=== PATIENT | female | born 1960 | race Caucasian/White ===

== ENCOUNTER 2017-12-03 08:36 | Inpatient (IN) ==
[2017-12-03] MEDS ORDERED: Folic Acid Inj 1 MG/0.2 ML VIAL IV.SIG ONE (08:58)
--- NOTE | 2017-12-03 09:22 | ED ---
HPI General Chief complaint: Nausea/Vomiting/Diarrhea Stated complaint: Vomitting Time Seen by Provider: 12/03/17 08:51 Source: patient, RN notes reviewed and old records reviewed Mode of arrival: ambulatory History of Present Illness HPI narrative: The patient is a 57-year-old heavy daily drinker with COPD and liver cirrhosis came in with complaint of vomiting and diarrhea for the past 2 days. Patient reports blood on both the emesis and diarrhea. She had 7 beers prior to arrival this morning. She lives with her boyfriend. Patient appears disheveled unkempt and chronically ill. Onset (ago): day(s) (2) Pain Consistency: intermittent Associated symptoms: malaise, nausea/vomiting, shortness of breath and weakness Related Data Home Medications Medication Instructions Recorded Confirmed No Known Home Medications 12/03/17 12/03/17 Allergies Allergy/AdvReac Type Severity Reaction Status Date / Time No Known Allergies Allergy Unverified 12/03/17 09:48 Review of Systems ROS Unobtainable All other systems reviewed negative except as stated in HPI Constitutional Reports fatigue, Reports malaise, Reports poor appetite and Reports weakness ENT Reports dry mouth and Reports disequilibrium Cardiovascular Denies chest pain, Reports rapid heart rate, Denies irregular heart rhythm, Reports leg ulcers (And contusions) and Reports leg edema Respiratory Denies chest congestion, Denies pain on inspiration, Denies dyspnea and Reports wheezing Gastrointestinal Reports hematochezia, Reports coffee ground emesis, Reports diarrhea, Reports nausea and Reports hematemesis Integumentary/Breasts Reports rash Comments: BRUISES Neurologic Denies dizziness, Denies tingling and Denies tremor(s) Psychiatric Reports system reviewed and no additional complaints, except as docu ON LICENSE OF [facility] Medical History Medical History Asthma (Acute) Cirrhosis (Acute) Hypertension (Acute) Surgical History Surgical History History of appendectomy (Acute) Social History Social History Substance History: Active Abuse Second Hand Smoke Exposure: Yes Smoking Status: Current every day smoker Tobacco Type: Cigarettes How Often Do You Have a Drink Containing Alcohol: 4 or more times a week Recent Out of Country Travel within the Last 8 Weeks: No Substance Abuse Detail Marijuana: Substance Use Status: Active Route Used Substance Abuse: Inhalation Immunization History Tetanus Immunization: <5 Years Exam Const General: No well groomed, disheveled, ill appearing and intoxicated appearing Nutritional Appearance: cachectic and edematous Orientation: alert, awake and oriented x3 HENMT Other: Jaundiced dry mucous membranes no dry blood in the posterior oropharynx Eyes Pupils: PERRL and accommodation normal EOM: EOM intact bilaterally Other: Scleral icterus Resp Effort & Inspection: normal respiratory effort, able to speak in complete sentences and audible wheezes Cardio Palpation: normal PMI Rate: tachycardic Rhythm: regular rhythm GI Inspection: normal to inspection, no abdominal wall ecchymosis, incision (Right lower quadrant) and striae Palpation: soft, hepatomegaly and nontender Percussion: normal to percussion Other: External hemorrhoid nonthrombosed nonbleeding visible blood expressed from rectum External Female Exam: external appearance normal Skin Other: Patient with multiple areas of ecchymosis bruises severe onychomycosis. Feces dried up on her lower legs. Neuro General: alert, awake and oriented x3 Cranial Nerves: CN's II-XI intact bilaterally Speech: speech normal Sensory Exam: no sensory deficits noted DTR's: Rt Patellar: 0 and Lt Patellar: 0 Course Hospital Course: Elderly hemorrhagic shock with a hemoglobin of 7.6. She was given octreotide 50 mg micrograms IV push Protonix bolus. She she has chronic liver cirrhosis and drinks an excessive amount of beer daily. Patient complaint of pain however because of her blood pressure being low we did not give her any narcotics. Initial Documented Vital Signs Temperature 98.5 F 12/03/17 08:44 Pulse Rate 115 H 12/03/17 08:44 Respiratory Rate 20 12/03/17 08:44 Blood Pressure 111/68 12/03/17 08:44 Last Documented Vital Signs Temperature 98.6 F 12/03/17 13:53 Pulse Rate 92 H 12/03/17 17:04 Respiratory Rate 18 12/03/17 17:04 Blood Pressure 121/70 12/03/17 17:04 Pulse Oximetry 100 12/03/17 17:04 Critical Care Time Critical Care Time: Yes Total Critical Care Time: 30 Attestation: Aggregate critical care time was 30 minutes. Time to perform other separately billable procedures was not included in the critical care time. My time did not include minutes spent treating any other patients simultaneously or on activities that did not directly contribute to the patient's treatment. The services I provided to this patient were to treat and/or prevent clinically significant deterioration that could result in: hemorrhagic shock I provided critical care services requiring my management, as noted below: Chart data review, documentation time, medication orders and management, vital sign assessments/reviewing monitor data, ordering and reviewing lab tests, ordering and interpreting/reviewing x-rays and diagnostic studies, care of the patient and discussion of the patient with the admitting physicians. Medical Decision Making MDM Narrative Medical decision making narrative: Patient with hemorrhagic shock secondary to GI bleed from likely internal hemorrhoids as well as the fact that she is a chronic alcoholic. She did report hematemesis she did not have any in the emergency department. Lab Data Result diagrams: 12/03/17 18:30 12/03/17 09:15 Lab Results 12/03/17 12/03/17 12/03/17 Range/Units 09:15 09:15 09:15 WBC 6.5 (4.0-11.0) th/mm3 RBC 2.05 L (4.00-5.30) mil/mm3 Hgb 7.6 L (11.6-15.3) gm/dL Hct 22.7 L (35.0-46.0) % MCV 110.8 H (80.0-100.0) fL MCH 36.9 H (27.0-34.0) pg MCHC 33.3 (32.0-36.0) % RDW 16.4 (11.6-17.2) % Plt Count 288 (150-450) th/mm3 MPV 7.7 (7.0-11.0) fL Neut % (Auto) 67.6 (16.0-70.0) % Lymph % (Auto) 24.8 (9.0-44.0) % Houghton % (Auto) 5.3 (0.0-8.0) % Eos % (Auto) 0.8 (0.0-4.0) % Baso % (Auto) 1.5 (0.0-2.0) % Neut # (Auto) 4.4 (1.8-7.7) th/mm3 Lymph # (Auto) 1.6 (1.0-4.8) th/mm3 [place]oughton # (Auto) 0.3 (0.0-0.9) th/mm3 Eos # (Auto) 0.1 (0.0-0.4) th/mm3 Baso # (Auto) 0.1 (0.0-0.2) th/mm3 WBC Differential . Differential Comment Auto diff final PT 11.5 (9.8-11.6) sec INR 1.1 Ratio APTT 22.5 L (24.3-30.1) sec Sodium 132 L (136-145) meq/L Potassium 3.2 L (3.5-5.1) meq/L Chloride 102 (98-107) meq/L Carbon Dioxide 17.1 L (21.0-32.0) meq/L Anion Gap 13 (5-15) meq/L BUN 4 L (7-18) mg/dL Creatinine 0.80 (0.50-1.00) mg/dL Estimated GFR 74 L (>89) mL/min Random Glucose 169 H (74-106) mg/dL Calcium 8.1 L (8.5-10.1) mg/dL Magnesium 1.9 (1.5-2.5) mg/dL Total Bilirubin 0.3 (0.2-1.0) mg/dL AST 25 (15-37) U/L ALT 15 (10-53) U/L Alkaline Phosphatase 78 (45-117) U/L Ammonia (11-32) mcmol/L Total Protein 5.3 L (6.4-8.2) g/dL Albumin 2.2 L (3.4-5.0) g/dL Serum Alcohol Less than 3 (0-5) mg/dL Blood Type Blood Type Recheck Antibody Screen MTS Gel Crossmatch 12/03/17 12/03/17 12/03/17 Range/Units 09:15 09:15 12:02 WBC (4.0-11.0) th/mm3 RBC (4.00-5.30) mil/mm3 Hgb (11.6-15.3) gm/dL Hct (35.0-46.0) % MCV (80.0-100.0) fL MCH (27.0-34.0) pg MCHC (32.0-36.0) % RDW (11.6-17.2) % Plt Count (150-450) th/mm3 MPV (7.0-11.0) fL Neut % (Auto) (16.0-70.0) % Lymph % (Auto) (9.0-44.0) % Houghton % (Auto) (0.0-8.0) % Eos % (Auto) (0.0-4.0) % Baso % (Auto) (0.0-2.0) % Neut # (Auto) (1.8-7.7) th/mm3 Lymph # (Auto) (1.0-4.8) th/mm3 Houghton # (Auto) (0.0-0.9) th/mm3 Eos # (Auto) (0.0-0.4) th/mm3 Baso # (Auto) (0.0-0.2) th/mm3 WBC Differential Differential Comment PT (9.8-11.6) sec INR Ratio APTT (24.3-30.1) sec Sodium (136-145) meq/L Potassium (3.5-5.1) meq/L Chloride (98-107) meq/L Carbon Dioxide (21.0-32.0) meq/L Anion Gap (5-15) meq/L BUN (7-18) mg/dL Creatinine (0.50-1.00) mg/dL Estimated GFR (>89) mL/min Random Glucose (74-106) mg/dL Calcium (8.5-10.1) mg/dL Magnesium (1.5-2.5) mg/dL Total Bilirubin (0.2-1.0) mg/dL AST (15-37) U/L ALT (10-53) U/L Alkaline Phosphatase (45-117) U/L Ammonia 22 (11-32) mcmol/L Total Protein (6.4-8.2) g/dL Albumin (3.4-5.0) g/dL Serum Alcohol (0-5) mg/dL Blood Type A Positive Blood Type Recheck Required Antibody Screen Negative MTS Gel Crossmatch See Detail 12/03/17 12/03/17 Range/Units 15:58 18:30 WBC (4.0-11.0) th/mm3 RBC (4.00-5.30) mil/mm3 Hgb 8.3 L (11.6-15.3) gm/dL Hct (35.0-46.0) % MCV (80.0-100.0) fL MCH (27.0-34.0) pg MCHC (32.0-36.0) % RDW (11.6-17.2) % Plt Count (150-450) th/mm3 MPV (7.0-11.0) fL Neut % (Auto) (16.0-70.0) % Lymph % (Auto) (9.0-44.0) % Houghton % (Auto) (0.0-8.0) % Eos % (Auto) (0.0-4.0) % Baso % (Auto) (0.0-2.0) % Neut # (Auto) (1.8-7.7) th/mm3 Lymph # (Auto) (1.0-4.8) th/mm3 [place]oughton # (Auto) (0.0-0.9) th/mm3 Eos # (Auto) (0.0-0.4) th/mm3 Baso # (Auto) (0.0-0.2) th/mm3 WBC Differential Differential Comment PT (9.8-11.6) sec INR Ratio APTT (24.3-30.1) sec Sodium (136-145) meq/L Potassium (3.5-5.1) meq/L Chloride (98-107) meq/L Carbon Dioxide (21.0-32.0) meq/L Anion Gap (5-15) meq/L BUN (7-18) mg/dL Creatinine (0.50-1.00) mg/dL Estimated GFR (>89) mL/min Random Glucose (74-106) mg/dL Calcium (8.5-10.1) mg/dL Magnesium (1.5-2.5) mg/dL Total Bilirubin (0.2-1.0) mg/dL AST (15-37) U/L ALT (10-53) U/L Alkaline Phosphatase (45-117) U/L Ammonia (11-32) mcmol/L Total Protein (6.4-8.2) g/dL Albumin (3.4-5.0) g/dL Serum Alcohol (0-5) mg/dL Blood Type Blood Type Recheck Antibody Screen MTS Gel Crossmatch See Detail Imaging Data Radiologist's impression: Abdomen X-Ray 12/03/17 08:58 CONCLUSION: Nonspecific bowel gas . Chest X-Ray 12/03/17 08:58 CONCLUSION: No acute cardiopulmonary disease. Discharge Plan Discharge Disposition Patient Disposition: 30 Still Patient Discharge Condition Condition: Critical Discharge Details Diagnosis: Hemorrhagic shock Physicians Team ED Provider: Jas Souza Primary Care Provider: Primary Care Connie Billy Attending Provider: Favian Wylie Other Providers: Anthony Damian Discharge Interventions Interventions: ED Discharge Assessment Last Done: 12/03/17 18:00 Status ED Status: Left Department Discharge Information Discharge Date/Time: 12/03/17 18:01
[2017-12-03] MEDS ORDERED: Octreotide Inj 50 MCG/ML Vial IV.PUSH ONE (09:27)
--- NOTE | 2017-12-03 09:39 | XR ---
EXAM DATE: 12/03/2017 9:35 AM EDT AGE/SEX: 57 years / Female INDICATIONS: Vomiting blood and blood in stool. Possible GI bleed. CLINICAL DATA: This is the patient's initial encounter. Patient reports that signs and symptoms have been present for 3 days and indicates a pain score of 8/10. MEDICAL/SURGICAL HISTORY: None. None. [place] [facility] [place]. . FINDINGS: The lungs are clear without infiltrate, nodule, or mass. There is no appreciable pleural effusion for technique. Heart and mediastinum are unremarkable. CONCLUSION: No acute cardiopulmonary disease. Electronically signed by: Shi Sotelo MD 12/03/2017 9:37 AM EDT
[2017-12-03 09:42] LABS: Baso # (Auto) 0.1 th/mm3 (0.0-0.2); Baso % (Auto) 1.5 % (0.0-2.0); Eos # (Auto) 0.1 th/mm3 (0.0-0.4); Eos % (Auto) 0.8 % (0.0-4.0); Hematocrit 22.7 % (35.0-46.0); Hemoglobin 7.6 gm/dL (11.6-15.3); Lymph # (Auto) 1.6 th/mm3 (1.0-4.8); Lymph % (Auto) 24.8 % (9.0-44.0); Mean Corpuscular HGB Conc 33.3 % (32.0-36.0); Mean Corpuscular Hemoglobin 36.9 pg (27.0-34.0); Mean Corpuscular Volume 110.8 fL (80.0-100.0); Mean Platelet Volume 7.7 fL (7.0-11.0); Mono # (Auto) 0.3 th/mm3 (0.0-0.9); Mono % (Auto) 5.3 % (0.0-8.0); Neut # (Auto) 4.4 th/mm3 (1.8-7.7); Neut % (Auto) 67.6 % (16.0-70.0); Platelet Count 288 th/mm3 (150-450); Red Blood Count 2.05 mil/mm3 (4.00-5.30); Red Cell Distribution Width 16.4 % (11.6-17.2); White Blood Count 6.5 th/mm3 (4.0-11.0)
[2017-12-03 09:46] LABS: Activated Partial Thrombo Time 22.5 sec (24.3-30.1); INR 1.1 Ratio; Prothrombin Time 11.5 sec (9.8-11.6)
--- NOTE | 2017-12-03 09:48 | XR ---
EXAM DATE: 12/03/2017 9:37 AM EDT AGE/SEX: 57 years / Female INDICATIONS: Vomiting blood and blood in stool. Possible GI bleed. CLINICAL DATA: This is the patient's initial encounter. Patient reports that signs and symptoms have been present for 3 days and indicates a pain score of 8/10. MEDICAL/SURGICAL HISTORY: None. None. COMPARISON: No prior exams available for comparison. FINDINGS: The bowel gas is nonspecific. There are no signs of obstruction or free air for technique. No definite calcified stones are identified for technique. Degenerative arthritis is seen in the le ft hip joint to a moderate degree. There is osteopenia. CONCLUSION: Nonspecific bowel gas . Electronically signed by: Shi Sotelo MD 12/03/2017 9:47 AM EDT
[2017-12-03 09:52] LABS: Alanine Aminotransferase 15 U/L (10-53); Albumin 2.2 g/dL (3.4-5.0); Anion Gap 13 meq/L (5-15); Aspartate Aminotransferase 25 U/L (15-37); Blood Urea Nitrogen 4 mg/dL (7-18); Calcium 8.1 mg/dL (8.5-10.1); Carbon Dioxide 17.1 meq/L (21.0-32.0); Chloride 102 meq/L (98-107); Glomerular Filtration Rate 74 mL/min (>89); Glucose,Random 169 mg/dL (74-106); Magnesium 1.9 mg/dL (1.5-2.5); Potassium 3.2 meq/L (3.5-5.1); Sodium 132 meq/L (136-145)
[2017-12-03 09:55] LABS: Alkaline Phosphatase 78 U/L (45-117); Total Protein 5.3 g/dL (6.4-8.2)
[2017-12-03] MEDS ORDERED: SODIUM CHLOR 0.9% IV.SIG ONE (10:00)
[2017-12-03] MEDS ORDERED: FOLIC ACID IV.SIG ONE (10:00)
[2017-12-03] MEDS ORDERED: Sodium Chlor 0.9% Inj 250 ML IV.SIG SCH ×2 (12:00→13:00)
[2017-12-03] MEDS ORDERED: Acetaminophen 500 MG Tablet PO ONE (12:13)
[2017-12-03] MEDS ORDERED: Haloperidol Inj 5 MG/ML Ampul IV.PUSH PRN (13:30)
[2017-12-03] MEDS ORDERED: Potassium Chlor 20 mEq Premix 20 MEQ/100 ML PIGGYBACK IV.SIG PRN (13:39)
[2017-12-03] MEDS ORDERED: Potassium Phosphate Inj 30 MMOL in Sodium Chlor 0.9% Inj 250 ML IV.SIG PRN (13:39)
[2017-12-03] MEDS ORDERED: Sodium Phosphate Inj 30 MMOL in Sodium Chlor 0.9% Inj 250 ML IV.SIG PRN (13:39)
[2017-12-03] MEDS ORDERED: Potassium Phosphate 500 MG Soluble Tablet PO PRN (13:39)
[2017-12-03] MEDS ORDERED: Potassium Chlor 40 mEq Premix 40 MEQ/100 ML PIGGYBACK IV.SIG PRN (13:39)
[2017-12-03] MEDS ORDERED: Magnesium Sulfate Inj 4 GM in Sodium Chlor 0.9% Inj 92 ML IV.SIG PRN (13:39)
[2017-12-03] MEDS ORDERED: Magnesium Oxide 400 MG Tablet PO PRN (13:39)
[2017-12-03] MEDS ORDERED: Magnesium Sulfate Inj 2 GM in Sodium Chlor 0.9% Inj 96 ML IV.SIG PRN (13:39)
--- NOTE | 2017-12-03 15:51 | P.HPCC ---
History of Present Illness Primary Care Physician: No Primary Care Physician Chief Complaint: Hematemesis, hematochezia History of Present Illness: The patient is a 57-year-old female with history of severe alcohol dependence drinking about 20-24 beers daily, alcoholic liver cirrhosis, COPD who presented with complaints of vomiting and diarrhea since last 2 days. Intermittently she had been having hematemesis which she quantifies as approximately a pint. She also noticed fresh blood per rectum. She is a very poor historian and she is unable to tell me when or whether she had any endoscopies before. She admits to having diagnosis of liver cirrhosis. She also admits to drinking about 20-24 to beers daily. ER workup initially patient had a heart rate of 115, indicating early hemorrhagic shock. Hemoglobin was 7.6. Patient was given 1 unit of PRBC and critical care was requested for admission. Patient also received octreotide 50 mcg IV push, Protonix 80 mg bolus and infusion was started at 8 mg/h. GI consult also requested I evaluated the patient in the ED. She complains of abdominal pain appears disheveled critically ill, pale. Remains tachycardic getting first unit of blood transfusion. Will request additional 1 unit PRBC. Rocephin had been added for SBP prophylaxis. I will also start octreotide infusion. - Diagnosis (1) UGIB (upper gastrointestinal bleed) (2) Anemia requiring transfusions (3) Hypokalemia (4) Hyponatremia (5) Alcohol dependence (6) Liver cirrhosis (7) COPD (chronic obstructive pulmonary disease) Inpatient Certification: I certify that the inpatient services were ordered in accordance with Medicare regulations governing the order. This includes certification that hospital inpatient services are reasonable and necessary and in the case of services not specified as inpatient-only under 42 CFR 419.22(n), that they are appropriately provided as inpatient services in accordance to with the 2-midnight benchmark under 43 CFR 412.3(e) Estimated Total Length of Stay (Days): 2 Plans for Post Hospital Care: Home Review of Systems All other systems reviewed negative except as stated in HPI PMFSH - History History Provided By: Patient - Medical History Medical History: Medical History (Last Updated 12/03/17 @ 15:58 by Laurie Fisher MD) Cirrhosis - Surgical History Surgical History: Surgical History (Last Updated 12/03/17 @ 15:56 by Laurie Fisher MD) History of appendectomy - Tobacco History Tobacco Use In Past 30 Days: Yes Smoking Status: Current every day smoker Tobacco Type: Cigarettes - Alcohol History How Often Do You Have a Drink Containing Alcohol: 4 or more times a week - Substance Use History Substance History: Active Abuse - Substance Use Type Marijuana Status: Active Route Used: Inhalation - Travel History Recent Travel Out of the Country Within the Last 8 Weeks: No - Immunization History Tetanus Immunization: <5 Years Medications and Allergies Active Medications: Active Medications Albuterol (Duoneb Neb (Prn)) 1 ampul NEB Q2HR NEB PRN PRN Reason: WHEEZING Chlorhexidine Gluconate (Chlorhexidine 2% Cloth) 3 pack TOPICAL DAILY@0400 NILA Stop: 12/09/17 03:59 Chlorhexidine Gluconate (Chlorhexidine 2% Cloth) 3 pack TOPICAL DAILY@0400 PRN PRN Reason: Extra cloth needed Stop: 12/09/17 03:59 Flumazenil (Romazecon Inj) 0.2 mg IV.PUSH Q1M PRN PRN Reason: OVERSEDATION Haloperidol Lactate (Haldol Inj) 1 mg IV.PUSH Q15M PRN PRN Reason: for severe agitation Sodium Chloride (Ns Inj) 250 mls @ 15 mls/hr IV.SIG ONCE NILA Stop: 12/04/17 04:39 Sodium Chloride (Ns Inj) 250 mls @ 15 mls/hr IV.SIG ONCE NILA Stop: 12/04/17 05:39 Sodium Chloride (Ns Inj) 1,000 mls @ 84 mls/hr IV.CONT .[id number] NILA Pantoprazole Sodium 80 mg/ (Sodium Chloride) 100 mls @ 10 mls/hr IV.CONT CONT NILA Ceftriaxone Sodium 1,000 mg/ (Sodium Chloride) 100 mls @ 200 mls/hr IV.SIG Q24H NILA Magnesium Sulfate Inj 4 gm/ (Sodium Chloride) 100 mls @ 50 mls/hr IV.SIG UNSCH PRN PRN Reason: For Magnesium 0.9 - 1.1 mg/dL Magnesium Sulfate Inj 2 gm/ (Sodium Chloride) 100 mls @ 50 mls/hr IV.SIG UNSCH PRN PRN Reason: For Magnesium 1.2 - 1.6 mg/dL Potassium Chloride (Kcl 40 Meq Premix Inj) 40 meq in 100 mls @ 50 mls/hr IV.SIG Q2H PRN PRN Reason: For Potassium 2.8 - 3.2 mEq/L Potassium Chloride (Kcl 20 Meq Premix Inj) 20 meq in 100 mls @ 50 mls/hr IV.SIG Q2H PRN PRN Reason: For Potassium 3.3 - 3.5 mEq/L Potassium Chloride (Kcl 40 Meq Premix Inj) 40 meq in 100 mls @ 25 mls/hr IV.SIG UNSCH PRN PRN Reason: For Potassium 3.3 - 3.5 mEq/L Potassium Chloride (Kcl 20 Meq Premix Inj) 20 meq in 100 mls @ 50 mls/hr IV.SIG Q2H PRN PRN Reason: For Potassium 2.8 - 3.2 mEq/L Potassium Phosphate 30 mmol/ (Sodium Chloride) 260 mls @ 42 mls/hr IV.SIG UNSCH PRN PRN Reason: SEE LABEL COMMENTS Sodium Phosphate 30 mmol/ (Sodium Chloride) 260 mls @ 42 mls/hr IV.SIG UNSCH PRN PRN Reason: For Phosphorus < 2.5 mg/dL Octreotide Acetate 500 mcg/ (Sodium Chloride) 500.5 mls @ 25.02 mls/hr IV.CONT .Q20H1M NILA Multivitamins 10 ml/ Thiamine HCl 100 mg/ Folic Acid 1 mg/Sodium Chloride 511.2 mls @ 125 mls/hr IV.SIG Q24H NILA Stop: 12/05/17 20:06 Lorazepam (Ativan) 1 mg PO Q4H PRN PRN Reason: for CIWA 8-10 Lorazepam (Ativan) 2 mg PO Q2H PRN PRN Reason: for CIWA 11-14 Lorazepam (Ativan Inj) 2 mg IV.PUSH Q2H PRN PRN Reason: for CIWA 11-14 Lorazepam (Ativan Inj) 2 mg IV.PUSH Q1H PRN PRN Reason: for CIWA 15-20 Lorazepam (Ativan Inj) 2 mg IV.PUSH Q15M PRN PRN Reason: for CIWA > 20 Lorazepam (Ativan Inj) 1 mg IV.PUSH Q4H PRN PRN Reason: for CIWA 8-10 Magnesium Oxide (Mag-Ox) 800 mg PO UNSCH PRN PRN Reason: For Magnesium 1.2 - 1.6 mg/dL Morphine Sulfate (Morphine Inj) 2 mg IV.PUSH Q2H PRN PRN Reason: PAIN SCALE 6 TO 10 Ondansetron HCl (Zofran Odt) 4 mg PO Q6H PRN PRN Reason: NAUSEA OR VOMITING Potassium Bicarb/Potassium Chloride (K-Lyte Cl Eff) 50 meq PO UNSCH PRN PRN Reason: For Potassium 3.3 - 3.5 mEq/L Potassium Phosphate (K-Phos Original) 2,000 mg PO Q4H PRN PRN Reason: Phosphorus Less Than 2.5 mg/dL Potassium Phosphate (K-Phos Original) 2,000 mg PO UNSCH PRN PRN Reason: SEE LABEL COMMENTS Sodium Chloride (Ns Flush) 2 ml IV.FLUSH BID NILA Sodium Chloride (Ns Flush) 2 ml IV.FLUSH UNSCH PRN PRN Reason: FLUSH AFTER USING IV ACCESS Allergies Allergy/AdvReac Type Severity Reaction Status Date / Time No Known Allergies Allergy Unverified 12/03/17 09:48 Home Medications Medication Instructions Recorded Confirmed Type No Known Home Medications 12/03/17 12/03/17 History Results - Labs CBC & Chem 7: 12/03/17 09:15 12/03/17 09:15 Labs: Short CBC 12/03/17 Range/Units 09:15 WBC 6.5 (4.0-11.0) th/mm3 Hgb 7.6 L (11.6-15.3) gm/dL Hct 22.7 L (35.0-46.0) % Plt Count 288 (150-450) th/mm3 BMP 12/03/17 09:15 Sodium 132 L Potassium 3.2 L Chloride 102 Carbon Dioxide 17.1 L BUN 4 L Creatinine 0.80 Calcium 8.1 L Liver Function 12/03/17 Range/Units 09:15 Total Bilirubin 0.3 (0.2-1.0) mg/dL AST 25 (15-37) U/L ALT 15 (10-53) U/L Alkaline Phosphatase 78 (45-117) U/L Albumin 2.2 L (3.4-5.0) g/dL - Imaging Impressions Abdomen X-Ray 12/03/17 08:58 CONCLUSION: Nonspecific bowel gas . Chest X-Ray 12/03/17 08:58 CONCLUSION: No acute cardiopulmonary disease. Exam Vital signs: Vital Signs 12/03/17 08:44 12/03/17 10:29 12/03/17 11:21 Temperature 98.5 F 98.4 F Pulse Rate 115 H 108 H 112 H Respiratory Rate 20 18 16 Blood Pressure 111/68 124/70 95/62 L Pulse Oximetry 95 12/03/17 12:42 12/03/17 12:54 12/03/17 13:10 Temperature 97.6 F 98.2 F 98 F Pulse Rate 107 H 99 H 100 H Respiratory Rate 16 18 18 Blood Pressure 102/66 118/64 108/62 Pulse Oximetry 100 100 100 12/03/17 13:26 12/03/17 13:53 12/03/17 14:27 Temperature 98.5 F 98.6 F Pulse Rate 98 H 100 H 101 H Respiratory Rate 18 18 18 Blood Pressure 119/58 L 100/59 L 115/59 L Pulse Oximetry 100 Intake & Output 12/02/17 12/03/17 12/03/17 18:59 06:59 18:59 Intake Total 0 / 0 Balance 0 / 0 Intake: Intake (Blood Product) Amt 0 / 0 Rbc As-3 Leukoreduced Unit 0 / 0 [id number] Narrative: General: Critically ill disheveled lady who appears pale HEENT: PERRL and EOM intact bilaterally. Conjunctiva pale NECK: Supple. LUNGS: Bilateral coarse breath sounds, no crackles or wheezes HEART: S1 and S2 normal, tachycardic, systolic murmur left sternal border ABDOMEN: Soft. No hepatosplenomegaly EXTREMITIES: No pedal edema. NEUROLOGIC: Patient is alert awake oriented. She is a poor historian but there is no focal neurological deficits. Septic Shock Reassessment Septic shock perfusion: reassessment completed Caprini VTE Risk Assessment Caprini VTE Risk Assessment: Moderate/High Risk (score >= 2) Caprini Risk Assessment Model: Point Value = 1 Point Value = 2 Point Value = 3 Point Value = 5 Age 41-60 Minor surgery BMI > 25 kg/m2 Swollen legs Varicose veins or History of unexplained or recurrent spontaneous Oral contraceptives or hormone replacement Sepsis (< 1 month) Serious lung disease, including pneumonia (< 1 month) Abnormal pulmonary function Acute myocardial infarction Congestive heart failure (< 1 month) History of inflammatory bowel disease Medical patient at bed rest Age 61-74 Arthroscopic surgery Major open surgery (> 45 min) Laparoscopic surgery (> 45 min) Malignancy Confined to bed (> 72 hours) Immobilizing plaster cast Central venous access Age >= 75 History of VTE Family history of VTE Factor V Leiden Prothrombin [id number] Lupus anticoagulant Anticardiolipin antibodies Elevated serum homocysteine Heparin-induced thrombocytopenia Other congenital or acquired thrombophilia Stroke (< 1 month) Elective arthroplasty Hip, pelvis, or leg fracture Acute spinal cord injury (< 1 month) Prophylaxis Regimen: Total Risk Factor Score Risk Level Prophylaxis Regimen 0-1 Low Early ambulation 2 Moderate Order ONE of the following: *Sequential Compression Device (SCD) *Heparin 5000 units SQ BID 3-4 Higher Order ONE of the following medications: *Heparin 5000 units SQ TID *Enoxaparin/Lovenox 40 mg SQ daily (WT < 150 kg, CrCl > 30 mL/min) *Enoxaparin/Lovenox 30 mg SQ daily (WT < 150 kg, CrCl > 10-29 mL/min) *Enoxaparin/Lovenox 30 mg SQ BID (WT < 150 kg, CrCl > 30 mL/min) AND/OR *Sequential Compression Device (SCD) 5 or more Highest Order ONE of the following medications: *Heparin 5000 units SQ TID (Preferred with Epidurals) *Enoxaparin/Lovenox 40 mg SQ daily (WT < 150 kg, CrCl > 30 mL/min) *Enoxaparin/Lovenox 30 mg SQ daily (WT < 150 kg, CrCl > 10-29 mL/min) *Enoxaparin/Lovenox 30 mg SQ BID (WT < 150 kg, CrCl > 30 mL/min) AND *Sequential Compression Device (SCD) Assessment and Plan - Problem List (1) UGIB (upper gastrointestinal bleed) Code(s): K92.2 - Gastrointestinal hemorrhage, unspecified Status: Acute (2) Anemia requiring transfusions Code(s): D64.9 - Anemia, unspecified Status: Acute (3) Hypokalemia Code(s): E87.6 - Hypokalemia Status: Acute (4) Hyponatremia Code(s): E87.1 - Hypo-osmolality and hyponatremia Status: Acute (5) Alcohol dependence Code(s): F10.20 - Alcohol dependence, uncomplicated Status: Chronic (6) Liver cirrhosis Code(s): K74.60 - Unspecified cirrhosis of liver Status: Chronic (7) COPD (chronic obstructive pulmonary disease) Code(s): J44.9 - Chronic obstructive pulmonary disease, unspecified Status: Chronic - Assessment and Plan Plan: NEURO: Alcohol dependence -Watch closely for alcohol withdrawal -Seizure precautions -[facility] protocol -Supplement multivitamin thiamine RESP: History of COPD -DuoNeb every 6 hours as needed -Aggressive pulmonary toilet CV: Tachycardia secondary to early shock -Normal saline IV fluids bolus and maintenance at 84 mL/h -Monitor vitals closely GI/HEME: Upper and lower GI bleed Anemia requiring transfusion -N.p.o., Protonix 80 mg IV bolus and 8 mg/h -Rocephin for SBP prophylaxis -Octreotide 50 mcg IV 50 mcg/h infusion -GI consult placed -Transfuse PRBC to keep hemoglobin more than 8, at this time give 2 units -Monitor H&H and coags closely : -Monitor renal function closely. ID: -Rocephin for SBP prophylaxis ENDO: Hypokalemia Hyponatremia Hyperglycemia -Electrolyte replacement per protocol -Sliding scale insulin PROPH: -Bilateral lower extremity SCDs. Protonix infusion. Chemical DVT prophylaxis contraindicated LINES: -Utilize peripheral IVs, central line if needed CC time 35 min Code Status: Full
[2017-12-03] MEDS ORDERED: Multivitamin Inj 10 ML, Thiamine Inj 100 MG, Folic Acid Inj 1 MG in Sodium Chlor 0.9% I... IV.SIG SCH ×2 (16:00→18:00)
[2017-12-03] MEDS ORDERED: Octreotide Inj 500 MCG in Sodium Chlor 0.9% Inj 500 ML IV.CONT SCH (16:00)
[2017-12-03] MEDS: Sod Chloride 0.9% Inj 1,000 ML IV.CONT SCH (16:41)
--- NOTE | 2017-12-03 17:35 | P.CONGI ---
History of Present Illness Consult date: 12/03/17 Consult reason: Possible upper GI bleed in alcoholic patient Chief complaint: GI Bleed, Hemorrhagic Shock History of Present Illness: This is a ready borderline frail 57-year-old female with a long history of alcohol abuse since her teen years. She came into the hospital with generalized weakness and fatigue as well as hematemesis 1 event in the past 24 hours and 1 event of maroon-colored rectal bleeding in the past 24-48 hours. Patient denies any previous events of hematemesis , but patient does state history of hemorrhoids. She currently denies any straining with defecation. Patient is awake and attempting to answer some simple questions but is a poor historian on any previous GI procedures and timing of situation. Gastroenterology was consulted to assist in her care for possible upper GI bleed in the alcoholic patient. Other current symptoms include epigastric tenderness to light palpation, dull generalized abdominal pain worse in the right upper quadrant in the mid abdomen unrelated to eating. Patient states that she was really drunk and fell on the driveway 2-3 days ago. She states her abdominal pain and generalized muscle skeletal pain has worsened over the past 2-3 days. Aggregating factors include 20-24 beers a day. Patient does note she quit drinking liquor approximately 1 year ago. Patient does smoke since her early teen years and states she is starting to have cravings. According to the record patient has history of liver cirrhosis but currently has normal bilirubin at 0.3, and normal LFT levels, 25 AST 13 ALT. abdominal x- rays unremarkable without obstruction. Labs currently show hemoglobin 7.6, WBC count 6.5, PT/INR 1.1. Patient also notes generalized weakness and fatigue and no syncopal episodes. Patient denies any family history known to her of colon cancer. Review of Systems All other systems reviewed negative except as stated in HPI PMFSH - History History Provided By: Patient - Medical History Medical History: Medical History (Last Updated 12/03/17 @ 15:58 by Laurie Fisher MD) Cirrhosis - Surgical History Surgical History: Surgical History (Last Updated 12/03/17 @ 15:56 by Laurie Fisher MD) History of appendectomy - Tobacco History Tobacco Use In Past 30 Days: Yes Smoking Status: Current every day smoker Tobacco Type: Cigarettes - Alcohol History How Often Do You Have a Drink Containing Alcohol: 4 or more times a week - Substance Use History Substance History: Active Abuse - Substance Use Type Marijuana Status: Active Route Used: Inhalation - Travel History Recent Travel Out of the Country Within the Last 8 Weeks: No - Immunization History Tetanus Immunization: <5 Years Medications and Allergies Active Medications: Active Medications Albuterol (Duoneb Neb (Prn)) 1 ampul NEB Q2HR NEB PRN PRN Reason: WHEEZING Chlorhexidine Gluconate (Chlorhexidine 2% Cloth) 3 pack TOPICAL DAILY@0400 NILA Stop: 12/09/17 03:59 Chlorhexidine Gluconate (Chlorhexidine 2% Cloth) 3 pack TOPICAL DAILY@0400 PRN PRN Reason: Extra cloth needed Stop: 12/09/17 03:59 Flumazenil (Romazecon Inj) 0.2 mg IV.PUSH Q1M PRN PRN Reason: OVERSEDATION Haloperidol Lactate (Haldol Inj) 1 mg IV.PUSH Q15M PRN PRN Reason: for severe agitation Sodium Chloride (Ns Inj) 250 mls @ 15 mls/hr IV.SIG ONCE NILA Stop: 12/04/17 04:39 Last Admin: 12/03/17 16:20 Dose: Not Given Sodium Chloride (Ns Inj) 250 mls @ 15 mls/hr IV.SIG ONCE NILA Stop: 12/04/17 05:39 Last Admin: 12/03/17 16:20 Dose: Not Given Sodium Chloride (Ns Inj) 1,000 mls @ 84 mls/hr IV.CONT .[id number] [facility] Last Admin: 12/03/17 16:41 Dose: 84 mls/hr Pantoprazole Sodium 80 mg/ (Sodium Chloride) 100 mls @ 10 mls/hr IV.CONT CONT NILA Ceftriaxone Sodium 1,000 mg/ (Sodium Chloride) 100 mls @ 200 mls/hr IV.SIG Q24H [facility] Last Admin: 12/03/17 16:42 Dose: 200 mls/hr Magnesium Sulfate Inj 4 gm/ (Sodium Chloride) 100 mls @ 50 mls/hr IV.SIG UNSCH PRN PRN Reason: For Magnesium 0.9 - 1.1 mg/dL Magnesium Sulfate Inj 2 gm/ (Sodium Chloride) 100 mls @ 50 mls/hr IV.SIG UNSCH PRN PRN Reason: For Magnesium 1.2 - 1.6 mg/dL Potassium Chloride (Kcl 40 Meq Premix Inj) 40 meq in 100 mls @ 50 mls/hr IV.SIG Q2H PRN PRN Reason: For Potassium 2.8 - 3.2 mEq/L Potassium Chloride (Kcl 20 Meq Premix Inj) 20 meq in 100 mls @ 50 mls/hr IV.SIG Q2H PRN PRN Reason: For Potassium 3.3 - 3.5 mEq/L Potassium Chloride (Kcl 40 Meq Premix Inj) 40 meq in 100 mls @ 25 mls/hr IV.SIG UNSCH PRN PRN Reason: For Potassium 3.3 - 3.5 mEq/L Potassium Chloride (Kcl 20 Meq Premix Inj) 20 meq in 100 mls @ 50 mls/hr IV.SIG Q2H PRN PRN Reason: For Potassium 2.8 - 3.2 mEq/L Potassium Phosphate 30 mmol/ (Sodium Chloride) 260 mls @ 42 mls/hr IV.SIG UNSCH PRN PRN Reason: SEE LABEL COMMENTS Sodium Phosphate 30 mmol/ (Sodium Chloride) 260 mls @ 42 mls/hr IV.SIG UNSCH PRN PRN Reason: For Phosphorus < 2.5 mg/dL Octreotide Acetate 500 mcg/ (Sodium Chloride) 500.5 mls @ 25.02 mls/hr IV.CONT .Q20H1M NILA Multivitamins 10 ml/ Thiamine HCl 100 mg/ Folic Acid 1 mg/Sodium Chloride 511.2 mls @ 125 mls/hr IV.SIG Q24H NILA Stop: 12/05/17 20:06 Lorazepam (Ativan) 1 mg PO Q4H PRN PRN Reason: for CIWA 8-10 Lorazepam (Ativan) 2 mg PO Q2H PRN PRN Reason: for CIWA 11-14 Lorazepam (Ativan Inj) 2 mg IV.PUSH Q2H PRN PRN Reason: for CIWA 11-14 Lorazepam (Ativan Inj) 2 mg IV.PUSH Q1H PRN PRN Reason: for CIWA 15-20 Lorazepam (Ativan Inj) 2 mg IV.PUSH Q15M PRN PRN Reason: for CIWA > 20 Lorazepam (Ativan Inj) 1 mg IV.PUSH Q4H PRN PRN Reason: for CIWA 8-10 Magnesium Oxide (Mag-Ox) 800 mg PO UNSCH PRN PRN Reason: For Magnesium 1.2 - 1.6 mg/dL Morphine Sulfate (Morphine Inj) 2 mg IV.PUSH Q2H PRN PRN Reason: PAIN SCALE 6 TO 10 Ondansetron HCl (Zofran Odt) 4 mg PO Q6H PRN PRN Reason: NAUSEA OR VOMITING Potassium Bicarb/Potassium Chloride (K-Lyte Cl Eff) 50 meq PO UNSCH PRN PRN Reason: For Potassium 3.3 - 3.5 mEq/L Potassium Phosphate (K-Phos Original) 2,000 mg PO Q4H PRN PRN Reason: Phosphorus Less Than 2.5 mg/dL Potassium Phosphate (K-Phos Original) 2,000 mg PO UNSCH PRN PRN Reason: SEE LABEL COMMENTS Sodium Chloride (Ns Flush) 2 ml IV.FLUSH BID NILA Sodium Chloride (Ns Flush) 2 ml IV.FLUSH UNSCH PRN PRN Reason: FLUSH AFTER USING IV ACCESS Allergies Allergy/AdvReac Type Severity Reaction Status Date / Time No Known Allergies Allergy Unverified 12/03/17 09:48 Home Medications Medication Instructions Recorded Confirmed Type No Known Home Medications 12/03/17 12/03/17 History Exam Vital signs: Vital Signs 12/03/17 08:44 12/03/17 10:29 12/03/17 11:21 Temperature 98.5 F 98.4 F Pulse Rate 115 H 108 H 112 H Respiratory Rate 20 18 16 Blood Pressure 111/68 124/70 95/62 L Pulse Oximetry 95 12/03/17 12:42 12/03/17 12:54 12/03/17 13:10 Temperature 97.6 F 98.2 F 98 F Pulse Rate 107 H 99 H 100 H Respiratory Rate 16 18 18 Blood Pressure 102/66 118/64 108/62 Pulse Oximetry 100 100 100 12/03/17 13:26 12/03/17 13:53 12/03/17 14:27 Temperature 98.5 F 98.6 F Pulse Rate 98 H 100 H 101 H Respiratory Rate 18 18 18 Blood Pressure 119/58 L 100/59 L 115/59 L Pulse Oximetry 100 12/03/17 17:04 Temperature Pulse Rate 92 H Respiratory Rate 18 Blood Pressure 121/70 Pulse Oximetry 100 Intake & Output 12/02/17 12/03/17 12/03/17 18:59 06:59 18:59 Intake Total 400 / 400 Balance 400 / 400 Intake: Intake (Blood Product) Amt 400 / 400 Rbc As-3 Leukoreduced Unit 400 / 400 [id number] - Constitutional mild distress, thin, cachectic - Routine HEENT Exam Head: Present: normocephalic ENT: Present: mucous membranes dry - Routine Neck Exam Present: supple - Routine Abdominal Exam Present: soft (Round, tall,), tenderness (Generalized right upper quadrant epigastric and mid abdominal dull ache with some sharp pains off and on unrelated to eating) - Routine Skin Exam Present: dry, petechiae (On extremities) - Routine Neurological Exam Present: altered mental status (Poor historian but is answering some simple yes/ no questions) Results - Labs CBC & Chem 7: 12/03/17 09:15 12/03/17 09:15 Labs: Laboratory Results - last 24 hr 12/03/17 12/03/17 12/03/17 09:15 09:15 09:15 WBC 6.5 RBC 2.05 L Hgb 7.6 L Hct 22.7 L MCV 110.8 H MCH 36.9 H MCHC 33.3 RDW 16.4 Plt Count 288 MPV 7.7 Neut % (Auto) 67.6 Lymph % (Auto) 24.8 Giles % (Auto) 5.3 Eos % (Auto) 0.8 Baso % (Auto) 1.5 Neut # (Auto) 4.4 Lymph # (Auto) 1.6 Giles # (Auto) 0.3 Eos # (Auto) 0.1 Baso # (Auto) 0.1 WBC Differential . Differential Comment Auto diff final PT 11.5 INR 1.1 APTT 22.5 L Sodium 132 L Potassium 3.2 L Chloride 102 Carbon Dioxide 17.1 L Anion Gap 13 BUN 4 L Creatinine 0.80 Estimated GFR 74 L Random Glucose 169 H Calcium 8.1 L Magnesium 1.9 Total Bilirubin 0.3 AST 25 ALT 15 Alkaline Phosphatase 78 Ammonia Total Protein 5.3 L Albumin 2.2 L Serum Alcohol Less than 3 Blood Type Blood Type Recheck Antibody Screen MTS Gel Crossmatch 12/03/17 12/03/17 12/03/17 09:15 09:15 12:02 WBC RBC Hgb Hct MCV MCH MCHC RDW Plt Count MPV Neut % (Auto) Lymph % (Auto) Giles % (Auto) Eos % (Auto) Baso % (Auto) Neut # (Auto) Lymph # (Auto) Giles # (Auto) Eos # (Auto) Baso # (Auto) WBC Differential Differential Comment PT INR APTT Sodium Potassium Chloride Carbon Dioxide Anion Gap BUN Creatinine Estimated GFR Random Glucose Calcium Magnesium Total Bilirubin AST ALT Alkaline Phosphatase Ammonia 22 Total Protein Albumin Serum Alcohol Blood Type A Positive Blood Type Recheck Required Antibody Screen Negative MTS Gel Crossmatch See Detail 12/03/17 15:58 WBC RBC Hgb Hct MCV MCH MCHC RDW Plt Count MPV Neut % (Auto) Lymph % (Auto) Giles % (Auto) Eos % (Auto) Baso % (Auto) Neut # (Auto) Lymph # (Auto) Giles # (Auto) Eos # (Auto) Baso # (Auto) WBC Differential Differential Comment PT INR APTT Sodium Potassium Chloride Carbon Dioxide Anion Gap BUN Creatinine Estimated GFR Random Glucose Calcium Magnesium Total Bilirubin AST ALT Alkaline Phosphatase Ammonia Total Protein Albumin Serum Alcohol Blood Type Blood Type Recheck Antibody Screen MTS Gel Crossmatch See Detail - Imaging Impressions Abdomen X-Ray 12/03/17 08:58 CONCLUSION: Nonspecific bowel gas . Chest X-Ray 12/03/17 08:58 CONCLUSION: No acute cardiopulmonary disease. Assessment and Plan (1) Rectal bleed Status: Acute Code(s): K62.5 - Hemorrhage of anus and rectum (2) UGIB (upper gastrointestinal bleed) Status: Acute Code(s): K92.2 - Gastrointestinal hemorrhage, unspecified (3) Anemia requiring transfusions Status: Acute Code(s): D64.9 - Anemia, unspecified (4) Alcohol dependence Status: Chronic Code(s): F10.20 - Alcohol dependence, uncomplicated - Plan Symptomatic anemia with symptoms of weakness and fatigue. History of long-term EtOH abuse since her teen years and notes currently drinks 20-24 beers a day. She states she quit drinking liquor 1 year ago and has been told that she has liver cirrhosis. She currently does not remember any GI workup or GI group working with her but thinks that she has had an EGD and colonoscopy in the past. She thinks it may have been in the hospital, very poor historian. Current hemoglobin 7.6 patient is being prepared for transfusion. Maroon-colored rectal bleeding 1. Patient has history of hemorrhoids but denies any straining with defecation. States the rectal bleeding was 1 event in the past 24 hours and noted it to be maroon colored blood surrounding the stool. Epigastric pain and tenderness to light palpation and at rest dull ache Generalized abdominal pain mid quadrant as well as right upper quadrant. Patient is again long-term alcoholic and has been told that she has history of liver cirrhosis but current bilirubin normal as well as normal LFT levels. Long-term alcoholism which could explain her acute on chronic symptomatic anemia. Patient's skin is dry with petechiae noted on her extremities. Current PT/INR 1.1 no current scleral icterus noted 57-year-old female who looks older than her stated age is resting in the bed answering some simple questions but is a very poor historian. No family history that she knows of of colon cancer. Currently is a daily tobacco and alcohol user as described. Also had a fall in her driveway 2-3 days ago that she blamed on being drunk and does note one episode of rectal bleeding maroon stool and hematemesis 1 in the past 24 hours around up she states. This could be related to esophageal varices and will need further evaluation per the GI team. Patient does appear weakened and is being prepared for transfusion. GI procedures EGD and colonoscopy have been explained to patient. Plan Diet clear liquids until midnight GoLYTELY prep ADRI this p.m. encourage patient to drink full amount. Consent for EGD with possible variceal banding and colonoscopy in a.m. N.p.o. at midnight Monitor hemoglobin and other labs and transfuse as necessary PPI Anti-emetics Further recommendations to follow Patient was seen per myself and Dr. Damian, this note was written on his behalf
[2017-12-03] MEDS ORDERED: PEG 3350/E-Lyte Soln 4000 ML Bottle PO ONE (18:00)
[2017-12-03] MEDS: Octreotide Inj 500 MCG in Sodium Chlor 0.9% Inj 500 ML IV.CONT SCH (18:31)
[2017-12-03] MEDS: Morphine Inj 4 MG/ML Vial IV.PUSH PRN ×2 (19:50→22:01)
[2017-12-03] MEDS ORDERED: Famotidine 20 MG Tablet PO SCH (21:00)
[2017-12-03] MEDS: Potassium Chlor 20 mEq Premix 20 MEQ/100 ML PIGGYBACK IV.SIG PRN (21:50)
[2017-12-03] MEDS: LORazepam 1 MG Tablet PO PRN (22:01)
[2017-12-04] MEDS: Morphine Inj 4 MG/ML Vial IV.PUSH PRN ×5 (00:08→14:53)
[2017-12-04] MEDS: Potassium Chlor 20 mEq Premix 20 MEQ/100 ML PIGGYBACK IV.SIG PRN ×3 (01:44→08:03)
[2017-12-04] MEDS: Sod Chloride 0.9% Inj 1,000 ML IV.CONT SCH ×4 (03:52→18:39)
[2017-12-04] MEDS: Chlorhexidine Gluconate 2% 1 Pack (2 Cloths) TOPICAL SCH (03:53)
[2017-12-04] MEDS ORDERED: Chlorhexidine Gluconate 2% 1 Pack (2 Cloths) TOPICAL PRN (04:00)
[2017-12-04 04:02] LABS: Baso # (Auto) 0.1 th/mm3 (0.0-0.2); Eos # (Auto) 0.1 th/mm3 (0.0-0.4); Eos % (Auto) 1.6 % (0.0-4.0); Lymph # (Auto) 1.7 th/mm3 (1.0-4.8); Lymph % (Auto) 31.4 % (9.0-44.0); Mean Corpuscular HGB Conc 33.9 % (32.0-36.0); Mean Corpuscular Hemoglobin 32.4 pg (27.0-34.0); Mean Corpuscular Volume 95.4 fL (80.0-100.0); Mean Platelet Volume 7.8 fL (7.0-11.0); Mono # (Auto) 0.3 th/mm3 (0.0-0.9); Mono % (Auto) 4.8 % (0.0-8.0); Neut # (Auto) 3.2 th/mm3 (1.8-7.7); Neut % (Auto) 61.2 % (16.0-70.0); Platelet Count 186 th/mm3 (150-450); Red Blood Count 2.06 mil/mm3 (4.00-5.30); Red Cell Distribution Width 29.3 % (11.6-17.2); White Blood Count 5.3 th/mm3 (4.0-11.0)
[2017-12-04 04:09] LABS: INR 1.1 Ratio; Prothrombin Time 11.2 sec (9.8-11.6)
[2017-12-04 04:16] LABS: Hematocrit 19.7 % (35.0-46.0); Hemoglobin 6.7 gm/dL (11.6-15.3)
[2017-12-04 04:25] LABS: Albumin 2.1 g/dL (3.4-5.0); Anion Gap 7 meq/L (5-15); Aspartate Aminotransferase 19 U/L (15-37); Blood Urea Nitrogen 8 mg/dL (7-18); Calcium 7.7 mg/dL (8.5-10.1); Carbon Dioxide 23.8 meq/L (21.0-32.0); Chloride 105 meq/L (98-107); Glomerular Filtration Rate Greater Than 89 mL/min (>89); Glucose,Random 103 mg/dL (74-106); Magnesium 1.8 mg/dL (1.5-2.5); Potassium 3.5 meq/L (3.5-5.1); Sodium 136 meq/L (136-145)
[2017-12-04 04:28] LABS: Alanine Aminotransferase 15 U/L (10-53); Alkaline Phosphatase 64 U/L (45-117); Phosphorus 2.1 mg/dL (2.5-4.9); Total Protein 4.8 g/dL (6.4-8.2)
[2017-12-04 05:02] LABS: Acanthocytes Occ; Dimorphic RBC Present
[2017-12-04 05:04] LABS: Ovalocytes 1+; Platelet Estimate Normal (Normal); Platelet Morphology Normal (Normal)
[2017-12-04 11:32] LABS: Hematocrit 30.7 % (35.0-46.0); Hemoglobin 10.6 gm/dL (11.6-15.3)
[2017-12-04 11:57] LABS: Albumin 2.1 g/dL (3.4-5.0); Anion Gap 5 meq/L (5-15); Aspartate Aminotransferase 21 U/L (15-37); Blood Urea Nitrogen 7 mg/dL (7-18); Calcium 7.5 mg/dL (8.5-10.1); Carbon Dioxide 26.3 meq/L (21.0-32.0); Chloride 108 meq/L (98-107); Glomerular Filtration Rate Greater Than 89 mL/min (>89); Glucose,Random 109 mg/dL (74-106); Potassium 4.6 meq/L (3.5-5.1); Sodium 139 meq/L (136-145)
[2017-12-04] MEDS ORDERED: Lidocaine PF 1% Inj 5 ML Syringe INFILTRATN ONE (12:00)
[2017-12-04] MEDS: Pantoprazole Inj 80 MG in Sodium Chlor 0.9% Inj 100 ML IV.CONT SCH (12:00)
[2017-12-04] MEDS ORDERED: Succinylcholine Inj 100 MG/5 ML Syringe IV.PUSH ONE (12:00)
[2017-12-04 12:01] LABS: Alanine Aminotransferase 14 U/L (10-53); Alkaline Phosphatase 60 U/L (45-117); Total Protein 4.7 g/dL (6.4-8.2)
--- NOTE | 2017-12-04 12:01 | P.PNCC ---
Subjective Subjective Remarks/Hospital Course: The patient is a 57-year-old female with history of severe alcohol dependence drinking about 20-24 beers daily, alcoholic liver cirrhosis, COPD who presented with complaints of vomiting and diarrhea since last 2 days. Intermittently she had been having hematemesis which she quantifies as approximately a pint. She also noticed fresh blood per rectum. She is a very poor historian and she is unable to tell me when or whether she had any endoscopies before. She admits to having diagnosis of liver cirrhosis. She also admits to drinking about 20-24 to beers daily. ER workup initially patient had a heart rate of 115, indicating early hemorrhagic shock. Hemoglobin was 7.6. Patient was given 1 unit of PRBC and critical care was requested for admission. Patient also received octreotide 50 mcg IV push, Protonix 80 mg bolus and infusion was started at 8 mg/h. GI consult also requested I evaluated the patient in the ED. She complains of abdominal pain appears disheveled critically ill, pale. Remains tachycardic getting first unit of blood transfusion. Will request additional 1 unit PRBC. Rocephin had been added for SBP prophylaxis. I will also start octreotide infusion. 12/04 Patient is lying in bed in NAD. Hgb 6.7 this morning. Patient transfused 3units PRBC. For EGD and Colonoscopy today Objective Vital Signs / I&O: Vital Signs 12/03/17 12:42 12/03/17 12:54 12/03/17 13:10 Temperature 97.6 F 98.2 F 98 F Pulse Rate 107 H 99 H 100 H Respiratory Rate 16 18 18 Blood Pressure 102/66 118/64 108/62 Pulse Oximetry 100 100 100 12/03/17 13:26 12/03/17 13:53 12/03/17 14:27 Temperature 98.5 F 98.6 F Pulse Rate 98 H 100 H 101 H Respiratory Rate 18 18 18 Blood Pressure 119/58 L 100/59 L 115/59 L Pulse Oximetry 100 12/03/17 17:04 12/03/17 18:00 12/03/17 19:08 Temperature 98.7 F Pulse Rate 92 H 93 H Respiratory Rate 18 32 H Blood Pressure 121/70 129/71 Pulse Oximetry 100 100 97 12/03/17 19:52 12/03/17 20:00 12/03/17 22:00 Temperature 98.2 F Pulse Rate 90 94 H Respiratory Rate 20 28 H Blood Pressure 122/73 Pulse Oximetry 98 12/03/17 22:19 12/04/17 00:00 12/04/17 00:10 Temperature 97.9 F Pulse Rate 88 Respiratory Rate 24 15 18 Blood Pressure 105/57 L Pulse Oximetry 100 12/04/17 02:00 12/04/17 04:00 12/04/17 05:47 Temperature 97.8 F 97.8 F Pulse Rate 84 84 86 Respiratory Rate 12 23 Blood Pressure 115/63 103/71 Pulse Oximetry 100 12/04/17 06:00 12/04/17 06:03 12/04/17 06:49 Temperature 97.8 F 97.8 F Pulse Rate 86 88 97 H Respiratory Rate 20 22 Blood Pressure 142/67 H 147/68 H Pulse Oximetry 100 99 12/04/17 07:58 12/04/17 09:21 Temperature 97.5 F L Pulse Rate 79 85 Respiratory Rate 20 18 Blood Pressure 131/80 Pulse Oximetry 97 Intake & Output 12/03/17 12/04/17 12/04/17 18:59 06:59 18:59 Intake Total 400 / 400 3411.4 / 3411.4 1400 / 1400 Output Total 1250 / 1250 Balance 400 / 400 2161.4 / 2161.4 1400 / 1400 Weight 53.3 kg 56.5 kg Intake: IV / 1000 / 1000 NS Inj 1,000 ML @ 84 mls/hr IV. 1000 / 1000 1000 / 1000 CONT .[id number] NILA Rx#:[id number] Folvite Inj 1 MG In NS Inj 100 100.2 / 100.2 ML @ 200.4 mls/hr IV.SIG ONCE ONE Rx#:[id number] MVI-12 Inj 10 ML Thiamine Inj 511.2 / 511.2 100 MG Folvite Inj 1 MG In NS Inj 500 ML @ 125 mls/hr IV.SIG Q24H NILA Rx#:[id number] KCl 20 mEq Premix Inj 20 meq In 300 / 300 100 ml @ 50 mls/hr IV.SIG Q2H PRN Rx#:[id number] Rocephin Inj 1,000 MG In NS Inj 100 / 100 100 ML @ 200 mls/hr IV.SIG Q24H NILA Rx#:[id number] Oral 1000 / 1000 Intake (Blood Product) Amt 400 / 400 400 / 400 400 / 400 Rbc As-3 Leukoreduced Unit 0 / 0 400 / 400 [id number] Rbc As-3 Leukoreduced Unit 400 / 400 [id number] Rbc As-3 Leukoreduced Unit 0 / 0 [id number] Rbc As-3 Leukoreduced Unit 400 / 400 [id number] Output: Stool 800 / 800 Urine Amount (Catheter) 450 / 450 Indwelling Urethral Catheter 450 / 450 Other: Date of Last Bowel Movement 12/03/17 12/03/17 Weight On Admission 53.3 kg Result Diagrams: 12/04/17 10:50 12/04/17 10:50 Other Results: Laboratory Results - last 12 hr 12/03/17 12/03/17 12/04/17 12:02 15:58 03:19 WBC 5.3 RBC 2.06 L Hgb 6.7 L* Hct 19.7 L* MCV 95.4 D MCH 32.4 MCHC 33.9 RDW 29.3 H D Plt Count 186 D MPV 7.8 Prelim Diff (Auto) Slide review pending Neut % (Auto) 61.2 Lymph % (Auto) 31.4 Emery % (Auto) 4.8 Eos % (Auto) 1.6 Baso % (Auto) 1.0 Neut # (Auto) 3.2 Lymph # (Auto) 1.7 Emery # (Auto) 0.3 Eos # (Auto) 0.1 Baso # (Auto) 0.1 WBC Differential . Diff Scan Auto diff confirmed Differential Comment . Platelet Estimate Normal Platelet Morphology Normal Dimorphic RBCs Present H Ovalocytes 1+ H Acanthocytes (Spur) Occ H Keratocytes Occ H PT INR Sodium Potassium Chloride Carbon Dioxide Anion Gap BUN Creatinine Estimated GFR Random Glucose Lactic Acid Calcium Phosphorus Magnesium Total Bilirubin AST ALT Alkaline Phosphatase Total Protein Albumin MTS Gel Crossmatch See Detail See Detail Bld Prod Order Comment 12/04/17 12/04/17 12/04/17 03:19 03:19 03:19 WBC RBC Hgb Hct MCV MCH MCHC RDW Plt Count MPV Prelim Diff (Auto) Neut % (Auto) Lymph % (Auto) Emery % (Auto) Eos % (Auto) Baso % (Auto) Neut # (Auto) Lymph # (Auto) Emery # (Auto) Eos # (Auto) Baso # (Auto) WBC Differential Diff Scan Differential Comment Platelet Estimate Platelet Morphology Dimorphic RBCs Ovalocytes Acanthocytes (Spur) Keratocytes PT 11.2 INR 1.1 Sodium 136 Potassium 3.5 Chloride 105 Carbon Dioxide 23.8 Anion Gap 7 BUN 8 Creatinine 0.45 L Estimated GFR Greater than 89 Random Glucose 103 Lactic Acid 0.5 Calcium 7.7 L Phosphorus 2.1 L Magnesium 1.8 Total Bilirubin 0.4 AST 19 ALT 15 Alkaline Phosphatase 64 Total Protein 4.8 L Albumin 2.1 L MTS Gel Crossmatch Bld Prod Order Comment 12/04/17 12/04/17 06:10 10:50 WBC RBC Hgb 10.6 L D Hct 30.7 L MCV MCH MCHC RDW Plt Count MPV Prelim Diff (Auto) Neut % (Auto) Lymph % (Auto) Emery % (Auto) Eos % (Auto) Baso % (Auto) Neut # (Auto) Lymph # (Auto) Emery # (Auto) Eos # (Auto) Baso # (Auto) WBC Differential Diff Scan Differential Comment Platelet Estimate Platelet Morphology Dimorphic RBCs Ovalocytes Acanthocytes (Spur) Keratocytes PT INR Sodium Potassium Chloride Carbon Dioxide Anion Gap BUN Creatinine Estimated GFR Random Glucose Lactic Acid Calcium Phosphorus Magnesium Total Bilirubin AST ALT Alkaline Phosphatase Total Protein Albumin MTS Gel Crossmatch See Detail Bld Prod Order Comment Imaging: Abdomen X-Ray 12/03/17 08:58 CONCLUSION: Nonspecific bowel gas . Chest X-Ray 12/03/17 08:58 CONCLUSION: No acute cardiopulmonary disease. Objective Remarks: GENERAL: Patient is 57yo lying in bed in NAD SKIN: Warm and dry. HEAD: Normocephalic. EYES: No scleral icterus. No injection or drainage. NECK: Supple, trachea midline. No JVD or lymphadenopathy. CARDIOVASCULAR: Regular rate and rhythm without murmurs, gallops, or rubs. RESPIRATORY: Breath sounds equal bilaterally. No accessory muscle use. GASTROINTESTINAL: Abdomen soft, non-tender, nondistended. MUSCULOSKELETAL: No cyanosis, or edema. Neuro: Awake and alert. Assessment and Plan - Problem List (1) UGIB (upper gastrointestinal bleed) Code(s): K92.2 - Gastrointestinal hemorrhage, unspecified Status: Acute (2) Anemia requiring transfusions Code(s): D64.9 - Anemia, unspecified Status: Acute (3) Hypokalemia Code(s): E87.6 - Hypokalemia Status: Acute (4) Hyponatremia Code(s): E87.1 - Hypo-osmolality and hyponatremia Status: Acute (5) Alcohol dependence Code(s): F10.20 - Alcohol dependence, uncomplicated Status: Chronic (6) Liver cirrhosis Code(s): K74.60 - Unspecified cirrhosis of liver Status: Chronic (7) COPD (chronic obstructive pulmonary disease) Code(s): J44.9 - Chronic obstructive pulmonary disease, unspecified Status: Chronic - Assessment and Plan Plan: NEURO: Alcohol dependence -Watch closely for alcohol withdrawal -Seizure precautions -[facility] protocol -Supplement multivitamin thiamine RESP: History of COPD Oxygen PRN keep sats >92% -DuoNeb every 4+Q2PRN hours as needed -Aggressive pulmonary toilet CV: Monitor HR and BP keep MAP>65mmHg -Normal saline IV fluids bolus and maintenance at 84 mL/h -Monitor vitals closely GI/HEME: Upper and lower GI bleed Anemia requiring transfusion -N.p.o., Protonix and Octreotide drips. -Rocephin for SBP prophylaxis -GI is following, s/p EGD multiple ulcers ( Esophageal, duodenal and gastric ulcers), colon full with blood but no active bleeding. Bleeding scan ordered by GI discussed with Dr. Torrez -Might need embolization depends on bleeding scan. -Will consult General surgery discussed with Dr. Hauser. -s/p Transfusion 3u PRBC for Hgb 6.7 this morning, monitor H/H Q6hrs -Monitor H&H and coags closely : -Monitor renal function, I/O', electrolytes replacement per protocol. ID: -Rocephin for SBP prophylaxis -Monitor for signs of infections ( Fever, WBC) ENDO: -Electrolyte replacement per protocol -Sliding scale insulin PROPH: -Bilateral lower extremity SCDs. Protonix infusion. Chemical DVT prophylaxis contraindicated in setting of GI bleed and anemia requiring blood transfusion. LINES: -Utilize peripheral IVs, Level 3
--- NOTE | 2017-12-04 13:51 | GIPROC ---
[facility] [address] [facility]. [facility] [place], [address] EGD PROCEDURE REPORT EXAM DATE: 12/04/2017 PATIENT NAME: Jose Francisco Eddy MR #: [id number] BIRTHDATE: 1960 ATTENDING: Radha Torrez MD ORDER #: [id number] LAP CUTTER TRUER OPERATOR: Constance Templeton Stienbarger, Terrie, and Rakesh García STATUS: inpatient INDICATIONS: The patient is a 57 yr old female here for an EGD due to acute post hemorrhagic anemia and hematochezia PROCEDURE PERFORMED: EGD, diagnostic MEDICATIONS: None and Per Anesthesia. TOPICAL ANESTHETIC: CONSENT: The patient understands the risks and benefits of the procedure and understands that these risks include, but are not limited to: sedation, allergic reaction, infection, perforation and/or bleeding. Alternative means of evaluation and treatment include, among others: physical exam, x-rays, and/or surgical intervention. The patient elects to proceed with this endoscopic procedure. medical equipment was checked for proper function. Hand hygiene and appropriate measures for infection prevention was taken. After the risks, benefits and alternatives of the procedure were thoroughly explained, Informed consent was verified, confirmed and timeout was successfully executed by the treatment team. The patient was anesthetized with topical anesthesia and the EC-[id number] (Pedi C) endoscope was introduced through the mouth and advanced to the second portion of the duodenum. Retroflexed views revealed no abnormalities The gastroscope was then slowly withdrawn and removed. ESOPHAGUS: Two non-bleeding, shallow, linear and clean-based ulcers ranging between 3-7mm in size were found in the distal esophagus. STOMACH: Three ranging between 5-9mm in size non-bleeding and deep ulcers with surrounding edema, heaped up edges and a pigmented spot were found in the gastric antrum. DUODENUM: Four ranging between 5-9mm in size non-bleeding, deep and clean-based ulcers with surrounding edema and heaped up edges were found in the 1st part of the duodenum and duodenal bulb. ADVERSE EVENTS: There were no complications. IMPRESSIONS: 1. Two ulcers ranging between 3-7mm in size were found in the distal esophagus 2. Three ranging between 5-9mm in size ulcers were found in the gastric antrum 3. Four ranging between 5-9mm in size ulcers were found in the 1st part of the duodenum and duodenal bulb 4. Retroflexed views revealed no abnormalities RECOMMENDATIONS: 1. Anti-reflux regimen 2. Continue PPI 3. Avoid NSAIDS PATIENT CONDITION: stable DISPOSITION: Inpatient REPEAT EXAM: Return 1 month EGD Radha Torrez MD eSigned: Radha Torrez MD 12/04/2017 1:50 PM cc: PATIENT NAME: Jose Francisco Eddy MR#: [id number]
--- NOTE | 2017-12-04 14:05 | GIPROC ---
[facility] [address] [facility]. [facility], [address] COLONOSCOPY PROCEDURE REPORT EXAM DATE: 12/04/2017 PATIENT NAME: JoseF rancisco Eddy MR #: [id number] BIRTHDATE: 1960 ENDOSCOPIST: Radha Torrez MD ORDER #: [id number] TRANSITION LEAD: Rakesh García STATUS: inpatient INDICATIONS: The patient is a 57 yr old female here for a colonoscopy due to anemia, non-specific and hematochezia PROCEDURE PERFORMED: Colonoscopy, diagnostic MEDICATIONS: None and Per Anesthesia. PREP QUALITY: The Gladstone Bowel Prep Score was Right colon 1, Mid colon 1, and Left colon 1. Total = 3. PREP TYPE:GoLytely ESTIMATED BLOOD LOSS: None CONSENT: The patient understands the risks and benefits of the procedure and understands that these risks include, but are not limited to: sedation, allergic reaction, infection, perforation and/or bleeding. Alternative means of evaluation and treatment include, among others: physical exam, x-rays, and/or surgical intervention. The patient elects to proceed with this endoscopic procedure. medical equipment was checked for proper function. Hand hygiene and appropriate measures for infection prevention was taken. After the risks, benefits and alternatives of the procedure were thoroughly explained, Informed consent was verified, confirmed and timeout was successfully executed by the treatment team. A digital exam revealed external hemorrhoids The Pentax EC-[id number] endoscope was introduced through the anus and advanced to the cecum, which was identified by both the appendix and ileocecal valve. The instrument was then slowly withdrawn as the colon was fully examined. COLON FINDINGS: Colon full of blood all the way into th terminal illeum. No source of bleeding seen. Likely Small intestinal bleed. Retroflexed views revealed internal hemorrhoids and Retroflexed views revealed medium internal hemorrhoids The scope was then completely withdrawn from the patient and the procedure terminated. PROCEDURE WITHDRAWAL TIME:6minutes ADVERSE EVENTS: There were no complications. IMPRESSIONS: 1. Colon full of blood all the way into th terminal illeum. No source of bleeding seen. Likely Small intestinal bleed 2. Retroflexed views revealed internal hemorrhoids 3. Retroflexed views revealed medium internal hemorrhoids 4. Revealed external hemorrhoids RECOMMENDATIONS: STAT bleeding scan, if +ve angiogram with embolization RECALL: Return 1 day Colonoscopy Radha Torrez MD eSigned: Radha Torrez MD 12/04/2017 2:04 PM cc: PATIENT NAME: Jose Francisco Eddy MR#: [id number]
[2017-12-04] MEDS ORDERED: fentaNYL Citrate Inj 100 MCG/2 ML Ampul ONE (14:33)
[2017-12-04] MEDS ORDERED: Heparin Central Flush 100 UNIT/ML 5 ML Vial IV.FLUSH ONE (15:10)
[2017-12-04] MEDS: Octreotide Inj 500 MCG in Sodium Chlor 0.9% Inj 500 ML IV.CONT SCH (15:30)
--- NOTE | 2017-12-04 17:50 | NM ---
EXAM DATE: 12/04/2017 5:45 PM EDT AGE/SEX: 57 years / Female INDICATIONS: Blood in stool. CLINICAL DATA: This is the patient's initial encounter. Patient reports that signs and symptoms have been present for 1 day and indicates a pain score of 1/10. MEDICAL/SURGICAL HISTORY: Arthritis. Cirrhosis. Hypertension. Appendectomy. COMPARISON: . TECHNIQUE: Following the modified in vitro labeling of autologous red cells, dynamic continuous image s were acquired for two hours. ?? DOSE: 20.3 mCi Tc 99m Ultratag Labeled Red Blood Cells IV IMAGING TIME: 1 hr , 30 min FINDINGS: Biodistribution: There is a very good labeling of red cells without significant uptake in the gastri c wall. There is good delineation of the blood pool of the spleen and abdominal vessels. Bleeding: No episodes of active GI bleeding are observed during two hours of continuous observation . CONCLUSION: 1. Negative GI bleeding scan Electronically signed by: Talha Alexander MD 12/04/2017 5:49 PM EDT
[2017-12-04] MEDS: Multivitamin Inj 10 ML, Thiamine Inj 100 MG, Folic Acid Inj 1 MG in Sodium Chlor 0.9% I... IV.SIG SCH (20:07)
--- NOTE | 2017-12-04 21:04 | P.CONGS ---
[facility] Gen Surgery Consult Note Consult date: 12/04/17 Reason for consult: other Requesting physician: Barrington Bajwa Narrative: The patient is a 57-year-old female with a long history of alcohol abuse. She came into the hospital with a hip history of generalized weakness and fatigue as well as hematemesis 1. Patient has a history of liver cirrhosis but currently has normal bilirubin normal LFTs. Hemoglobin earlier today was 7.6 with repeat of 6.7. She has received 4 units of packed red cells with a repeat hemoglobin of 10.6. She has remained hemodynamically stable since her admission. Patient underwent bleeding scan this afternoon which demonstrates no evidence of acute hemorrhage. Review of Systems All other systems reviewed negative except as stated in HPI Constitutional: Reports fatigue PMFSH - History History Provided By: Patient - Medical History Medical History: Medical History (Last Updated 12/03/17 @ 17:56 by Ale Saab RN) Asthma Cirrhosis Hypertension - Surgical History Surgical History: Surgical History (Last Updated 12/04/17 @ 21:00 by Gary Hauser MD) History of appendectomy (Acute) - Tobacco History Second Hand Smoke Exposure: Yes Tobacco Use In Past 30 Days: Yes Smoking Status: Current every day smoker Tobacco Type: Cigarettes - Alcohol History How Often Do You Have a Drink Containing Alcohol: 4 or more times a week - Substance Use History Substance History: Active Abuse - Substance Use Type Marijuana Status: Active Route Used: Inhalation Reason for Use: Calm Down - Travel History Recent Travel Out of the Country Within the Last 8 Weeks: No - Immunization History Tetanus Immunization: <5 Years Hx Influenza Vaccine This Season: No Medications and Allergies Active Medications: Active Medications Albuterol (Duoneb Neb (Prn)) 1 ampul NEB Q2HR NEB PRN PRN Reason: WHEEZING Last Admin: 12/04/17 09:20 Dose: 1 ampul Albuterol (Duoneb Neb (Lizandro)) 1 ampul NEB Q4HR NEB LIZANDRO Last Admin: 12/04/17 19:38 Dose: 1 ampul Chlorhexidine Gluconate (Chlorhexidine 2% Cloth) 3 pack TOPICAL DAILY@0400 LIZANDRO Stop: 12/09/17 03:59 Last Admin: 12/04/17 03:53 Dose: 3 pack Chlorhexidine Gluconate (Chlorhexidine 2% Cloth) 3 pack TOPICAL DAILY@0400 PRN PRN Reason: Extra cloth needed Stop: 12/09/17 03:59 Flumazenil (Romazecon Inj) 0.2 mg IV.PUSH Q1M PRN PRN Reason: OVERSEDATION Haloperidol Lactate (Haldol Inj) 1 mg IV.PUSH Q15M PRN PRN Reason: for severe agitation Sodium Chloride (Ns Inj) 1,000 mls @ 84 mls/hr IV.CONT .[id number] [facility] Last Admin: 12/04/17 18:39 Dose: 84 mls/hr Pantoprazole Sodium 80 mg/ (Sodium Chloride) 100 mls @ 10 mls/hr IV.CONT CONT [facility] Last Admin: 12/04/17 12:00 Dose: 10 mls/hr Magnesium Sulfate Inj 4 gm/ (Sodium Chloride) 100 mls @ 50 mls/hr IV.SIG UNSCH PRN PRN Reason: For Magnesium 0.9 - 1.1 mg/dL Magnesium Sulfate Inj 2 gm/ (Sodium Chloride) 100 mls @ 50 mls/hr IV.SIG UNSCH PRN PRN Reason: For Magnesium 1.2 - 1.6 mg/dL Potassium Chloride (Kcl 40 Meq Premix Inj) 40 meq in 100 mls @ 50 mls/hr IV.SIG Q2H PRN PRN Reason: For Potassium 2.8 - 3.2 mEq/L Potassium Chloride (Kcl 20 Meq Premix Inj) 20 meq in 100 mls @ 50 mls/hr IV.SIG Q2H PRN PRN Reason: For Potassium 3.3 - 3.5 mEq/L Potassium Chloride (Kcl 40 Meq Premix Inj) 40 meq in 100 mls @ 25 mls/hr IV.SIG UNSCH PRN PRN Reason: For Potassium 3.3 - 3.5 mEq/L Potassium Chloride (Kcl 20 Meq Premix Inj) 20 meq in 100 mls @ 50 mls/hr IV.SIG Q2H PRN PRN Reason: For Potassium 2.8 - 3.2 mEq/L Last Admin: 12/04/17 08:03 Dose: 50 mls/hr Potassium Phosphate 30 mmol/ (Sodium Chloride) 260 mls @ 42 mls/hr IV.SIG UNSCH PRN PRN Reason: SEE LABEL COMMENTS Sodium Phosphate 30 mmol/ (Sodium Chloride) 260 mls @ 42 mls/hr IV.SIG UNSCH PRN PRN Reason: For Phosphorus < 2.5 mg/dL Octreotide Acetate 500 mcg/ (Sodium Chloride) 500.5 mls @ 25.02 mls/hr IV.CONT .Q20H1M LIZANDRO Last Admin: 12/04/17 15:30 Dose: 25 mcg/hr, 25.02 mls/hr Ceftriaxone Sodium 1,000 mg/ (Sodium Chloride) 100 mls @ 200 mls/hr IV.SIG Q24H LIZANDRO Multivitamins 10 ml/ Thiamine HCl 100 mg/ Folic Acid 1 mg/Sodium Chloride 511.2 mls @ 125 mls/hr IV.SIG Q24H LIZANDRO Stop: 12/06/17 00:06 Last Admin: 12/04/17 20:07 Dose: 125 mls/hr Lorazepam (Ativan) 1 mg PO Q4H PRN PRN Reason: for CIWA 8-10 Last Admin: 12/03/17 22:01 Dose: 1 mg Lorazepam (Ativan) 2 mg PO Q2H PRN PRN Reason: for CIWA 11-14 Lorazepam (Ativan Inj) 2 mg IV.PUSH Q2H PRN PRN Reason: for CIWA 11-14 Lorazepam (Ativan Inj) 2 mg IV.PUSH Q1H PRN PRN Reason: for CIWA 15-20 Lorazepam (Ativan Inj) 2 mg IV.PUSH Q15M PRN PRN Reason: for CIWA > 20 Lorazepam (Ativan Inj) 1 mg IV.PUSH Q4H PRN PRN Reason: for CIWA 8-10 Last Admin: 12/04/17 11:22 Dose: 1 mg Magnesium Oxide (Mag-Ox) 800 mg PO UNSCH PRN PRN Reason: For Magnesium 1.2 - 1.6 mg/dL Miscellaneous Information ([facility]) 1 each OTHER UNSCH PRN PRN Reason: SEE LABEL COMMENTS Stop: 12/05/17 14:26 Morphine Sulfate (Morphine Inj) 2 mg IV.PUSH Q2H PRN PRN Reason: PAIN SCALE 6 TO 10 Last Admin: 12/04/17 14:53 Dose: 2 mg Ondansetron HCl (Zofran Odt) 4 mg PO Q6H PRN PRN Reason: NAUSEA OR VOMITING Potassium Bicarb/Potassium Chloride (K-Lyte Cl Eff) 50 meq PO UNSCH PRN PRN Reason: For Potassium 3.3 - 3.5 mEq/L Potassium Phosphate (K-Phos Original) 2,000 mg PO Q4H PRN PRN Reason: Phosphorus Less Than 2.5 mg/dL Potassium Phosphate (K-Phos Original) 2,000 mg PO UNSCH PRN PRN Reason: SEE LABEL COMMENTS Sodium Chloride (Ns Flush) 2 ml IV.FLUSH BID LIZANDRO Last Admin: 12/04/17 10:38 Dose: 2 ml Sodium Chloride (Ns Flush) 2 ml IV.FLUSH UNSCH PRN PRN Reason: FLUSH AFTER USING IV ACCESS Allergies Allergy/AdvReac Type Severity Reaction Status Date / Time No Known Allergies Allergy Unverified 12/03/17 09:48 Home Medications Medication Instructions Recorded Confirmed Type No Known Home Medications 12/03/17 12/03/17 History Exam Vital signs: Vital Signs 12/03/17 22:00 12/03/17 22:19 12/04/17 00:00 Temperature 97.9 F Pulse Rate 94 H 88 Respiratory Rate 24 15 Blood Pressure 105/57 L Pulse Oximetry 100 12/04/17 00:10 12/04/17 02:00 12/04/17 04:00 Temperature 97.8 F Pulse Rate 84 84 Respiratory Rate 18 12 Blood Pressure 115/63 Pulse Oximetry 12/04/17 05:47 12/04/17 06:00 12/04/17 06:03 Temperature 97.8 F 97.8 F Pulse Rate 86 86 88 Respiratory Rate 23 20 Blood Pressure 103/71 142/67 H Pulse Oximetry 100 100 12/04/17 06:49 12/04/17 07:58 12/04/17 08:00 Temperature 97.8 F 97.5 F L 97.5 F L Pulse Rate 97 H 79 82 Respiratory Rate 22 20 23 Blood Pressure 147/68 H 131/80 131/80 Pulse Oximetry 99 100 12/04/17 09:21 12/04/17 10:00 12/04/17 12:23 Temperature 98.1 F Pulse Rate 85 85 Respiratory Rate 18 20 22 Blood Pressure 105/66 Pulse Oximetry 97 100 12/04/17 12:45 12/04/17 14:24 12/04/17 14:30 Temperature 98.0 F Pulse Rate 86 74 72 Respiratory Rate 22 12 14 Blood Pressure 100/67 133/64 134/75 Pulse Oximetry 100 100 100 12/04/17 14:45 12/04/17 15:00 12/04/17 15:15 Temperature Pulse Rate 78 77 72 Respiratory Rate 22 22 24 Blood Pressure 143/73 H 149/67 H 130/59 L Pulse Oximetry 96 99 98 12/04/17 15:45 12/04/17 16:00 12/04/17 17:38 Temperature 98.0 F 98 F Pulse Rate 72 73 Respiratory Rate 19 20 20 Blood Pressure 130/61 113/73 Pulse Oximetry 98 98 12/04/17 17:39 12/04/17 18:00 12/04/17 19:39 Temperature Pulse Rate 94 H 89 Respiratory Rate 20 18 Blood Pressure Pulse Oximetry 100 Intake & Output 12/04/17 12/04/17 12/05/17 06:59 18:59 06:59 Intake Total 3411.4 / 3411.4 3440.5 / 3440.5 Output Total 1250 / 1250 750 / 750 Balance 2161.4 / 2161.4 2690.5 / 2690.5 Weight 56.5 kg Intake: IV 2010. / 2010. 2500.5 / 2500.5 SandoSTATIN Inj 500 MCG In NS 500.5 / 500.5 Inj 500 ML @ 25 MCG/HR 25.02 mls/hr IV.CONT .Q20H1M LIZANDRO Rx#: [id number] NS Inj 1,000 ML @ 84 mls/hr IV. 1000 / 1000 2000 / 2000 CONT .[id number] LIZANDRO Rx#:[id number] Folvite Inj 1 MG In NS Inj 100 100.2 / 100.2 ML @ 200.4 mls/hr IV.SIG ONCE ONE Rx#:[id number] MVI-12 Inj 10 ML Thiamine Inj 511.2 / 511.2 100 MG Folvite Inj 1 MG In NS Inj 500 ML @ 125 mls/hr IV.SIG Q24H LIZANDRO Rx#:[id number] KCl 20 mEq Premix Inj 20 meq In 300 / 300 100 ml @ 50 mls/hr IV.SIG Q2H PRN Rx#:[id number] Rocephin Inj 1,000 MG In NS Inj 100 / 100 100 ML @ 200 mls/hr IV.SIG Q24H LIZANDRO Rx#:[id number] Oral 1000 / 1000 440 / 440 Anesthesia Amount 100 / 100 Intake (Blood Product) Amt 400 / 400 400 / 400 Rbc As-3 Leukoreduced Unit 0 / 0 400 / 400 [id number] Rbc As-3 Leukoreduced Unit 0 / 0 [id number] Rbc As-3 Leukoreduced Unit 400 / 400 [id number] Output: Stool 800 / 800 400 / 400 Urine Amount (Catheter) 450 / 450 350 / 350 Indwelling Urethral Catheter 450 / 450 350 / 350 Other: Date of Last Bowel Movement 12/03/17 12/04/17 # Incontinent Bowel Movements 8 - Constitutional no acute distress - Routine HEENT Exam Eye: Present: EOMI ENT: Present: mucous membranes moist - Routine Neck Exam Present: supple - Routine Cardiovascular Exam Present: RRR - Routine Abdominal Exam Present: soft - Routine Extremities Exam Present: clubbing - Routine Skin Exam Present: intact Comments: Bronzing of skin with appearance of chronic illness - Routine Neurological Exam Present: alert, oriented X3, moving all extremities Results - Labs 12/04/17 10:50 12/04/17 10:50 Abnormal lab results 12/03/17 12/03/17 12/04/17 Range/Units 12:02 15:58 03:19 RBC 2.06 L (4.00-5.30) mil/mm3 Hgb 6.7 L* (11.6-15.3) gm/dL Hct 19.7 L* (35.0-46.0) % RDW 29.3 H D (11.6-17.2) % Dimorphic RBCs Present H (None) Ovalocytes 1+ H (None) Acanthocytes (Spur) Occ H (None) Keratocytes Occ H (None) Chloride (98-107) meq/L Creatinine (0.50-1.00) mg/dL Random Glucose (74-106) mg/dL Calcium (8.5-10.1) mg/dL Phosphorus (2.5-4.9) mg/dL Total Bilirubin (0.2-1.0) mg/dL Total Protein (6.4-8.2) g/dL Albumin (3.4-5.0) g/dL MTS Gel Crossmatch See Detail See Detail 12/04/17 12/04/17 12/04/17 Range/Units 03:19 06:10 10:50 RBC (4.00-5.30) mil/mm3 Hgb 10.6 L D (11.6-15.3) gm/dL Hct 30.7 L (35.0-46.0) % RDW (11.6-17.2) % Dimorphic RBCs (None) Ovalocytes (None) Acanthocytes (Spur) (None) Keratocytes (None) Chloride (98-107) meq/L Creatinine 0.45 L (0.50-1.00) mg/dL Random Glucose (74-106) mg/dL Calcium 7.7 L (8.5-10.1) mg/dL Phosphorus 2.1 L (2.5-4.9) mg/dL Total Bilirubin (0.2-1.0) mg/dL Total Protein 4.8 L (6.4-8.2) g/dL Albumin 2.1 L (3.4-5.0) g/dL MTS Gel Crossmatch See Detail 12/04/17 Range/Units 10:50 RBC (4.00-5.30) mil/mm3 Hgb (11.6-15.3) gm/dL Hct (35.0-46.0) % RDW (11.6-17.2) % Dimorphic RBCs (None) Ovalocytes (None) Acanthocytes (Spur) (None) Keratocytes (None) Chloride 108 H (98-107) meq/L Creatinine 0.47 L (0.50-1.00) mg/dL Random Glucose 109 H (74-106) mg/dL Calcium 7.5 L (8.5-10.1) mg/dL Phosphorus (2.5-4.9) mg/dL Total Bilirubin 1.4 H (0.2-1.0) mg/dL Total Protein 4.7 L (6.4-8.2) g/dL Albumin 2.1 L (3.4-5.0) g/dL MTS Gel Crossmatch Diabetes panel 12/04/17 12/04/17 Range/Units 03:19 10:50 Sodium 136 139 (136-145) meq/L Potassium 3.5 4.6 D (3.5-5.1) meq/L Chloride 105 108 H (98-107) meq/L Carbon Dioxide 23.8 26.3 (21.0-32.0) meq/L BUN 8 7 (7-18) mg/dL Creatinine 0.45 L 0.47 L (0.50-1.00) mg/dL Calcium 7.7 L 7.5 L (8.5-10.1) mg/dL AST 19 21 (15-37) U/L ALT 15 14 (10-53) U/L Alkaline Phosphatase 64 60 (45-117) U/L Total Protein 4.8 L 4.7 L (6.4-8.2) g/dL Albumin 2.1 L 2.1 L (3.4-5.0) g/dL Calcium panel 12/04/17 12/04/17 Range/Units 03:19 10:50 Calcium 7.7 L 7.5 L (8.5-10.1) mg/dL Phosphorus 2.1 L (2.5-4.9) mg/dL Albumin 2.1 L 2.1 L (3.4-5.0) g/dL Pituitary panel 12/04/17 12/04/17 Range/Units 03:19 10:50 Sodium 136 139 (136-145) meq/L Potassium 3.5 4.6 D (3.5-5.1) meq/L Chloride 105 108 H (98-107) meq/L Carbon Dioxide 23.8 26.3 (21.0-32.0) meq/L BUN 8 7 (7-18) mg/dL Creatinine 0.45 L 0.47 L (0.50-1.00) mg/dL Calcium 7.7 L 7.5 L (8.5-10.1) mg/dL Adrenal panel 12/04/17 12/04/17 Range/Units 03:19 10:50 Sodium 136 139 (136-145) meq/L Potassium 3.5 4.6 D (3.5-5.1) meq/L Chloride 105 108 H (98-107) meq/L Carbon Dioxide 23.8 26.3 (21.0-32.0) meq/L BUN 8 7 (7-18) mg/dL Creatinine 0.45 L 0.47 L (0.50-1.00) mg/dL Calcium 7.7 L 7.5 L (8.5-10.1) mg/dL Total Bilirubin 0.4 1.4 H (0.2-1.0) mg/dL AST 19 21 (15-37) U/L ALT 15 14 (10-53) U/L Alkaline Phosphatase 64 60 (45-117) U/L Total Protein 4.8 L 4.7 L (6.4-8.2) g/dL Albumin 2.1 L 2.1 L (3.4-5.0) g/dL All other labs normal. - Imaging Additional studies: Bleeding scan reviewed and report reviewed Assessment and Plan - Assessment (1) Anemia requiring transfusions Code(s): D64.9 - Anemia, unspecified Status: Acute Plan: No evidence of active bleeding and hemoglobin stable at the present time. If patient continues to have bleeding, may consider interventional radiology. As she has multiple esophageal, gastric, and duodenal erosions, surgical intervention will likely not be successful. We will stand by if the patient has a discrete area of bleeding. (2) Liver cirrhosis Code(s): K74.60 - Unspecified cirrhosis of liver Status: Chronic - Attending Attestation I attest that I had a [id number] encounter with the patient on the same day, and personally performed and documented my assessment and findings in the medical record. The following services were provided during this hospital visit: Chart data review, vital sign assessments/reviewing monitor data Review of consultation notes if present Medication orders/review and/or management Ordering and/or reviewing lab tests Ordering and/or interpreting/reviewing x-rays and/or diagnostic studies Care of the patient and discussion of the patient with the care team Documentation time To help prompt me to consider important information that might be impacting today's encounter and assessment, Information from prior notes written by myself or my colleagues may have been "brought forward/copy and pasted" into today's note.
[2017-12-04] MEDS: LORazepam 1 MG Tablet PO PRN (21:10)
[2017-12-04] MEDS: Potassium Phosphate 500 MG Soluble Tablet PO PRN (21:44)
[2017-12-04 23:17] LABS: Hematocrit 30.3 % (35.0-46.0); Hemoglobin 10.3 gm/dL (11.6-15.3)
[2017-12-05] MEDS: Morphine Inj 4 MG/ML Vial IV.PUSH PRN ×7 (00:45→21:00)
[2017-12-05] MEDS: Sod Chloride 0.9% Inj 1,000 ML IV.CONT SCH (04:30)
[2017-12-05] MEDS: Chlorhexidine Gluconate 2% 1 Pack (2 Cloths) TOPICAL SCH (04:58)
[2017-12-05] MEDS: LORazepam 1 MG Tablet PO PRN ×3 (04:58→23:45)
[2017-12-05 07:44] LABS: Hematocrit 28.5 % (35.0-46.0); Hemoglobin 9.7 gm/dL (11.6-15.3)
--- NOTE | 2017-12-05 07:50 | P.PNCC ---
Subjective Subjective Remarks/Hospital Course: The patient is a 57-year-old female with history of severe alcohol dependence drinking about 20-24 beers daily, alcoholic liver cirrhosis, COPD who presented with complaints of vomiting and diarrhea since last 2 days. Intermittently she had been having hematemesis which she quantifies as approximately a pint. She also noticed fresh blood per rectum. She is a very poor historian and she is unable to tell me when or whether she had any endoscopies before. She admits to having diagnosis of liver cirrhosis. She also admits to drinking about 20-24 to beers daily. ER workup initially patient had a heart rate of 115, indicating early hemorrhagic shock. Hemoglobin was 7.6. Patient was given 1 unit of PRBC and critical care was requested for admission. Patient also received octreotide 50 mcg IV push, Protonix 80 mg bolus and infusion was started at 8 mg/h. GI consult also requested I evaluated the patient in the ED. She complains of abdominal pain appears disheveled critically ill, pale. Remains tachycardic getting first unit of blood transfusion. Will request additional 1 unit PRBC. Rocephin had been added for SBP prophylaxis. I will also start octreotide infusion. 12/04 Patient is lying in bed in NAD. Hgb 6.7 this morning. Patient transfused 3units PRBC. For EGD and Colonoscopy today SUBJECTIVE: 12/05: Negative nuclear medicine bleeding scan overnight. Hemoglobin stable around 10. Noted EEG results revealed esophageal, gastric and duodenal ulcers. Colonoscopy with shorty blood throughout and nonbleeding internal and external hemorrhoids. Resting comfortably in bed requesting clear liquid diet which she is currently on. Minimal lorazepam use. Objective Vital Signs / I&O: Vital Signs 12/04/17 07:58 12/04/17 08:00 12/04/17 09:21 Temperature 97.5 F L 97.5 F L Pulse Rate 79 82 85 Respiratory Rate 20 23 18 Blood Pressure 131/80 131/80 Pulse Oximetry 100 97 12/04/17 10:00 12/04/17 12:23 12/04/17 12:45 Temperature 98.1 F Pulse Rate 85 86 Respiratory Rate 20 22 22 Blood Pressure 105/66 100/67 Pulse Oximetry 100 100 12/04/17 14:24 12/04/17 14:30 12/04/17 14:45 Temperature 98.0 F Pulse Rate 74 72 78 Respiratory Rate 12 14 22 Blood Pressure 133/64 134/75 143/73 H Pulse Oximetry 100 100 96 12/04/17 15:00 12/04/17 15:15 12/04/17 15:45 Temperature 98.0 F Pulse Rate 77 72 72 Respiratory Rate 22 24 19 Blood Pressure 149/67 H 130/59 L 130/61 Pulse Oximetry 99 98 98 12/04/17 16:00 12/04/17 17:38 12/04/17 17:39 Temperature 98 F Pulse Rate 73 Respiratory Rate 20 20 20 Blood Pressure 113/73 Pulse Oximetry 98 12/04/17 18:00 12/04/17 19:39 12/04/17 20:00 Temperature 98.3 F Pulse Rate 94 H 89 90 Respiratory Rate 18 28 H Blood Pressure 127/92 H Pulse Oximetry 100 97 12/04/17 22:00 12/04/17 23:44 12/05/17 00:00 Temperature 98.3 F Pulse Rate 98 H 89 90 Respiratory Rate 20 17 Blood Pressure 112/62 Pulse Oximetry 98 12/05/17 02:00 12/05/17 04:00 12/05/17 04:02 Temperature 97.9 F Pulse Rate 96 H 90 107 H Respiratory Rate 15 16 Blood Pressure 120/96 H Pulse Oximetry 98 12/05/17 06:00 12/05/17 07:36 Temperature Pulse Rate 92 H 95 H Respiratory Rate 22 Blood Pressure Pulse Oximetry Intake & Output 12/04/17 12/05/17 12/05/17 18:59 06:59 18:59 Intake Total 3440.5 / 3440.5 2231.2 / 2231.2 Output Total 750 / 750 300 / 300 Balance 2690.5 / 2690.5 1931.2 / 1931.2 Weight 58.9 kg Intake: IV 2500.5 / 2500.5 1511.2 / 1511.2 SandoSTATIN Inj 500 MCG In NS 500.5 / 500.5 Inj 500 ML @ 25 MCG/HR 25.02 mls/hr IV.CONT .Q20H1M [facility] Rx#: [id number] NS Inj 1,000 ML @ 84 mls/hr IV. 1999 / 1999 1000 / 1000 CONT .[id number] [facility] Rx#:[id number] MVI-12 Inj 10 ML Thiamine Inj 511.2 / 511.2 100 MG Folvite Inj 1 MG In NS Inj 500 ML @ 125 mls/hr IV.SIG Q24H [facility] Rx#:[id number] Oral 440 / 440 720 / 720 Anesthesia Amount 100 / 100 Intake (Blood Product) Amt 400 / 400 Rbc As-3 Leukoreduced Unit 400 / 400 [id number] Rbc As-3 Leukoreduced Unit 0 / 0 [id number] Output: Stool 400 / 400 Urine Amount (Catheter) 350 / 350 300 / 300 Indwelling Urethral Catheter 350 / 350 300 / 300 Other: Date of Last Bowel Movement 12/04/17 12/05/17 # Incontinent Bowel Movements 8 Result Diagrams: 12/04/17 22:47 12/04/17 10:50 Imaging: Abdomen X-Ray 12/03/17 08:58 CONCLUSION: Nonspecific bowel gas . Chest X-Ray 12/03/17 08:58 CONCLUSION: No acute cardiopulmonary disease. GI Bleed Scan Nuclear Medicine 12/04/17 14:06 CONCLUSION: 1. Negative GI bleeding scan Objective Remarks: GENERAL: Patient is 57yo lying in bed in NAD SKIN: Warm and dry. HEAD: Normocephalic. EYES: No scleral icterus. No injection or drainage. NECK: Supple, trachea midline. No JVD or lymphadenopathy. CARDIOVASCULAR: Regular rate and rhythm. S1, S2 no S4. Without murmur without murmurs, gallops, or rubs. RESPIRATORY: Breath sounds equal bilaterally. No accessory muscle use. GASTROINTESTINAL: Abdomen soft, tender to palpation epigastric region. No guarding rigidity. Hypoactive bowel sounds. MUSCULOSKELETAL: No significant peripheral edema. Neuro: Awake and alert. Cranial nerves II through XII grossly intact. Strength is equal and symmetric. Normal sensation. Assessment and Plan - Problem List (1) COPD (chronic obstructive pulmonary disease) Code(s): J44.9 - Chronic obstructive pulmonary disease, unspecified Status: Chronic - Assessment and Plan Plan: NEURO/PSYCH: Alcohol dependence -Watch closely for alcohol withdrawal -Seizure precautions -CIWA protocol with as needed Lorazepam -Supplement multivitamin thiamine and multivitamin via vitamin bag. Switch to p.o. 12/06 RESP: History of COPD Oxygen PRN keep sats >92% Albuterol/ipratropium aerosols every 4 hours with albuterol aerosols every 2 hours as needed for dyspnea -Aggressive pulmonary toilet CV: Monitor HR and BP keep MAP>65mmHg -Normal saline IV fluids bolus and maintenance at 84 mL/h will be discontinued today as currently on clear liquid diet -Monitor vitals closely GI/HEME: Upper and lower GI bleed Esophageal 2, gastric 3 and duodenal 4 ulcers Internal and external hemorrhoids Acute blood loss anemia requiring transfusion Status post 4 units PRBC since admission EGD revealed esophageal ulcers 2 at the distal esophagus 3-7 mm, 3 gastric ulcer between 5 and 9 mm and 41 ulcers. Colonoscopy revealed blood to the terminal ileum. Internal and external hemorrhoids. Nuclear medicine bleeding scan revealed no acute bleeding Followed by GI and general surgery/Dr. Hauser. -Ceftriaxone for SBP prophylaxis -Monitor H&H and coags closely Renal/: -Monitor renal function, I/O', electrolytes replacement per protocol. ID: Ceftriaxone for SBP prophylaxis -Monitor for signs of infections ( Fever, WBC) ENDO: -Electrolyte replacement per protocol -Sliding scale insulin PROPH: -Bilateral lower extremity SCDs. Protonix infusion. Chemical DVT prophylaxis contraindicated in setting of GI bleed and anemia requiring blood transfusion. LINES: -Utilize peripheral IVs, Level 3
[2017-12-05 08:17] LABS: Anion Gap 9 meq/L (5-15); Blood Urea Nitrogen 6 mg/dL (7-18); Calcium 7.5 mg/dL (8.5-10.1); Carbon Dioxide 18.3 meq/L (21.0-32.0); Chloride 109 meq/L (98-107); Glomerular Filtration Rate Greater Than 89 mL/min (>89); Glucose,Random 122 mg/dL (74-106); Magnesium 1.5 mg/dL (1.5-2.5); Phosphorus 2.2 mg/dL (2.5-4.9); Potassium 3.3 meq/L (3.5-5.1); Sodium 136 meq/L (136-145)
[2017-12-05] MEDS: Pantoprazole Inj 80 MG in Sodium Chlor 0.9% Inj 100 ML IV.CONT SCH ×2 (09:07→20:01)
--- NOTE | 2017-12-05 11:06 | P.PNGI ---
Subjective Interval history: Pt resting in bed, drowsy, according to RN received 2 mg of Ativan and 2 mg of Morphine this morning. RN states overnight nurse reported pt to have one large shorty bloody BM, pt has not had any BM since this. Pt denies any nausea or vomiting, per RN no reports of emesis. <Kiesha Alexandra - Last Filed: 12/05/17 10:59> Physical Exam Vital signs: Vital Signs 12/04/17 12:23 12/04/17 12:45 12/04/17 14:24 Temperature 98.1 F 98.0 F Pulse Rate 85 86 74 Respiratory Rate 22 22 12 Blood Pressure 105/66 100/67 133/64 Pulse Oximetry 100 100 100 12/04/17 14:30 12/04/17 14:45 12/04/17 15:00 Temperature Pulse Rate 72 78 77 Respiratory Rate 14 22 22 Blood Pressure 134/75 143/73 H 149/67 H Pulse Oximetry 100 96 99 12/04/17 15:15 12/04/17 15:45 12/04/17 16:00 Temperature 98.0 F 98 F Pulse Rate 72 72 73 Respiratory Rate 24 19 20 Blood Pressure 130/59 L 130/61 113/73 Pulse Oximetry 98 98 98 12/04/17 17:38 12/04/17 17:39 12/04/17 18:00 Temperature Pulse Rate 94 H Respiratory Rate 20 20 Blood Pressure Pulse Oximetry 12/04/17 19:39 12/04/17 20:00 12/04/17 22:00 Temperature 98.3 F Pulse Rate 89 90 98 H Respiratory Rate 18 28 H Blood Pressure 127/92 H Pulse Oximetry 100 97 12/04/17 23:44 12/05/17 00:00 12/05/17 02:00 Temperature 98.3 F Pulse Rate 89 90 96 H Respiratory Rate 20 17 Blood Pressure 112/62 Pulse Oximetry 98 12/05/17 04:00 12/05/17 04:02 12/05/17 06:00 Temperature 97.9 F Pulse Rate 90 107 H 92 H Respiratory Rate 15 16 Blood Pressure 120/96 H Pulse Oximetry 98 12/05/17 07:36 Temperature Pulse Rate 95 H Respiratory Rate 22 Blood Pressure Pulse Oximetry Intake & Output 12/04/17 12/05/17 12/05/17 18:59 06:59 18:59 Intake Total 3540.5 / 3540.5 2431.2 / 2431.2 Output Total 750 / 750 300 / 300 Balance 2790.5 / 2790.5 2131.2 / 2131.2 Weight 58.9 kg Intake: IV 2600.5 / 2600.5 1711.2 / 1711.2 SandoSTATIN Inj 500 MCG In NS 500.5 / 500.5 Inj 500 ML @ 25 MCG/HR 25.02 mls/hr IV.CONT .Q20H1M [facility] Rx#: [id number] Protonix Inj 80 MG In NS Inj 100 / 100 100 ML @ 10 mls/hr IV.CONT CONT [facility] Rx#:[id number] NS Inj 1,000 ML @ 84 mls/hr IV. 1999 / 1999 1000 / 1000 CONT .[id number] [facility] Rx#:[id number] MVI-12 Inj 10 ML Thiamine Inj 511.2 / 511.2 100 MG Folvite Inj 1 MG In NS Inj 500 ML @ 125 mls/hr IV.SIG Q24H [facility] Rx#:[id number] KCl 20 mEq Premix Inj 20 meq In 100 / 100 100 ml @ 50 mls/hr IV.SIG Q2H [facility] Rx#:[id number] Rocephin Inj 1,000 MG In NS Inj 100 / 100 100 ML @ 200 mls/hr IV.SIG Q24H [facility] Rx#:[id number] Oral 440 / 440 720 / 720 Anesthesia Amount 100 / 100 Intake (Blood Product) Amt 400 / 400 Rbc As-3 Leukoreduced Unit 400 / 400 [id number] Rbc As-3 Leukoreduced Unit 0 / 0 [id number] Output: Stool 400 / 400 Urine Amount (Catheter) 350 / 350 300 / 300 Indwelling Urethral Catheter 350 / 350 300 / 300 Other: Date of Last Bowel Movement 12/04/17 12/05/17 # Incontinent Bowel Movements 8 - Constitutional no acute distress - Routine HEENT Exam Head: Present: normocephalic, atraumatic - Routine Respiratory Exam Absent: accessory muscle use - Routine Abdominal Exam Present: soft, normoactive bowel sounds. Absent: tenderness, distended - Routine Skin Exam Present: dry, warm - Routine Neurological Exam Drowsy - Urinary Catheter Management Indwelling Urethral Catheter Cath placed during this visit: no <Kiesha Alexandra - Last Filed: 12/05/17 10:59> Vital signs: Vital Signs 12/04/17 15:00 12/04/17 15:15 12/04/17 15:45 Temperature 98.0 F Pulse Rate 77 72 72 Respiratory Rate 22 24 19 Blood Pressure 149/67 H 130/59 L 130/61 Pulse Oximetry 99 98 98 12/04/17 16:00 12/04/17 17:38 12/04/17 17:39 Temperature 98 F Pulse Rate 73 Respiratory Rate 20 20 20 Blood Pressure 113/73 Pulse Oximetry 98 12/04/17 18:00 12/04/17 19:39 12/04/17 20:00 Temperature 98.3 F Pulse Rate 94 H 89 90 Respiratory Rate 18 28 H Blood Pressure 127/92 H Pulse Oximetry 100 97 12/04/17 22:00 12/04/17 23:44 12/05/17 00:00 Temperature 98.3 F Pulse Rate 98 H 89 90 Respiratory Rate 20 17 Blood Pressure 112/62 Pulse Oximetry 98 12/05/17 02:00 12/05/17 04:00 12/05/17 04:02 Temperature 97.9 F Pulse Rate 96 H 90 107 H Respiratory Rate 15 16 Blood Pressure 120/96 H Pulse Oximetry 98 12/05/17 06:00 12/05/17 07:36 12/05/17 12:23 Temperature Pulse Rate 92 H 95 H 97 H Respiratory Rate 22 16 Blood Pressure Pulse Oximetry Intake & Output 12/04/17 12/05/17 12/05/17 18:59 06:59 18:59 Intake Total 3540.5 / 3540.5 2431.2 / 2431.2 150 / 150 Output Total 750 / 750 300 / 300 Balance 2790.5 / 2790.5 2131.2 / 2131.2 150 / 150 Weight 58.9 kg Intake: IV 2600.5 / 2600.5 1711.2 / 1711.2 150 / 150 SandoSTATIN Inj 500 MCG In NS 500.5 / 500.5 150 / 150 Inj 500 ML @ 25 MCG/HR 25.02 mls/hr IV.CONT .Q20H1M [facility] Rx#: [id number] Protonix Inj 80 MG In NS Inj 100 / 100 100 ML @ 10 mls/hr IV.CONT CONT [facility] Rx#:[id number] NS Inj 1,000 ML @ 84 mls/hr IV. 1999 / 1999 1000 / 1000 CONT .[id number] [facility] Rx#:[id number] MVI-12 Inj 10 ML Thiamine Inj 511.2 / 511.2 100 MG Folvite Inj 1 MG In NS Inj 500 ML @ 125 mls/hr IV.SIG Q24H [facility] Rx#:[id number] KCl 20 mEq Premix Inj 20 meq In 100 / 100 100 ml @ 50 mls/hr IV.SIG Q2H [facility] Rx#:[id number] Rocephin Inj 1,000 MG In NS Inj 100 / 100 100 ML @ 200 mls/hr IV.SIG Q24H [facility] Rx#:[id number] Oral 440 / 440 720 / 720 Anesthesia Amount 100 / 100 Intake (Blood Product) Amt 400 / 400 Rbc As-3 Leukoreduced Unit 400 / 400 [id number] Rbc As-3 Leukoreduced Unit 0 / 0 [id number] Output: Stool 400 / 400 Urine Amount (Catheter) 350 / 350 300 / 300 Indwelling Urethral Catheter 350 / 350 300 / 300 Other: Date of Last Bowel Movement 12/04/17 12/05/17 # Incontinent Bowel Movements 8 - Urinary Catheter Management Indwelling Urethral Catheter Cath placed during this visit: no <Radha Torrez - Last Filed: 12/05/17 14:49> Results - Labs CBC & Chem 7: 12/05/17 07:33 12/05/17 07:33 Laboratory Results - last 24 hr 12/04/17 12/04/17 12/04/17 06:10 10:50 10:50 Hgb 10.6 L D Hct 30.7 L Sodium 139 Potassium 4.6 D Chloride 108 H Carbon Dioxide 26.3 Anion Gap 5 BUN 7 Creatinine 0.47 L Estimated GFR Greater than 89 Random Glucose 109 H Calcium 7.5 L Phosphorus Magnesium Total Bilirubin 1.4 H AST 21 ALT 14 Alkaline Phosphatase 60 Total Protein 4.7 L Albumin 2.1 L MTS Gel Crossmatch See Detail 12/04/17 12/05/17 12/05/17 22:47 07:33 07:33 Hgb 10.3 L 9.7 L Hct 30.3 L 28.5 L Sodium 136 Potassium 3.3 L D Chloride 109 H Carbon Dioxide 18.3 L Anion Gap 9 BUN 6 L Creatinine 0.45 L Estimated GFR Greater than 89 Random Glucose 122 H Calcium 7.5 L Phosphorus 2.2 L Magnesium 1.5 Total Bilirubin AST ALT Alkaline Phosphatase Total Protein Albumin MTS Gel Crossmatch - Imaging Impressions GI Bleed Scan Nuclear Medicine 12/04/17 14:06 CONCLUSION: 1. Negative GI bleeding scan <Kiesha Alexandra - Last Filed: 12/05/17 10:59> - Labs CBC & Chem 7: 12/05/17 12:58 12/05/17 07:33 Laboratory Results - last 24 hr 12/04/17 12/05/17 12/05/17 22:47 07:33 07:33 Hgb 10.3 L 9.7 L Hct 30.3 L 28.5 L Sodium 136 Potassium 3.3 L D Chloride 109 H Carbon Dioxide 18.3 L Anion Gap 9 BUN 6 L Creatinine 0.45 L Estimated GFR Greater than 89 Random Glucose 122 H Calcium 7.5 L Phosphorus 2.2 L Magnesium 1.5 12/05/17 12:58 Hgb 9.0 L Hct 26.2 L Sodium Potassium Chloride Carbon Dioxide Anion Gap BUN Creatinine Estimated GFR Random Glucose Calcium Phosphorus Magnesium - Imaging Impressions GI Bleed Scan Nuclear Medicine 12/04/17 14:06 CONCLUSION: 1. Negative GI bleeding scan <Radha Torrez - Last Filed: 12/05/17 14:49> Assessment and Plan (1) Rectal bleed Status: Acute Code(s): K62.5 - Hemorrhage of anus and rectum (2) UGIB (upper gastrointestinal bleed) Status: Deleted Code(s): K92.2 - Gastrointestinal hemorrhage, unspecified (3) Anemia requiring transfusions Status: Deleted Code(s): D64.9 - Anemia, unspecified (4) Alcohol dependence Status: Deleted Code(s): F10.20 - Alcohol dependence, uncomplicated - Plan Symptomatic anemia with symptoms of weakness and fatigue. History of long-term EtOH abuse since her teen years and notes currently drinks 20-24 beers a day. She states she quit drinking liquor 1 year ago and has been told that she has liver cirrhosis. She currently does not remember any GI workup or GI group working with her but thinks that she has had an EGD and colonoscopy in the past. She thinks it may have been in the hospital, very poor historian. Current hemoglobin 7.6 patient is being prepared for transfusion. Maroon-colored rectal bleeding 1. Patient has history of hemorrhoids but denies any straining with defecation. States the rectal bleeding was 1 event in the past 24 hours and noted it to be maroon colored blood surrounding the stool. Epigastric pain and tenderness to light palpation and at rest dull ache Generalized abdominal pain mid quadrant as well as right upper quadrant. Patient is again long-term alcoholic and has been told that she has history of liver cirrhosis but current bilirubin normal as well as normal LFT levels. Long-term alcoholism which could explain her acute on chronic symptomatic anemia. Patient's skin is dry with petechiae noted on her extremities. Current PT/INR 1.1 no current scleral icterus noted (12/05) Pt drowsy after Morphine and Ativan this morning. Discussed with RN, she reports pt had one shorty bloody BM last night but no BM since then. Denies nausea and emesis. S/P EGD and colonoscopy yesterday. EGD --> Two ulcers ranging between 3-7mm in size were found in the distal esophagus. Three ranging between 5-9mm in size ulcers were found in the gastric antrum. Four ranging between 5- 9mm in size ulcers were found in the 1st part of the duodenum and duodenal bulb Colonoscopy --> Colon full of blood all the way into the terminal ileum. No source of bleeding seen. Likely small intestinal bleed. Internal and external hemorrhoids. Pt seen for STAT NM bleeding scan which was negative. Seen by GS who states surgical intervention will likely not be successful. H/H has been stable since transfusion. Plan IR for angiogram with embolization if continued bleeding/drop in hgb Monitor H/H Transfuse as needed DC Octreotide gtt Continue Protonix gtt Further recommendations to follow Patient has been seen and examined by myself and Dr. Torrez and this note is written on his behalf <Kiesha Alexandra - Last Filed: 12/05/17 10:59> (1) Rectal bleed Status: Acute Code(s): K62.5 - Hemorrhage of anus and rectum (2) UGIB (upper gastrointestinal bleed) Status: Deleted Code(s): K92.2 - Gastrointestinal hemorrhage, unspecified (3) Anemia requiring transfusions Status: Deleted Code(s): D64.9 - Anemia, unspecified (4) Alcohol dependence Status: Deleted Code(s): F10.20 - Alcohol dependence, uncomplicated - Plan Seen and examined, no active bleeding. Bleeding scan -ve. Angiogram if further bleeding. IV protonix. - Attending Attestation The exam, history, and the medical decision-making described in the above note were completed with the assistance of the mid-level provider. I reviewed and agree with the findings presented. I attest that I had a [id number] encounter with the patient on the same day, and personally performed and documented my assessment and findings in the medical record. <Radha Torrez - Last Filed: 12/05/17 14:49>
[2017-12-05] MEDS: Octreotide Inj 500 MCG in Sodium Chlor 0.9% Inj 500 ML IV.CONT SCH (11:22)
--- NOTE | 2017-12-05 11:51 | P.PNGS ---
<RobertJessenia - Last Filed: 12/05/17 11:47> Subjective Interval history: Resting in bed; slow to answer Physical Exam Vital signs: Vital Signs 12/04/17 12:23 12/04/17 12:45 12/04/17 14:24 Temperature 98.1 F 98.0 F Pulse Rate 85 86 74 Respiratory Rate 22 22 12 Blood Pressure 105/66 100/67 133/64 Pulse Oximetry 100 100 100 12/04/17 14:30 12/04/17 14:45 12/04/17 15:00 Temperature Pulse Rate 72 78 77 Respiratory Rate 14 22 22 Blood Pressure 134/75 143/73 H 149/67 H Pulse Oximetry 100 96 99 12/04/17 15:15 12/04/17 15:45 12/04/17 16:00 Temperature 98.0 F 98 F Pulse Rate 72 72 73 Respiratory Rate 24 19 20 Blood Pressure 130/59 L 130/61 113/73 Pulse Oximetry 98 98 98 12/04/17 17:38 12/04/17 17:39 12/04/17 18:00 Temperature Pulse Rate 94 H Respiratory Rate 20 20 Blood Pressure Pulse Oximetry 12/04/17 19:39 12/04/17 20:00 12/04/17 22:00 Temperature 98.3 F Pulse Rate 89 90 98 H Respiratory Rate 18 28 H Blood Pressure 127/92 H Pulse Oximetry 100 97 12/04/17 23:44 12/05/17 00:00 12/05/17 02:00 Temperature 98.3 F Pulse Rate 89 90 96 H Respiratory Rate 20 17 Blood Pressure 112/62 Pulse Oximetry 98 12/05/17 04:00 12/05/17 04:02 12/05/17 06:00 Temperature 97.9 F Pulse Rate 90 107 H 92 H Respiratory Rate 15 16 Blood Pressure 120/96 H Pulse Oximetry 98 12/05/17 07:36 Temperature Pulse Rate 95 H Respiratory Rate 22 Blood Pressure Pulse Oximetry Intake & Output 12/04/17 12/05/17 12/05/17 18:59 06:59 18:59 Intake Total 3540.5 / 3540.5 2431.2 / 2431.2 150 / 150 Output Total 750 / 750 300 / 300 Balance 2790.5 / 2790.5 2131.2 / 2131.2 150 / 150 Weight 58.9 kg Intake: IV 2600.5 / 2600.5 1711.2 / 1711.2 150 / 150 SandoSTATIN Inj 500 MCG In NS 500.5 / 500.5 150 / 150 Inj 500 ML @ 25 MCG/HR 25.02 mls/hr IV.CONT .Q20H1M [facility] Rx#: [id number] Protonix Inj 80 MG In NS Inj 100 / 100 100 ML @ 10 mls/hr IV.CONT CONT [facility] Rx#:[id number] NS Inj 1,000 ML @ 84 mls/hr IV. 1999 / 1999 1000 / 1000 CONT .[id number] [facility] Rx#:[id number] MVI-12 Inj 10 ML Thiamine Inj 511.2 / 511.2 100 MG Folvite Inj 1 MG In NS Inj 500 ML @ 125 mls/hr IV.SIG Q24H [facility] Rx#:[id number] KCl 20 mEq Premix Inj 20 meq In 100 / 100 100 ml @ 50 mls/hr IV.SIG Q2H [facility] Rx#:[id number] Rocephin Inj 1,000 MG In NS Inj 100 / 100 100 ML @ 200 mls/hr IV.SIG Q24H [facility] Rx#:[id number] Oral 440 / 440 720 / 720 Anesthesia Amount 100 / 100 Intake (Blood Product) Amt 400 / 400 Rbc As-3 Leukoreduced Unit 400 / 400 [id number] Rbc As-3 Leukoreduced Unit 0 / 0 [id number] Output: Stool 400 / 400 Urine Amount (Catheter) 350 / 350 300 / 300 Indwelling Urethral Catheter 350 / 350 300 / 300 Other: Date of Last Bowel Movement 12/04/17 12/05/17 # Incontinent Bowel Movements 8 Narrative: Alert; slow to answer questions Cardio: RRR Resp: CTAB Abd: soft non tender - Urinary Catheter Management Indwelling Urethral Catheter Cath placed during this visit: no Assessment and Plan - Assessment (1) Anemia requiring transfusions Code(s): D64.9 - Anemia, unspecified Status: Deleted Plan: 57 year old female with LGIB -Bleeding scan negative for active bleeding -H/H stable 9.7/28.5 ---stable -s/p EGD/colonoscopy--- multiple ulcer visualized -Recommend continuing Protonix and Octreotide drips -Non surgical management (2) Liver cirrhosis Code(s): K74.60 - Unspecified cirrhosis of liver Status: Deleted <Gary Hauser - Last Filed: 12/05/17 19:28> Physical Exam Vital signs: Vital Signs 12/04/17 19:39 12/04/17 20:00 12/04/17 22:00 Temperature 98.3 F Pulse Rate 89 90 98 H Respiratory Rate 18 28 H Blood Pressure 127/92 H Pulse Oximetry 100 97 12/04/17 23:44 12/05/17 00:00 12/05/17 02:00 Temperature 98.3 F Pulse Rate 89 90 96 H Respiratory Rate 20 17 Blood Pressure 112/62 Pulse Oximetry 98 12/05/17 04:00 12/05/17 04:02 12/05/17 06:00 Temperature 97.9 F Pulse Rate 90 107 H 92 H Respiratory Rate 15 16 Blood Pressure 120/96 H Pulse Oximetry 98 12/05/17 07:36 12/05/17 08:00 12/05/17 10:00 Temperature 98.5 F Pulse Rate 95 H 104 H 101 H Respiratory Rate 22 23 Blood Pressure 107/65 Pulse Oximetry 98 12/05/17 12:00 12/05/17 12:23 12/05/17 14:00 Temperature 98.7 F Pulse Rate 92 H 97 H 96 H Respiratory Rate 15 16 Blood Pressure 104/71 Pulse Oximetry 99 12/05/17 14:52 12/05/17 16:00 12/05/17 18:00 Temperature 97.8 F Pulse Rate 97 H 92 H Respiratory Rate 20 22 Blood Pressure 122/69 Pulse Oximetry 100 Intake & Output 12/05/17 12/05/17 12/06/17 06:59 18:59 06:59 Intake Total 2431.2 / 2431.2 1850 / 1850 Output Total 300 / 300 1000 / 1000 Balance 2131.2 / 2131.2 850 / 850 Weight 58.9 kg Intake: IV 1711.2 / 1711.2 150 / 150 SandoSTATIN Inj 500 MCG In NS 150 / 150 Inj 500 ML @ 25 MCG/HR 25.02 mls/hr IV.CONT .Q20H1M [facility] Rx#: [id number] Protonix Inj 80 MG In NS Inj 100 / 100 100 ML @ 10 mls/hr IV.CONT CONT [facility] Rx#:[id number] NS Inj 1,000 ML @ 84 mls/hr IV. 1000 / 1000 CONT .[id number] [facility] Rx#:[id number] MVI-12 Inj 10 ML Thiamine Inj 511.2 / 511.2 100 MG Folvite Inj 1 MG In NS Inj 500 ML @ 125 mls/hr IV.SIG Q24H [facility] Rx#:[id number] Rocephin Inj 1,000 MG In NS Inj 100 / 100 100 ML @ 200 mls/hr IV.SIG Q24H [facility] Rx#:[id number] Oral 720 / 720 1700 / 1700 Output: Urine Amount (Catheter) 300 / 300 1000 / 1000 Indwelling Urethral Catheter 300 / 300 1000 / 1000 Other: Date of Last Bowel Movement 12/05/17 12/05/17 - Urinary Catheter Management Indwelling Urethral Catheter Cath placed during this visit: no Assessment and Plan - Assessment (1) Anemia requiring transfusions Code(s): D64.9 - Anemia, unspecified Status: Deleted Plan: As above; Hb stable Nothing further to add Will likely sign off in next 24-48 hrs if Hb remains relatively stable (2) Liver cirrhosis Code(s): K74.60 - Unspecified cirrhosis of liver Status: Deleted
[2017-12-05] MEDS: Potassium Chloride 25 MEQ Effervescent Tablet PO PRN (12:09)
[2017-12-05] MEDS: Potassium Phosphate 500 MG Soluble Tablet PO PRN ×2 (12:10→15:56)
[2017-12-05 13:30] LABS: Hematocrit 26.2 % (35.0-46.0)
[2017-12-05] MEDS ORDERED: Mag Sulf 1 gm/100 ml Premix 100 ML IV.SIG ONE (14:27)
[2017-12-05] MEDS ORDERED: Potassium Phosphate Inj 30 MMOL in Sodium Chlor 0.9% Inj 250 ML IV.SIG ONE (16:00)
[2017-12-05] MEDS: Mag Sulf 1 gm/100 ml Premix 100 ML IV.SIG SCH ×2 (19:44→21:46)
[2017-12-05] MEDS: Multivitamin Inj 10 ML, Thiamine Inj 100 MG, Folic Acid Inj 1 MG in Sodium Chlor 0.9% I... IV.SIG SCH (19:45)
[2017-12-05 22:56] LABS: Hematocrit 27.5 % (35.0-46.0); Hemoglobin 9.2 gm/dL (11.6-15.3)
[2017-12-06] MEDS: Potassium Chloride 25 MEQ Effervescent Tablet PO PRN
[2017-12-06] MEDS: Potassium Phosphate 500 MG Soluble Tablet PO PRN
[2017-12-06 04:17] LABS: Hematocrit 28.5 % (35.0-46.0); Hemoglobin 9.5 gm/dL (11.6-15.3)
[2017-12-06 04:35] LABS: Alanine Aminotransferase 14 U/L (10-53); Anion Gap 8 meq/L (5-15); Aspartate Aminotransferase 19 U/L (15-37); Blood Urea Nitrogen 5 mg/dL (7-18); Calcium 7.4 mg/dL (8.5-10.1); Carbon Dioxide 20.5 meq/L (21.0-32.0); Chloride 110 meq/L (98-107); Glomerular Filtration Rate Greater Than 89 mL/min (>89); Glucose,Random 109 mg/dL (74-106); Magnesium 1.9 mg/dL (1.5-2.5); Phosphorus 3.1 mg/dL (2.5-4.9); Potassium 5.1 meq/L (3.5-5.1); Sodium 138 meq/L (136-145)
[2017-12-06 04:39] LABS: Alkaline Phosphatase 63 U/L (45-117); Total Protein 5.1 g/dL (6.4-8.2)
[2017-12-06] MEDS: Morphine Inj 4 MG/ML Vial IV.PUSH PRN ×4 (04:40→16:54)
[2017-12-06 05:33] LABS: Activated Partial Thrombo Time 23.1 sec (24.3-30.1); Prothrombin Time 10.3 sec (9.8-11.6)
[2017-12-06] MEDS: Chlorhexidine Gluconate 2% 1 Pack (2 Cloths) TOPICAL SCH (06:02)
[2017-12-06] MEDS: Pantoprazole Inj 80 MG in Sodium Chlor 0.9% Inj 100 ML IV.CONT SCH ×2 (06:02→22:05)
[2017-12-06] MEDS: Folic Acid 1 MG Tablet PO SCH (09:03)
[2017-12-06] MEDS: LORazepam 1 MG Tablet PO PRN ×2 (09:03→13:47)
--- NOTE | 2017-12-06 10:00 | P.PNCC ---
Subjective Subjective Remarks/Hospital Course: The patient is a 57-year-old female with history of severe alcohol dependence drinking about 20-24 beers daily, alcoholic liver cirrhosis, COPD who presented with complaints of vomiting and diarrhea since last 2 days. Intermittently she had been having hematemesis which she quantifies as approximately a pint. She also noticed fresh blood per rectum. She is a very poor historian and she is unable to tell me when or whether she had any endoscopies before. She admits to having diagnosis of liver cirrhosis. She also admits to drinking about 20-24 to beers daily. ER workup initially patient had a heart rate of 115, indicating early hemorrhagic shock. Hemoglobin was 7.6. Patient was given 1 unit of PRBC and critical care was requested for admission. Patient also received octreotide 50 mcg IV push, Protonix 80 mg bolus and infusion was started at 8 mg/h. GI consult also requested I evaluated the patient in the ED. She complains of abdominal pain appears disheveled critically ill, pale. Remains tachycardic getting first unit of blood transfusion. Will request additional 1 unit PRBC. Rocephin had been added for SBP prophylaxis. I will also start octreotide infusion. 12/04 Patient is lying in bed in NAD. Hgb 6.7 this morning. Patient transfused 3units PRBC. For EGD and Colonoscopy today SUBJECTIVE: 12/05: Negative nuclear medicine bleeding scan overnight. Hemoglobin stable around 10. Noted EEG results revealed esophageal, gastric and duodenal ulcers. Colonoscopy with shorty blood throughout and nonbleeding internal and external hemorrhoids. Resting comfortably in bed requesting clear liquid diet which she is currently on. Minimal lorazepam use. 12/06 No events overnight. Awake, alert on Protonix drip. H/H stable. Objective Vital Signs / I&O: Vital Signs 12/05/17 10:00 12/05/17 12:00 12/05/17 12:23 Temperature 98.7 F Pulse Rate 101 H 92 H 97 H Respiratory Rate 15 16 Blood Pressure 104/71 Pulse Oximetry 99 12/05/17 14:00 12/05/17 14:52 12/05/17 16:00 Temperature 97.8 F Pulse Rate 96 H 97 H Respiratory Rate 20 22 Blood Pressure 122/69 Pulse Oximetry 100 12/05/17 18:00 12/05/17 20:00 12/05/17 20:21 Temperature 98.2 F Pulse Rate 92 H 96 H 103 H Respiratory Rate 15 18 Blood Pressure 120/66 Pulse Oximetry 98 100 12/05/17 22:00 12/05/17 23:37 12/06/17 00:00 Temperature 97.4 F L Pulse Rate 102 H 100 H 108 H Respiratory Rate 14 26 H Blood Pressure 110/61 Pulse Oximetry 97 12/06/17 02:00 12/06/17 03:52 12/06/17 04:00 Temperature 97.9 F Pulse Rate 108 H 102 H 96 H Respiratory Rate 16 22 Blood Pressure 124/65 Pulse Oximetry 98 12/06/17 06:00 12/06/17 08:29 Temperature Pulse Rate 102 H 95 H Respiratory Rate 16 Blood Pressure Pulse Oximetry Intake & Output 12/05/17 12/06/17 12/06/17 18:59 06:59 18:59 Intake Total 1850 / 1850 880 / 880 Output Total 1000 / 1000 825 / 825 Balance 850 / 850 55 / 55 Weight 63.1 kg Intake: IV 150 / 150 400 / 400 SandoSTATIN Inj 500 MCG In NS 150 / 150 Inj 500 ML @ 25 MCG/HR 25.02 mls/hr IV.CONT .Q20H1M NILA Rx#: [id number] Protonix Inj 80 MG In NS Inj 200 / 200 100 ML @ 10 mls/hr IV.CONT CONT NILA Rx#:[id number] Magnesium Sulfate 1 gm/D5W 100 100 / 100 ml Premix 100 ML @ 100 mls/hr IV.SIG Q1H NILA Rx#:[id number] Rocephin Inj 1,000 MG In NS Inj 100 / 100 100 ML @ 200 mls/hr IV.SIG Q24H NILA Rx#:[id number] Oral 1700 / 1700 480 / 480 Output: Urine Amount (Catheter) 1000 / 1000 825 / 825 Indwelling Urethral Catheter 1000 / 1000 825 / 825 Other: Date of Last Bowel Movement 12/05/17 12/05/17 Result Diagrams: 12/06/17 12:48 12/06/17 12:48 Other Results: Laboratory Results - last 12 hr 12/05/17 12/06/17 12/06/17 22:44 03:49 03:49 Hgb 9.2 L 9.5 L Hct 27.5 L 28.5 L PT INR APTT Sodium 138 Potassium 5.1 D Chloride 110 H Carbon Dioxide 20.5 L Anion Gap 8 BUN 5 L Creatinine 0.43 L Estimated GFR Greater than 89 Random Glucose 109 H Lactic Acid Calcium 7.4 L* Prot Corrected Calcium 8.5 Phosphorus 3.1 Magnesium 1.9 Total Bilirubin 0.3 Direct Bilirubin 0.1 Indirect Bilirubin 0.2 AST 19 ALT 14 Alkaline Phosphatase 63 Total Protein 5.1 L Albumin 2.0 L 12/06/17 12/06/17 03:49 05:09 Hgb Hct PT 10.3 INR 1.0 APTT 23.1 L Sodium Potassium Chloride Carbon Dioxide Anion Gap BUN Creatinine Estimated GFR Random Glucose Lactic Acid 2.2 H Calcium Prot Corrected Calcium Phosphorus Magnesium Total Bilirubin Direct Bilirubin Indirect Bilirubin AST ALT Alkaline Phosphatase Total Protein Albumin Imaging: Abdomen X-Ray 12/03/17 08:58 CONCLUSION: Nonspecific bowel gas . Chest X-Ray 12/03/17 08:58 CONCLUSION: No acute cardiopulmonary disease. GI Bleed Scan Nuclear Medicine 12/04/17 14:06 CONCLUSION: 1. Negative GI bleeding scan Objective Remarks: GENERAL: Patient is 57yo lying in bed in NAD SKIN: Warm and dry. HEAD: Normocephalic. EYES: No scleral icterus. No injection or drainage. NECK: Supple, trachea midline. No JVD or lymphadenopathy. CARDIOVASCULAR: Regular rate and rhythm. S1, S2 no S4. Without murmur without murmurs, gallops, or rubs. RESPIRATORY: Breath sounds equal bilaterally. No accessory muscle use. GASTROINTESTINAL: Abdomen soft, tender to palpation epigastric region. No guarding rigidity. Hypoactive bowel sounds. MUSCULOSKELETAL: No significant peripheral edema. Neuro: Awake and alert. Cranial nerves II through XII grossly intact. Strength is equal and symmetric. Normal sensation. Assessment and Plan - Problem List (1) COPD (chronic obstructive pulmonary disease) Code(s): J44.9 - Chronic obstructive pulmonary disease, unspecified Status: Chronic - Assessment and Plan Plan: NEURO/PSYCH: Alcohol dependence -Watch closely for alcohol withdrawal -Seizure precautions -CIWA protocol with as needed Lorazepam -Continue multivitamin, thiamine, and Folic acid RESP: History of COPD Oxygen PRN keep sats >92% Albuterol/ipratropium aerosols every 4 hours with albuterol aerosols every 2 hours as needed for dyspnea -Aggressive pulmonary toilet CV: Monitor HR and BP keep MAP>65mmHg Serial lactic acid till clear IVF D5NS@84ml/hr GI/HEME: Upper and lower GI bleed Esophageal 2, gastric 3 and duodenal 4 ulcers Internal and external hemorrhoids Acute blood loss anemia requiring transfusion Status post 4 units PRBC since admission EGD revealed esophageal ulcers 2 at the distal esophagus 3-7 mm, 3 gastric ulcer between 5 and 9 mm and 4 ulcers. Colonoscopy revealed blood to the terminal ileum. Internal and external hemorrhoids. Nuclear medicine bleeding scan revealed no acute bleeding Followed by GI and general surgery/Dr. Hauser. -Ceftriaxone for SBP prophylaxis -Monitor H&H and coags closely- H/H stable Renal/: -Monitor renal function, I/O', electrolytes replacement per protocol. ID: Ceftriaxone for SBP prophylaxis -Monitor for signs of infections ( Fever, WBC) ENDO: -Electrolyte replacement per protocol -Sliding scale insulin PROPH: -Bilateral lower extremity SCDs. Protonix infusion. Chemical DVT prophylaxis contraindicated in setting of GI bleed and anemia requiring blood transfusion. LINES: -Utilize peripheral IVs, Level 2
[2017-12-06 13:45] LABS: Baso # (Auto) 0.1 th/mm3 (0.0-0.2); Baso % (Auto) 0.9 % (0.0-2.0); Eos # (Auto) 0.1 th/mm3 (0.0-0.4); Eos % (Auto) 2.1 % (0.0-4.0); Hematocrit 27.2 % (35.0-46.0); Hemoglobin 9.3 gm/dL (11.6-15.3); Lymph # (Auto) 1.7 th/mm3 (1.0-4.8); Lymph % (Auto) 27.5 % (9.0-44.0); Mean Corpuscular HGB Conc 34.1 % (32.0-36.0); Mean Corpuscular Hemoglobin 31.4 pg (27.0-34.0); Mean Corpuscular Volume 92.1 fL (80.0-100.0); Mean Platelet Volume 7.1 fL (7.0-11.0); Mono # (Auto) 0.3 th/mm3 (0.0-0.9); Mono % (Auto) 4.7 % (0.0-8.0); Neut % (Auto) 64.8 % (16.0-70.0); Platelet Count 163 th/mm3 (150-450); Red Blood Count 2.96 mil/mm3 (4.00-5.30); Red Cell Distribution Width 23.8 % (11.6-17.2); White Blood Count 6.1 th/mm3 (4.0-11.0)
[2017-12-06 14:17] LABS: Albumin 1.9 g/dL (3.4-5.0); Anion Gap 11 meq/L (5-15); Aspartate Aminotransferase 16 U/L (15-37); Blood Urea Nitrogen 4 mg/dL (7-18); Calcium 7.9 mg/dL (8.5-10.1); Carbon Dioxide 18.9 meq/L (21.0-32.0); Chloride 106 meq/L (98-107); Glomerular Filtration Rate Greater Than 89 mL/min (>89); Glucose,Random 100 mg/dL (74-106); Potassium 4.3 meq/L (3.5-5.1); Sodium 136 meq/L (136-145)
[2017-12-06 14:18] LABS: Magnesium 1.6 mg/dL (1.5-2.5); Phosphorus 2.7 mg/dL (2.5-4.9)
[2017-12-06 14:19] LABS: Alanine Aminotransferase 15 U/L (10-53)
[2017-12-06 14:21] LABS: Alkaline Phosphatase 60 U/L (45-117); Total Protein 4.7 g/dL (6.4-8.2)
[2017-12-06] MEDS ORDERED: Sodium Chlor 0.9% Inj 500 ML IV.SIG ONE (14:35)
--- NOTE | 2017-12-06 14:35 | P.PNGS ---
<Jessenia Jones - Last Filed: 12/06/17 14:33> Subjective Interval history: Up to chair now with PT John Complaining of back pain Physical Exam Vital signs: Vital Signs 12/05/17 14:52 12/05/17 16:00 12/05/17 18:00 Temperature 97.8 F Pulse Rate 97 H 92 H Respiratory Rate 20 22 Blood Pressure 122/69 Pulse Oximetry 100 12/05/17 20:00 12/05/17 20:21 12/05/17 22:00 Temperature 98.2 F Pulse Rate 96 H 103 H 102 H Respiratory Rate 15 18 Blood Pressure 120/66 Pulse Oximetry 98 100 12/05/17 23:37 12/06/17 00:00 12/06/17 02:00 Temperature 97.4 F L Pulse Rate 100 H 108 H 108 H Respiratory Rate 14 26 H Blood Pressure 110/61 Pulse Oximetry 97 12/06/17 03:52 12/06/17 04:00 12/06/17 06:00 Temperature 97.9 F Pulse Rate 102 H 96 H 102 H Respiratory Rate 16 22 Blood Pressure 124/65 Pulse Oximetry 98 12/06/17 08:29 12/06/17 11:30 Temperature Pulse Rate 95 H 110 H Respiratory Rate 16 22 Blood Pressure Pulse Oximetry Intake & Output 12/05/17 12/06/17 12/06/17 18:59 06:59 18:59 Intake Total 1850 / 1850 880 / 880 Output Total 1000 / 1000 825 / 825 Balance 850 / 850 55 / 55 Weight 63.1 kg Intake: IV 150 / 150 400 / 400 SandoSTATIN Inj 500 MCG In NS 150 / 150 Inj 500 ML @ 25 MCG/HR 25.02 mls/hr IV.CONT .Q20H1M NILA Rx#: [id number] Protonix Inj 80 MG In NS Inj 200 / 200 100 ML @ 10 mls/hr IV.CONT CONT NILA Rx#:[id number] Magnesium Sulfate 1 gm/D5W 100 100 / 100 ml Premix 100 ML @ 100 mls/hr IV.SIG Q1H NILA Rx#:[id number] Rocephin Inj 1,000 MG In NS Inj 100 / 100 100 ML @ 200 mls/hr IV.SIG Q24H NILA Rx#:[id number] Oral 1700 / 1700 480 / 480 Output: Urine Amount (Catheter) 1000 / 1000 825 / 825 Indwelling Urethral Catheter 1000 / 1000 825 / 825 Other: Date of Last Bowel Movement 12/05/17 12/05/17 Narrative: Alert and awake Cardio: RRR Resp: CTAB Abd: soft non tender - Urinary Catheter Management Indwelling Urethral Catheter Cath placed during this visit: no Assessment and Plan - Assessment (1) Anemia requiring transfusions Code(s): D64.9 - Anemia, unspecified Status: Deleted Plan: -H/H now stable -No further bloody BMs -VSS -Will sign off; Discussed with NERY Olguin and Dr. Torrez (2) Liver cirrhosis Code(s): K74.60 - Unspecified cirrhosis of liver Status: Deleted <Gary Hauser - Last Filed: 12/08/17 07:24> Physical Exam Vital signs: Vital Signs 12/07/17 08:00 12/07/17 08:11 12/07/17 10:00 Temperature 98.3 F Pulse Rate 85 109 H 89 Respiratory Rate 15 17 Blood Pressure 138/77 Pulse Oximetry 100 100 12/07/17 11:17 12/07/17 12:00 12/07/17 13:45 Temperature 98.2 F Pulse Rate 101 H 88 90 Respiratory Rate 15 14 Blood Pressure 113/70 Pulse Oximetry 100 100 12/07/17 14:00 12/07/17 16:00 12/07/17 17:51 Temperature 98.4 F Pulse Rate 93 H 84 Respiratory Rate 14 Blood Pressure 122/77 Pulse Oximetry 100 97 12/07/17 20:00 12/07/17 20:32 12/07/17 20:33 Temperature 99.1 F Pulse Rate 90 92 H Respiratory Rate 14 14 19 Blood Pressure 101/68 Pulse Oximetry 98 99 12/08/17 00:00 12/08/17 00:20 12/08/17 00:21 Temperature 99.2 F Pulse Rate 87 83 Respiratory Rate 15 20 20 Blood Pressure 114/72 Pulse Oximetry 98 98 12/08/17 02:00 12/08/17 04:00 12/08/17 04:27 Temperature 98.8 F Pulse Rate 94 H 84 90 Respiratory Rate 15 19 Blood Pressure 111/69 Pulse Oximetry 99 12/08/17 04:28 12/08/17 06:00 Temperature Pulse Rate 96 H Respiratory Rate 19 Blood Pressure Pulse Oximetry 98 Intake & Output 12/07/17 12/08/17 12/08/17 18:59 06:59 18:59 Intake Total 3217.9 / 3217.9 2401.0 / 2401.0 Output Total 350 / 350 550 / 550 Balance 2867.9 / 2867.9 1851.0 / 1851.0 Weight 77.4 kg Intake: IV 3217.9 / 3217.9 2401.0 / 2401.0 D5W/Normal Saline Inj 1,000 ML 1000 / 1000 1000 / 1000 @ 84 mls/hr IV.CONT .[id number] NILA Rx#:[id number] Versed Inj 50 mg In 50 ml @ 2 50 / 50 50 / 50 MG/HR 2 mls/hr IV.CONT TITRATE PRN Rx#:[id number] SandoSTATIN Inj 500 MCG In NS 1467.9 / 1467.9 1001.0 / 1001.0 Inj 500 ML @ 100 MCG/HR 100.1 mls/hr IV.CONT .Q5H NILA Rx#: [id number] Protonix Inj 80 MG In NS Inj 200 / 200 100 / 100 100 ML @ 10 mls/hr IV.CONT CONT NILA Rx#:[id number] fentaNYL 10 mcg/mL Premix Drip 250 / 250 250 / 250 2,500 mcg In 250 ml @ 50 MCG/HR 5 mls/hr IV.SIG TITRATE PRN Rx #:[id number] Output: Urine Amount (Catheter) 350 / 350 550 / 550 Indwelling Urethral Catheter 350 / 350 550 / 550 Other: Date of Last Bowel Movement 12/07/17 - Urinary Catheter Management Indwelling Urethral Catheter Cath placed during this visit: no Assessment and Plan - Assessment (1) Anemia requiring transfusions Code(s): D64.9 - Anemia, unspecified Status: Deleted Plan: As above; no abdominal complaints Will sign off The exam, history, and the medical decision-making described in the above note were completed with the assistance of the mid-level provider. I reviewed and agree with the findings presented. I attest that I had a [id number] encounter with the patient on the same day, and personally performed and documented my assessment and findings in the medical record. (2) Liver cirrhosis Code(s): K74.60 - Unspecified cirrhosis of liver Status: Deleted
--- NOTE | 2017-12-06 14:38 | P.PNGI ---
Subjective Interval history: Spoke with NERY Iqbal who states BM this morning, denies any blood in stool. She states residential counselor nurse reported pt had a small smear of stool but no bleeding. Denies nausea, vomiting, abdominal pain. Tolerating clear liquids. <RoxigastonArmandoKiesha - Last Filed: 12/06/17 14:29> Physical Exam Vital signs: Vital Signs 12/05/17 14:52 12/05/17 16:00 12/05/17 18:00 Temperature 97.8 F Pulse Rate 97 H 92 H Respiratory Rate 20 22 Blood Pressure 122/69 Pulse Oximetry 100 12/05/17 20:00 12/05/17 20:21 12/05/17 22:00 Temperature 98.2 F Pulse Rate 96 H 103 H 102 H Respiratory Rate 15 18 Blood Pressure 120/66 Pulse Oximetry 98 100 12/05/17 23:37 12/06/17 00:00 12/06/17 02:00 Temperature 97.4 F L Pulse Rate 100 H 108 H 108 H Respiratory Rate 14 26 H Blood Pressure 110/61 Pulse Oximetry 97 12/06/17 03:52 12/06/17 04:00 12/06/17 06:00 Temperature 97.9 F Pulse Rate 102 H 96 H 102 H Respiratory Rate 16 22 Blood Pressure 124/65 Pulse Oximetry 98 12/06/17 08:29 12/06/17 11:30 Temperature Pulse Rate 95 H 110 H Respiratory Rate 16 22 Blood Pressure Pulse Oximetry Intake & Output 12/05/17 12/06/17 12/06/17 18:59 06:59 18:59 Intake Total 1850 / 1850 880 / 880 Output Total 1000 / 1000 825 / 825 Balance 850 / 850 55 / 55 Weight 63.1 kg Intake: IV 150 / 150 400 / 400 SandoSTATIN Inj 500 MCG In NS 150 / 150 Inj 500 ML @ 25 MCG/HR 25.02 mls/hr IV.CONT .Q20H1M [facility] Rx#: [id number] Protonix Inj 80 MG In NS Inj 200 / 200 100 ML @ 10 mls/hr IV.CONT CONT [facility] Rx#:[id number] Magnesium Sulfate 1 gm/D5W 100 100 / 100 ml Premix 100 ML @ 100 mls/hr IV.SIG Q1H [facility] Rx#:[id number] Rocephin Inj 1,000 MG In NS Inj 100 / 100 100 ML @ 200 mls/hr IV.SIG Q24H [facility] Rx#:[id number] Oral 1700 / 1700 480 / 480 Output: Urine Amount (Catheter) 1000 / 1000 825 / 825 Indwelling Urethral Catheter 1000 / 1000 825 / 825 Other: Date of Last Bowel Movement 12/05/17 12/05/17 - Constitutional no acute distress - Routine HEENT Exam Head: Present: normocephalic, atraumatic - Routine Abdominal Exam Present: soft, normoactive bowel sounds. Absent: tenderness, distended - Routine Neurological Exam Present: alert oriented to person and place, not year - Urinary Catheter Management Indwelling Urethral Catheter Cath placed during this visit: no <Kiesha Alexandra - Last Filed: 12/06/17 14:29> Vital signs: Vital Signs 12/05/17 16:00 12/05/17 18:00 12/05/17 20:00 Temperature 97.8 F 98.2 F Pulse Rate 97 H 92 H 96 H Respiratory Rate 22 15 Blood Pressure 122/69 120/66 Pulse Oximetry 100 98 12/05/17 20:21 12/05/17 22:00 12/05/17 23:37 Temperature Pulse Rate 103 H 102 H 100 H Respiratory Rate 18 14 Blood Pressure Pulse Oximetry 100 12/06/17 00:00 12/06/17 02:00 12/06/17 03:52 Temperature 97.4 F L Pulse Rate 108 H 108 H 102 H Respiratory Rate 26 H 16 Blood Pressure 110/61 Pulse Oximetry 97 12/06/17 04:00 12/06/17 06:00 12/06/17 08:29 Temperature 97.9 F Pulse Rate 96 H 102 H 95 H Respiratory Rate 22 16 Blood Pressure 124/65 Pulse Oximetry 98 12/06/17 11:30 Temperature Pulse Rate 110 H Respiratory Rate 22 Blood Pressure Pulse Oximetry Intake & Output 12/05/17 12/06/17 12/06/17 18:59 06:59 18:59 Intake Total 1850 / 1850 880 / 880 Output Total 1000 / 1000 825 / 825 Balance 850 / 850 55 / 55 Weight 63.1 kg Intake: IV 150 / 150 400 / 400 SandoSTATIN Inj 500 MCG In NS 150 / 150 Inj 500 ML @ 25 MCG/HR 25.02 mls/hr IV.CONT .Q20H1M [facility] Rx#: [id number] Protonix Inj 80 MG In NS Inj 200 / 200 100 ML @ 10 mls/hr IV.CONT CONT [facility] Rx#:[id number] Magnesium Sulfate 1 gm/D5W 100 100 / 100 ml Premix 100 ML @ 100 mls/hr IV.SIG Q1H [facility] Rx#:[id number] Rocephin Inj 1,000 MG In NS Inj 100 / 100 100 ML @ 200 mls/hr IV.SIG Q24H [facility] Rx#:[id number] Oral 1700 / 1700 480 / 480 Output: Urine Amount (Catheter) 1000 / 1000 825 / 825 Indwelling Urethral Catheter 1000 / 1000 825 / 825 Other: Date of Last Bowel Movement 12/05/17 12/05/17 - Urinary Catheter Management Indwelling Urethral Catheter Cath placed during this visit: no <Radha Torrez - Last Filed: 12/06/17 14:57> Results - Labs CBC & Chem 7: 12/06/17 12:48 12/06/17 12:48 Laboratory Results - last 24 hr 12/05/17 12/06/17 12/06/17 22:44 03:49 03:49 WBC RBC Hgb 9.2 L 9.5 L Hct 27.5 L 28.5 L MCV MCH MCHC RDW Plt Count MPV Neut % (Auto) Lymph % (Auto) Hitchcock % (Auto) Eos % (Auto) Baso % (Auto) Neut # (Auto) Lymph # (Auto) Hitchcock # (Auto) Eos # (Auto) Baso # (Auto) WBC Differential Differential Comment PT INR APTT Sodium 138 Potassium 5.1 D Chloride 110 H Carbon Dioxide 20.5 L Anion Gap 8 BUN 5 L Creatinine 0.43 L Estimated GFR Greater than 89 Random Glucose 109 H Lactic Acid Calcium 7.4 L* Prot Corrected Calcium 8.5 Phosphorus 3.1 Magnesium 1.9 Total Bilirubin 0.3 Direct Bilirubin 0.1 Indirect Bilirubin 0.2 AST 19 ALT 14 Alkaline Phosphatase 63 Total Protein 5.1 L Albumin 2.0 L 12/06/17 12/06/17 12/06/17 03:49 05:09 12:48 WBC RBC Hgb Hct MCV MCH MCHC RDW Plt Count MPV Neut % (Auto) Lymph % (Auto) Hitchcock % (Auto) Eos % (Auto) Baso % (Auto) Neut # (Auto) Lymph # (Auto) Hitchcock # (Auto) Eos # (Auto) Baso # (Auto) WBC Differential Differential Comment PT 10.3 INR 1.0 APTT 23.1 L Sodium 136 Potassium 4.3 D Chloride 106 Carbon Dioxide 18.9 L Anion Gap 11 BUN 4 L Creatinine 0.50 Estimated GFR Greater than 89 Random Glucose 100 Lactic Acid 2.2 H Calcium 7.9 L Prot Corrected Calcium Phosphorus Magnesium Total Bilirubin 0.3 Direct Bilirubin Indirect Bilirubin AST 16 ALT 15 Alkaline Phosphatase 60 Total Protein 4.7 L Albumin 1.9 L 12/06/17 12/06/17 12/06/17 12:48 12:48 13:19 WBC 6.1 RBC 2.96 L Hgb 9.3 L Hct 27.2 L MCV 92.1 MCH 31.4 MCHC 34.1 RDW 23.8 H D Plt Count 163 MPV 7.1 Neut % (Auto) 64.8 Lymph % (Auto) 27.5 Hitchcock % (Auto) 4.7 Eos % (Auto) 2.1 Baso % (Auto) 0.9 Neut # (Auto) 4.0 Lymph # (Auto) 1.7 Hitchcock # (Auto) 0.3 Eos # (Auto) 0.1 Baso # (Auto) 0.1 WBC Differential . Differential Comment Auto diff final PT INR APTT Sodium Potassium Chloride Carbon Dioxide Anion Gap BUN Creatinine Estimated GFR Random Glucose Lactic Acid 4.1 H* Calcium Prot Corrected Calcium Phosphorus 2.7 Magnesium 1.6 Total Bilirubin Direct Bilirubin Indirect Bilirubin AST ALT Alkaline Phosphatase Total Protein Albumin <Kiesha Alexandra - Last Filed: 12/06/17 14:29> - Labs CBC & Chem 7: 12/06/17 12:48 12/06/17 12:48 Laboratory Results - last 24 hr 12/05/17 12/06/17 12/06/17 22:44 03:49 03:49 WBC RBC Hgb 9.2 L 9.5 L Hct 27.5 L 28.5 L MCV MCH MCHC RDW Plt Count MPV Neut % (Auto) Lymph % (Auto) Hitchcock % (Auto) Eos % (Auto) Baso % (Auto) Neut # (Auto) Lymph # (Auto) Hitchcock # (Auto) Eos # (Auto) Baso # (Auto) WBC Differential Differential Comment PT INR APTT Sodium 138 Potassium 5.1 D Chloride 110 H Carbon Dioxide 20.5 L Anion Gap 8 BUN 5 L Creatinine 0.43 L Estimated GFR Greater than 89 Random Glucose 109 H Lactic Acid Calcium 7.4 L* Prot Corrected Calcium 8.5 Phosphorus 3.1 Magnesium 1.9 Total Bilirubin 0.3 Direct Bilirubin 0.1 Indirect Bilirubin 0.2 AST 19 ALT 14 Alkaline Phosphatase 63 Total Protein 5.1 L Albumin 2.0 L 12/06/17 12/06/17 12/06/17 03:49 05:09 12:48 WBC RBC Hgb Hct MCV MCH MCHC RDW Plt Count MPV Neut % (Auto) Lymph % (Auto) Hitchcock % (Auto) Eos % (Auto) Baso % (Auto) Neut # (Auto) Lymph # (Auto) Hitchcock # (Auto) Eos # (Auto) Baso # (Auto) WBC Differential Differential Comment PT 10.3 INR 1.0 APTT 23.1 L Sodium 136 Potassium 4.3 D Chloride 106 Carbon Dioxide 18.9 L Anion Gap 11 BUN 4 L Creatinine 0.50 Estimated GFR Greater than 89 Random Glucose 100 Lactic Acid 2.2 H Calcium 7.9 L Prot Corrected Calcium Phosphorus Magnesium Total Bilirubin 0.3 Direct Bilirubin Indirect Bilirubin AST 16 ALT 15 Alkaline Phosphatase 60 Total Protein 4.7 L Albumin 1.9 L 12/06/17 12/06/17 12/06/17 12:48 12:48 13:19 WBC 6.1 RBC 2.96 L Hgb 9.3 L Hct 27.2 L MCV 92.1 MCH 31.4 MCHC 34.1 RDW 23.8 H D Plt Count 163 MPV 7.1 Neut % (Auto) 64.8 Lymph % (Auto) 27.5 Hitchcock % (Auto) 4.7 Eos % (Auto) 2.1 Baso % (Auto) 0.9 Neut # (Auto) 4.0 Lymph # (Auto) 1.7 Hitchcock # (Auto) 0.3 Eos # (Auto) 0.1 Baso # (Auto) 0.1 WBC Differential . Differential Comment Auto diff final PT INR APTT Sodium Potassium Chloride Carbon Dioxide Anion Gap BUN Creatinine Estimated GFR Random Glucose Lactic Acid 4.1 H* Calcium Prot Corrected Calcium Phosphorus 2.7 Magnesium 1.6 Total Bilirubin Direct Bilirubin Indirect Bilirubin AST ALT Alkaline Phosphatase Total Protein Albumin <Radha Torrez - Last Filed: 12/06/17 14:57> Assessment and Plan (1) Rectal bleed Status: Acute Code(s): K62.5 - Hemorrhage of anus and rectum (2) UGIB (upper gastrointestinal bleed) Status: Deleted Code(s): K92.2 - Gastrointestinal hemorrhage, unspecified (3) Anemia requiring transfusions Status: Deleted Code(s): D64.9 - Anemia, unspecified (4) Alcohol dependence Status: Deleted Code(s): F10.20 - Alcohol dependence, uncomplicated - Plan Assessment: Symptomatic anemia with symptoms of weakness and fatigue. History of long-term EtOH abuse since her teen years and notes currently drinks 20-24 beers a day. She states she quit drinking liquor 1 year ago and has been told that she has liver cirrhosis. She currently does not remember any GI workup or GI group working with her but thinks that she has had an EGD and colonoscopy in the past. She thinks it may have been in the hospital, very poor historian. Current hemoglobin 7.6 patient is being prepared for transfusion. Maroon-colored rectal bleeding 1. Patient has history of hemorrhoids but denies any straining with defecation. States the rectal bleeding was 1 event in the past 24 hours and noted it to be maroon colored blood surrounding the stool. Epigastric pain and tenderness to light palpation and at rest dull ache Generalized abdominal pain mid quadrant as well as right upper quadrant. Patient is again long-term alcoholic and has been told that she has history of liver cirrhosis but current bilirubin normal as well as normal LFT levels. Long-term alcoholism which could explain her acute on chronic symptomatic anemia. Patient's skin is dry with petechiae noted on her extremities. Current PT/INR 1.1 no current scleral icterus noted (12/05) Pt drowsy after Morphine and Ativan this morning. Discussed with RN, she reports pt had one shorty bloody BM last night but no BM since then. Denies nausea and emesis. S/P EGD and colonoscopy yesterday. EGD --> Two ulcers ranging between 3-7mm in size were found in the distal esophagus. Three ranging between 5-9mm in size ulcers were found in the gastric antrum. Four ranging between 5- 9mm in size ulcers were found in the 1st part of the duodenum and duodenal bulb Colonoscopy --> Colon full of blood all the way into the terminal ileum. No source of bleeding seen. Likely small intestinal bleed. Internal and external hemorrhoids. Pt seen for STAT NM bleeding scan which was negative. Seen by GS who states surgical intervention will likely not be successful. H/H has been stable since transfusion. (12/06) Spoke with NERY Gaona who states pt had one BM for her this morning, with no obvious blood. She states residential counselor nurse reported small smear of stool overnight with no blood. H/H remains stable. Discussed with pt need for ETOH cessation. Will DC Protonix gtt and place on BID. Advance diet. Plan Repeat EGD in one month Protonix Advance diet ETOH cessation Avoid hepatotoxins Monitor H/H If further bleeding would recommend CT angiogram with embolization Our service will sign off Have pt follow up with GI after DC Pt has been seen and examined by myself and Dr. Babcock and this note is written on his behalf <Kiesha Alexandra - Last Filed: 12/06/17 14:29> (1) Rectal bleed Status: Acute Code(s): K62.5 - Hemorrhage of anus and rectum (2) UGIB (upper gastrointestinal bleed) Status: Deleted Code(s): K92.2 - Gastrointestinal hemorrhage, unspecified (3) Anemia requiring transfusions Status: Deleted Code(s): D64.9 - Anemia, unspecified (4) Alcohol dependence Status: Deleted Code(s): F10.20 - Alcohol dependence, uncomplicated - Plan Seen and examined, no bleeding reported. iv protonix. GI will sign off - Attending Attestation The exam, history, and the medical decision-making described in the above note were completed with the assistance of the mid-level provider. I reviewed and agree with the findings presented. I attest that I had a [id number] encounter with the patient on the same day, and personally performed and documented my assessment and findings in the medical record. <Radha Torrez - Last Filed: 12/06/17 14:57>
[2017-12-06] MEDS ORDERED: Dextrose 50% in Water 50 ML Vial IV.PUSH PRN (14:45)
[2017-12-06] MEDS ORDERED: Pantoprazole Inj 40 MG Vial IV.PUSH SCH (15:00)
--- NOTE | 2017-12-06 16:10 | CT ---
EXAM DATE: 12/06/2017 4:05 PM EDT AGE/SEX: 57 years / Female INDICATIONS: Abdominal pain. GI bleed. CLINICAL DATA: This is the patient's initial encounter. Patient reports that signs and symptoms have been present for 1 day and indicates a pain score of 3/10. MEDICAL/SURGICAL HISTORY: Chronic obstructive pulmonary disease. Cirrhosis. Hypertension. Genie endectomy. ORAL CONTRAST: Prescribed oral contrast ingested. RADIATION DOSE: 12.53 CTDI (mGy) COMPARISON: [facility] – [place], ABDOMEN 1V KUB, 12/03/2017. . TECHNIQUE: Multiple contiguous axial images were obtained through the abdomen and pelvis following b olus infusion of 80 ml Omnipaque 350 (iohexol) nonionic water-soluble contrast as a single exam dos e. Prescribed oral contrast ingested. Using automated exposure control and adjustment of the mA and/ or kV according to patient size, radiation dose was kept as low as reasonably achievable to obtain op timal diagnostic quality images. DICOM format image data is available electronically for review and comparison. FINDINGS: The osseous structures are intact. There are large bilateral effusions, and lower lobe consolidation and atelectasis. Mild hepatic steatosis. There is prominent cortical thinning of both kidneys with a lobular configuration characteristic of scarring. Spleen, pancreas, adrenal glands unremarkable. Ther e is vicarious excretion of contrast noted in the gallbladder. There is diffuse body wall edema. Fole y catheter is noted within the urinary bladder. The patient is status post appendectomy. The uterus i s unremarkable. There are no adnexal masses seen. There is no evidence of bowel obstruction. No adeno tanesha or aneurysm. Scattered atherosclerotic calcifications are seen. There is a small hiatal hernia. CONCLUSION: 1. Steatosis. 2. Bilateral lower lobe consolidation and atelectasis with large bilateral pleural effusions. 3. Small hiatal hernia. 4. Atherosclerosis. 5. Body wall edema. 6. Bilateral renal scarring. Electronically signed by: Gustavo Moser MD 12/06/2017 4:09 PM EDT
[2017-12-06 18:52] LABS: Hematocrit 16.1 % (35.0-46.0); Hemoglobin 4.9 gm/dL (11.6-15.3)
[2017-12-06] MEDS ORDERED: Etomidate Inj 40 MG/20 ML Vial IV.PUSH ONE (19:09)
[2017-12-06 19:20] LABS: Hematocrit 16.3 % (35.0-46.0); Hemoglobin 5.3 gm/dL (11.6-15.3)
[2017-12-06 19:24] LABS: INR 1.2 Ratio; Prothrombin Time 12.6 sec (9.8-11.6)
--- NOTE | 2017-12-06 20:37 | XR ---
EXAM DATE: 12/06/2017 8:16 PM EDT AGE/SEX: 57 years / Female INDICATIONS: Central Line Placement CLINICAL DATA: This is the patient's subsequent encounter. Patient reports that signs and symptoms h ave been present for 4 - 6 days and indicates a pain score of Nonresponsive. MEDICAL/SURGICAL HISTORY: Non-responsive. Non-responsive. COMPARISON: [facility], CHEST 1V SINGLE AP, 12/03/2017. . FINDINGS: Endotracheal tube tip in right mainstem bronchus. This should be withdrawn at least 4 cm. Mild edema pattern with basilar atelectasis and probable trace pleural fluid. Heart size within normal limits. N o pneumothorax. CONCLUSION: Endotracheal tube tip in right mainstem bronchus. This should be withdrawn about 4 cm. Electronically signed by: Juan Worley MD 12/06/2017 8:36 PM EDT
[2017-12-06] MEDS: Dextrose 5%/NaCl 0.9% Inj 1,000 ML IV.CONT SCH (20:40)
[2017-12-06] MEDS: Insulin NovoLOG Aspart Correctional Sugar Inj SQ SCH (20:41)
[2017-12-06] MEDS: Midazolam 50 MG/50 ML Inj 50 MG/50 ML BAG IV.CONT PRN (20:59)
[2017-12-06] MEDS: fentaNYL 10 mcg/mL Premix Drip 2,500 MCG/250 ML BAG IV.SIG PRN (21:00)
[2017-12-06] MEDS: Octreotide Inj 500 MCG in Sodium Chlor 0.9% Inj 500 ML IV.CONT SCH (22:05)
[2017-12-07 00:33] LABS: Hematocrit 21.1 % (35.0-46.0)
[2017-12-07 01:30] LABS: ABG Base Excess -6.9 mmol/L (-2-2); ABG PCO2 27 mmHg (38-42); ABG PO2 175 mmHg (61-120)
--- NOTE | 2017-12-07 02:43 | P.PCN ---
Date of procedure: 12/06/17 Pre-op diagnosis: Respiratory failure Post-op diagnosis: same Procedure: Endotracheal Intubation A time-out was completed verifying correct patient, procedure, site, positioning , and special equipment if applicable. The patient was placed in a flat position. Sedation was obtained using Etomidate 20mg. The patient was easily ventilated using an ambu bag. The [employer]/ MAC 4 BLADE was used and inserted into the oropharynx at which time there was a Grade 1 view of the vocal cords. A 8-italian endotracheal tube was inserted and visualized going through the vocal cords. The stylette was removed. Colorimetric change was visualized on the CO2 meter. Breath sounds were heard in both lung shaw equally. The endotracheal tube was placed at 23 cm, measured at the teeth. A chest x-ray was ordered to assess for pneumothorax and verify endotrachealtube placement. Estimated Blood Loss: 0 The patient tolerated the procedure well and there were no complications.
--- NOTE | 2017-12-07 02:45 | P.PCN ---
Date of procedure: 12/06/17 Pre-op diagnosis: Hemorrhagic shock Post-op diagnosis: same Procedure: Central line placement A time-out was completed verifying correct patient, procedure, site, positioning , and special equipment if applicable. The patient was placed in a dependent position appropriate for central line placement based on the vein to be cannulated. The patients right groin was prepped and draped in sterile fashion. 1% Lidocaine was used to anesthetize the surrounding skin area. A single lumen introducer cordis catheter was introduced into the the common femoral vein using the Seldinger technique and under ultrasound guidance. The catheter was threaded smoothly over the guide wire and appropriate blood return was obtained. Each lumen of the catheter was evacuated of air and flushed with sterile saline. The catheter was then sutured in place to the skin and a sterile dressing applied. Perfusion to the extremity distal to the point of catheter insertion was checked and found to be adequate. Estimated Blood Loss: 1ml The patient tolerated the procedure well and there were no complications.
[2017-12-07] MEDS: Octreotide Inj 500 MCG in Sodium Chlor 0.9% Inj 500 ML IV.CONT SCH ×5 (03:31→23:55)
--- NOTE | 2017-12-07 05:08 | XR ---
EXAM DATE: 12/07/2017 4:01 AM EDT AGE/SEX: 57 years / Female INDICATIONS: Shortness of breath change in endotracheal tube placement. CLINICAL DATA: This is the patient's subsequent encounter. Patient reports that signs and symptoms h ave been present for 4 - 6 days and indicates a pain score of Nonresponsive. MEDICAL/SURGICAL HISTORY: None. None. COMPARISON: [facility] [place], CHEST 1V SINGLE AP, 12/06/2017. . FINDINGS: A single AP portable erect view of the chest was obtained and now demonstrates the endotracheal tube tip approximately 1 cm above the shelley. Hazy airspace disease is noted in both lungs greatest in the perihilar regions and lung bases. The heart size appears mildly prominent. Both costophrenic angles may be minimally blunted. The bony thorax is intact. The patient is now rotated. CONCLUSION: 1. The endotracheal tube tip now lies approximately 1 cm above the shelley. 2. Rotated examination with airspace disease remaining in both lungs. This appears increased but may be due to the rotated exam. Electronically signed by: Gary Mcclendon MD 12/07/2017 5:07 AM EDT
[2017-12-07] MEDS: Midazolam 50 MG/50 ML Inj 50 MG/50 ML BAG IV.CONT PRN ×2 (05:42→12:08)
[2017-12-07 05:53] LABS: Baso % (Auto) 0.3 % (0.0-2.0); Eos # (Auto) 0.1 th/mm3 (0.0-0.4); Eos % (Auto) 0.9 % (0.0-4.0); Hematocrit 30.1 % (35.0-46.0); Hemoglobin 10.4 gm/dL (11.6-15.3); Lymph # (Auto) 1.8 th/mm3 (1.0-4.8); Lymph % (Auto) 17.7 % (9.0-44.0); Mean Corpuscular HGB Conc 34.6 % (32.0-36.0); Mean Corpuscular Hemoglobin 30.5 pg (27.0-34.0); Mean Corpuscular Volume 88.1 fL (80.0-100.0); Mean Platelet Volume 7.8 fL (7.0-11.0); Mono # (Auto) 0.5 th/mm3 (0.0-0.9); Mono % (Auto) 4.6 % (0.0-8.0); Neut # (Auto) 7.9 th/mm3 (1.8-7.7); Neut % (Auto) 76.5 % (16.0-70.0); Platelet Count 84 th/mm3 (150-450); Red Blood Count 3.42 mil/mm3 (4.00-5.30); Red Cell Distribution Width 15.3 % (11.6-17.2); White Blood Count 10.3 th/mm3 (4.0-11.0)
[2017-12-07 06:09] LABS: Alanine Aminotransferase 26 U/L (10-53); Albumin 1.8 g/dL (3.4-5.0); Alkaline Phosphatase 51 U/L (45-117); Anion Gap 9 meq/L (5-15); Aspartate Aminotransferase 60 U/L (15-37); Blood Urea Nitrogen 7 mg/dL (7-18); Calcium 6.4 mg/dL (8.5-10.1); Carbon Dioxide 20.1 meq/L (21.0-32.0); Chloride 114 meq/L (98-107); Glomerular Filtration Rate Greater Than 89 mL/min (>89); Glucose,Random 111 mg/dL (74-106); Potassium 4.1 meq/L (3.5-5.1); Sodium 143 meq/L (136-145); Total Protein 3.8 g/dL (6.4-8.2)
[2017-12-07] MEDS: Insulin NovoLOG Aspart Correctional Sugar Inj SQ SCH ×4 (07:39→17:56)
[2017-12-07] MEDS: Chlorhexidine Gluconate 2% 1 Pack (2 Cloths) TOPICAL SCH (07:39)
[2017-12-07 08:05] LABS: Lymphocytes 14 % (9-44); Monocytes 3 % (0-8)
[2017-12-07 08:06] LABS: Acanthocytes Occ; Burr Cells 1+; Dimorphic RBC Present; Platelet Morphology Normal (Normal)
[2017-12-07] MEDS: Dextrose 5%/NaCl 0.9% Inj 1,000 ML IV.CONT SCH (08:18)
--- NOTE | 2017-12-07 08:22 | P.PNGI ---
Subjective Interval history: Pt awake in bed, now orally intubated. RT and RN at bedside. According to RN pt had two large bloody BMs over night. <Kiesha Alexandra - Last Filed: 12/07/17 08:18> Physical Exam Vital signs: Vital Signs 12/06/17 08:29 12/06/17 10:00 12/06/17 11:30 Temperature Pulse Rate 95 H 102 H 110 H Respiratory Rate 16 22 Blood Pressure Pulse Oximetry 12/06/17 12:00 12/06/17 14:00 12/06/17 16:00 Temperature 97.8 F 97.9 F Pulse Rate 114 H 110 H 104 H Respiratory Rate 16 20 Blood Pressure 143/72 H 114/71 Pulse Oximetry 96 98 12/06/17 18:00 12/06/17 20:00 12/06/17 20:19 Temperature 94.4 F L Pulse Rate 122 H 130 H Respiratory Rate 14 25 H Blood Pressure 109/89 Pulse Oximetry 99 95 12/06/17 20:32 12/06/17 21:24 12/06/17 21:39 Temperature 94.5 F L 94.5 F L Pulse Rate 112 H 122 H 116 H Respiratory Rate 27 H 19 26 H Blood Pressure 95/69 L 138/85 Pulse Oximetry 100 12/06/17 22:00 12/06/17 23:08 12/07/17 00:00 Temperature 97.4 F L 97.9 F Pulse Rate 110 H 112 H 115 H Respiratory Rate 16 20 Blood Pressure 145/102 H 137/82 Pulse Oximetry 94 L 12/07/17 00:20 12/07/17 00:21 12/07/17 02:00 Temperature Pulse Rate 115 H 98 H Respiratory Rate 19 18 Blood Pressure Pulse Oximetry 100 12/07/17 03:00 12/07/17 03:22 12/07/17 03:41 Temperature 97.5 F L 97.9 F Pulse Rate 94 H 95 H 90 Respiratory Rate 16 14 14 Blood Pressure 121/70 115/70 Pulse Oximetry 95 99 12/07/17 03:51 12/07/17 04:00 12/07/17 06:00 Temperature Pulse Rate 103 H 90 Respiratory Rate 15 Blood Pressure Pulse Oximetry 99 12/07/17 08:11 Temperature Pulse Rate 109 H Respiratory Rate 17 Blood Pressure Pulse Oximetry 100 Intake & Output 12/06/17 12/07/17 12/07/17 18:59 06:59 18:59 Intake Total 480 / 480 2409 / 2409 Output Total 600 / 600 450 / 450 Balance -120 / -120 1958 Weight 69.3 kg Intake: IV 650 / 650 Versed Inj 50 mg In 50 ml @ 2 50 / 50 MG/HR 2 mls/hr IV.CONT TITRATE PRN Rx#:[id number] SandoSTATIN Inj 500 MCG In NS 500 / 500 Inj 500 ML @ 100 MCG/HR 100.1 mls/hr IV.CONT .Q5H [facility] Rx#: [id number] Rocephin Inj 1,000 MG In NS Inj 100 / 100 100 ML @ 200 mls/hr IV.SIG Q24H [facility] Rx#:[id number] Oral 480 / 480 Intake (Blood Product) Amt 1759 / 175 Plasma Thawed 5 Day Acda Unit 220 / 220 [id number] Plasma Thawed 5 Day Acda Unit 230 / 230 [id number] Plasma Thawed 5 Day Cp2d Unit 219 / 219 [id number] Plt Pheresis A Leukoreduced 290 / 290 Unit [id number] Rbc As-3 Leukoreduced Unit 400 / 400 [id number] Rbc As-3 Leukoreduced Unit 400 / 400 [id number] Output: Urine Amount (Catheter) 600 / 600 450 / 450 Indwelling Urethral Catheter 600 / 600 450 / 450 Other: Date of Last Bowel Movement 12/06/17 12/07/17 # Incontinent Bowel Movements 2 2 - Constitutional no acute distress - Routine HEENT Exam Head: Present: normocephalic, atraumatic - Routine Respiratory Exam Present: patient mechanically ventilated - Routine Abdominal Exam Present: soft, normoactive bowel sounds, distended. Absent: tenderness - Routine Neurological Exam Present: alert - Urinary Catheter Management Indwelling Urethral Catheter Cath placed during this visit: no <Kiesha Alexandra - Last Filed: 12/07/17 08:18> Vital signs: Vital Signs 12/06/17 18:00 12/06/17 20:00 12/06/17 20:19 Temperature 94.4 F L Pulse Rate 122 H 130 H Respiratory Rate 14 25 H Blood Pressure 109/89 Pulse Oximetry 99 95 12/06/17 20:32 12/06/17 21:24 12/06/17 21:39 Temperature 94.5 F L 94.5 F L Pulse Rate 112 H 122 H 116 H Respiratory Rate 27 H 19 26 H Blood Pressure 95/69 L 138/85 Pulse Oximetry 100 12/06/17 22:00 12/06/17 23:08 12/07/17 00:00 Temperature 97.4 F L 97.9 F Pulse Rate 110 H 112 H 115 H Respiratory Rate 16 20 Blood Pressure 145/102 H 137/82 Pulse Oximetry 94 L 12/07/17 00:20 12/07/17 00:21 12/07/17 02:00 Temperature Pulse Rate 115 H 98 H Respiratory Rate 19 18 Blood Pressure Pulse Oximetry 100 12/07/17 03:00 12/07/17 03:22 12/07/17 03:41 Temperature 97.5 F L 97.9 F Pulse Rate 94 H 95 H 90 Respiratory Rate 16 14 14 Blood Pressure 121/70 115/70 Pulse Oximetry 95 99 12/07/17 03:51 12/07/17 04:00 12/07/17 06:00 Temperature Pulse Rate 103 H 90 Respiratory Rate 15 Blood Pressure Pulse Oximetry 99 12/07/17 08:00 12/07/17 08:11 12/07/17 10:00 Temperature 98.3 F Pulse Rate 85 109 H 89 Respiratory Rate 15 17 Blood Pressure 138/77 Pulse Oximetry 100 100 12/07/17 11:17 12/07/17 12:00 12/07/17 13:45 Temperature 98.2 F Pulse Rate 101 H 88 90 Respiratory Rate 15 14 Blood Pressure 113/70 Pulse Oximetry 100 100 12/07/17 16:00 Temperature 98.4 F Pulse Rate 93 H Respiratory Rate 14 Blood Pressure 122/77 Pulse Oximetry 97 Intake & Output 12/06/17 12/07/17 12/07/17 18:59 06:59 18:59 Intake Total 480 / 480 2409 / 2409 2401.0 / 2401.0 Output Total 600 / 600 450 / 450 Balance -120 / -120 1958 2401.0 / 2401.0 Weight 69.3 kg Intake: IV 650 / 650 2401.0 / 2401.0 D5W/Normal Saline Inj 1,000 ML 1000 / 1000 @ 84 mls/hr IV.CONT .[id number] [facility] Rx#:[id number] Versed Inj 50 mg In 50 ml @ 2 50 / 50 50 / 50 MG/HR 2 mls/hr IV.CONT TITRATE PRN Rx#:[id number] SandoSTATIN Inj 500 MCG In NS 500 / 500 1001.0 / 1001.0 Inj 500 ML @ 100 MCG/HR 100.1 mls/hr IV.CONT .Q5H [facility] Rx#: [id number] Protonix Inj 80 MG In NS Inj 100 / 100 100 ML @ 10 mls/hr IV.CONT CONT [facility] Rx#:[id number] Rocephin Inj 1,000 MG In NS Inj 100 / 100 100 ML @ 200 mls/hr IV.SIG Q24H [facility] Rx#:[id number] Oral 480 / 480 Intake (Blood Product) Amt 1759 / 1759 Plasma Thawed 5 Day Acda Unit 220 / 220 [id number] Plasma Thawed 5 Day Acda Unit 230 / 230 [id number] Plasma Thawed 5 Day Cp2d Unit 219 / 219 [id number] Plt Pheresis A Leukoreduced 290 / 290 Unit [id number] Rbc As-3 Leukoreduced Unit 400 / 400 [id number] Rbc As-3 Leukoreduced Unit 400 / 400 [id number] Output: Urine Amount (Catheter) 600 / 600 450 / 450 Indwelling Urethral Catheter 600 / 600 450 / 450 Other: Date of Last Bowel Movement 12/06/17 12/07/17 # Incontinent Bowel Movements 2 2 - Urinary Catheter Management Indwelling Urethral Catheter Cath placed during this visit: no <Radha Torrez - Last Filed: 12/07/17 16:41> Results - Labs CBC & Chem 7: 12/07/17 05:20 12/07/17 05:20 Laboratory Results - last 24 hr 12/04/17 12/06/17 12/06/17 06:10 12:48 12:48 WBC 6.1 RBC 2.96 L Hgb 9.3 L Hct 27.2 L MCV 92.1 MCH 31.4 MCHC 34.1 RDW 23.8 H D Plt Count 163 MPV 7.1 Prelim Diff (Auto) Neut % (Auto) 64.8 Lymph % (Auto) 27.5 Desha % (Auto) 4.7 Eos % (Auto) 2.1 Baso % (Auto) 0.9 Neut # (Auto) 4.0 Lymph # (Auto) 1.7 Desha # (Auto) 0.3 Eos # (Auto) 0.1 Baso # (Auto) 0.1 WBC Differential . Seg Neuts % (Manual) Band Neuts % (Manual) Lymphocytes % (Manual) Monocytes % (Manual) Abs Neuts (Manual) Differential Comment Auto diff final Platelet Estimate Platelet Morphology Dimorphic RBCs [place] Cells Acanthocytes (Spur) PT INR Puncture Site Patient Temperature O2 Saturation ABG pH ABG pCO2 ABG pO2 ABG HCO3 ABG O2 Content ABG Base Excess ABG Methemoglobin Hemoglobin Carboxyhemoglobin O2 Delivery Device Vent Setting Inspired O2 Critical Value Sodium 136 Potassium 4.3 D Chloride 106 Carbon Dioxide 18.9 L Anion Gap 11 BUN 4 L Creatinine 0.50 Estimated GFR Greater than 89 POC Glucose Random Glucose 100 Lactic Acid Calcium 7.9 L Prot Corrected Calcium Phosphorus Magnesium Total Bilirubin 0.3 AST 16 ALT 15 Alkaline Phosphatase 60 Ammonia Total Protein 4.7 L Albumin 1.9 L Blood Type Antibody Screen MTS Gel Crossmatch See Detail Blood Bank Comment Bld Prod Order Comment 12/06/17 12/06/17 12/06/17 12:48 13:19 14:50 WBC RBC Hgb Hct MCV MCH MCHC RDW Plt Count MPV Prelim Diff (Auto) Neut % (Auto) Lymph % (Auto) Desha % (Auto) Eos % (Auto) Baso % (Auto) Neut # (Auto) Lymph # (Auto) [place]ha # (Auto) Eos # (Auto) Baso # (Auto) WBC Differential Seg Neuts % (Manual) Band Neuts % (Manual) Lymphocytes % (Manual) Monocytes % (Manual) Abs Neuts (Manual) Differential Comment Platelet Estimate Platelet Morphology Dimorphic RBCs [place] Cells Acanthocytes (Spur) PT INR Puncture Site Patient Temperature O2 Saturation ABG pH ABG pCO2 ABG pO2 ABG HCO3 ABG O2 Content ABG Base Excess ABG Methemoglobin Hemoglobin Carboxyhemoglobin O2 Delivery Device Vent Setting Inspired O2 Critical Value Sodium Potassium Chloride Carbon Dioxide Anion Gap BUN Creatinine Estimated GFR POC Glucose 178 H Random Glucose Lactic Acid 4.1 H* Calcium Prot Corrected Calcium Phosphorus 2.7 Magnesium 1.6 Total Bilirubin AST ALT Alkaline Phosphatase Ammonia Total Protein Albumin Blood Type Antibody Screen MTS Gel Crossmatch Blood Bank Comment Bld Prod Order Comment 12/06/17 12/06/17 12/06/17 17:03 18:20 18:30 WBC RBC Hgb 4.9 L* D 5.3 L* Hct 16.1 L* 16.3 L* MCV MCH MCHC RDW Plt Count MPV Prelim Diff (Auto) Neut % (Auto) Lymph % (Auto) Desha % (Auto) Eos % (Auto) Baso % (Auto) Neut # (Auto) Lymph # (Auto) Desha # (Auto) Eos # (Auto) Baso # (Auto) WBC Differential Seg Neuts % (Manual) Band Neuts % (Manual) Lymphocytes % (Manual) Monocytes % (Manual) Abs Neuts (Manual) Differential Comment Platelet Estimate Platelet Morphology Dimorphic RBCs [place] Cells Acanthocytes (Spur) PT INR Puncture Site Patient Temperature O2 Saturation ABG pH ABG pCO2 ABG pO2 ABG HCO3 ABG O2 Content ABG Base Excess ABG Methemoglobin Hemoglobin Carboxyhemoglobin O2 Delivery Device Vent Setting Inspired O2 Critical Value Sodium Potassium Chloride Carbon Dioxide Anion Gap BUN Creatinine Estimated GFR POC Glucose 135 H Random Glucose Lactic Acid Calcium Prot Corrected Calcium Phosphorus Magnesium Total Bilirubin AST ALT Alkaline Phosphatase Ammonia Total Protein Albumin Blood Type Antibody Screen MTS Gel Crossmatch Blood Bank Comment d Prod Order Comment 12/06/17 12/06/17 12/06/17 18:30 18:30 18:30 WBC RBC Hgb Hct MCV MCH MCHC RDW Plt Count MPV Prelim Diff (Auto) Neut % (Auto) Lymph % (Auto) Desha % (Auto) Eos % (Auto) Baso % (Auto) Neut # (Auto) Lymph # (Auto) Desha # (Auto) Eos # (Auto) Baso # (Auto) WBC Differential Seg Neuts % (Manual) Band Neuts % (Manual) Lymphocytes % (Manual) Monocytes % (Manual) Abs Neuts (Manual) Differential Comment Platelet Estimate Platelet Morphology Dimorphic RBCs [place] Cells Acanthocytes (Spur) PT 12.6 H INR 1.2 Puncture Site Patient Temperature O2 Saturation ABG pH ABG pCO2 ABG pO2 ABG HCO3 ABG O2 Content ABG Base Excess ABG Methemoglobin Hemoglobin Carboxyhemoglobin O2 Delivery Device Vent Setting Inspired O2 Critical Value Sodium Potassium Chloride Carbon Dioxide Anion Gap BUN Creatinine Estimated GFR POC Glucose Random Glucose Lactic Acid 5.0 H* Calcium Prot Corrected Calcium Phosphorus Magnesium Total Bilirubin AST ALT Alkaline Phosphatase Ammonia 12 Total Protein Albumin Blood Type Antibody Screen MTS Gel Crossmatch Blood Bank Comment Bld Prod Order Comment 12/06/17 12/06/17 12/06/17 19:51 19:51 20:57 WBC RBC Hgb Hct MCV MCH MCHC RDW Plt Count MPV Prelim Diff (Auto) Neut % (Auto) Lymph % (Auto) Desha % (Auto) Eos % (Auto) Baso % (Auto) Neut # (Auto) Lymph # (Auto) Desha # (Auto) Eos # (Auto) Baso # (Auto) WBC Differential Seg Neuts % (Manual) Band Neuts % (Manual) Lymphocytes % (Manual) Monocytes % (Manual) Abs Neuts (Manual) Differential Comment Platelet Estimate Platelet Morphology Dimorphic RBCs [place] Cells Acanthocytes (Spur) PT INR Puncture Site Patient Temperature O2 Saturation ABG pH ABG pCO2 ABG pO2 ABG HCO3 ABG O2 Content ABG Base Excess ABG Methemoglobin Hemoglobin Carboxyhemoglobin O2 Delivery Device Vent Setting Inspired O2 Critical Value Sodium Potassium Chloride Carbon Dioxide Anion Gap BUN Creatinine Estimated GFR POC Glucose Random Glucose Lactic Acid Calcium Prot Corrected Calcium Phosphorus Magnesium Total Bilirubin AST ALT Alkaline Phosphatase Ammonia Total Protein Albumin Blood Type A Positive Antibody Screen Negative MTS Gel Crossmatch See Detail See Detail Blood Bank Comment Bld Prod Order Comment 12/06/17 12/07/17 12/07/17 20:57 00:15 00:46 WBC RBC Hgb 7.0 L Hct 21.1 L MCV MCH MCHC RDW Plt Count MPV Prelim Diff (Auto) Neut % (Auto) Lymph % (Auto) Desha % (Auto) Eos % (Auto) Baso % (Auto) Neut # (Auto) Lymph # (Auto) Desha # (Auto) Eos # (Auto) Baso # (Auto) WBC Differential Seg Neuts % (Manual) Band Neuts % (Manual) Lymphocytes % (Manual) Monocytes % (Manual) Abs Neuts (Manual) Differential Comment Platelet Estimate Platelet Morphology Dimorphic RBCs [place] Cells Acanthocytes (Spur) PT INR Puncture Site Patient Temperature O2 Saturation ABG pH ABG pCO2 ABG pO2 ABG HCO3 ABG O2 Content ABG Base Excess ABG Methemoglobin Hemoglobin Carboxyhemoglobin O2 Delivery Device Vent Setting Inspired O2 Critical Value Sodium Potassium Chloride Carbon Dioxide Anion Gap BUN Creatinine Estimated GFR POC Glucose 157 H Random Glucose Lactic Acid Calcium Prot Corrected Calcium Phosphorus Magnesium Total Bilirubin AST ALT Alkaline Phosphatase Ammonia Total Protein Albumin Blood Type Antibody Screen MTS Gel Crossmatch Blood Bank Comment Bld Prod Order Comment 12/07/17 12/07/17 12/07/17 01:21 01:38 05:20 WBC 10.3 D RBC 3.42 L Hgb 10.4 L D Hct 30.1 L MCV 88.1 D MCH 30.5 MCHC 34.6 RDW 15.3 D Plt Count 84 L D MPV 7.8 Prelim Diff (Auto) Slide review pending Neut % (Auto) 76.5 H Lymph % (Auto) 17.7 Desha % (Auto) 4.6 Eos % (Auto) 0.9 Baso % (Auto) 0.3 Neut # (Auto) 7.9 H Lymph # (Auto) 1.8 Desha # (Auto) 0.5 Eos # (Auto) 0.1 Baso # (Auto) 0.0 WBC Differential Manual diff final Seg Neuts % (Manual) 75 H Band Neuts % (Manual) 8 H Lymphocytes % (Manual) 14 Monocytes % (Manual) 3 Abs Neuts (Manual) 8.5 H Differential Comment . Platelet Estimate Low L Platelet Morphology Normal Dimorphic RBCs Present H [place] Cells 1+ H Acanthocytes (Spur) Occ H PT INR Puncture Site Left radial Patient Temperature 98.6 O2 Saturation 96 ABG pH 7.41 ABG pCO2 27 L ABG pO2 175 H ABG HCO3 17 L ABG O2 Content 9.7 L ABG Base Excess -6.9 L ABG Methemoglobin 1.3 Hemoglobin 6.9 L* Carboxyhemoglobin 2.0 O2 Delivery Device Ventilator Vent Setting Ac 450/14/+5/%50 Inspired O2 50 Critical Value Yes Sodium Potassium Chloride Carbon Dioxide Anion Gap BUN Creatinine Estimated GFR POC Glucose Random Glucose Lactic Acid Calcium Prot Corrected Calcium Phosphorus Magnesium Total Bilirubin AST ALT Alkaline Phosphatase Ammonia Total Protein Albumin Blood Type Antibody Screen MTS Gel Crossmatch See Detail Blood Bank Comment Bld Prod Order Comment 12/07/17 12/07/17 05:20 07:49 WBC RBC Hgb Hct MCV MCH MCHC RDW Plt Count MPV Prelim Diff (Auto) Neut % (Auto) Lymph % (Auto) Desha % (Auto) Eos % (Auto) Baso % (Auto) Neut # (Auto) Lymph # (Auto) Desha # (Auto) Eos # (Auto) Baso # (Auto) WBC Differential Seg Neuts % (Manual) Band Neuts % (Manual) Lymphocytes % (Manual) Monocytes % (Manual) Abs Neuts (Manual) Differential Comment Platelet Estimate Platelet Morphology Dimorphic RBCs [place] Cells Acanthocytes (Spur) PT INR Puncture Site Patient Temperature O2 Saturation ABG pH ABG pCO2 ABG pO2 ABG HCO3 ABG O2 Content ABG Base Excess ABG Methemoglobin Hemoglobin Carboxyhemoglobin O2 Delivery Device Vent Setting Inspired O2 Critical Value Sodium 143 Potassium 4.1 Chloride 114 H D Carbon Dioxide 20.1 L Anion Gap 9 BUN 7 Creatinine 0.40 L Estimated GFR Greater than 89 POC Glucose 140 H Random Glucose 111 H Lactic Acid Calcium 6.4 L* D Prot Corrected Calcium 8.1 L Phosphorus Magnesium Total Bilirubin 1.1 H AST 60 H ALT 26 Alkaline Phosphatase 51 Ammonia Total Protein 3.8 L D Albumin 1.8 L Blood Type Antibody Screen MTS Gel Crossmatch Blood Bank Comment Bld Prod Order Comment Microbiology 12/06/17 18:40 Stool Stool Occult Blood (MYRNA) - Final Hemoccult positive - Imaging Impressions Abdomen/Pelvis CT 12/06/17 14:36 CONCLUSION: 1. Steatosis. 2. Bilateral lower lobe consolidation and atelectasis with large bilateral pleural effusions. 3. Small hiatal hernia. 4. Atherosclerosis. 5. Body wall edema. 6. Bilateral renal scarring. Chest X-Ray 12/06/17 19:55 CONCLUSION: Endotracheal tube tip in right mainstem bronchus. This should be withdrawn about 4 cm. Chest X-Ray 12/07/17 00:00 CONCLUSION: 1. The endotracheal tube tip now lies approximately 1 cm above the [place]. 2. Rotated examination with airspace disease remaining in both lungs. This appears increased but may be due to the rotated exam. <Kiesha Alexandra - Last Filed: 12/07/17 08:18> - Labs CBC & Chem 7: 12/07/17 11:40 12/07/17 05:20 Laboratory Results - last 24 hr 12/04/17 12/06/17 12/06/17 06:10 17:03 18:20 WBC RBC Hgb 4.9 L* D Hct 16.1 L* MCV MCH MCHC RDW Plt Count MPV Prelim Diff (Auto) Neut % (Auto) Lymph % (Auto) Desha % (Auto) Eos % (Auto) Baso % (Auto) Neut # (Auto) Lymph # (Auto) Desha # (Auto) Eos # (Auto) Baso # (Auto) WBC Differential Seg Neuts % (Manual) Band Neuts % (Manual) Lymphocytes % (Manual) Monocytes % (Manual) Abs Neuts (Manual) Differential Comment Platelet Estimate Platelet Morphology Dimorphic RBCs [place] Cells Acanthocytes (Spur) PT INR Puncture Site Patient Temperature O2 Saturation ABG pH ABG pCO2 ABG pO2 ABG HCO3 ABG O2 Content ABG Base Excess ABG Methemoglobin Hemoglobin Carboxyhemoglobin O2 Delivery Device Vent Setting Inspired O2 Critical Value Sodium Potassium Chloride Carbon Dioxide Anion Gap BUN Creatinine Estimated GFR POC Glucose 135 H Random Glucose Lactic Acid Calcium Prot Corrected Calcium Total Bilirubin AST ALT Alkaline Phosphatase Ammonia Total Protein Albumin Blood Type Antibody Screen MTS Gel Crossmatch See Detail Blood Bank Comment Bld Prod Order Comment 12/06/17 12/06/17 12/06/17 18:30 18:30 18:30 WBC RBC Hgb 5.3 L* Hct 16.3 L* MCV MCH MCHC RDW Plt Count MPV Prelim Diff (Auto) Neut % (Auto) Lymph % (Auto) Desha % (Auto) Eos % (Auto) Baso % (Auto) Neut # (Auto) Lymph # (Auto) Desha # (Auto) Eos # (Auto) Baso # (Auto) WBC Differential Seg Neuts % (Manual) Band Neuts % (Manual) Lymphocytes % (Manual) Monocytes % (Manual) Abs Neuts (Manual) Differential Comment Platelet Estimate Platelet Morphology Dimorphic RBCs [place] Cells Acanthocytes (Spur) PT 12.6 H INR 1.2 Puncture Site Patient Temperature O2 Saturation ABG pH ABG pCO2 ABG pO2 ABG HCO3 ABG O2 Content ABG Base Excess ABG Methemoglobin Hemoglobin Carboxyhemoglobin O2 Delivery Device Vent Setting Inspired O2 Critical Value Sodium Potassium Chloride Carbon Dioxide Anion Gap BUN Creatinine Estimated GFR POC Glucose Random Glucose Lactic Acid 5.0 H* Calcium Prot Corrected Calcium Total Bilirubin AST ALT Alkaline Phosphatase Ammonia Total Protein Albumin Blood Type Antibody Screen MTS Gel Crossmatch Blood Bank Comment Bld Prod Order Comment 12/06/17 12/06/17 12/06/17 18:30 19:51 19:51 WBC RBC Hgb Hct MCV MCH MCHC RDW Plt Count MPV Prelim Diff (Auto) Neut % (Auto) Lymph % (Auto) Desha % (Auto) Eos % (Auto) Baso % (Auto) Neut # (Auto) Lymph # (Auto) Desha # (Auto) Eos # (Auto) Baso # (Auto) WBC Differential Seg Neuts % (Manual) Band Neuts % (Manual) Lymphocytes % (Manual) Monocytes % (Manual) Abs Neuts (Manual) Differential Comment Platelet Estimate Platelet Morphology Dimorphic RBCs [place] Cells Acanthocytes (Spur) PT INR Puncture Site Patient Temperature O2 Saturation ABG pH ABG pCO2 ABG pO2 ABG HCO3 ABG O2 Content ABG Base Excess ABG Methemoglobin Hemoglobin Carboxyhemoglobin O2 Delivery Device Vent Setting Inspired O2 Critical Value Sodium Potassium Chloride Carbon Dioxide Anion Gap BUN Creatinine Estimated GFR POC Glucose Random Glucose Lactic Acid Calcium Prot Corrected Calcium Total Bilirubin AST ALT Alkaline Phosphatase Ammonia 12 Total Protein Albumin Blood Type A Positive Antibody Screen Negative MTS Gel Crossmatch See Detail See Detail Blood Bank Comment Bld Prod Order Comment 12/06/17 12/06/17 12/07/17 20:57 20:57 00:15 WBC RBC Hgb 7.0 L Hct 21.1 L MCV MCH MCHC RDW Plt Count MPV Prelim Diff (Auto) Neut % (Auto) Lymph % (Auto) Desha % (Auto) Eos % (Auto) Baso % (Auto) Neut # (Auto) Lymph # (Auto) Desha # (Auto) Eos # (Auto) Baso # (Auto) WBC Differential Seg Neuts % (Manual) Band Neuts % (Manual) Lymphocytes % (Manual) Monocytes % (Manual) Abs Neuts (Manual) Differential Comment Platelet Estimate Platelet Morphology Dimorphic RBCs [place] Cells Acanthocytes (Spur) PT INR Puncture Site Patient Temperature O2 Saturation ABG pH ABG pCO2 ABG pO2 ABG HCO3 ABG O2 Content ABG Base Excess ABG Methemoglobin Hemoglobin Carboxyhemoglobin O2 Delivery Device Vent Setting Inspired O2 Critical Value Sodium Potassium Chloride Carbon Dioxide Anion Gap BUN Creatinine Estimated GFR POC Glucose Random Glucose Lactic Acid Calcium Prot Corrected Calcium Total Bilirubin AST ALT Alkaline Phosphatase Ammonia Total Protein Albumin Blood Type Antibody Screen MTS Gel Crossmatch Blood Bank Comment Bld Prod Order Comment 12/07/17 12/07/17 12/07/17 00:46 01:21 01:38 WBC RBC Hgb Hct MCV MCH MCHC RDW Plt Count MPV Prelim Diff (Auto) Neut % (Auto) Lymph % (Auto) Desha % (Auto) Eos % (Auto) Baso % (Auto) Neut # (Auto) Lymph # (Auto) Desha # (Auto) Eos # (Auto) Baso # (Auto) WBC Differential Seg Neuts % (Manual) Band Neuts % (Manual) Lymphocytes % (Manual) Monocytes % (Manual) Abs Neuts (Manual) Differential Comment Platelet Estimate Platelet Morphology Dimorphic RBCs [place] Cells Acanthocytes (Spur) PT INR Puncture Site Left radial Patient Temperature 98.6 O2 Saturation 96 ABG pH 7.41 ABG pCO2 27 L ABG pO2 175 H ABG HCO3 17 L ABG O2 Content 9.7 L ABG Base Excess -6.9 L ABG Methemoglobin 1.3 Hemoglobin 6.9 L* Carboxyhemoglobin 2.0 O2 Delivery Device Ventilator Vent Setting Ac 450/14/+5/%50 Inspired O2 50 Critical Value Yes Sodium Potassium Chloride Carbon Dioxide Anion Gap BUN Creatinine Estimated GFR POC Glucose 157 H Random Glucose Lactic Acid Calcium Prot Corrected Calcium Total Bilirubin AST ALT Alkaline Phosphatase Ammonia Total Protein Albumin Blood Type Antibody Screen MTS Gel Crossmatch See Detail Blood Bank Comment Bld Prod Order Comment 12/07/17 12/07/17 12/07/17 05:20 05:20 07:49 WBC 10.3 D RBC 3.42 L Hgb 10.4 L D Hct 30.1 L MCV 88.1 D MCH 30.5 MCHC 34.6 RDW 15.3 D Plt Count 84 L D MPV 7.8 Prelim Diff (Auto) Slide review pending Neut % (Auto) 76.5 H Lymph % (Auto) 17.7 Desha % (Auto) 4.6 Eos % (Auto) 0.9 Baso % (Auto) 0.3 Neut # (Auto) 7.9 H Lymph # (Auto) 1.8 Desha # (Auto) 0.5 Eos # (Auto) 0.1 Baso # (Auto) 0.0 WBC Differential Manual diff final Seg Neuts % (Manual) 75 H Band Neuts % (Manual) 8 H Lymphocytes % (Manual) 14 Monocytes % (Manual) 3 Abs Neuts (Manual) 8.5 H Differential Comment . Platelet Estimate Low L Platelet Morphology Normal Dimorphic RBCs Present H [place] Cells 1+ H Acanthocytes (Spur) Occ H PT INR Puncture Site Patient Temperature O2 Saturation ABG pH ABG pCO2 ABG pO2 ABG HCO3 ABG O2 Content ABG Base Excess ABG Methemoglobin Hemoglobin Carboxyhemoglobin O2 Delivery Device Vent Setting Inspired O2 Critical Value Sodium 143 Potassium 4.1 Chloride 114 H D Carbon Dioxide 20.1 L Anion Gap 9 BUN 7 Creatinine 0.40 L Estimated GFR Greater than 89 POC Glucose 140 H Random Glucose 111 H Lactic Acid Calcium 6.4 L* D Prot Corrected Calcium 8.1 L Total Bilirubin 1.1 H AST 60 H ALT 26 Alkaline Phosphatase 51 Ammonia Total Protein 3.8 L D Albumin 1.8 L Blood Type Antibody Screen [facility] Gel [facility] Blood Bank Comment d Prod Order Comment 12/07/17 12/07/17 12/07/17 09:25 09:25 11:30 WBC RBC Hgb Hct MCV MCH MCHC RDW Plt Count MPV Prelim Diff (Auto) Neut % (Auto) Lymph % (Auto) Desha % (Auto) Eos % (Auto) Baso % (Auto) Neut # (Auto) Lymph # (Auto) Desha # (Auto) Eos # (Auto) Baso # (Auto) WBC Differential Seg Neuts % (Manual) Band Neuts % (Manual) Lymphocytes % (Manual) Monocytes % (Manual) Abs Neuts (Manual) Differential Comment Platelet Estimate Platelet Morphology Dimorphic RBCs [place] Cells Acanthocytes (Spur) PT 13.3 H INR 1.3 Puncture Site Patient Temperature O2 Saturation ABG pH ABG pCO2 ABG pO2 ABG HCO3 ABG O2 Content ABG Base Excess ABG Methemoglobin Hemoglobin Carboxyhemoglobin O2 Delivery Device Vent Setting Inspired O2 Critical Value Sodium Potassium Chloride Carbon Dioxide Anion Gap BUN Creatinine Estimated GFR POC Glucose 113 H Random Glucose Lactic Acid 1.6 Calcium Prot Corrected Calcium Total Bilirubin AST ALT Alkaline Phosphatase Ammonia Total Protein Albumin Blood Type Antibody Screen [facility] Gel [employer]-[place] Blood Bank Comment d Prod Order Comment 12/07/17 11:40 WBC RBC Hgb 9.8 L Hct 27.9 L MCV MCH MCHC RDW Plt Count MPV Prelim Diff (Auto) Neut % (Auto) Lymph % (Auto) [place] % (Auto) Eos % (Auto) Baso % (Auto) Neut # (Auto) Lymph # (Auto) [place] # (Auto) Eos # (Auto) Baso # (Auto) WBC Differential Seg Neuts % (Manual) Band Neuts % (Manual) Lymphocytes % (Manual) Monocytes % (Manual) Abs Neuts (Manual) Differential Comment Platelet Estimate Platelet Morphology Dimorphic RBCs [place] Cells Acanthocytes (Spur) PT INR Puncture Site Patient Temperature O2 Saturation ABG pH ABG pCO2 ABG pO2 ABG HCO3 ABG O2 Content ABG Base Excess ABG Methemoglobin Hemoglobin Carboxyhemoglobin O2 Delivery Device Vent Setting Inspired O2 Critical Value Sodium Potassium Chloride Carbon Dioxide Anion Gap BUN Creatinine Estimated GFR POC Glucose Random Glucose Lactic Acid Calcium Prot Corrected Calcium Total Bilirubin AST ALT Alkaline Phosphatase Ammonia Total Protein Albumin Blood Type Antibody Screen MTS Gel Crossmatch Blood Bank Comment Bld Prod Order Comment Microbiology 12/06/17 18:40 Stool Stool Occult Blood (MYRNA) - Final Hemoccult positive - Imaging Impressions Chest X-Ray 12/06/17 19:55 CONCLUSION: Endotracheal tube tip in right mainstem bronchus. This should be withdrawn about 4 cm. Abdomen Arteriogram 12/07/17 00:00 CONCLUSION: 1. Uncomplicated embolization of the gastroduodenal artery. Chest X-Ray 12/07/17 00:00 CONCLUSION: 1. The endotracheal tube tip now lies approximately 1 cm above the shelley. 2. Rotated examination with airspace disease remaining in both lungs. This appears increased but may be due to the rotated exam. Chest X-Ray 12/07/17 08:48 CONCLUSION: 1. No significant interval change. 2. Small to moderate bilateral pleural effusions with associated lower lobe airspace disease. <Radha Torrez - Last Filed: 12/07/17 16:41> Assessment and Plan (1) Rectal bleed Status: Acute Code(s): K62.5 - Hemorrhage of anus and rectum (2) UGIB (upper gastrointestinal bleed) Status: Deleted Code(s): K92.2 - Gastrointestinal hemorrhage, unspecified (3) Anemia requiring transfusions Status: Deleted Code(s): D64.9 - Anemia, unspecified (4) Alcohol dependence Status: Deleted Code(s): F10.20 - Alcohol dependence, uncomplicated - Plan Assessment: Symptomatic anemia with symptoms of weakness and fatigue. History of long-term EtOH abuse since her teen years and notes currently drinks 20-24 beers a day. She states she quit drinking liquor 1 year ago and has been told that she has liver cirrhosis. She currently does not remember any GI workup or GI group working with her but thinks that she has had an EGD and colonoscopy in the past. She thinks it may have been in the hospital, very poor historian. Current hemoglobin 7.6 patient is being prepared for transfusion. Maroon-colored rectal bleeding 1. Patient has history of hemorrhoids but denies any straining with defecation. States the rectal bleeding was 1 event in the past 24 hours and noted it to be maroon colored blood surrounding the stool. Epigastric pain and tenderness to light palpation and at rest dull ache Generalized abdominal pain mid quadrant as well as right upper quadrant. Patient is again long-term alcoholic and has been told that she has history of liver cirrhosis but current bilirubin normal as well as normal LFT levels. Long-term alcoholism which could explain her acute on chronic symptomatic anemia. Patient's skin is dry with petechiae noted on her extremities. Current PT/INR 1.1 no current scleral icterus noted (12/05) Pt drowsy after Morphine and Ativan this morning. Discussed with RN, she reports pt had one shorty bloody BM last night but no BM since then. Denies nausea and emesis. S/P EGD and colonoscopy yesterday. EGD --> Two ulcers ranging between 3-7mm in size were found in the distal esophagus. Three ranging between 5-9mm in size ulcers were found in the gastric antrum. Four ranging between 5- 9mm in size ulcers were found in the 1st part of the duodenum and duodenal bulb Colonoscopy --> Colon full of blood all the way into the terminal ileum. No source of bleeding seen. Likely small intestinal bleed. Internal and external hemorrhoids. Pt seen for STAT NM bleeding scan which was negative. Seen by GS who states surgical intervention will likely not be successful. H/H has been stable since transfusion. (12/06) Spoke with NERY Olguin who states pt had one BM for her this morning, with no obvious blood. 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 H/H remains stable. Discussed with pt need for ETOH cessation. Will DC Protonix gtt and place on BID. Advance diet. (12/07) Our service was notified that pt began bleeding again last night. Pt now intubated, sedated but still awake during my exam, on Levophed. According to RN pt had 2 large bloody BMs over night, hgb dropped from 9.5 to 4.9. Plan: IR for CT with angiogram and embolization Protonix gtt Monitor H/H Further recommendations to follow Pt has been seen and examined by myself and Dr. Torrez and this note is written on his behalf <Kiesha Alexandra - Last Filed: 12/07/17 08:18> (1) Rectal bleed Status: Acute Code(s): K62.5 - Hemorrhage of anus and rectum (2) UGIB (upper gastrointestinal bleed) Status: Deleted Code(s): K92.2 - Gastrointestinal hemorrhage, unspecified (3) Anemia requiring transfusions Status: Deleted Code(s): D64.9 - Anemia, unspecified (4) Alcohol dependence Status: Deleted Code(s): F10.20 - Alcohol dependence, uncomplicated - Plan Seen and examined with BENEFITS ADVISOR, rebleeding overnight requiring PRBC/FFP/PLatelet. IR consulted for angiogram and possible GDA embolization. Discussed with DR. Jas Dewitt in IR. - Attending Attestation The exam, history, and the medical decision-making described in the above note were completed with the assistance of the mid-level provider. I reviewed and agree with the findings presented. I attest that I had a [id number] encounter with the patient on the same day, and personally performed and documented my assessment and findings in the medical record. <Radha Torrez - Last Filed: 12/07/17 16:41>
[2017-12-07] MEDS: Pantoprazole Inj 80 MG in Sodium Chlor 0.9% Inj 100 ML IV.CONT SCH ×2 (08:29→18:26)
[2017-12-07] MEDS: Folic Acid 1 MG Tablet PO SCH (08:29)
--- NOTE | 2017-12-07 09:01 | P.PNCC ---
Subjective Subjective Remarks/Hospital Course: The patient is a 57-year-old female with history of severe alcohol dependence drinking about 20-24 beers daily, alcoholic liver cirrhosis, COPD who presented with complaints of vomiting and diarrhea since last 2 days. Intermittently she had been having hematemesis which she quantifies as approximately a pint. She also noticed fresh blood per rectum. She is a very poor historian and she is unable to tell me when or whether she had any endoscopies before. She admits to having diagnosis of liver cirrhosis. She also admits to drinking about 20-24 to beers daily. ER workup initially patient had a heart rate of 115, indicating early hemorrhagic shock. Hemoglobin was 7.6. Patient was given 1 unit of PRBC and critical care was requested for admission. Patient also received octreotide 50 mcg IV push, Protonix 80 mg bolus and infusion was started at 8 mg/h. GI consult also requested I evaluated the patient in the ED. She complains of abdominal pain appears disheveled critically ill, pale. Remains tachycardic getting first unit of blood transfusion. Will request additional 1 unit PRBC. Rocephin had been added for SBP prophylaxis. I will also start octreotide infusion. 12/04 Patient is lying in bed in NAD. Hgb 6.7 this morning. Patient transfused 3units PRBC. For EGD and Colonoscopy today SUBJECTIVE: 12/05: Negative nuclear medicine bleeding scan overnight. Hemoglobin stable around 10. Noted EEG results revealed esophageal, gastric and duodenal ulcers. Colonoscopy with shorty blood throughout and nonbleeding internal and external hemorrhoids. Resting comfortably in bed requesting clear liquid diet which she is currently on. Minimal lorazepam use. 12/06 No events overnight. Awake, alert on Protonix drip. H/H stable. 8 Patient rebled last night with Hgb 4.9 became hypotensive, tachycardic was subsequently intubated and placed on mechanical ventilation. She was given 6u PRBC, 3u FFP and 1u PLT overnight repeat Hgb 10.4 this morning. IR consulted for possible embolization today. Started on Levophed last night currently on 2 mics. On Protonix and Octreotide drips. Objective Vital Signs / I&O: Vital Signs 12/06/17 10:00 12/06/17 11:30 12/06/17 12:00 Temperature 97.8 F Pulse Rate 102 H 110 H 114 H Respiratory Rate 22 16 Blood Pressure 143/72 H Pulse Oximetry 96 12/06/17 14:00 12/06/17 16:00 12/06/17 18:00 Temperature 97.9 F Pulse Rate 110 H 104 H 122 H Respiratory Rate 20 Blood Pressure 114/71 Pulse Oximetry 98 12/06/17 20:00 12/06/17 20:19 12/06/17 20:32 Temperature 94.4 F L Pulse Rate 130 H 112 H Respiratory Rate 14 25 H 27 H Blood Pressure 109/89 Pulse Oximetry 99 95 12/06/17 21:24 12/06/17 21:39 12/06/17 22:00 Temperature 94.5 F L 94.5 F L Pulse Rate 122 H 116 H 110 H Respiratory Rate 19 26 H Blood Pressure 95/69 L 138/85 Pulse Oximetry 100 12/06/17 23:08 12/07/17 00:00 12/07/17 00:20 Temperature 97.4 F L 97.9 F Pulse Rate 112 H 115 H 115 H Respiratory Rate 16 20 19 Blood Pressure 145/102 H 137/82 Pulse Oximetry 94 L 12/07/17 00:21 12/07/17 02:00 12/07/17 03:00 Temperature Pulse Rate 98 H 94 H Respiratory Rate 18 16 Blood Pressure Pulse Oximetry 100 12/07/17 03:22 12/07/17 03:41 12/07/17 03:51 Temperature 97.5 F L 97.9 F Pulse Rate 95 H 90 Respiratory Rate 14 14 15 Blood Pressure 121/70 115/70 Pulse Oximetry 95 99 99 12/07/17 04:00 12/07/17 06:00 12/07/17 08:11 Temperature Pulse Rate 103 H 90 109 H Respiratory Rate 17 Blood Pressure Pulse Oximetry 100 Intake & Output 12/06/17 12/07/17 12/07/17 18:59 06:59 18:59 Intake Total 480 / 480 2409 / 2409 1600.5 / 1600.5 Output Total 600 / 600 450 / 450 Balance -120 / -120 1958 / 1958 1600.5 / 1600.5 Weight 69.3 kg Intake: IV 650 / 650 1600.5 / 1600.5 D5W/Normal Saline Inj 1,000 ML 1000 / 1000 @ 84 mls/hr IV.CONT .[id number] [facility] Rx#:[id number] Versed Inj 50 mg In 50 ml @ 2 50 / 50 MG/HR 2 mls/hr IV.CONT TITRATE PRN Rx#:[id number] SandoSTATIN Inj 500 MCG In NS 500 / 500 500.5 / 500.5 Inj 500 ML @ 100 MCG/HR 100.1 mls/hr IV.CONT .Q5H [facility] Rx#: [id number] Protonix Inj 80 MG In NS Inj 100 / 100 100 ML @ 10 mls/hr IV.CONT CONT [facility] Rx#:[id number] Rocephin Inj 1,000 MG In NS Inj 100 / 100 100 ML @ 200 mls/hr IV.SIG Q24H [facility] Rx#:[id number] Oral 480 / 480 Intake (Blood Product) Amt 1759 / 1759 Plasma Thawed 5 Day Acda Unit 220 / 220 [id number] Plasma Thawed 5 Day Acda Unit 230 / 230 [id number] Plasma Thawed 5 Day Cp2d Unit 219 / 219 [id number] Plt Pheresis A Leukoreduced 290 / 290 Unit [id number] Rbc As-3 Leukoreduced Unit 400 / 400 [id number] Rbc As-3 Leukoreduced Unit 400 / 400 [id number] Output: Urine Amount (Catheter) 600 / 600 450 / 450 Indwelling Urethral Catheter 600 / 600 450 / 450 Other: Date of Last Bowel Movement 12/06/17 12/07/17 # Incontinent Bowel Movements 2 2 Result Diagrams: 12/07/17 05:20 12/07/17 05:20 Other Results: Laboratory Results - last 12 hr 12/04/17 12/06/17 12/06/17 06:10 19:51 19:51 WBC RBC Hgb Hct MCV MCH MCHC RDW Plt Count MPV Prelim Diff (Auto) Neut % (Auto) Lymph % (Auto) [place] % (Auto) Eos % (Auto) Baso % (Auto) Neut # (Auto) Lymph # (Auto) [place] # (Auto) Eos # (Auto) Baso # (Auto) WBC Differential Seg Neuts % (Manual) Band Neuts % (Manual) Lymphocytes % (Manual) Monocytes % (Manual) Abs Neuts (Manual) Differential Comment Platelet Estimate Platelet Morphology Dimorphic RBCs [place] Cells Acanthocytes (Spur) Puncture Site Patient Temperature O2 Saturation ABG pH ABG pCO2 ABG pO2 ABG HCO3 ABG O2 Content ABG Base Excess ABG Methemoglobin Hemoglobin Carboxyhemoglobin O2 Delivery Device Vent Setting Inspired O2 Critical Value Sodium Potassium Chloride Carbon Dioxide Anion Gap BUN Creatinine Estimated GFR POC Glucose Random Glucose Calcium Prot Corrected Calcium Total Bilirubin AST ALT Alkaline Phosphatase Total Protein Albumin Blood Type A Positive Antibody Screen Negative MTS Gel Crossmatch See Detail See Detail See Detail Blood Bank Comment Bld Prod Order Comment 12/06/17 12/06/17 12/07/17 20:57 20:57 00:15 WBC RBC Hgb 7.0 L Hct 21.1 L MCV MCH MCHC RDW Plt Count MPV Prelim Diff (Auto) Neut % (Auto) Lymph % (Auto) [place] % (Auto) Eos % (Auto) Baso % (Auto) Neut # (Auto) Lymph # (Auto) [place] # (Auto) Eos # (Auto) Baso # (Auto) WBC Differential Seg Neuts % (Manual) Band Neuts % (Manual) Lymphocytes % (Manual) Monocytes % (Manual) Abs Neuts (Manual) Differential Comment Platelet Estimate Platelet Morphology Dimorphic RBCs [place] Cells Acanthocytes (Spur) Puncture Site Patient Temperature O2 Saturation ABG pH ABG pCO2 ABG pO2 ABG HCO3 ABG O2 Content ABG Base Excess ABG Methemoglobin Hemoglobin Carboxyhemoglobin O2 Delivery Device Vent Setting Inspired O2 Critical Value Sodium Potassium Chloride Carbon Dioxide Anion Gap BUN Creatinine Estimated GFR POC Glucose Random Glucose Calcium Prot Corrected Calcium Total Bilirubin AST ALT Alkaline Phosphatase Total Protein Albumin Blood Type Antibody Screen MTS Gel Crossmatch Blood Bank Comment Bld Prod Order Comment 12/07/17 12/07/17 12/07/17 00:46 01:21 01:38 WBC RBC Hgb Hct MCV MCH MCHC RDW Plt Count MPV Prelim Diff (Auto) Neut % (Auto) Lymph % (Auto) [place] % (Auto) Eos % (Auto) Baso % (Auto) Neut # (Auto) Lymph # (Auto) [place] # (Auto) Eos # (Auto) Baso # (Auto) WBC Differential Seg Neuts % (Manual) Band Neuts % (Manual) Lymphocytes % (Manual) Monocytes % (Manual) Abs Neuts (Manual) Differential Comment Platelet Estimate Platelet Morphology Dimorphic RBCs [place] Cells Acanthocytes (Spur) Puncture Site Left radial Patient Temperature 98.6 O2 Saturation 96 ABG pH 7.41 ABG pCO2 27 L ABG pO2 175 H ABG HCO3 17 L ABG O2 Content 9.7 L ABG Base Excess -6.9 L ABG Methemoglobin 1.3 Hemoglobin 6.9 L* Carboxyhemoglobin 2.0 O2 Delivery Device Ventilator Vent Setting Ac 450/14/+5/%50 Inspired O2 50 Critical Value Yes Sodium Potassium Chloride Carbon Dioxide Anion Gap BUN Creatinine Estimated GFR POC Glucose 157 H Random Glucose Calcium Prot Corrected Calcium Total Bilirubin AST ALT Alkaline Phosphatase Total Protein Albumin Blood Type Antibody Screen MTS Gel Crossmatch See Detail Blood Bank Comment Bld Prod Order Comment 12/07/17 12/07/17 12/07/17 05:20 05:20 07:49 WBC 10.3 D RBC 3.42 L Hgb 10.4 L D Hct 30.1 L MCV 88.1 D MCH 30.5 MCHC 34.6 RDW 15.3 D Plt Count 84 L D MPV 7.8 Prelim Diff (Auto) Slide review pending Neut % (Auto) 76.5 H Lymph % (Auto) 17.7 [place] % (Auto) 4.6 Eos % (Auto) 0.9 Baso % (Auto) 0.3 Neut # (Auto) 7.9 H Lymph # (Auto) 1.8 [place] # (Auto) 0.5 Eos # (Auto) 0.1 Baso # (Auto) 0.0 WBC Differential Manual diff final Seg Neuts % (Manual) 75 H Band Neuts % (Manual) 8 H Lymphocytes % (Manual) 14 Monocytes % (Manual) 3 Abs Neuts (Manual) 8.5 H Differential Comment . Platelet Estimate Low L Platelet Morphology Normal Dimorphic RBCs Present H [place] Cells 1+ H Acanthocytes (Spur) Occ H Puncture Site Patient Temperature O2 Saturation ABG pH ABG pCO2 ABG pO2 ABG HCO3 ABG O2 Content ABG Base Excess ABG Methemoglobin Hemoglobin Carboxyhemoglobin O2 Delivery Device Vent Setting Inspired O2 Critical Value Sodium 143 Potassium 4.1 Chloride 114 H D Carbon Dioxide 20.1 L Anion Gap 9 BUN 7 Creatinine 0.40 L Estimated GFR Greater than 89 POC Glucose 140 H Random Glucose 111 H Calcium 6.4 L* D Prot Corrected Calcium 8.1 L Total Bilirubin 1.1 H AST 60 H ALT 26 Alkaline Phosphatase 51 Total Protein 3.8 L D Albumin 1.8 L Blood Type Antibody Screen MTS Gel Crossmatch Blood Bank Comment Bld Prod Order Comment Imaging: Abdomen X-Ray 12/03/17 08:58 CONCLUSION: Nonspecific bowel gas . GI Bleed Scan Nuclear Medicine 12/04/17 14:06 CONCLUSION: 1. Negative GI bleeding scan Abdomen/Pelvis CT 12/06/17 14:36 CONCLUSION: 1. Steatosis. 2. Bilateral lower lobe consolidation and atelectasis with large bilateral pleural effusions. 3. Small hiatal hernia. 4. Atherosclerosis. 5. Body wall edema. 6. Bilateral renal scarring. Chest X-Ray 12/07/17 00:00 CONCLUSION: 1. The endotracheal tube tip now lies approximately 1 cm above the shelley. 2. Rotated examination with airspace disease remaining in both lungs. This appears increased but may be due to the rotated exam. Objective Remarks: GENERAL: Patient is 57yo critically ill intubated and sedated SKIN: Warm and dry. HEAD: Normocephalic. EYES: No scleral icterus. No injection or drainage. NECK: Supple, trachea midline. No JVD or lymphadenopathy. CARDIOVASCULAR: Regular rate and rhythm. S1, S2 no S4. without murmurs, gallops, or rubs. RESPIRATORY: Breath sounds equal bilaterally. No accessory muscle use. GASTROINTESTINAL: Abdomen soft, +BS MUSCULOSKELETAL: No significant peripheral edema. Neuro: Intubated and sedated Assessment and Plan - Problem List (1) COPD (chronic obstructive pulmonary disease) Code(s): J44.9 - Chronic obstructive pulmonary disease, unspecified Status: Chronic - Assessment and Plan Plan: NEURO/PSYCH: Alcohol dependence -Monitor neuro status on Versed 5mg/hr and Fentnayl 100 mics for sedation while intubated. -Daily sedation vacation when clinically stable -Seizure precautions -CIWA protocol with as needed Lorazepam -Continue multivitamin, thiamine, and Folic acid RESP: History of COPD Continue with vent support keep sats >92% Albuterol/ipratropium aerosols every 4 hours with albuterol aerosols every 2 hours as needed for dyspnea -ICU vent bundle. CV: Monitor HR and BP keep MAP>65mmHg Serial lactic acid till clear IVF D5NS@84ml/hr GI/HEME: Upper and lower GI bleed Esophageal 2, gastric 3 and duodenal 4 ulcers Internal and external hemorrhoids Acute blood loss anemia requiring transfusion Status post 4 units PRBC since admission Received additional 6u PRBC, 3u FFP and 1u PLT night of 12/06 Monitor H&H and coags closely. Monitor H/H Q6 EGD revealed esophageal ulcers 2 at the distal esophagus 3-7 mm, 3 gastric ulcer between 5 and 9 mm and 4 ulcers. Colonoscopy revealed blood to the terminal ileum. Internal and external hemorrhoids. Nuclear medicine bleeding scan revealed no acute bleeding Followed by GI and general surgery/Dr. Hauser. IR consulted for possible embolization. -Ceftriaxone for SBP prophylaxis Renal/: -Monitor renal function, I/O', electrolytes replacement per protocol. IVF as stated above. ID: Ceftriaxone for SBP prophylaxis -Monitor for signs of infections ( Fever, WBC) ENDO: -Electrolyte replacement per protocol -Sliding scale insulin PROPH: -Bilateral lower extremity SCDs. Protonix infusion. Chemical DVT prophylaxis contraindicated in setting of GI bleed and anemia requiring blood transfusion. LINES: -Utilize peripheral IVs, Central line placed 12/07 CCT 30 mins
[2017-12-07] MEDS ORDERED: Norepinephrine Inj 4 MG in Sodium Chlor 0.9% Inj 246 ML IV.SIG PRN (09:05)
--- NOTE | 2017-12-07 09:13 | P.PNGS ---
<Jessenia Jones - Last Filed: 12/07/17 09:10> Subjective Interval history: Had two bloody BMs overnight--- now intubated on low dose Levophed Physical Exam Vital signs: Vital Signs 12/06/17 10:00 12/06/17 11:30 12/06/17 12:00 Temperature 97.8 F Pulse Rate 102 H 110 H 114 H Respiratory Rate 22 16 Blood Pressure 143/72 H Pulse Oximetry 96 12/06/17 14:00 12/06/17 16:00 12/06/17 18:00 Temperature 97.9 F Pulse Rate 110 H 104 H 122 H Respiratory Rate 20 Blood Pressure 114/71 Pulse Oximetry 98 12/06/17 20:00 12/06/17 20:19 12/06/17 20:32 Temperature 94.4 F L Pulse Rate 130 H 112 H Respiratory Rate 14 25 H 27 H Blood Pressure 109/89 Pulse Oximetry 99 95 12/06/17 21:24 12/06/17 21:39 12/06/17 22:00 Temperature 94.5 F L 94.5 F L Pulse Rate 122 H 116 H 110 H Respiratory Rate 19 26 H Blood Pressure 95/69 L 138/85 Pulse Oximetry 100 12/06/17 23:08 12/07/17 00:00 12/07/17 00:20 Temperature 97.4 F L 97.9 F Pulse Rate 112 H 115 H 115 H Respiratory Rate 16 20 19 Blood Pressure 145/102 H 137/82 Pulse Oximetry 94 L 12/07/17 00:21 12/07/17 02:00 12/07/17 03:00 Temperature Pulse Rate 98 H 94 H Respiratory Rate 18 16 Blood Pressure Pulse Oximetry 100 12/07/17 03:22 12/07/17 03:41 12/07/17 03:51 Temperature 97.5 F L 97.9 F Pulse Rate 95 H 90 Respiratory Rate 14 14 15 Blood Pressure 121/70 115/70 Pulse Oximetry 95 99 99 12/07/17 04:00 12/07/17 06:00 12/07/17 08:11 Temperature Pulse Rate 103 H 90 109 H Respiratory Rate 17 Blood Pressure Pulse Oximetry 100 Intake & Output 12/06/17 12/07/17 12/07/17 18:59 06:59 18:59 Intake Total 480 / 480 2409 / 2409 1600.5 / 1600.5 Output Total 600 / 600 450 / 450 Balance -120 / -120 1958 / 1958 1600.5 / 1600.5 Weight 69.3 kg Intake: IV 650 / 650 1600.5 / 1600.5 D5W/Normal Saline Inj 1,000 ML 1000 / 1000 @ 84 mls/hr IV.CONT .[id number] [facility] Rx#:[id number] Versed Inj 50 mg In 50 ml @ 2 50 / 50 MG/HR 2 mls/hr IV.CONT TITRATE PRN Rx#:[id number] SandoSTATIN Inj 500 MCG In NS 500 / 500 500.5 / 500.5 Inj 500 ML @ 100 MCG/HR 100.1 mls/hr IV.CONT .Q5H [facility] Rx#: [id number] Protonix Inj 80 MG In NS Inj 100 / 100 100 ML @ 10 mls/hr IV.CONT CONT [facility] Rx#:[id number] Rocephin Inj 1,000 MG In NS Inj 100 / 100 100 ML @ 200 mls/hr IV.SIG Q24H [facility] Rx#:[id number] Oral 480 / 480 Intake (Blood Product) Amt 175 / 175 Plasma Thawed 5 Day Acda Unit 220 / 220 [id number] Plasma Thawed 5 Day Acda Unit 230 / 230 [id number] Plasma Thawed 5 Day Cp2d Unit 219 / 219 [id number] Plt Pheresis A Leukoreduced 290 / 290 Unit [id number] Rbc As-3 Leukoreduced Unit 400 / 400 [id number] Rbc As-3 Leukoreduced Unit 400 / 400 [id number] Output: Urine Amount (Catheter) 600 / 600 450 / 450 Indwelling Urethral Catheter 600 / 600 450 / 450 Other: Date of Last Bowel Movement 12/06/17 12/07/17 # Incontinent Bowel Movements 2 2 Narrative: Intubated/Sedated Cardio: RRR Resp: CTAB Abd: soft non tender Ext: mild generalized edema; bruising noted on BUE - Urinary Catheter Management Indwelling Urethral Catheter Cath placed during this visit: no Assessment and Plan - Assessment (1) Anemia requiring transfusions Code(s): D64.9 - Anemia, unspecified Status: Deleted Plan: -Two large bloody BMs overnight---Hmg dropped to 4.9 -Transfused 6 units PRBCs; 3 units FFP; 1 unit platelets -Now intubated; on low dose Levophed -GI consulted IR for embolization this morning -Agree with plan -Discussed with NERY Ugalde and Kiesha MARION (2) Liver cirrhosis Code(s): K74.60 - Unspecified cirrhosis of liver Status: Deleted <Gary Hauser A - Last Filed: 12/08/17 07:35> Physical Exam Vital signs: Vital Signs 12/07/17 08:00 12/07/17 08:11 12/07/17 10:00 Temperature 98.3 F Pulse Rate 85 109 H 89 Respiratory Rate 15 17 Blood Pressure 138/77 Pulse Oximetry 100 100 12/07/17 11:17 12/07/17 12:00 12/07/17 13:45 Temperature 98.2 F Pulse Rate 101 H 88 90 Respiratory Rate 15 14 Blood Pressure 113/70 Pulse Oximetry 100 100 12/07/17 14:00 12/07/17 16:00 12/07/17 17:51 Temperature 98.4 F Pulse Rate 93 H 84 Respiratory Rate 14 Blood Pressure 122/77 Pulse Oximetry 100 97 12/07/17 20:00 12/07/17 20:32 12/07/17 20:33 Temperature 99.1 F Pulse Rate 90 92 H Respiratory Rate 14 14 19 Blood Pressure 101/68 Pulse Oximetry 98 99 12/08/17 00:00 12/08/17 00:20 12/08/17 00:21 Temperature 99.2 F Pulse Rate 87 83 Respiratory Rate 15 20 20 Blood Pressure 114/72 Pulse Oximetry 98 98 12/08/17 02:00 12/08/17 04:00 12/08/17 04:27 Temperature 98.8 F Pulse Rate 94 H 84 90 Respiratory Rate 15 19 Blood Pressure 111/69 Pulse Oximetry 99 12/08/17 04:28 12/08/17 06:00 Temperature Pulse Rate 96 H Respiratory Rate 19 Blood Pressure Pulse Oximetry 98 Intake & Output 12/07/17 12/08/17 12/08/17 18:59 06:59 18:59 Intake Total 3217.9 / 3217.9 2401.0 / 2401.0 Output Total 350 / 350 550 / 550 Balance 2867.9 / 2867.9 1851.0 / 1851.0 Weight 77.4 kg Intake: IV 3217.9 / 3217.9 2401.0 / 2401.0 D5W/Normal Saline Inj 1,000 ML 1000 / 1000 1000 / 1000 @ 84 mls/hr IV.CONT .[id number] [facility] Rx#:[id number] Versed Inj 50 mg In 50 ml @ 2 50 / 50 50 / 50 MG/HR 2 mls/hr IV.CONT TITRATE PRN Rx#:[id number] SandoSTATIN Inj 500 MCG In NS 1467.9 / 1467.9 1001.0 / 1001.0 Inj 500 ML @ 100 MCG/HR 100.1 mls/hr IV.CONT .Q5H [facility] Rx#: [id number] Protonix Inj 80 MG In NS Inj 200 / 200 100 / 100 100 ML @ 10 mls/hr IV.CONT CONT [facility] Rx#:[id number] fentaNYL 10 mcg/mL Premix Drip 250 / 250 250 / 250 2,500 mcg In 250 ml @ 50 MCG/HR 5 mls/hr IV.SIG TITRATE PRN Rx #:[id number] Output: Urine Amount (Catheter) 350 / 350 550 / 550 Indwelling Urethral Catheter 350 / 350 550 / 550 Other: Date of Last Bowel Movement 12/07/17 - Urinary Catheter Management Indwelling Urethral Catheter Cath placed during this visit: no Assessment and Plan - Assessment (1) Anemia requiring transfusions Code(s): D64.9 - Anemia, unspecified Status: Deleted Plan: Recurrent GI bleeding, with multiple sites of ulceration in the esophagus, stomach and duodenum. No particular site identified. Without localization and attempt at embolization or at least re-scoping first, surgery is last option. Will await further input from IR and GI services. Nothing further to add at this point. The exam, history, and the medical decision-making described in the above note were completed with the assistance of the mid-level provider. I reviewed and agree with the findings presented. I attest that I had a [id number] encounter with the patient on the same day, and personally performed and documented my assessment and findings in the medical record. (2) Liver cirrhosis Code(s): K74.60 - Unspecified cirrhosis of liver Status: Deleted
--- NOTE | 2017-12-07 09:13 | XR ---
EXAM DATE: 12/07/2017 9:10 AM EDT AGE/SEX: 57 years / Female INDICATIONS: Ventilator dependent respiratory failure CLINICAL DATA: This is the patient's subsequent encounter. Patient reports that signs and symptoms h ave been present for 4 - 6 days and indicates a pain score of Nonresponsive. MEDICAL/SURGICAL HISTORY: . respiratory failure, hemorrhagic shock . tracheostomy COMPARISON: [facility], CHEST 1V SINGLE AP, 12/07/2017. . FINDINGS: Stable ETT. Redemonstration of small to moderate bilateral pleural effusions with associated lower lo be airspace disease. Cardiomediastinal contours are stable. Remainder of the exam is unchanged. CONCLUSION: 1. No significant interval change. 2. Small to moderate bilateral pleural effusions with associated lower lobe airspace disease. Electronically signed by: Elmo Velasquez MD 12/07/2017 9:12 AM EDT
[2017-12-07 10:22] LABS: INR 1.3 Ratio; Prothrombin Time 13.3 sec (9.8-11.6)
[2017-12-07 12:08] LABS: Hematocrit 27.9 % (35.0-46.0); Hemoglobin 9.8 gm/dL (11.6-15.3)
[2017-12-07] MEDS ORDERED: Gelatin 12 MM/7 MM Topical Foam I-ARTERIAL ONE (15:00)
--- NOTE | 2017-12-07 16:30 | IR ---
EXAM DATE: 12/07/2017 3:49 PM EDT AGE/SEX: 57 years / Female INDICATIONS: Patient presents with GI Bleed in need of angiogram with embolization. CLINICAL DATA: This is the patient's initial encounter. Patient reports that signs and symptoms have been present for 4 - 6 days and indicates a pain score of Nonresponsive. MEDICAL/SURGICAL HISTORY: Chronic obstructive pulmonary disease. Cirrhosis. Appendectomy. COMPARISON: No prior exams available for comparison. FLUORO TIME (min): 14 IMAGE SERIES: 5 ACCESS SITE: Right femoral artery CONTRAST (cc): 50CC Visipaque (iodixanol) DEVICE(S): Gastroduodenal artery Gelfoam 12X7MM Gastroduodenal artery embolic coil Interlock [id number] Gastroduodenal artery embolic coil(s) Interlock 4MMX4.5CM Gastroduodenal artery embolic coil(s) 035 [place] 4X3MM Gastroduodenal artery embolic coil(s) 035 [place] 4X3MM . . PROCEDURE : 1. Ultrasound-guided puncture of the access site. 2. Conscious sedation with continuous EKG and Oximetry monitoring. 3. Angiography of the celiac axis 4. Angiography of the gastroduodenal artery 5. Coil and Gelfoam embolization of the gastroduodenal artery The risks, benefits and alternatives to the procedure were explained and verbal and written consent w as obtained. The site was prepped in sterile fashion. Full sterile technique was used, including ca p, mask, sterile gloves and gown and a large sterile sheet. Hand hygiene and 2% chlorhexidine and/or betadine/alcohol prep was utilized per protocol for cutaneous antisepsis. Sterile gel and sterile p robe cover were utilized for ultrasound guidance. The skin and subcutaneous tissues were infiltrated with local anesthetic solution. With ultrasound and fluoroscopic guidance the selected artery was punctured and a vascular sheath was placed. A hook catheter was used to gain access to the sac axis angiography was performed to demonstrate the anatomy of the gastroduodenal artery. A glide catheter was advanced distal to the abnormal segment of the gastroduodenal artery which demonstrates a short segment occlusion and recanalization. Coils wer e performed distally and Gelfoam was injected proximally to complete stasis. Following this proximal coils were then deployed without difficulty. The puncture site was closed with manual pressure and hemostasis was obtained. The patient tolerated the procedure well and there were no complications. Conscious sedation was performed with the prescribed dosages and duration as above in the presence of an independent trained radiology nurse to assist in the monitoring of the patient. EKG and oximetry remained stable throughout the procedure. CONCLUSION: 1. Uncomplicated embolization of the gastroduodenal artery. Electronically signed by: Talha Alexander MD 12/07/2017 4:28 PM EDT
[2017-12-07] MEDS: fentaNYL 10 mcg/mL Premix Drip 2,500 MCG/250 ML BAG IV.SIG PRN (17:31)
[2017-12-07 18:00] LABS: Hematocrit 26.7 % (35.0-46.0); Hemoglobin 9.4 gm/dL (11.6-15.3)
[2017-12-08 01:03] LABS: Hematocrit 28.2 % (35.0-46.0); Hemoglobin 9.6 gm/dL (11.6-15.3)
[2017-12-08] MEDS: Pantoprazole Inj 80 MG in Sodium Chlor 0.9% Inj 100 ML IV.CONT SCH ×2 (05:22→15:36)
[2017-12-08] MEDS: Octreotide Inj 500 MCG in Sodium Chlor 0.9% Inj 500 ML IV.CONT SCH ×4 (05:24→23:36)
[2017-12-08] MEDS: Insulin NovoLOG Aspart Correctional Sugar Inj SQ SCH ×4 (05:25→21:24)
[2017-12-08] MEDS: Chlorhexidine Gluconate 2% 1 Pack (2 Cloths) TOPICAL SCH (05:25)
[2017-12-08] MEDS: Midazolam 50 MG/50 ML Inj 50 MG/50 ML BAG IV.CONT PRN (05:53)
[2017-12-08 06:08] LABS: Baso # (Auto) 0.1 th/mm3 (0.0-0.2); Baso % (Auto) 0.7 % (0.0-2.0); Eos # (Auto) 0.1 th/mm3 (0.0-0.4); Eos % (Auto) 1.8 % (0.0-4.0); Hematocrit 26.7 % (35.0-46.0); Hemoglobin 9.3 gm/dL (11.6-15.3); Lymph # (Auto) 1.3 th/mm3 (1.0-4.8); Lymph % (Auto) 18.6 % (9.0-44.0); Mean Corpuscular HGB Conc 34.7 % (32.0-36.0); Mean Corpuscular Hemoglobin 30.7 pg (27.0-34.0); Mean Corpuscular Volume 88.6 fL (80.0-100.0); Mean Platelet Volume 8.3 fL (7.0-11.0); Mono # (Auto) 0.4 th/mm3 (0.0-0.9); Mono % (Auto) 5.5 % (0.0-8.0); Neut # (Auto) 5.2 th/mm3 (1.8-7.7); Neut % (Auto) 73.4 % (16.0-70.0); Platelet Count 84 th/mm3 (150-450); Red Blood Count 3.01 mil/mm3 (4.00-5.30); White Blood Count 7.1 th/mm3 (4.0-11.0)
[2017-12-08 06:30] LABS: Alanine Aminotransferase 17 U/L (10-53); Albumin 1.4 g/dL (3.4-5.0); Alkaline Phosphatase 47 U/L (45-117); Anion Gap 8 meq/L (5-15); Aspartate Aminotransferase 23 U/L (15-37); Blood Urea Nitrogen 11 mg/dL (7-18); Calcium 6.5 mg/dL (8.5-10.1); Carbon Dioxide 20.7 meq/L (21.0-32.0); Chloride 119 meq/L (98-107); Glomerular Filtration Rate Greater Than 89 mL/min (>89); Glucose,Random 113 mg/dL (74-106); Potassium 3.4 meq/L (3.5-5.1); Sodium 148 meq/L (136-145); Total Protein 3.2 g/dL (6.4-8.2)
[2017-12-08] MEDS: fentaNYL 10 mcg/mL Premix Drip 2,500 MCG/250 ML BAG IV.SIG PRN (06:48)
[2017-12-08] MEDS: Dextrose 5%/NaCl 0.9% Inj 1,000 ML IV.CONT SCH ×2 (06:50→08:15)
[2017-12-08 07:27] LABS: Eosinophils 2 % (0-4); Lymphocytes 13 % (9-44); Monocytes 1 % (0-8)
[2017-12-08 07:28] LABS: Burr Cells 1+; Platelet Morphology Normal (Normal)
[2017-12-08] MEDS: Folic Acid 1 MG Tablet PO SCH (10:07)
--- NOTE | 2017-12-08 11:02 | P.PNCC ---
Subjective Subjective Remarks/Hospital Course: The patient is a 57-year-old female with history of severe alcohol dependence drinking about 20-24 beers daily, alcoholic liver cirrhosis, COPD who presented with complaints of vomiting and diarrhea since last 2 days. Intermittently she had been having hematemesis which she quantifies as approximately a pint. She also noticed fresh blood per rectum. She is a very poor historian and she is unable to tell me when or whether she had any endoscopies before. She admits to having diagnosis of liver cirrhosis. She also admits to drinking about 20-24 to beers daily. ER workup initially patient had a heart rate of 115, indicating early hemorrhagic shock. Hemoglobin was 7.6. Patient was given 1 unit of PRBC and critical care was requested for admission. Patient also received octreotide 50 mcg IV push, Protonix 80 mg bolus and infusion was started at 8 mg/h. GI consult also requested I evaluated the patient in the ED. She complains of abdominal pain appears disheveled critically ill, pale. Remains tachycardic getting first unit of blood transfusion. Will request additional 1 unit PRBC. Rocephin had been added for SBP prophylaxis. I will also start octreotide infusion. 12/04 Patient is lying in bed in NAD. Hgb 6.7 this morning. Patient transfused 3units PRBC. For EGD and Colonoscopy today SUBJECTIVE: 12/05: Negative nuclear medicine bleeding scan overnight. Hemoglobin stable around 10. Noted EEG results revealed esophageal, gastric and duodenal ulcers. Colonoscopy with shorty blood throughout and nonbleeding internal and external hemorrhoids. Resting comfortably in bed requesting clear liquid diet which she is currently on. Minimal lorazepam use. 8 No events overnight. Awake, alert on Protonix drip. H/H stable. 8 Patient rebled last night with Hgb 4.9 became hypotensive, tachycardic was subsequently intubated and placed on mechanical ventilation. She was given 6u PRBC, 3u FFP and 1u PLT overnight repeat Hgb 10.4 this morning. IR consulted for possible embolization today. Started on Levophed last night currently on 2 mics. On Protonix and Octreotide drips. 12/08 No events overnight. s/p arteriogram with embolization of gastroduodenal artery. On low dose Versed and Fentanyl infusion for sedation however she is awake and alert. Off Levophed. Remains on Protonix and Octreotide drips. H/H stable Objective Vital Signs / I&O: Vital Signs 12/07/17 11:17 12/07/17 12:00 12/07/17 13:45 Temperature 98.2 F Pulse Rate 101 H 88 90 Respiratory Rate 15 14 Blood Pressure 113/70 Pulse Oximetry 100 100 12/07/17 14:00 12/07/17 16:00 12/07/17 17:51 Temperature 98.4 F Pulse Rate 93 H 84 Respiratory Rate 14 Blood Pressure 122/77 Pulse Oximetry 100 97 12/07/17 20:00 12/07/17 20:32 12/07/17 20:33 Temperature 99.1 F Pulse Rate 90 92 H Respiratory Rate 14 14 19 Blood Pressure 101/68 Pulse Oximetry 98 99 12/08/17 00:00 12/08/17 00:20 12/08/17 00:21 Temperature 99.2 F Pulse Rate 87 83 Respiratory Rate 15 20 20 Blood Pressure 114/72 Pulse Oximetry 98 98 12/08/17 02:00 12/08/17 04:00 12/08/17 04:27 Temperature 98.8 F Pulse Rate 94 H 84 90 Respiratory Rate 15 19 Blood Pressure 111/69 Pulse Oximetry 99 12/08/17 04:28 12/08/17 06:00 12/08/17 07:18 Temperature Pulse Rate 96 H Respiratory Rate 19 20 Blood Pressure Pulse Oximetry 98 12/08/17 07:53 12/08/17 08:15 12/08/17 10:00 Temperature Pulse Rate 88 98 H 105 H Respiratory Rate 13 Blood Pressure Pulse Oximetry 99 Intake & Output 12/07/17 12/08/17 12/08/17 18:59 06:59 18:59 Intake Total 3217.9 / 3217.9 2401.0 / 2401.0 1000 / 1000 Output Total 350 / 350 550 / 550 Balance 2867.9 / 2867.9 1851.0 / 1851.0 1000 / 1000 Weight 77.4 kg Intake: IV 3217.9 / 3217.9 2401.0 / 2401.0 1000 / 1000 D5W/Normal Saline Inj 1,000 ML 1000 / 1000 1000 / 1000 1000 / 1000 @ 84 mls/hr IV.CONT .[id number] [facility] Rx#:[id number] Versed Inj 50 mg In 50 ml @ 2 50 / 50 50 / 50 MG/HR 2 mls/hr IV.CONT TITRATE PRN Rx#:[id number] SandoSTATIN Inj 500 MCG In NS 1467.9 / 1467.9 1001.0 / 1001.0 Inj 500 ML @ 100 MCG/HR 100.1 mls/hr IV.CONT .Q5H [facility] Rx#: [id number] Protonix Inj 80 MG In NS Inj 200 / 200 100 / 100 100 ML @ 10 mls/hr IV.CONT CONT [facility] Rx#:[id number] fentaNYL 10 mcg/mL Premix Drip 250 / 250 250 / 250 2,500 mcg In 250 ml @ 50 MCG/HR 5 mls/hr IV.SIG TITRATE PRN Rx #:[id number] Output: Urine Amount (Catheter) 350 / 350 550 / 550 Indwelling Urethral Catheter 350 / 350 550 / 550 Other: Date of Last Bowel Movement 12/07/17 12/07/17 Result Diagrams: 12/08/17 05:00 12/08/17 05:00 Other Results: Laboratory Results - last 12 hr 12/06/17 12/08/17 12/08/17 19:51 00:01 00:49 WBC RBC Hgb 9.6 L Hct 28.2 L MCV MCH MCHC RDW Plt Count MPV Prelim Diff (Auto) Neut % (Auto) Lymph % (Auto) [place] % (Auto) Eos % (Auto) Baso % (Auto) Neut # (Auto) Lymph # (Auto) [place] # (Auto) Eos # (Auto) Baso # (Auto) WBC Differential Seg Neuts % (Manual) Band Neuts % (Manual) Lymphocytes % (Manual) Monocytes % (Manual) Eosinophils % (Manual) Basophils % (Manual) Abs Neuts (Manual) Differential Comment Platelet Estimate Platelet Morphology Brule Cells Sodium Potassium Chloride Carbon Dioxide Anion Gap BUN Creatinine Estimated GFR POC Glucose 120 H Random Glucose Calcium Prot Corrected Calcium Total Bilirubin AST ALT Alkaline Phosphatase Total Protein Albumin MTS Gel Crossmatch See Detail 12/08/17 12/08/17 05:00 05:00 WBC 7.1 RBC 3.01 L Hgb 9.3 L Hct 26.7 L MCV 88.6 MCH 30.7 MCHC 34.7 RDW 16.0 Plt Count 84 L MPV 8.3 Prelim Diff (Auto) Slide review pending Neut % (Auto) 73.4 H Lymph % (Auto) 18.6 [place] % (Auto) 5.5 Eos % (Auto) 1.8 Baso % (Auto) 0.7 Neut # (Auto) 5.2 Lymph # (Auto) 1.3 [place] # (Auto) 0.4 Eos # (Auto) 0.1 Baso # (Auto) 0.1 WBC Differential Manual diff final Seg Neuts % (Manual) 75 H Band Neuts % (Manual) 7 H Lymphocytes % (Manual) 13 Monocytes % (Manual) 1 Eosinophils % (Manual) 2 Basophils % (Manual) 2 Abs Neuts (Manual) 5.8 Differential Comment . Platelet Estimate Low L Platelet Morphology Normal Brule Cells 1+ H Sodium 148 H Potassium 3.4 L Chloride 119 H Carbon Dioxide 20.7 L Anion Gap 8 BUN 11 Creatinine 0.30 L Estimated GFR Greater than 89 POC Glucose Random Glucose 113 H Calcium 6.5 L* Prot Corrected Calcium 8.7 Total Bilirubin 0.4 AST 23 ALT 17 Alkaline Phosphatase 47 Total Protein 3.2 L D Albumin 1.4 L MTS Gel Crossmatch Imaging: Abdomen X-Ray 12/03/17 08:58 CONCLUSION: Nonspecific bowel gas . GI Bleed Scan Nuclear Medicine 12/04/17 14:06 CONCLUSION: 1. Negative GI bleeding scan Abdomen/Pelvis CT 12/06/17 14:36 CONCLUSION: 1. Steatosis. 2. Bilateral lower lobe consolidation and atelectasis with large bilateral pleural effusions. 3. Small hiatal hernia. 4. Atherosclerosis. 5. Body wall edema. 6. Bilateral renal scarring. Abdomen Arteriogram 12/07/17 00:00 CONCLUSION: 1. Uncomplicated embolization of the gastroduodenal artery. Chest X-Ray 12/07/17 08:48 CONCLUSION: 1. No significant interval change. 2. Small to moderate bilateral pleural effusions with associated lower lobe airspace disease. Objective Remarks: GENERAL: Patient is 57yo critically ill intubated and sedated SKIN: Warm and dry. HEAD: Normocephalic. EYES: No scleral icterus. No injection or drainage. NECK: Supple, trachea midline. No JVD or lymphadenopathy. CARDIOVASCULAR: Regular rate and rhythm. S1, S2 no S4. without murmurs, gallops, or rubs. RESPIRATORY: Breath sounds equal bilaterally. No accessory muscle use. GASTROINTESTINAL: Abdomen soft, +BS MUSCULOSKELETAL: No significant peripheral edema. Neuro: Intubated and sedated Assessment and Plan - Problem List (1) COPD (chronic obstructive pulmonary disease) Code(s): J44.9 - Chronic obstructive pulmonary disease, unspecified Status: Chronic - Assessment and Plan Plan: NEURO/PSYCH: Alcohol dependence -Monitor neuro status on Versed 2mg/hr and Fentanyl 100 mics for sedation while intubated. -Daily sedation vacation -Seizure precautions -CIWA protocol with as needed Lorazepam -Continue multivitamin, thiamine, and Folic acid RESP: History of COPD Continue with vent support keep sats >92% Albuterol/ipratropium aerosols every 4 hours with albuterol aerosols every 2 hours as needed for dyspnea -ICU vent bundle. CPAP trials and possible extubation today CV: Monitor HR and BP keep MAP>65mmHg Lactic acid cleared 1.6 Off Levophed. GI/HEME: Upper and lower GI bleed Esophageal 2, gastric 3 and duodenal 4 ulcers Internal and external hemorrhoids Acute blood loss anemia requiring transfusion s/p Arteriogram and embolization of gastroduodenal artery on 12/07 Status post 4 units PRBC since admission Received additional 6u PRBC, 3u FFP and 1u PLT night of 12/06 Monitor CBC Monitor H/H Q6 EGD revealed esophageal ulcers 2 at the distal esophagus 3-7 mm, 3 gastric ulcer between 5 and 9 mm and 4 ulcers. Colonoscopy revealed blood to the terminal ileum. Internal and external hemorrhoids. Nuclear medicine bleeding scan revealed no acute bleeding Followed by GI and general surgery/Dr. Hauser. -Ceftriaxone for SBP prophylaxis Renal/: -Monitor renal function, I/O', electrolytes replacement per protocol. Will need K replacement today D/c IVF and diurese with Lasix 40 mg x1 ID: Ceftriaxone for SBP prophylaxis -Monitor for signs of infections ( Fever, WBC) ENDO: -Electrolyte replacement per protocol -Sliding scale insulin PROPH: -Bilateral lower extremity SCDs. Protonix infusion. Chemical DVT prophylaxis contraindicated in setting of GI bleed and anemia requiring blood transfusion. LINES: -Utilize peripheral IVs, Central line placed 12/07 Level 3
[2017-12-08 15:02] LABS: Hematocrit 30.4 % (35.0-46.0); Hemoglobin 10.4 gm/dL (11.6-15.3)
--- NOTE | 2017-12-08 15:27 | P.PN ---
Subjective Interval history: Just extubated; states minimal abdominal pain Physical Exam Vital signs: Vital Signs 12/07/17 16:00 12/07/17 17:51 12/07/17 20:00 Temperature 98.4 F 99.1 F Pulse Rate 93 H 84 90 Respiratory Rate 14 14 Blood Pressure 122/77 101/68 Pulse Oximetry 97 98 12/07/17 20:32 12/07/17 20:33 12/08/17 00:00 Temperature 99.2 F Pulse Rate 92 H 87 Respiratory Rate 14 19 15 Blood Pressure 114/72 Pulse Oximetry 99 98 12/08/17 00:20 12/08/17 00:21 12/08/17 02:00 Temperature Pulse Rate 83 94 H Respiratory Rate 20 20 Blood Pressure Pulse Oximetry 98 12/08/17 04:00 12/08/17 04:27 12/08/17 04:28 Temperature 98.8 F Pulse Rate 84 90 Respiratory Rate 15 19 19 Blood Pressure 111/69 Pulse Oximetry 99 98 12/08/17 06:00 12/08/17 07:18 12/08/17 07:53 Temperature Pulse Rate 96 H 88 Respiratory Rate 20 Blood Pressure Pulse Oximetry 12/08/17 08:00 12/08/17 08:15 12/08/17 10:00 Temperature 97.8 F Pulse Rate 98 H 98 H 105 H Respiratory Rate 28 H 13 Blood Pressure 118/73 Pulse Oximetry 99 12/08/17 12:00 12/08/17 12:16 12/08/17 14:00 Temperature 98.2 F Pulse Rate 119 H 112 H 108 H Respiratory Rate 16 24 Blood Pressure 121/88 Pulse Oximetry 95 Intake & Output 12/07/17 12/08/17 12/08/17 18:59 06:59 18:59 Intake Total 3217.9 / 3217.9 2401.0 / 2401.0 2332.5 / 2332.5 Output Total 350 / 350 550 / 550 Balance 2867.9 / 2867.9 1851.0 / 1851.0 2332.5 / 2332.5 Weight 77.4 kg Intake: IV 3217.9 / 3217.9 2401.0 / 2401.0 2332.5 / 2332.5 D5W/Normal Saline Inj 1,000 ML 1000 / 1000 1000 / 1000 1832 / 1832 @ 84 mls/hr IV.CONT .[id number] [facility] Rx#:[id number] Versed Inj 50 mg In 50 ml @ 2 50 / 50 50 / 50 MG/HR 2 mls/hr IV.CONT TITRATE PRN Rx#:[id number] SandoSTATIN Inj 500 MCG In NS 1467.9 / 1467.9 1001.0 / 1001.0 500.5 / 500.5 Inj 500 ML @ 100 MCG/HR 100.1 mls/hr IV.CONT .Q5H [facility] Rx#: [id number] Protonix Inj 80 MG In NS Inj 200 / 200 100 / 100 100 ML @ 10 mls/hr IV.CONT CONT [facility] Rx#:[id number] fentaNYL 10 mcg/mL Premix Drip 250 / 250 250 / 250 2,500 mcg In 250 ml @ 50 MCG/HR 5 mls/hr IV.SIG TITRATE PRN Rx #:[id number] Output: Urine Amount (Catheter) 350 / 350 550 / 550 Indwelling Urethral Catheter 350 / 350 550 / 550 Other: Date of Last Bowel Movement 12/07/17 12/07/17 - Routine Respiratory Exam Present: CTA bilaterally - Routine Cardiovascular Exam Present: RRR - Routine Abdominal Exam Present: soft Comments: Quiet, minimally tender - Urinary Catheter Management Indwelling Urethral Catheter Cath placed during this visit: no Results - Labs CBC & Chem 7: 12/08/17 14:30 12/08/17 05:00 Laboratory Results - last 24 hr 12/06/17 12/07/17 12/08/17 19:51 17:40 00:01 WBC RBC Hgb 9.4 L Hct 26.7 L MCV MCH MCHC RDW Plt Count MPV Prelim Diff (Auto) Neut % (Auto) Lymph % (Auto) [place] % (Auto) Eos % (Auto) Baso % (Auto) Neut # (Auto) Lymph # (Auto) [place] # (Auto) Eos # (Auto) Baso # (Auto) WBC Differential Seg Neuts % (Manual) Band Neuts % (Manual) Lymphocytes % (Manual) Monocytes % (Manual) Eosinophils % (Manual) Basophils % (Manual) Abs Neuts (Manual) Differential Comment Platelet Estimate Platelet Morphology [place] Cells Sodium Potassium Chloride Carbon Dioxide Anion Gap BUN Creatinine Estimated GFR POC Glucose 120 H Random Glucose Calcium Prot Corrected Calcium Total Bilirubin AST ALT Alkaline Phosphatase Total Protein Albumin MTS Gel Crossmatch See Detail 12/08/17 12/08/17 12/08/17 00:49 05:00 05:00 WBC 7.1 RBC 3.01 L Hgb 9.6 L 9.3 L Hct 28.2 L 26.7 L MCV 88.6 MCH 30.7 MCHC 34.7 RDW 16.0 Plt Count 84 L MPV 8.3 Prelim Diff (Auto) Slide review pending Neut % (Auto) 73.4 H Lymph % (Auto) 18.6 [place] % (Auto) 5.5 Eos % (Auto) 1.8 Baso % (Auto) 0.7 Neut # (Auto) 5.2 Lymph # (Auto) 1.3 [place] # (Auto) 0.4 Eos # (Auto) 0.1 Baso # (Auto) 0.1 WBC Differential Manual diff final Seg Neuts % (Manual) 75 H Band Neuts % (Manual) 7 H Lymphocytes % (Manual) 13 Monocytes % (Manual) 1 Eosinophils % (Manual) 2 Basophils % (Manual) 2 Abs Neuts (Manual) 5.8 Differential Comment . Platelet Estimate Low L Platelet Morphology Normal [place] Cells 1+ H Sodium 148 H Potassium 3.4 L Chloride 119 H Carbon Dioxide 20.7 L Anion Gap 8 BUN 11 Creatinine 0.30 L Estimated GFR Greater than 89 POC Glucose Random Glucose 113 H Calcium 6.5 L* Prot Corrected Calcium 8.7 Total Bilirubin 0.4 AST 23 ALT 17 Alkaline Phosphatase 47 Total Protein 3.2 L D Albumin 1.4 L MTS Gel Crossmatch 12/08/17 14:30 WBC RBC Hgb 10.4 L Hct 30.4 L MCV MCH MCHC RDW Plt Count MPV Prelim Diff (Auto) Neut % (Auto) Lymph % (Auto) [place] % (Auto) Eos % (Auto) Baso % (Auto) Neut # (Auto) Lymph # (Auto) [place] # (Auto) Eos # (Auto) Baso # (Auto) WBC Differential Seg Neuts % (Manual) Band Neuts % (Manual) Lymphocytes % (Manual) Monocytes % (Manual) Eosinophils % (Manual) Basophils % (Manual) Abs Neuts (Manual) Differential Comment Platelet Estimate Platelet Morphology [place] Cells Sodium Potassium Chloride Carbon Dioxide Anion Gap BUN Creatinine Estimated GFR POC Glucose Random Glucose Calcium Prot Corrected Calcium Total Bilirubin AST ALT Alkaline Phosphatase Total Protein Albumin MTS Gel Crossmatch - Imaging Impressions Abdomen Arteriogram 12/07/17 00:00 CONCLUSION: 1. Uncomplicated embolization of the gastroduodenal artery. Assessment and Plan - Assessment (1) Anemia requiring transfusions Code(s): D64.9 - Anemia, unspecified Status: Deleted (2) Liver cirrhosis Code(s): K74.60 - Unspecified cirrhosis of liver Status: Deleted - Plan Hb remains stable after GDA embolization On pantoprazole and octreotide drips Nothing further to add from surgical standpoint. Discussed Condition With: Patient Nurse Mone Torrez, who agrees with plan - Attending Attestation I attest that I had a [id number] encounter with the patient on the same day, and personally performed and documented my assessment and findings in the medical record. The following services were provided during this hospital visit: Chart data review, vital sign assessments/reviewing monitor data Review of consultation notes if present Medication orders/review and/or management Ordering and/or reviewing lab tests Ordering and/or interpreting/reviewing x-rays and/or diagnostic studies Care of the patient and discussion of the patient with the care team Documentation time To help prompt me to consider important information that might be impacting today's encounter and assessment, Information from prior notes written by myself or my colleagues may have been "brought forward/copy and pasted" into today's note.
[2017-12-08 18:40] LABS: Hematocrit 27.2 % (35.0-46.0); Hemoglobin 9.4 gm/dL (11.6-15.3)
[2017-12-09 00:22] LABS: Hematocrit 26.3 % (35.0-46.0); Hemoglobin 9.1 gm/dL (11.6-15.3)
[2017-12-09] MEDS: Octreotide Inj 500 MCG in Sodium Chlor 0.9% Inj 500 ML IV.CONT SCH (02:31)
[2017-12-09] MEDS: Insulin NovoLOG Aspart Correctional Sugar Inj SQ SCH ×4 (02:34→19:32)
[2017-12-09] MEDS: Pantoprazole Inj 80 MG in Sodium Chlor 0.9% Inj 100 ML IV.CONT SCH ×2 (03:40→14:45)
[2017-12-09] MEDS: Potassium Chlor 40 mEq Premix 40 MEQ/100 ML PIGGYBACK IV.SIG PRN ×3 (03:41→19:26)
[2017-12-09 06:06] LABS: Baso # (Auto) 0.1 th/mm3 (0.0-0.2); Baso % (Auto) 1.1 % (0.0-2.0); Eos # (Auto) 0.1 th/mm3 (0.0-0.4); Eos % (Auto) 1.9 % (0.0-4.0); Hematocrit 25.2 % (35.0-46.0); Hemoglobin 8.5 gm/dL (11.6-15.3); Lymph % (Auto) 16.4 % (9.0-44.0); Mean Corpuscular HGB Conc 33.9 % (32.0-36.0); Mean Corpuscular Hemoglobin 30.6 pg (27.0-34.0); Mean Corpuscular Volume 90.2 fL (80.0-100.0); Mean Platelet Volume 8.5 fL (7.0-11.0); Mono # (Auto) 0.4 th/mm3 (0.0-0.9); Mono % (Auto) 5.8 % (0.0-8.0); Neut # (Auto) 4.6 th/mm3 (1.8-7.7); Neut % (Auto) 74.8 % (16.0-70.0); Platelet Count 91 th/mm3 (150-450); Red Blood Count 2.79 mil/mm3 (4.00-5.30); Red Cell Distribution Width 16.1 % (11.6-17.2); White Blood Count 6.1 th/mm3 (4.0-11.0)
[2017-12-09 06:34] LABS: Anion Gap 9 meq/L (5-15); Blood Urea Nitrogen 12 mg/dL (7-18); Calcium 7.2 mg/dL (8.5-10.1); Carbon Dioxide 21.2 meq/L (21.0-32.0); Chloride 118 meq/L (98-107); Glomerular Filtration Rate Greater Than 89 mL/min (>89); Glucose,Random 91 mg/dL (74-106); Magnesium 1.1 mg/dL (1.5-2.5); Phosphorus 2.6 mg/dL (2.5-4.9); Potassium 3.6 meq/L (3.5-5.1); Sodium 148 meq/L (136-145)
[2017-12-09 06:52] LABS: Total Protein 3.5 g/dL (6.4-8.2)
[2017-12-09] MEDS ORDERED: MethylPREDNISolone Sod Succinate Inj 125 MG/2 ML Vial IV.PUSH ONE (07:02)
--- NOTE | 2017-12-09 07:12 | P.PNCC ---
Subjective Subjective Remarks/Hospital Course: The patient is a 57-year-old female with history of severe alcohol dependence drinking about 20-24 beers daily, alcoholic liver cirrhosis, COPD who presented with complaints of vomiting and diarrhea since last 2 days. Intermittently she had been having hematemesis which she quantifies as approximately a pint. She also noticed fresh blood per rectum. She is a very poor historian and she is unable to tell me when or whether she had any endoscopies before. She admits to having diagnosis of liver cirrhosis. She also admits to drinking about 20-24 to beers daily. ER workup initially patient had a heart rate of 115, indicating early hemorrhagic shock. Hemoglobin was 7.6. Patient was given 1 unit of PRBC and critical care was requested for admission. Patient also received octreotide 50 mcg IV push, Protonix 80 mg bolus and infusion was started at 8 mg/h. GI consult also requested I evaluated the patient in the ED. She complains of abdominal pain appears disheveled critically ill, pale. Remains tachycardic getting first unit of blood transfusion. Will request additional 1 unit PRBC. Rocephin had been added for SBP prophylaxis. I will also start octreotide infusion. 12/04 Patient is lying in bed in NAD. Hgb 6.7 this morning. Patient transfused 3units PRBC. For EGD and Colonoscopy today SUBJECTIVE: 12/05: Negative nuclear medicine bleeding scan overnight. Hemoglobin stable around 10. Noted EEG results revealed esophageal, gastric and duodenal ulcers. Colonoscopy with shorty blood throughout and nonbleeding internal and external hemorrhoids. Resting comfortably in bed requesting clear liquid diet which she is currently on. Minimal lorazepam use. 8 No events overnight. Awake, alert on Protonix drip. H/H stable. 8 Patient rebled last night with Hgb 4.9 became hypotensive, tachycardic was subsequently intubated and placed on mechanical ventilation. She was given 6u PRBC, 3u FFP and 1u PLT overnight repeat Hgb 10.4 this morning. IR consulted for possible embolization today. Started on Levophed last night currently on 2 mics. On Protonix and Octreotide drips. 12/08 No events overnight. s/p arteriogram with embolization of gastroduodenal artery. On low dose Versed and Fentanyl infusion for sedation however she is awake and alert. Off Levophed. Remains on Protonix and Octreotide drips. H/H stable 12/09: Extubated yesterday, oxygen saturation 100% but mild to moderate respiratory distress and wheezing. (Patient is an active smoker). Continues to have black tarry stools. Hemoglobin 8.5. Remains on Protonix and octreotide drips. Potassium and magnesium getting replaced Objective Vital Signs / I&O: Vital Signs 12/08/17 07:18 12/08/17 07:53 12/08/17 08:00 Temperature 97.8 F Pulse Rate 88 98 H Respiratory Rate 20 28 H Blood Pressure 118/73 Pulse Oximetry 12/08/17 08:15 12/08/17 10:00 12/08/17 12:00 Temperature 98.2 F Pulse Rate 98 H 105 H 119 H Respiratory Rate 13 16 Blood Pressure 121/88 Pulse Oximetry 99 12/08/17 12:16 12/08/17 14:00 12/08/17 16:00 Temperature 98.4 F Pulse Rate 112 H 108 H 112 H Respiratory Rate 24 23 Blood Pressure 123/68 Pulse Oximetry 95 97 12/08/17 18:00 12/08/17 20:00 12/08/17 20:13 Temperature 98.7 F Pulse Rate 103 H 110 H Respiratory Rate Blood Pressure 134/73 Pulse Oximetry 97 99 12/08/17 22:00 12/08/17 23:55 12/09/17 00:00 Temperature 98.9 F Pulse Rate 97 H 111 H Respiratory Rate 20 Blood Pressure 130/80 Pulse Oximetry 97 99 12/09/17 02:00 12/09/17 04:00 12/09/17 06:00 Temperature 98.9 F Pulse Rate 104 H 98 H 105 H Respiratory Rate 26 H Blood Pressure 168/70 H Pulse Oximetry 94 L Intake & Output 12/08/17 12/08/17 12/09/17 06:59 18:59 06:59 Intake Total 2501.0 / 2501.0 2933.0 / 2933.0 1201.0 / 1201.0 Output Total 550 / 550 3700 / 3700 1000 / 1000 Balance 1951.0 / 1951.0 -767.0 / -767.0 201.0 / 201.0 Weight 77.4 kg 74.5 kg Intake: IV 2501.0 / 2501.0 2933.0 / 2933.0 1201.0 / 1201.0 D5W/Normal Saline Inj 1,000 ML 1000 / 1000 1832 / 1832 @ 84 mls/hr IV.CONT .[id number] [facility] Rx#:[id number] Versed Inj 50 mg In 50 ml @ 2 50 / 50 MG/HR 2 mls/hr IV.CONT TITRATE PRN Rx#:[id number] SandoSTATIN Inj 500 MCG In NS 1001.0 / 1001.0 1001.0 / 1001.0 1001.0 / 1001.0 Inj 500 ML @ 100 MCG/HR 100.1 mls/hr IV.CONT .Q5H [facility] Rx#: [id number] Protonix Inj 80 MG In NS Inj 100 / 100 100 / 100 100 / 100 100 ML @ 10 mls/hr IV.CONT CONT [facility] Rx#:[id number] Rocephin Inj 1,000 MG In NS Inj 100 / 100 100 / 100 100 ML @ 200 mls/hr IV.SIG Q24H [facility] Rx#:[id number] fentaNYL 10 mcg/mL Premix Drip 250 / 250 2,500 mcg In 250 ml @ 50 MCG/HR 5 mls/hr IV.SIG TITRATE PRN Rx #:[id number] Output: Stool 400 / 400 Urine Amount (Catheter) 550 / 550 3700 / 3700 600 / 600 Indwelling Urethral Catheter 550 / 550 3700 / 3700 600 / 600 Other: Date of Last Bowel Movement 12/07/17 12/08/17 12/08/17 # Bowel Movements 2 2 # Incontinent Bowel Movements 2 Result Diagrams: 12/09/17 05:10 12/09/17 05:10 Objective Remarks: GENERAL: Patient is 57yo critically ill lying in bed moderate respiratory distress SKIN: Warm and dry. HEAD: Normocephalic. EYES: No scleral icterus. No injection or drainage. NECK: Supple, trachea midline. No JVD or lymphadenopathy. CARDIOVASCULAR: Tachycardic rate and rhythm. S1, S2 no S4. without murmurs, gallops, or rubs. RESPIRATORY: Breath sounds equal bilaterally. + accessory muscle use. Bilateral prolonged expiratory wheezing. GASTROINTESTINAL: Abdomen soft, +BS MUSCULOSKELETAL: No significant peripheral edema. Neuro: Patient is alert awake oriented, slightly lethargic, moving all extremities following commands. Assessment and Plan - Problem List (1) COPD (chronic obstructive pulmonary disease) Code(s): J44.9 - Chronic obstructive pulmonary disease, unspecified Status: Chronic - Assessment and Plan Plan: NEURO/PSYCH: Alcohol dependence -[facility] protocol -Continue multivitamin, thiamine, and Folic acid RESP: Acute COPD exacerbation history of COPD Extubated yesterday 12/08/2017, now with moderate respiratory distress and bilateral wheezing IV Solu-Medrol 100 mg 1, add Symbicort 2 puffs twice daily Albuterol/ipratropium aerosols every 6 hours with albuterol aerosols every 2 hours as needed for dyspnea Chest x-ray today. CV: Fluid overload Tachycardia Monitor HR and BP keep MAP>65mmHg Lactic acid cleared 1.6 Off Levophed. Give Lasix 40 mg IV 1. 20mg IV q8hr Chest x-ray shows bilateral effusion and pulmonary edema GI/HEME: Upper and lower GI bleed Esophageal 2, gastric 3 and duodenal 4 ulcers Internal and external hemorrhoids Acute blood loss anemia requiring transfusion s/p Arteriogram and embolization of gastroduodenal artery on 12/07 Status post 4 units PRBC since admission. Received additional 6u PRBC, 3u FFP and 1u PLT night of 12/06 Monitor CBC Monitor H/H Q6, patient continues to have melanotic stools EGD revealed esophageal ulcers 2 at the distal esophagus 3-7 mm, 3 gastric ulcer between 5 and 9 mm and 4 duodenal ulcers. Colonoscopy revealed blood to the terminal ileum. Internal and external hemorrhoids. Nuclear medicine bleeding scan revealed no acute bleeding Followed by GI and general surgery/Dr. Hauser. -Ceftriaxone for SBP prophylaxis Renal/: -Monitor renal function, I/O', electrolytes replacement per protocol. Will need K replacement today Diurese with Lasix 40 mg x1, and scheduled at 20mg IV q8hr ID: Ceftriaxone for SBP prophylaxis -Monitor for signs of infections ( Fever, WBC) ENDO: -Electrolyte replacement per protocol -Sliding scale insulin PROPH: -Bilateral lower extremity SCDs. Protonix infusion. Chemical DVT prophylaxis contraindicated in setting of GI bleed and anemia requiring blood transfusion. LINES: -Utilize peripheral IVs, Central line placed 12/07 CCT 35. Patient is extubated however currently more critical with bilateral wheezing fluid overload acute COPD exacerbation. Treatment will for acute COPD exacerbation started however patient may need noninvasive mechanical ventilatory support, or intubation. IV Lasix as above. Patient remains at risk for acute decompensation and . Continue ICU care
--- NOTE | 2017-12-09 07:24 | XR ---
EXAM DATE: 12/09/2017 7:19 AM EDT AGE/SEX: 57 years / Female INDICATIONS: Respiratory disease. CLINICAL DATA: This is the patient's subsequent encounter. Patient reports that signs and symptoms h ave been present for 1 week and indicates a pain score of 0/10. MEDICAL/SURGICAL HISTORY: . Respiratory failure, hemorrhagic shock . . Tracheostomy. COMPARISON: December 07, 2017 . FINDINGS: Single AP semiupright portable view of the chest demonstrates interval extubation. The lungs demonstr ate symmetric aeration with persistent bilateral basilar hazy airspace opacities and obscuration of t he hemidiaphragms. Heart size is normal. Pulmonary vasculature demonstrates diffuse prominence. [place] us structures are unremarkable. CONCLUSION: Interval and extubation with stable lung exam consistent with bilateral atelectasis and pleural effus ions. Electronically signed by: Sowmya Li MD 12/09/2017 7:23 AM EDT
[2017-12-09 08:52] LABS: ABG Base Excess -3.1 mmol/L (-2-2); ABG PCO2 29 mmHg (38-42); ABG PO2 78 mmHg (61-120)
[2017-12-09 09:06] LABS: Acanthocytes 1+; Platelet Morphology Normal (Normal)
[2017-12-09] MEDS: Budesonide-Formoterol 160/4.5 MCG 6 GM Inhaler INH SCH ×2 (09:20→21:00)
[2017-12-09] MEDS: Morphine Inj 4 MG/ML Vial IV.PUSH PRN ×5 (09:35→23:27)
--- NOTE | 2017-12-09 10:31 | P.PNGI ---
Subjective Interval history: Patient is resting in the bed Pale color, Pallor obvious shortness of breath, requiring O2 per nasal cannula Some audible wheezing Denies any nausea or vomiting or current abdominal pain Hemoglobin changes from 10.4-8.5 in the past 24 hours with gradual dropping Heart rate mild tachycardia <ZackLaurel Vladimir - Last Filed: 12/09/17 10:33> Physical Exam Vital signs: Vital Signs 12/08/17 12:00 12/08/17 12:16 12/08/17 14:00 Temperature 98.2 F Pulse Rate 119 H 112 H 108 H Respiratory Rate 16 24 Blood Pressure 121/88 Pulse Oximetry 95 12/08/17 16:00 12/08/17 18:00 12/08/17 20:00 Temperature 98.4 F 98.7 F Pulse Rate 112 H 103 H 110 H Respiratory Rate 23 Blood Pressure 123/68 134/73 Pulse Oximetry 97 97 12/08/17 20:13 12/08/17 22:00 12/08/17 23:55 Temperature Pulse Rate 97 H Respiratory Rate Blood Pressure Pulse Oximetry 99 97 12/09/17 00:00 12/09/17 02:00 12/09/17 04:00 Temperature 98.9 F 98.9 F Pulse Rate 111 H 104 H 98 H Respiratory Rate 20 26 H Blood Pressure 130/80 168/70 H Pulse Oximetry 99 94 L 12/09/17 06:00 12/09/17 08:08 Temperature Pulse Rate 105 H 107 H Respiratory Rate 22 Blood Pressure Pulse Oximetry 100 Intake & Output 12/08/17 12/09/17 12/09/17 18:59 06:59 18:59 Intake Total 2933.0 / 2933.0 1201.0 / 1201.0 Output Total 3700 / 3700 1000 / 1000 Balance -767.0 / -767.0 201.0 / 201.0 Weight 74.5 kg Intake: IV 2933.0 / 2933.0 1201.0 / 1201.0 D5W/Normal Saline Inj 1,000 ML 1832 / 1832 @ 84 mls/hr IV.CONT .[id number] [facility] Rx#:[id number] SandoSTATIN Inj 500 MCG In NS 1001.0 / 1001.0 1001.0 / 1001.0 Inj 500 ML @ 100 MCG/HR 100.1 mls/hr IV.CONT .Q5H [facility] Rx#: [id number] Protonix Inj 80 MG In NS Inj 100 / 100 100 / 100 100 ML @ 10 mls/hr IV.CONT CONT [facility] Rx#:[id number] Rocephin Inj 1,000 MG In NS Inj 100 / 100 100 ML @ 200 mls/hr IV.SIG Q24H [facility] Rx#:[id number] Output: Stool 400 / 400 Urine Amount (Catheter) 3700 / 3700 600 / 600 Indwelling Urethral Catheter 3700 / 3700 600 / 600 Other: Date of Last Bowel Movement 12/08/17 12/08/17 # Bowel Movements 2 2 # Incontinent Bowel Movements 2 - Constitutional cachectic, chronically ill appearing - Routine HEENT Exam Head: Present: normocephalic, atraumatic ENT: Present: mucous membranes moist - Routine Neck Exam Present: supple - Routine Respiratory Exam Present: accessory muscle use, decreased breath sounds, stridor (Mild), wheezes (Especially in the bases), diminished air movement - Routine Cardiovascular Exam Present: tachycardia (Mild heart rate 104) - Routine Abdominal Exam Present: soft (Round, ) - Routine Skin Exam Present: pallor - Routine Neurological Exam Present: alert (Awake attempting to answer only simple questions) - Urinary Catheter Management Indwelling Urethral Catheter Cath placed during this visit: no <Laurel Dixon - Last Filed: 12/09/17 10:33> Vital signs: Vital Signs 12/08/17 18:00 12/08/17 20:00 12/08/17 20:13 Temperature 98.7 F Pulse Rate 103 H 110 H Respiratory Rate Blood Pressure 134/73 Pulse Oximetry 97 99 12/08/17 22:00 12/08/17 23:55 12/09/17 00:00 Temperature 98.9 F Pulse Rate 97 H 111 H Respiratory Rate 20 Blood Pressure 130/80 Pulse Oximetry 97 99 12/09/17 02:00 12/09/17 04:00 12/09/17 06:00 Temperature 98.9 F Pulse Rate 104 H 98 H 105 H Respiratory Rate 26 H Blood Pressure 168/70 H Pulse Oximetry 94 L 12/09/17 08:00 12/09/17 08:08 12/09/17 10:00 Temperature 98.1 F Pulse Rate 98 H 107 H 100 H Respiratory Rate 22 Blood Pressure 133/79 Pulse Oximetry 96 100 12/09/17 12:00 12/09/17 14:00 12/09/17 16:01 Temperature Pulse Rate 98 H 98 H 100 H Respiratory Rate 20 Blood Pressure Pulse Oximetry Intake & Output 12/08/17 12/09/17 12/09/17 18:59 06:59 18:59 Intake Total 2933.0 / 2933.0 1201.0 / 1201.0 100 / 100 Output Total 3700 / 3700 1000 / 1000 Balance -767.0 / -767.0 201.0 / 201.0 100 / 100 Weight 74.5 kg Intake: IV 2933.0 / 2933.0 1201.0 / 1201.0 100 / 100 D5W/Normal Saline Inj 1,000 ML 1832 / 1832 @ 84 mls/hr IV.CONT .[id number] [facility] Rx#:[id number] SandoSTATIN Inj 500 MCG In NS 1001.0 / 1001.0 1001.0 / 1001.0 Inj 500 ML @ 100 MCG/HR 100.1 mls/hr IV.CONT .Q5H [facility] Rx#: [id number] Protonix Inj 80 MG In NS Inj 100 / 100 100 / 100 100 / 100 100 ML @ 10 mls/hr IV.CONT CONT [facility] Rx#:[id number] Rocephin Inj 1,000 MG In NS Inj 100 / 100 100 ML @ 200 mls/hr IV.SIG Q24H [facility] Rx#:[id number] Output: Stool 400 / 400 Urine Amount (Catheter) 3700 / 3700 600 / 600 Indwelling Urethral Catheter 3700 / 3700 600 / 600 Other: Date of Last Bowel Movement 12/08/17 12/08/17 12/09/17 # Bowel Movements 2 2 # Incontinent Bowel Movements 2 - Urinary Catheter Management Indwelling Urethral Catheter Cath placed during this visit: no <Radha Torrez - Last Filed: 12/09/17 16:08> Results - Labs CBC & Chem 7: 12/09/17 05:10 12/09/17 05:10 Laboratory Results - last 24 hr 12/08/17 12/08/17 12/09/17 14:30 18:10 00:00 WBC RBC Hgb 10.4 L 9.4 L 9.1 L Hct 30.4 L 27.2 L 26.3 L MCV MCH MCHC RDW Plt Count MPV Prelim Diff (Auto) Neut % (Auto) Lymph % (Auto) Cache % (Auto) Eos % (Auto) Baso % (Auto) Neut # (Auto) Lymph # (Auto) Cache # (Auto) Eos # (Auto) Baso # (Auto) WBC Differential Diff Scan Differential Comment Platelet Estimate Platelet Morphology Acanthocytes (Spur) Puncture Site Patient Temperature O2 Saturation ABG pH ABG pCO2 ABG pO2 ABG HCO3 ABG O2 Content ABG Base Excess ABG Methemoglobin Lalo Test Hemoglobin Carboxyhemoglobin O2 Delivery Device Liter Flow Inspired O2 Critical Value Sodium Potassium Chloride Carbon Dioxide Anion Gap BUN Creatinine Estimated GFR POC Glucose Random Glucose Calcium Prot Corrected Calcium Phosphorus Magnesium Total Protein 12/09/17 12/09/17 12/09/17 00:00 00:19 05:10 WBC 6.1 RBC 2.79 L Hgb 8.5 L Hct 25.2 L MCV 90.2 MCH 30.6 MCHC 33.9 RDW 16.1 Plt Count 91 L MPV 8.5 Prelim Diff (Auto) Slide review pending Neut % (Auto) 74.8 H Lymph % (Auto) 16.4 Cache % (Auto) 5.8 Eos % (Auto) 1.9 Baso % (Auto) 1.1 Neut # (Auto) 4.6 Lymph # (Auto) 1.0 Cache # (Auto) 0.4 Eos # (Auto) 0.1 Baso # (Auto) 0.1 WBC Differential . Diff Scan Auto diff confirmed Differential Comment . Platelet Estimate Low L Platelet Morphology Normal Acanthocytes (Spur) 1+ H Puncture Site Patient Temperature O2 Saturation ABG pH ABG pCO2 ABG pO2 ABG HCO3 ABG O2 Content ABG Base Excess ABG Methemoglobin Lalo Test Hemoglobin Carboxyhemoglobin O2 Delivery Device Liter Flow Inspired O2 Critical Value Sodium Potassium 3.3 L Chloride Carbon Dioxide Anion Gap BUN Creatinine Estimated GFR POC Glucose 109 Random Glucose Calcium Prot Corrected Calcium Phosphorus Magnesium Total Protein 12/09/17 12/09/17 05:10 08:39 WBC RBC Hgb Hct MCV MCH MCHC RDW Plt Count MPV Prelim Diff (Auto) Neut % (Auto) Lymph % (Auto) Cache % (Auto) Eos % (Auto) Baso % (Auto) Neut # (Auto) Lymph # (Auto) Cache # (Auto) Eos # (Auto) Baso # (Auto) WBC Differential Diff Scan Differential Comment Platelet Estimate Platelet Morphology Acanthocytes (Spur) Puncture Site Left radial Patient Temperature 98.6 O2 Saturation 94 ABG pH 7.46 H ABG pCO2 29 L ABG pO2 78 ABG HCO3 20 L ABG O2 Content 13.3 ABG Base Excess -3.1 L ABG Methemoglobin 1.1 Laol Test Present Hemoglobin 10.0 L Carboxyhemoglobin 1.4 O2 Delivery Device Nasal cannula Liter Flow 4.00 Inspired O2 21 Critical Value No Sodium 148 H Potassium 3.6 Chloride 118 H Carbon Dioxide 21.2 Anion Gap 9 BUN 12 Creatinine 0.25 L Estimated GFR Greater than 89 POC Glucose Random Glucose 91 Calcium 7.2 L* Prot Corrected Calcium 9.4 Phosphorus 2.6 Magnesium 1.1 L Total Protein 3.5 L - Imaging Impressions Chest X-Ray 12/09/17 07:00 CONCLUSION: Interval and extubation with stable lung exam consistent with bilateral atelectasis and pleural effusions. <Laurel Dixon - Last Filed: 12/09/17 10:33> - Labs CBC & Chem 7: 12/09/17 15:30 12/09/17 05:10 Laboratory Results - last 24 hr 12/06/17 12/07/17 12/08/17 19:51 01:38 18:10 WBC RBC Hgb 9.4 L Hct 27.2 L MCV MCH MCHC RDW Plt Count MPV Prelim Diff (Auto) Neut % (Auto) Lymph % (Auto) Cache % (Auto) Eos % (Auto) Baso % (Auto) Neut # (Auto) Lymph # (Auto) Cache # (Auto) Eos # (Auto) Baso # (Auto) WBC Differential Diff Scan Differential Comment Platelet Estimate Platelet Morphology Acanthocytes (Spur) Puncture Site Patient Temperature O2 Saturation ABG pH ABG pCO2 ABG pO2 ABG HCO3 ABG O2 Content ABG Base Excess ABG Methemoglobin Lalo Test Hemoglobin Carboxyhemoglobin O2 Delivery Device Liter Flow Inspired O2 Critical Value Sodium Potassium Chloride Carbon Dioxide Anion Gap BUN Creatinine Estimated GFR POC Glucose Random Glucose Calcium Prot Corrected Calcium Phosphorus Magnesium Total Protein MTS Gel Crossmatch See Detail See Detail 12/09/17 12/09/17 12/09/17 00:00 00:00 00:19 WBC RBC Hgb 9.1 L Hct 26.3 L MCV MCH MCHC RDW Plt Count MPV Prelim Diff (Auto) Neut % (Auto) Lymph % (Auto) Cache % (Auto) Eos % (Auto) Baso % (Auto) Neut # (Auto) Lymph # (Auto) Cache # (Auto) Eos # (Auto) Baso # (Auto) WBC Differential Diff Scan Differential Comment Platelet Estimate Platelet Morphology Acanthocytes (Spur) Puncture Site Patient Temperature O2 Saturation ABG pH ABG pCO2 ABG pO2 ABG HCO3 ABG O2 Content ABG Base Excess ABG Methemoglobin Lalo Test Hemoglobin Carboxyhemoglobin O2 Delivery Device Liter Flow Inspired O2 Critical Value Sodium Potassium 3.3 L Chloride Carbon Dioxide Anion Gap BUN Creatinine Estimated GFR POC Glucose 109 Random Glucose Calcium Prot Corrected Calcium Phosphorus Magnesium Total Protein MTS Gel Crossmatch 12/09/17 12/09/17 12/09/17 05:10 05:10 08:39 WBC 6.1 RBC 2.79 L Hgb 8.5 L Hct 25.2 L MCV 90.2 MCH 30.6 MCHC 33.9 RDW 16.1 Plt Count 91 L MPV 8.5 Prelim Diff (Auto) Slide review pending Neut % (Auto) 74.8 H Lymph % (Auto) 16.4 Cache % (Auto) 5.8 Eos % (Auto) 1.9 Baso % (Auto) 1.1 Neut # (Auto) 4.6 Lymph # (Auto) 1.0 Cache # (Auto) 0.4 Eos # (Auto) 0.1 Baso # (Auto) 0.1 WBC Differential . Diff Scan Auto diff confirmed Differential Comment . Platelet Estimate Low L Platelet Morphology Normal Acanthocytes (Spur) 1+ H Puncture Site Left radial Patient Temperature 98.6 O2 Saturation 94 ABG pH 7.46 H ABG pCO2 29 L ABG pO2 78 ABG HCO3 20 L ABG O2 Content 13.3 ABG Base Excess -3.1 L ABG Methemoglobin 1.1 Lalo Test Present Hemoglobin 10.0 L Carboxyhemoglobin 1.4 O2 Delivery Device Nasal cannula Liter Flow 4.00 Inspired O2 21 Critical Value No Sodium 148 H Potassium 3.6 Chloride 118 H Carbon Dioxide 21.2 Anion Gap 9 BUN 12 Creatinine 0.25 L Estimated GFR Greater than 89 POC Glucose Random Glucose 91 Calcium 7.2 L* Prot Corrected Calcium 9.4 Phosphorus 2.6 Magnesium 1.1 L Total Protein 3.5 L MTS Gel Crossmatch 08/04/18 15:30 WBC 4.4 RBC 2.87 L Hgb 9.0 L Hct 25.9 L MCV 90.4 MCH 31.3 MCHC 34.6 RDW 16.4 Plt Count 100 L MPV 8.4 Prelim Diff (Auto) Neut % (Auto) Lymph % (Auto) Cache % (Auto) Eos % (Auto) Baso % (Auto) Neut # (Auto) Lymph # (Auto) Cache # (Auto) Eos # (Auto) Baso # (Auto) WBC Differential Diff Scan Differential Comment Platelet Estimate Platelet Morphology Acanthocytes (Spur) Puncture Site Patient Temperature O2 Saturation ABG pH ABG pCO2 ABG pO2 ABG HCO3 ABG O2 Content ABG Base Excess ABG Methemoglobin Lalo Test Hemoglobin Carboxyhemoglobin O2 Delivery Device Liter Flow Inspired O2 Critical Value Sodium Potassium Chloride Carbon Dioxide Anion Gap BUN Creatinine Estimated GFR POC Glucose Random Glucose Calcium Prot Corrected Calcium Phosphorus Magnesium Total Protein MTS Gel Crossmatch - Imaging Impressions Chest X-Ray 12/09/17 07:00 CONCLUSION: Interval and extubation with stable lung exam consistent with bilateral atelectasis and pleural effusions. <Radha Torrez - Last Filed: 12/09/17 16:08> Assessment and Plan (1) Rectal bleed Status: Acute Code(s): K62.5 - Hemorrhage of anus and rectum (2) UGIB (upper gastrointestinal bleed) Status: Deleted Code(s): K92.2 - Gastrointestinal hemorrhage, unspecified (3) Anemia requiring transfusions Status: Deleted Code(s): D64.9 - Anemia, unspecified (4) Alcohol dependence Status: Deleted Code(s): F10.20 - Alcohol dependence, uncomplicated - Plan Assessment: Initial Symptomatic anemia with symptoms of weakness and fatigue. History of long-term EtOH abuse since her teen years and notes currently drinks 20-24 beers a day. She states she quit drinking liquor 1 year ago and has been told that she has liver cirrhosis. She currently does not remember any GI workup or GI group working with her but thinks that she has had an EGD and colonoscopy in the past. She thinks it may have been in the hospital, very poor historian. Current hemoglobin 7.6 patient is being prepared for transfusion. Maroon-colored rectal bleeding 1. Patient has history of hemorrhoids but denies any straining with defecation. States the rectal bleeding was 1 event in the past 24 hours and noted it to be maroon colored blood surrounding the stool. Epigastric pain and tenderness to light palpation and at rest dull ache Generalized abdominal pain mid quadrant as well as right upper quadrant. Patient is again long-term alcoholic and has been told that she has history of liver cirrhosis but current bilirubin normal as well as normal LFT levels. Long-term alcoholism which could explain her acute on chronic symptomatic anemia. Patient's skin is dry with petechiae noted on her extremities. Current PT/INR 1.1 no current scleral icterus noted (12/05) Pt drowsy after Morphine and Ativan this morning. Discussed with RN, she reports pt had one shorty bloody BM last night but no BM since then. Denies nausea and emesis. S/P EGD and colonoscopy yesterday. EGD --> Two ulcers ranging between 3-7mm in size were found in the distal esophagus. Three ranging between 5-9mm in size ulcers were found in the gastric antrum. Four ranging between 5- 9mm in size ulcers were found in the 1st part of the duodenum and duodenal bulb Colonoscopy --> Colon full of blood all the way into the terminal ileum. No source of bleeding seen. Likely small intestinal bleed. Internal and external hemorrhoids. Pt seen for STAT NM bleeding scan which was negative. Seen by who states surgical intervention will likely not be successful. H/H has been stable since transfusion. (12/06) Spoke with NERY Olguin who states pt had one BM for her this morning, with no obvious blood. She states prototyper nurse reported small smear of stool overnight with no blood. H/H remains stable. Discussed with pt need for ETOH cessation. Will DC Protonix gtt and place on BID. Advance diet. (12/07) Our service was notified that pt began bleeding again last night. Pt now intubated, sedated but still awake during my exam, on Levophed. According to RN pt had 2 large bloody BMs over night, hgb dropped from 9.5 to 4.9. 12/09/2017, patient is resting in the bed with acute hemoglobin drop the past 24 hours. She is also short of breath, pale, with audible wheezing which appears to be fluid versus COPD exacerbation. Planned for consent for EGD today explained to patient. Currently patient denies any GI symptoms of nausea vomiting or abdominal pain, abdomen is round, taut. Currently patient continues on Protonix and octreotide drip. Will need further evaluation today for recurrent GI bleed Plan: Consent for EGD today Protonix gtt and octreotide continue Supportive care Monitor labs with special attention to H&H Further recommendations to follow Pt has been seen per myself and Dr. Torrez, note is written on his behalf <Laurel Dixon - Last Filed: 12/09/17 10:33> (1) Rectal bleed Status: Acute Code(s): K62.5 - Hemorrhage of anus and rectum (2) UGIB (upper gastrointestinal bleed) Status: Deleted Code(s): K92.2 - Gastrointestinal hemorrhage, unspecified (3) Anemia requiring transfusions Status: Deleted Code(s): D64.9 - Anemia, unspecified (4) Alcohol dependence Status: Deleted Code(s): F10.20 - Alcohol dependence, uncomplicated - Plan Egd planned for today once anesthesia becomes available. continue octrotide/ protonix. Discussed with Dr. Fisher <Radha Torrez - Last Filed: 12/09/17 16:08>
[2017-12-09] MEDS: OCTREOTIDE IV.CONT SCH (10:51)
[2017-12-09] MEDS: SODIUM CHLOR 0.9% IV.CONT SCH (10:51)
--- NOTE | 2017-12-09 11:56 | P.PN ---
Subjective Interval history: Resting quietly No abdominal pain Had some dark bloody stools overnight Physical Exam Vital signs: Vital Signs 12/08/17 12:00 12/08/17 12:16 12/08/17 14:00 Temperature 98.2 F Pulse Rate 119 H 112 H 108 H Respiratory Rate 16 24 Blood Pressure 121/88 Pulse Oximetry 95 12/08/17 16:00 12/08/17 18:00 12/08/17 20:00 Temperature 98.4 F 98.7 F Pulse Rate 112 H 103 H 110 H Respiratory Rate 23 Blood Pressure 123/68 134/73 Pulse Oximetry 97 97 12/08/17 20:13 12/08/17 22:00 12/08/17 23:55 Temperature Pulse Rate 97 H Respiratory Rate Blood Pressure Pulse Oximetry 99 97 12/09/17 00:00 12/09/17 02:00 12/09/17 04:00 Temperature 98.9 F 98.9 F Pulse Rate 111 H 104 H 98 H Respiratory Rate 20 26 H Blood Pressure 130/80 168/70 H Pulse Oximetry 99 94 L 12/09/17 06:00 12/09/17 08:08 Temperature Pulse Rate 105 H 107 H Respiratory Rate 22 Blood Pressure Pulse Oximetry 100 Intake & Output 12/08/17 12/09/17 12/09/17 18:59 06:59 18:59 Intake Total 2933.0 / 2933.0 1201.0 / 1201.0 Output Total 3700 / 3700 1000 / 1000 Balance -767.0 / -767.0 201.0 / 201.0 Weight 74.5 kg Intake: IV 2933.0 / 2933.0 1201.0 / 1201.0 D5W/Normal Saline Inj 1,000 ML 1832 / 1832 @ 84 mls/hr IV.CONT .[id number] [facility] Rx#:[id number] SandoSTATIN Inj 500 MCG In NS 1001.0 / 1001.0 1001.0 / 1001.0 Inj 500 ML @ 100 MCG/HR 100.1 mls/hr IV.CONT .Q5H [facility] Rx#: [id number] Protonix Inj 80 MG In NS Inj 100 / 100 100 / 100 100 ML @ 10 mls/hr IV.CONT CONT [facility] Rx#:[id number] Rocephin Inj 1,000 MG In NS Inj 100 / 100 100 ML @ 200 mls/hr IV.SIG Q24H [facility] Rx#:[id number] Output: Stool 400 / 400 Urine Amount (Catheter) 3700 / 3700 600 / 600 Indwelling Urethral Catheter 3700 / 3700 600 / 600 Other: Date of Last Bowel Movement 12/08/17 12/08/17 # Bowel Movements 2 2 # Incontinent Bowel Movements 2 - Routine Abdominal Exam Present: soft - Urinary Catheter Management Indwelling Urethral Catheter Cath placed during this visit: no Results - Labs CBC & Chem 7: 12/09/17 05:10 12/09/17 05:10 Laboratory Results - last 24 hr 12/06/17 12/07/17 12/08/17 19:51 01:38 14:30 WBC RBC Hgb 10.4 L Hct 30.4 L MCV MCH MCHC RDW Plt Count MPV Prelim Diff (Auto) Neut % (Auto) Lymph % (Auto) Trigg % (Auto) Eos % (Auto) Baso % (Auto) Neut # (Auto) Lymph # (Auto) Trigg # (Auto) Eos # (Auto) Baso # (Auto) WBC Differential Diff Scan Differential Comment Platelet Estimate Platelet Morphology Acanthocytes (Spur) Puncture Site Patient Temperature O2 Saturation ABG pH ABG pCO2 ABG pO2 ABG HCO3 ABG O2 Content ABG Base Excess ABG Methemoglobin Lalo Test Hemoglobin Carboxyhemoglobin O2 Delivery Device Liter Flow Inspired O2 Critical Value Sodium Potassium Chloride Carbon Dioxide Anion Gap BUN Creatinine Estimated GFR POC Glucose Random Glucose Calcium Prot Corrected Calcium Phosphorus Magnesium Total Protein MTS Gel Crossmatch See Detail See Detail 12/08/17 12/09/17 12/09/17 18:10 00:00 00:00 WBC RBC Hgb 9.4 L 9.1 L Hct 27.2 L 26.3 L MCV MCH MCHC RDW Plt Count MPV Prelim Diff (Auto) Neut % (Auto) Lymph % (Auto) Trigg % (Auto) Eos % (Auto) Baso % (Auto) Neut # (Auto) Lymph # (Auto) Trigg # (Auto) Eos # (Auto) Baso # (Auto) WBC Differential Diff Scan Differential Comment Platelet Estimate Platelet Morphology Acanthocytes (Spur) Puncture Site Patient Temperature O2 Saturation ABG pH ABG pCO2 ABG pO2 ABG HCO3 ABG O2 Content ABG Base Excess ABG Methemoglobin Lalo Test Hemoglobin Carboxyhemoglobin O2 Delivery Device Liter Flow Inspired O2 Critical Value Sodium Potassium 3.3 L Chloride Carbon Dioxide Anion Gap BUN Creatinine Estimated GFR POC Glucose Random Glucose Calcium Prot Corrected Calcium Phosphorus Magnesium Total Protein MTS Gel Crossmatch 12/09/17 12/09/17 12/09/17 00:19 05:10 05:10 WBC 6.1 RBC 2.79 L Hgb 8.5 L Hct 25.2 L MCV 90.2 MCH 30.6 MCHC 33.9 RDW 16.1 Plt Count 91 L MPV 8.5 Prelim Diff (Auto) Slide review pending Neut % (Auto) 74.8 H Lymph % (Auto) 16.4 Trigg % (Auto) 5.8 Eos % (Auto) 1.9 Baso % (Auto) 1.1 Neut # (Auto) 4.6 Lymph # (Auto) 1.0 Trigg # (Auto) 0.4 Eos # (Auto) 0.1 Baso # (Auto) 0.1 WBC Differential . Diff Scan Auto diff confirmed Differential Comment . Platelet Estimate Low L Platelet Morphology Normal Acanthocytes (Spur) 1+ H Puncture Site Patient Temperature O2 Saturation ABG pH ABG pCO2 ABG pO2 ABG HCO3 ABG O2 Content ABG Base Excess ABG Methemoglobin Lalo Test Hemoglobin Carboxyhemoglobin O2 Delivery Device Liter Flow Inspired O2 Critical Value Sodium 148 H Potassium 3.6 Chloride 118 H Carbon Dioxide 21.2 Anion Gap 9 BUN 12 Creatinine 0.25 L Estimated GFR Greater than 89 POC Glucose 109 Random Glucose 91 Calcium 7.2 L* Prot Corrected Calcium 9.4 Phosphorus 2.6 Magnesium 1.1 L Total Protein 3.5 L MTS Gel Crossmatch 12/09/17 08:39 WBC RBC Hgb Hct MCV MCH MCHC RDW Plt Count MPV Prelim Diff (Auto) Neut % (Auto) Lymph % (Auto) Trigg % (Auto) Eos % (Auto) Baso % (Auto) Neut # (Auto) Lymph # (Auto) Trigg # (Auto) Eos # (Auto) Baso # (Auto) WBC Differential Diff Scan Differential Comment Platelet Estimate Platelet Morphology Acanthocytes (Spur) Puncture Site Left radial Patient Temperature 98.6 O2 Saturation 94 ABG pH 7.46 H ABG pCO2 29 L ABG pO2 78 ABG HCO3 20 L ABG O2 Content 13.3 ABG Base Excess -3.1 L ABG Methemoglobin 1.1 Lalo Test Present Hemoglobin 10.0 L Carboxyhemoglobin 1.4 O2 Delivery Device Nasal cannula Liter Flow 4.00 Inspired O2 21 Critical Value No Sodium Potassium Chloride Carbon Dioxide Anion Gap BUN Creatinine Estimated GFR POC Glucose Random Glucose Calcium Prot Corrected Calcium Phosphorus Magnesium Total Protein MTS Gel Crossmatch - Imaging Impressions Chest X-Ray 12/09/17 07:00 CONCLUSION: Interval and extubation with stable lung exam consistent with bilateral atelectasis and pleural effusions. Assessment and Plan - Assessment (1) Anemia requiring transfusions Code(s): D64.9 - Anemia, unspecified Status: Deleted Plan: Continue transfusions as necessary EGD today likely; will assist if there is an active vessel that cannot be controlled endoscopically and bleeding continues; otherwise surgery will not help the situation (2) Liver cirrhosis Code(s): K74.60 - Unspecified cirrhosis of liver Status: Deleted - Plan Hb remains stable after GDA embolization On pantoprazole and octreotide drips Nothing further to add from surgical standpoint. Discussed Condition With: Dr. Laurie Fisher (photo finisher)
[2017-12-09 15:55] LABS: Hematocrit 25.9 % (35.0-46.0); Mean Corpuscular HGB Conc 34.6 % (32.0-36.0); Mean Corpuscular Hemoglobin 31.3 pg (27.0-34.0); Mean Corpuscular Volume 90.4 fL (80.0-100.0); Mean Platelet Volume 8.4 fL (7.0-11.0); Platelet Count 100 th/mm3 (150-450); Red Blood Count 2.87 mil/mm3 (4.00-5.30); Red Cell Distribution Width 16.4 % (11.6-17.2); White Blood Count 4.4 th/mm3 (4.0-11.0)
[2017-12-09 16:27] LABS: Alanine Aminotransferase 20 U/L (10-53); Albumin 1.6 g/dL (3.4-5.0); Alkaline Phosphatase 66 U/L (45-117); Anion Gap 12 meq/L (5-15); Aspartate Aminotransferase 30 U/L (15-37); Blood Urea Nitrogen 10 mg/dL (7-18); Calcium 7.3 mg/dL (8.5-10.1); Carbon Dioxide 21.9 meq/L (21.0-32.0); Chloride 112 meq/L (98-107); Glomerular Filtration Rate Greater Than 89 mL/min (>89); Glucose,Random 116 mg/dL (74-106); Magnesium 1.1 mg/dL (1.5-2.5); Sodium 146 meq/L (136-145); Total Protein 4.3 g/dL (6.4-8.2)
[2017-12-09 16:31] LABS: Potassium 2.8 meq/L (3.5-5.1)
[2017-12-09] MEDS: LORazepam 1 MG Tablet PO PRN (18:26)
[2017-12-09] MEDS: Folic Acid 1 MG Tablet PO SCH (19:34)
[2017-12-10] MEDS: Insulin NovoLOG Aspart Correctional Sugar Inj SQ SCH ×4 (01:05→18:27)
[2017-12-10] MEDS: Pantoprazole Inj 80 MG in Sodium Chlor 0.9% Inj 100 ML IV.CONT SCH ×2 (01:08→10:37)
--- NOTE | 2017-12-10 04:53 | XR ---
EXAM DATE: 12/10/2017 4:32 AM EDT AGE/SEX: 57 years / Female INDICATIONS: Shortness of breath. CLINICAL DATA: This is the patient's subsequent encounter. Patient reports that signs and symptoms h ave been present for 3 days and indicates a pain score of 0/10. MEDICAL/SURGICAL HISTORY: . Respiratory failure, hemorrhagic shock . . Tracheostomy. COMPARISON: C, CHEST 1V SINGLE AP, 12/09/2017. . FINDINGS: Mild image degradation due to patient motion causing blurring of the bronchopulmonary markings. There is persisting consolidation in the lower lungs bilaterally with loss of delineation of both hemidiap hragms. The heart is normal in size. The upper lungs remain aerated. Overall, when taking into accoun t the patient motion, the appearance of the lungs is very similar to prior. CONCLUSION: Persistent bilateral lower lung consolidation and pleural effusions. Electronically signed by: Antione Saenz MD 12/10/2017 4:52 AM EDT
[2017-12-10] MEDS: SODIUM CHLOR 0.9% IV.CONT SCH (06:21)
[2017-12-10] MEDS: OCTREOTIDE IV.CONT SCH (06:21)
[2017-12-10 06:36] LABS: Hemoglobin 7.7 gm/dL (11.6-15.3); Mean Corpuscular HGB Conc 33.6 % (32.0-36.0); Mean Corpuscular Hemoglobin 31.1 pg (27.0-34.0); Mean Corpuscular Volume 92.7 fL (80.0-100.0); Mean Platelet Volume 8.6 fL (7.0-11.0); Platelet Count 117 th/mm3 (150-450); Red Blood Count 2.48 mil/mm3 (4.00-5.30); Red Cell Distribution Width 16.8 % (11.6-17.2)
--- NOTE | 2017-12-10 07:07 | P.PNCC ---
Subjective Subjective Remarks/Hospital Course: The patient is a 57-year-old female with history of severe alcohol dependence drinking about 20-24 beers daily, alcoholic liver cirrhosis, COPD who presented with complaints of vomiting and diarrhea since last 2 days. Intermittently she had been having hematemesis which she quantifies as approximately a pint. She also noticed fresh blood per rectum. She is a very poor historian and she is unable to tell me when or whether she had any endoscopies before. She admits to having diagnosis of liver cirrhosis. She also admits to drinking about 20-24 to beers daily. ER workup initially patient had a heart rate of 115, indicating early hemorrhagic shock. Hemoglobin was 7.6. Patient was given 1 unit of PRBC and critical care was requested for admission. Patient also received octreotide 50 mcg IV push, Protonix 80 mg bolus and infusion was started at 8 mg/h. GI consult also requested I evaluated the patient in the ED. She complains of abdominal pain appears disheveled critically ill, pale. Remains tachycardic getting first unit of blood transfusion. Will request additional 1 unit PRBC. Rocephin had been added for SBP prophylaxis. I will also start octreotide infusion. 12/04 Patient is lying in bed in NAD. Hgb 6.7 this morning. Patient transfused 3units PRBC. For EGD and Colonoscopy today SUBJECTIVE: 12/05: Negative nuclear medicine bleeding scan overnight. Hemoglobin stable around 10. Noted EEG results revealed esophageal, gastric and duodenal ulcers. Colonoscopy with shorty blood throughout and nonbleeding internal and external hemorrhoids. Resting comfortably in bed requesting clear liquid diet which she is currently on. Minimal lorazepam use. 8 No events overnight. Awake, alert on Protonix drip. H/H stable. 8 Patient rebled last night with Hgb 4.9 became hypotensive, tachycardic was subsequently intubated and placed on mechanical ventilation. She was given 6u PRBC, 3u FFP and 1u PLT overnight repeat Hgb 10.4 this morning. IR consulted for possible embolization today. Started on Levophed last night currently on 2 mics. On Protonix and Octreotide drips. 12/08 No events overnight. s/p arteriogram with embolization of gastroduodenal artery. On low dose Versed and Fentanyl infusion for sedation however she is awake and alert. Off Levophed. Remains on Protonix and Octreotide drips. H/H stable 12/09: Extubated yesterday, oxygen saturation 100% but mild to moderate respiratory distress and wheezing. (Patient is an active smoker). Continues to have black tarry stools. Hemoglobin 8.5. Remains on Protonix and octreotide drips. Potassium and magnesium getting replaced 12/10: Overnight acute events, no lower GI bleed reported. Hemodynamically stable hemoglobin 7.7. Remains on Protonix and octreotide drips. Respiratory status improved. Discussed with Dr. Rey Objective Vital Signs / I&O: Vital Signs 12/09/17 08:00 12/09/17 08:08 12/09/17 10:00 Temperature 98.1 F Pulse Rate 98 H 107 H 100 H Respiratory Rate 22 Blood Pressure 133/79 Pulse Oximetry 96 100 12/09/17 12:00 12/09/17 14:00 12/09/17 16:00 Temperature 98.4 F 98 F Pulse Rate 101 H 98 H 106 H Respiratory Rate 16 16 Blood Pressure 122/64 133/79 Pulse Oximetry 95 96 12/09/17 16:01 12/09/17 18:00 12/09/17 20:00 Temperature 98.7 F Pulse Rate 100 H 106 H 100 H Respiratory Rate 20 22 Blood Pressure 88/54 L Pulse Oximetry 96 12/09/17 20:48 12/09/17 22:00 12/10/17 00:00 Temperature 98.6 F Pulse Rate 99 H 102 H 102 H Respiratory Rate 18 19 Blood Pressure 97/56 L Pulse Oximetry 95 96 12/10/17 02:00 12/10/17 03:12 12/10/17 04:00 Temperature 98.8 F Pulse Rate 104 H 101 H 97 H Respiratory Rate 15 13 Blood Pressure 106/58 L Pulse Oximetry 97 12/10/17 06:00 Temperature Pulse Rate 96 H Respiratory Rate Blood Pressure Pulse Oximetry Intake & Output 12/09/17 12/09/17 12/10/17 06:59 18:59 06:59 Intake Total 1301.0 / 1301.0 160 / 160 1482 / 1482 Output Total 1000 / 1000 5600 / 5600 1800 / 1800 Balance 301.0 / 301.0 -5440 / -5440 -318 / -318 Weight 74.5 kg 68.9 kg Intake: IV 1301.0 / 1301.0 100 / 100 902 / 902 SandoSTATIN Inj 2,000 MCG In NS 1001.0 / 1001.0 502 / 502 Inj 500 ML @ 100 MCG/HR 25.1 mls/hr IV.CONT .Q20H NILA Rx#: [id number] Protonix Inj 80 MG In NS Inj 100 / 100 100 / 100 100 / 100 100 ML @ 10 mls/hr IV.CONT CONT NILA Rx#:[id number] Magnesium Sulfate Inj 4 GM In 0 / 0 NS Inj 92 ML @ 50 mls/hr IV.SIG UNSCH PRN Rx#:[id number] KCl 40 mEq Premix Inj 40 meq In 100 / 100 200 / 200 100 ml @ 50 mls/hr IV.SIG Q2H PRN Rx#:[id number] Rocephin Inj 1,000 MG In NS Inj 100 / 100 100 / 100 100 ML @ 200 mls/hr IV.SIG Q24H NILA Rx#:[id number] Oral 60 / 60 480 / 480 Anesthesia Amount 100 / 100 Output: Stool 400 / 400 Urine Amount (Catheter) 600 / 600 5600 / 5600 1800 / 1800 Indwelling Urethral Catheter 600 / 600 5600 / 5600 1800 / 1800 Other: Date of Last Bowel Movement 12/08/17 12/09/17 12/09/17 # Bowel Movements 2 2 0 # Incontinent Bowel Movements 2 Result Diagrams: 12/10/17 06:15 12/10/17 06:15 Objective Remarks: GENERAL: Patient is 57yo lying in bed, no respiratory distress SKIN: Warm and dry. HEAD: Normocephalic. EYES: No scleral icterus. No injection or drainage. NECK: Supple, trachea midline. No JVD or lymphadenopathy. CARDIOVASCULAR: Sinus rate and rhythm. S1, S2 no S4. without murmurs, gallops , or rubs. RESPIRATORY: Breath sounds equal bilaterally. No accessory muscle use. Bilateral prolonged expiratory wheezing. GASTROINTESTINAL: Abdomen soft, +BS MUSCULOSKELETAL: No significant peripheral edema. Neuro: Patient is alert awake oriented, moving all extremities following commands. Assessment and Plan - Problem List (1) COPD (chronic obstructive pulmonary disease) Code(s): J44.9 - Chronic obstructive pulmonary disease, unspecified Status: Chronic - Assessment and Plan Plan: NEURO/PSYCH: Alcohol dependence -[facility] protocol -Continue multivitamin, thiamine, and Folic acid RESP: Acute COPD exacerbation COPD Tobacco use Extubated 12/08/2017, received IV Solu-Medrol 100 mg 1 12/09, Continue Symbicort 2 puffs twice daily Albuterol/ipratropium aerosols every 6 hours with albuterol aerosols every 2 hours as needed for dyspnea Chest x-ray remains stable with bilateral effusions and consolidation. CV: Fluid overload Tachycardia Monitor HR and BP keep MAP>65mmHg Lactic acid cleared 1.6 Off Levophed. Give Lasix 40 mg IV 1. 20mg IV q8hr Chest x-ray shows bilateral effusion and pulmonary edema GI/HEME: Upper and lower GI bleed Esophageal 2, gastric 3 and duodenal 4 ulcers Internal and external hemorrhoids Acute blood loss anemia requiring transfusion s/p Arteriogram and embolization of gastroduodenal artery on 12/07 Status post 4 units PRBC since admission. Received additional 6u PRBC, 3u FFP and 1u PLT night of 12/06 Monitor CBC Monitor H/H Q6, no obvious bleeding for last 24 hours EGD revealed esophageal ulcers 2 at the distal esophagus 3-7 mm, 3 gastric ulcer between 5 and 9 mm and 4 duodenal ulcers. Colonoscopy revealed blood to the terminal ileum. Internal and external hemorrhoids. Nuclear medicine bleeding scan revealed no acute bleeding Followed by GI and general surgery/Dr. Hauser. -Ceftriaxone for SBP prophylaxis Renal/: -Monitor renal function, I/O', electrolytes replacement per protocol. Will need K replacement today -Scheduled at 20mg IV q8hr, monitor creat and electrolytes ID: Ceftriaxone for SBP prophylaxis, and probable pneumonia -Check sputum culture -Monitor for signs of infections ( Fever, WBC) ENDO: -Electrolyte replacement per protocol -Sliding scale insulin PROPH: -Bilateral lower extremity SCDs. Protonix infusion. Chemical DVT prophylaxis contraindicated in setting of GI bleed and anemia requiring blood transfusion. LINES: -Utilize peripheral IVs, Central line placed 12/07 Level 2 Clinically improving respiratory france and bleeding stabilizing. Consult hospitalist to assume care in a.m. 12/11/2017 Code Status: Full
[2017-12-10] MEDS: Octreotide Inj 500 MCG in Sodium Chlor 0.9% Inj 500 ML IV.CONT SCH (07:46)
[2017-12-10] MEDS: Folic Acid 1 MG Tablet PO SCH (08:10)
[2017-12-10] MEDS: Budesonide-Formoterol 160/4.5 MCG 6 GM Inhaler INH SCH ×2 (08:11→20:14)
[2017-12-10 09:09] LABS: INR 1.1 Ratio; Prothrombin Time 11.4 sec (9.8-11.6)
[2017-12-10] MEDS: Morphine Inj 4 MG/ML Vial IV.PUSH PRN ×2 (10:21→17:22)
--- NOTE | 2017-12-10 12:30 | GIPROC ---
[facility] [address] [facility]. [facility], [address] EGD PROCEDURE REPORT EXAM DATE: 12/10/2017 PATIENT NAME: Jose Francisco Eddy MR #: [id number] BIRTHDATE: 1960 ATTENDING: Suresh Murray MD ORDER #: [id number] BIRTHING NURSE: Ariel Mcgovern and Jesenia Lion STATUS: inpatient INDICATIONS: The patient is a 57 yr old female here for an EGD due to follow up on ulcer PROCEDURE PERFORMED: EGD, diagnostic MEDICATIONS: None and Per Anesthesia. TOPICAL ANESTHETIC: none CONSENT: The patient understands the risks and benefits of the procedure and understands that these risks include, but are not limited to: sedation, allergic reaction, infection, perforation and/or bleeding. Alternative means of evaluation and treatment include, among others: physical exam, x-rays, and/or surgical intervention. The patient elects to proceed with this endoscopic procedure. medical equipment was checked for proper function. Hand hygiene and appropriate measures for infection prevention was taken. After the risks, benefits and alternatives of the procedure were thoroughly explained, Informed consent was verified, confirmed and timeout was successfully executed by the treatment team. The patient was anesthetized with topical anesthesia and the Pentax EG-[id number] endoscope was introduced through the mouth and advanced to the second portion of the duodenum. Retroflexed views revealed a hiatal hernia The gastroscope was then slowly withdrawn and removed. ESOPHAGUS: There was LA Class B esophagitis noted. STOMACH: Two non-bleeding, round, punctate, deep and clean-based ulcers measuring 5 x 15mm in size were found in the gastric antrum and prepyloric region stomach. Biopsies were taken at edge of the ulcers and at the center of the ulcers. DUODENUM: A large non-bleeding, punctate, round and clean-based ulcer, measuring 8 x 12mm in size, was found. Biopsies were taken. The duodenal mucosa appeared normal in the 2nd part of the duodenum. ADVERSE EVENTS: There were no complications. IMPRESSIONS: 1. There was LA Class B esophagitis noted 2. Two ulcers measuring 5 x 15mm in size were found in the gastric antrum and prepyloric region stomach; biopsies were taken 3. Large ulcer, measuring 8 x 12mm in size, was found; biopsies were taken 4. Normal duodenal mucosa in the 2nd part of the duodenum 5. Retroflexed views revealed a hiatal hernia RECOMMENDATIONS: Await biopsy results. Biopsy results will not be ready for 7-10 days. If you don't hear from us in two weeks, call our office for biopsy results. PATIENT CONDITION: stable DISPOSITION: Inpatient REPEAT EXAM: Return 3 months EGD Suresh Murray MD eSigned: Suresh Murray MD 12/10/2017 12:30 PM cc: PATIENT NAME: Jose Francisco Eddy MR#: [id number]
--- NOTE | 2017-12-10 13:35 | P.PNGS ---
Subjective Patient reports: no new complaints, tolerating liquids well, flatus (on bed piper) , shortness of breath (complains) Interval history: DAILY PROGRESS NOTE FOR SURGICAL ATTENDING, DR. GILDA REINOSO Physical Exam Vital signs: Vital Signs 12/10/17 03:12 12/10/17 04:00 12/10/17 06:00 Temperature 98.8 F Pulse Rate 101 H 97 H 96 H Respiratory Rate 15 13 Blood Pressure 106/58 L Pulse Oximetry 97 12/10/17 07:49 12/10/17 08:00 12/10/17 10:37 Temperature 98.0 F Pulse Rate 101 H 104 H Respiratory Rate 19 20 18 Blood Pressure 94/60 L Pulse Oximetry 96 99 Intake & Output 12/09/17 12/10/17 12/10/17 18:59 06:59 18:59 Intake Total 160 / 160 1482 / 1482 1618.5 / 1618.5 Output Total 5600 / 5600 1800 / 1800 Balance -5440 / -5440 -318 / -318 1618.5 / 1618.5 Weight 68.9 kg Intake: IV 100 / 100 902 / 902 1618.5 / 1618.5 SandoSTATIN Inj 2,000 MCG In NS 502 / 502 Inj 500 ML @ 100 MCG/HR 25.1 mls/hr IV.CONT .Q20H NILA Rx#: [id number] Protonix Inj 80 MG In NS Inj 100 / 100 100 / 100 100 / 100 100 ML @ 10 mls/hr IV.CONT CONT NILA Rx#:[id number] Ofirmev Inj 1,000 mg In 100 ml 100 / 100 @ 400 mls/hr IV.SIG Q8H PRN Rx# :[id number] Magnesium Sulfate Inj 4 GM In 0 / 0 100 / 100 NS Inj 92 ML @ 50 mls/hr IV.SIG UNSCH PRN Rx#:[id number] KCl 40 mEq Premix Inj 40 meq In 200 / 200 100 / 100 100 ml @ 25 mls/hr IV.SIG UNSCH PRN Rx#:[id number] Rocephin Inj 1,000 MG In NS Inj 100 / 100 100 ML @ 200 mls/hr IV.SIG Q24H NILA Rx#:[id number] Oral 60 / 60 480 / 480 Anesthesia Amount 100 / 100 Output: Urine Amount (Catheter) 5600 / 5600 1800 / 1800 Indwelling Urethral Catheter 5600 / 5600 1800 / 1800 Other: Date of Last Bowel Movement 12/09/17 12/09/17 12/09/17 # Bowel Movements 2 0 - Constitutional no acute distress - Routine HEENT Exam Head: Present: normocephalic - Routine Respiratory Exam Comments: comfortable - Routine Abdominal Exam Present: soft - Detailed Neurological Exam: Coma Scale Eye Opening: Spontaneous Verbal Response: Oriented Motor Response: Obey commands Rosemary Coma Scale Total: 15 - Additional findings Additional findings: Upper endoscopy report ESOPHAGUS: There was LA Class B esophagitis noted. STOMACH: Two non-bleeding, round, punctate, deep and clean-based ulcers measuring 5 x 15mm in size were found in the gastric antrum and prepyloric region stomach. Biopsies were taken at edge of the ulcers and at the center of the ulcers. DUODENUM: A large non-bleeding, punctate, round and clean-based ulcer, measuring 8 x 12mm in size, was found. Biopsies were taken. The duodenal mucosa appeared normal in the 2nd part of the duodenum. IMPRESSIONS: 1. There was LA Class B esophagitis noted 2. Two ulcers measuring 5 x 15mm in size were found in the gastric antrum and prepyloric region stomach; biopsies were taken 3. Large ulcer, measuring 8 x 12mm in size, was found; biopsies were taken 4. Normal duodenal mucosa in the 2nd part of the duodenum 5. Retroflexed views revealed a hiatal hernia Radiology Impressions Abdomen X-Ray 12/03/17 08:58 CONCLUSION: Nonspecific bowel gas . GI Bleed Scan Nuclear Medicine 12/04/17 14:06 CONCLUSION: 1. Negative GI bleeding scan Abdomen/Pelvis CT 12/06/17 14:36 CONCLUSION: 1. Steatosis. 2. Bilateral lower lobe consolidation and atelectasis with large bilateral pleural effusions. 3. Small hiatal hernia. 4. Atherosclerosis. 5. Body wall edema. 6. Bilateral renal scarring. Abdomen Arteriogram 12/07/17 00:00 CONCLUSION: 1. Uncomplicated embolization of the gastroduodenal artery. Chest X-Ray 12/10/17 06:00 CONCLUSION: Persistent bilateral lower lung consolidation and pleural effusions. Laboratory Last Values WBC 6.0 th/mm3 (4.0-11.0) 12/10/17 06:15 RBC 2.48 mil/mm3 (4.00-5.30) L 12/10/17 06:15 Hgb 7.7 gm/dL (11.6-15.3) L 12/10/17 06:15 Hct 23.0 % (35.0-46.0) L 12/10/17 06:15 MCV 92.7 fL (80.0-100.0) 12/10/17 06:15 MCH 31.1 pg (27.0-34.0) 12/10/17 06:15 MCHC 33.6 % (32.0-36.0) 12/10/17 06:15 RDW 16.8 % (11.6-17.2) 12/10/17 06:15 Plt Count 117 th/mm3 (150-450) L 12/10/17 06:15 MPV 8.6 fL (7.0-11.0) 12/10/17 06:15 Prelim Diff (Auto) Slide review pending 12/09/17 05:10 Neut % (Auto) 74.8 % (16.0-70.0) H 12/09/17 05:10 Lymph % (Auto) 16.4 % (9.0-44.0) 12/09/17 05:10 [place] % (Auto) 5.8 % (0.0-8.0) 12/09/17 05:10 Eos % (Auto) 1.9 % (0.0-4.0) 12/09/17 05:10 Baso % (Auto) 1.1 % (0.0-2.0) 12/09/17 05:10 Neut # (Auto) 4.6 th/mm3 (1.8-7.7) 12/09/17 05:10 Lymph # (Auto) 1.0 th/mm3 (1.0-4.8) 12/09/17 05:10 [place] # (Auto) 0.4 th/mm3 (0.0-0.9) 12/09/17 05:10 Eos # (Auto) 0.1 th/mm3 (0.0-0.4) 12/09/17 05:10 Baso # (Auto) 0.1 th/mm3 (0.0-0.2) 12/09/17 05:10 WBC Differential . 12/09/17 05:10 Diff Scan Auto diff confirmed 12/09/17 05:10 Seg Neuts % (Manual) 75 % (16-70) H 12/08/17 05:00 Band Neuts % (Manual) 7 % (0-6) H 12/08/17 05:00 Lymphocytes % (Manual) 13 % (9-44) 12/08/17 05:00 Monocytes % (Manual) 1 % (0-8) 12/08/17 05:00 Eosinophils % (Manual) 2 % (0-4) 12/08/17 05:00 Basophils % (Manual) 2 % (0-2) 12/08/17 05:00 Abs Neuts (Manual) 5.8 th/mm3 (1.8-7.7) 12/08/17 05:00 Differential Comment . 12/09/17 05:10 Platelet Estimate Low (Normal) L 12/09/17 05:10 Platelet Morphology Normal (Normal) 12/09/17 05:10 Dimorphic RBCs Present (None) H 12/07/17 05:20 Ovalocytes 1+ (None) H 12/04/17 03:19 [place] Cells 1+ (None) H 12/08/17 05:00 Acanthocytes (Spur) 1+ (None) H 12/09/17 05:10 Keratocytes Occ (None) H 12/04/17 03:19 PT 11.4 sec (9.8-11.6) 12/10/17 08:25 INR 1.1 Ratio 12/10/17 08:25 APTT 23.1 sec (24.3-30.1) L 12/06/17 05:09 Fibrinogen 239 mg/dL (227-377) 12/10/17 08:25 Puncture Site Left radial 12/09/17 08:39 Patient Temperature 98.6 12/09/17 08:39 O2 Saturation 94 % (90-100) 12/09/17 08:39 ABG pH 7.46 (7.380-7.420) H 12/09/17 08:39 ABG pCO2 29 mmHg (38-42) L 12/09/17 08:39 ABG pO2 78 mmHg (61-120) 12/09/17 08:39 ABG HCO3 20 mmol/L (22-26) L 12/09/17 08:39 ABG O2 Content 13.3 Vol % (12.0-20.0) 12/09/17 08:39 ABG Base Excess -3.1 mmol/L (-2-2) L 12/09/17 08:39 ABG Methemoglobin 1.1 % (0-2) 12/09/17 08:39 Lalo Test Present 12/09/17 08:39 Hemoglobin 10.0 G/DL (12.0-16.0) L 12/09/17 08:39 Carboxyhemoglobin 1.4 % (0-4) 12/09/17 08:39 O2 Delivery Device Nasal cannula 12/09/17 08:39 Liter Flow 4.00 L/M 12/09/17 08:39 Vent Setting Ac 450/14/+5/%50 12/07/17 01:21 Inspired O2 21 % 12/09/17 08:39 Critical Value No 12/09/17 08:39 Sodium 146 meq/L (136-145) H 12/09/17 15:30 Potassium 4.4 meq/L (3.5-5.1) D 12/10/17 06:15 Chloride 112 meq/L (98-107) H 12/09/17 15:30 Carbon Dioxide 21.9 meq/L (21.0-32.0) 12/09/17 15:30 Anion Gap 12 meq/L (5-15) 12/09/17 15:30 BUN 10 mg/dL (7-18) 12/09/17 15:30 Creatinine 0.35 mg/dL (0.50-1.00) L 12/09/17 15:30 Estimated GFR Greater than 89 mL/min (>89) 12/09/17 15:30 POC Glucose 126 mg/dl (68-110) H 12/10/17 11:16 Random Glucose 116 mg/dL (74-106) H 12/09/17 15:30 Lactic Acid 1.6 mmol/L (0.4-2.0) 12/07/17 09:25 Calcium 7.3 mg/dL (8.5-10.1) L* 12/09/17 15:30 Prot Corrected Calcium 8.9 mg/dL (8.5-10.1) 12/09/17 15:30 Phosphorus 2.6 mg/dL (2.5-4.9) 12/09/17 05:10 Magnesium 1.1 mg/dL (1.5-2.5) L 12/09/17 15:30 Total Bilirubin 0.5 mg/dL (0.2-1.0) 12/09/17 15:30 Direct Bilirubin 0.1 mg/dL (0.0-0.2) 12/06/17 03:49 Indirect Bilirubin 0.2 mg/dL (0.0-0.8) 12/06/17 03:49 AST 30 U/L (15-37) 12/09/17 15:30 ALT 20 U/L (10-53) 12/09/17 15:30 Alkaline Phosphatase 66 U/L (45-117) 12/09/17 15:30 Ammonia 12 mcmol/L (11-32) 12/06/17 18:30 Total Protein 4.3 g/dL (6.4-8.2) L D 12/09/17 15:30 Albumin 1.6 g/dL (3.4-5.0) L 12/09/17 15:30 Nasal Screen MRSA (PCR) Not detected (Negative) 12/03/17 18:08 Serum Alcohol Less than 3 mg/dL (0-5) 12/03/17 09:15 Blood Type A Positive 12/06/17 19:51 Blood Type Recheck Required 12/03/17 09:15 Antibody Screen Negative 12/06/17 19:51 MTS Gel Crossmatch See Detail 12/07/17 01:38 Blood Bank Comment 12/06/17 20:57 Bld Prod Order Comment 12/06/17 20:57 - Urinary Catheter Management Indwelling Urethral Catheter Cath placed during this visit: no Urethral indwelling: Yes Reason for continuing: Hourly intake/output Assessment and Plan - Assessment (1) Anemia requiring transfusions Code(s): D64.9 - Anemia, unspecified Status: Acute Plan: Recurrent GI bleeding, with multiple sites of ulceration in the esophagus, stomach and duodenum. No particular site identified. Without localization and attempt at embolization or at least re-scoping first, surgery is last option. Hb remains stable after GDA embolization On pantoprazole and octreotide drips Nothing further to add from surgical standpoint. (2) Liver cirrhosis Code(s): K74.60 - Unspecified cirrhosis of liver Status: Deleted (3) Upper gastrointestinal bleed Code(s): K92.2 - Gastrointestinal hemorrhage, unspecified Status: Acute (4) Hemorrhagic shock Code(s): R57.8 - Other shock Status: Acute (5) Duodenal ulcer disease Code(s): K26.9 - Duodenal ulcer, unspecified as acute or chronic, without hemorrhage or perforation Status: Acute (6) Esophagitis determined by endoscopy Code(s): K20.9 - Esophagitis, unspecified Status: Acute (7) Gastritis and gastroduodenitis Code(s): K29.70 - Gastritis, unspecified, without bleeding; K29.90 - Gastroduodenitis, unspecified, without bleeding Status: Acute (8) Gastric ulcer Code(s): K25.9 - Gastric ulcer, unspecified as acute or chronic, without hemorrhage or perforation Status: Acute - Plan Recurrent GI bleeding, with multiple sites of ulceration in the esophagus, stomach and duodenum. No particular site identified. Without localization and attempt at embolization or at least re-scoping first, surgery is last option. Hb remains stable after GDA embolization On pantoprazole and octreotide drips Nothing further to add from surgical standpoint. - Attending Attestation NOTE FOR SURGICAL ATTENDING, DR. GILDA REINOSO I attest that I had a [id number] encounter with the patient on the same day, and personally performed and documented my assessment and findings in the medical record. The following services were provided during this hospital visit: Chart data review, vital sign assessments/reviewing monitor data Review of consultations notes if present. Medication orders/review and/or management Ordering and/or reviewing lab tests Ordering and/or interpreting/reviewing x-rays and/or diagnostic studies Care of the patient and discussion of the patient with the care team Documentation time To help prompt me to consider important information that might be impacting today's encounter and assessment, Information from prior notes written by myself or my colleagues may have been "brought forward/copy and pasted" into today's note. (2) Liver cirrhosis Qualifiers: Hepatic cirrhosis type: alcoholic cirrhosis
[2017-12-10] MEDS ORDERED: OCTREOTIDE IV.CONT SCH (14:00)
[2017-12-10] MEDS ORDERED: SODIUM CHLOR 0.9% IV.CONT SCH (14:00)
[2017-12-10] MEDS: LORazepam 1 MG Tablet PO PRN (21:00)
[2017-12-11] MEDS: Insulin NovoLOG Aspart Correctional Sugar Inj SQ SCH ×5 (00:22→23:11)
[2017-12-11] MEDS: Morphine Inj 4 MG/ML Vial IV.PUSH PRN ×3 (00:40→13:58)
--- NOTE | 2017-12-11 04:49 | XR ---
EXAM DATE: 12/11/2017 4:46 AM EDT AGE/SEX: 57 years / Female INDICATIONS: Short of breath. CLINICAL DATA: This is the patient's subsequent encounter. Patient reports that signs and symptoms h ave been present for 4 - 6 days and indicates a pain score of Nonresponsive. MEDICAL/SURGICAL HISTORY: . Respiratory failure, hemorrhagic shock. . Tracheostomy. COMPARISON: C, CHEST 1V SINGLE AP, 12/10/2017. . FINDINGS: There are bilateral effusions, cardiomegaly and patchy airspace disease bilaterally. This is stable. Osseous structures are intact. CONCLUSION: Stable appearance of the chest. Electronically signed by: Gustavo Moser MD 12/11/2017 4:48 AM EDT
[2017-12-11 06:20] LABS: Baso # (Auto) 0.1 th/mm3 (0.0-0.2); Baso % (Auto) 1.3 % (0.0-2.0); Eos # (Auto) 0.2 th/mm3 (0.0-0.4); Eos % (Auto) 3.7 % (0.0-4.0); Hematocrit 24.6 % (35.0-46.0); Hemoglobin 8.5 gm/dL (11.6-15.3); Lymph # (Auto) 1.4 th/mm3 (1.0-4.8); Lymph % (Auto) 27.9 % (9.0-44.0); Mean Corpuscular HGB Conc 34.5 % (32.0-36.0); Mean Corpuscular Hemoglobin 31.5 pg (27.0-34.0); Mean Corpuscular Volume 91.3 fL (80.0-100.0); Mono # (Auto) 0.3 th/mm3 (0.0-0.9); Mono % (Auto) 5.5 % (0.0-8.0); Neut % (Auto) 61.6 % (16.0-70.0); Platelet Count 132 th/mm3 (150-450); Red Cell Distribution Width 16.8 % (11.6-17.2); White Blood Count 4.9 th/mm3 (4.0-11.0)
[2017-12-11 07:05] LABS: Alanine Aminotransferase 19 U/L (10-53); Albumin 1.7 g/dL (3.4-5.0); Alkaline Phosphatase 69 U/L (45-117); Anion Gap 6 meq/L (5-15); Aspartate Aminotransferase 25 U/L (15-37); Blood Urea Nitrogen 5 mg/dL (7-18); Calcium 7.4 mg/dL (8.5-10.1); Carbon Dioxide 30.3 meq/L (21.0-32.0); Chloride 108 meq/L (98-107); Glomerular Filtration Rate Greater Than 89 mL/min (>89); Glucose,Random 108 mg/dL (74-106); Potassium 3.2 meq/L (3.5-5.1); Sodium 144 meq/L (136-145); Total Protein 4.2 g/dL (6.4-8.2)
[2017-12-11] MEDS: Folic Acid 1 MG Tablet PO SCH (08:10)
[2017-12-11] MEDS: Potassium Chloride 25 MEQ Effervescent Tablet PO PRN (08:11)
[2017-12-11] MEDS: Budesonide-Formoterol 160/4.5 MCG 6 GM Inhaler INH SCH ×2 (09:39→20:24)
--- NOTE | 2017-12-11 10:20 | P.PNIM ---
Subjective Interval history: No complaints from the patient. She is mildly confused. Delirium tremens is present. Hemoglobin has slightly increased compared to yesterday. Physical Exam Vital signs: Vital Signs 12/10/17 10:37 12/10/17 12:42 12/10/17 14:00 Temperature 98.5 F Pulse Rate 103 H 98 H Respiratory Rate 18 26 H Blood Pressure 108/61 Pulse Oximetry 100 12/10/17 15:31 12/10/17 16:00 12/10/17 17:25 Temperature 98.6 F Pulse Rate 103 H 98 H Respiratory Rate 21 26 H 22 Blood Pressure 100/64 Pulse Oximetry 100 12/10/17 18:00 12/10/17 20:00 12/10/17 20:43 Temperature 98.1 F Pulse Rate 100 H 105 H 102 H Respiratory Rate 33 H 24 Blood Pressure 149/79 H Pulse Oximetry 95 94 L 12/10/17 22:00 12/11/17 00:00 12/11/17 02:00 Temperature 98.4 F Pulse Rate 103 H 101 H 92 H Respiratory Rate 23 Blood Pressure 122/67 Pulse Oximetry 94 L 12/11/17 04:00 12/11/17 08:25 12/11/17 08:28 Temperature Pulse Rate 88 97 H Respiratory Rate 27 H 18 15 Blood Pressure 154/77 H Pulse Oximetry 92 L 95 Intake & Output 12/10/17 12/11/17 12/11/17 18:59 06:59 18:59 Intake Total 2640.5 / 2640.5 300 / 300 300 / 300 Output Total 2700 / 2700 1999 / 1999 Balance -59.5 / -59.5 -1700 / -1700 300 / 300 Weight 65.8 kg Intake: IV 1920.5 / 1920.5 300 / 300 SandoSTATIN Inj 2,000 MCG In NS 302 / 302 Inj 500 ML @ 100 MCG/HR 25.1 mls/hr IV.CONT .Q20H NILA Rx#: [id number] Protonix Inj 80 MG In NS Inj 100 / 100 100 / 100 100 ML @ 10 mls/hr IV.CONT CONT NILA Rx#:[id number] Ofirmev Inj 1,000 mg In 100 ml 100 / 100 100 / 100 @ 400 mls/hr IV.SIG Q8H PRN Rx# :[id number] Magnesium Sulfate Inj 4 GM In 100 / 100 NS Inj 92 ML @ 50 mls/hr IV.SIG UNSCH PRN Rx#:[id number] KCl 40 mEq Premix Inj 40 meq In 100 / 100 100 ml @ 25 mls/hr IV.SIG UNSCH PRN Rx#:[id number] Rocephin Inj 1,000 MG In NS Inj 100 / 100 100 ML @ 200 mls/hr IV.SIG Q24H NILA Rx#:[id number] Oral 720 / 720 300 / 300 Output: Urine Amount (Catheter) 2700 / 2700 1999 Indwelling Urethral Catheter 2700 / 2700 1999 Other: Date of Last Bowel Movement 12/09/17 12/09/17 # Bowel Movements 0 0 Narrative: GENERAL: NAD, A&Ox2 HEAD: Normocephalic. NECK: Supple, trachea midline. No lymphadenopathy. EYES: No scleral icterus. No injection or drainage. CARDIOVASCULAR: Regular rate and rhythm without murmurs, gallops, or rubs. RESPIRATORY: Breath sounds equal bilaterally. No accessory muscle use. GASTROINTESTINAL: Abdomen soft, non-tender, nondistended. MUSCULOSKELETAL: No cyanosis, or edema. SKIN: Warm and dry. Jaundice. NEURO: No focal neurological deficits. - Urinary Catheter Management Indwelling Urethral Catheter Cath placed during this visit: no Urethral indwelling: Yes Reason for continuing: Hourly intake/output Results - Labs CBC & Chem 7: 12/11/17 06:05 12/11/17 06:05 Laboratory Results - last 24 hr 12/10/17 12/10/17 12/10/17 11:13 11:16 17:49 WBC RBC Hgb Hct MCV MCH MCHC RDW Plt Count MPV Neut % (Auto) Lymph % (Auto) [place] % (Auto) Eos % (Auto) Baso % (Auto) Neut # (Auto) Lymph # (Auto) [place] # (Auto) Eos # (Auto) Baso # (Auto) WBC Differential Differential Comment Sodium Potassium Chloride Carbon Dioxide Anion Gap BUN Creatinine Estimated GFR POC Glucose 187 H 126 H 125 H Random Glucose Calcium Prot Corrected Calcium Total Bilirubin AST ALT Alkaline Phosphatase Total Protein Albumin 12/11/17 12/11/17 12/11/17 00:03 06:05 06:05 WBC 4.9 RBC 2.70 L Hgb 8.5 L Hct 24.6 L MCV 91.3 MCH 31.5 MCHC 34.5 RDW 16.8 Plt Count 132 L MPV 8.0 Neut % (Auto) 61.6 Lymph % (Auto) 27.9 [place] % (Auto) 5.5 Eos % (Auto) 3.7 Baso % (Auto) 1.3 Neut # (Auto) 3.0 Lymph # (Auto) 1.4 [place] # (Auto) 0.3 Eos # (Auto) 0.2 Baso # (Auto) 0.1 WBC Differential . Differential Comment Auto diff final Sodium 144 Potassium 3.2 L D Chloride 108 H Carbon Dioxide 30.3 Anion Gap 6 BUN 5 L Creatinine 0.45 L Estimated GFR Greater than 89 POC Glucose 116 H Random Glucose 108 H Calcium 7.4 L* Prot Corrected Calcium 9.1 Total Bilirubin 0.4 AST 25 ALT 19 Alkaline Phosphatase 69 Total Protein 4.2 L Albumin 1.7 L 12/11/17 12/11/17 06:06 06:39 WBC RBC Hgb Hct MCV MCH MCHC RDW Plt Count MPV Neut % (Auto) Lymph % (Auto) [place] % (Auto) Eos % (Auto) Baso % (Auto) Neut # (Auto) Lymph # (Auto) [place] # (Auto) Eos # (Auto) Baso # (Auto) WBC Differential Differential Comment Sodium Potassium Chloride Carbon Dioxide Anion Gap BUN Creatinine Estimated GFR POC Glucose 62 L 132 H Random Glucose Calcium Prot Corrected Calcium Total Bilirubin AST ALT Alkaline Phosphatase Total Protein Albumin - Imaging Impressions Chest X-Ray 12/09/17 07:00 CONCLUSION: Interval and extubation with stable lung exam consistent with bilateral atelectasis and pleural effusions. Chest X-Ray 12/11/17 06:00 CONCLUSION: Stable appearance of the chest. Assessment and Plan - Plan 57-year-old female admitted secondary to GI bleeding with hemorrhagic shock. Cirrhosis present in contributory. Alcohol dependence Continue CIWA protocol Restraints if needed Continue multivitamin, thiamine, and Folic acid Acute COPD exacerbation COPD Tobacco use Intubated at admit, Extubated 12/08/2017 Continue IV Solu-Medrol Continue Symbicort Albuterol/ipratropium aerosols every 6 hours with albuterol aerosols every 2 hours as needed for dyspnea Fluid overload Tachycardia Improving Off levo fed Continue Lasix Monitor fluid balance Upper and lower GI bleed Gastric ulcers Esophageal ulcers Duodenal ulcers Internal and external hemorrhoids Acute blood loss anemia requiring transfusion s/p Arteriogram and embolization of gastroduodenal artery on 12/07 Status post 4 units PRBC on admit Provided with additional 6u PRBC, 3u FFP and 1u PLT night of 12/06 Surgery following GI following Monitor CBC Ceftriaxone for SBP prophylaxis Hypokalemia Monitor and replace as needed DVT prophylaxis SCDs given active bleeding
--- NOTE | 2017-12-11 14:04 | P.PNGI ---
Subjective Interval history: Pt in bedside chair, eating liquid lunch. States feeling better today. She is confused, knows she is in a hospital but unsure of date or which hospital. Discussed with RN Giovana, pt has had no BM since two days ago. No nausea or vomiting. Tolerating liquid diet. <RoxiKiesha feldman - Last Filed: 12/11/17 13:55> Physical Exam Vital signs: Vital Signs 12/10/17 14:00 12/10/17 15:31 12/10/17 16:00 Temperature 98.6 F Pulse Rate 98 H 103 H 98 H Respiratory Rate 21 26 H Blood Pressure 100/64 Pulse Oximetry 100 12/10/17 17:25 12/10/17 18:00 12/10/17 20:00 Temperature 98.1 F Pulse Rate 100 H 105 H Respiratory Rate 22 33 H Blood Pressure 149/79 H Pulse Oximetry 95 12/10/17 20:43 12/10/17 22:00 12/11/17 00:00 Temperature 98.4 F Pulse Rate 102 H 103 H 101 H Respiratory Rate 24 23 Blood Pressure 122/67 Pulse Oximetry 94 L 94 L 12/11/17 02:00 12/11/17 04:00 12/11/17 08:00 Temperature 98.0 F Pulse Rate 92 H 88 97 H Respiratory Rate 27 H 17 Blood Pressure 154/77 H 114/74 Pulse Oximetry 92 L 100 12/11/17 08:25 12/11/17 08:28 12/11/17 10:00 Temperature Pulse Rate 97 H 97 H Respiratory Rate 18 15 Blood Pressure Pulse Oximetry 95 Intake & Output 12/10/17 12/11/17 12/11/17 18:59 06:59 18:59 Intake Total 2640.5 / 2640.5 300 / 300 300 / 300 Output Total 2700 / 2700 1999 / 1999 Balance -59.5 / -59.5 -1700 / -1700 300 / 300 Weight 65.8 kg Intake: IV 1920.5 / 1920.5 300 / 300 SandoSTATIN Inj 2,000 MCG In NS 302 / 302 Inj 500 ML @ 100 MCG/HR 25.1 mls/hr IV.CONT .Q20H NILA Rx#: [id number] Protonix Inj 80 MG In NS Inj 100 / 100 100 / 100 100 ML @ 10 mls/hr IV.CONT CONT NILA Rx#:[id number] Ofirmev Inj 1,000 mg In 100 ml 100 / 100 100 / 100 @ 400 mls/hr IV.SIG Q8H PRN Rx# :[id number] Magnesium Sulfate Inj 4 GM In 100 / 100 NS Inj 92 ML @ 50 mls/hr IV.SIG UNSCH PRN Rx#:[id number] KCl 40 mEq Premix Inj 40 meq In 100 / 100 100 ml @ 25 mls/hr IV.SIG UNSCH PRN Rx#:[id number] Rocephin Inj 1,000 MG In NS Inj 100 / 100 100 ML @ 200 mls/hr IV.SIG Q24H NILA Rx#:[id number] Oral 720 / 720 300 / 300 Output: Urine Amount (Catheter) 2699 / 2700 1999 Indwelling Urethral Catheter 2699 / 2699 Other: Date of Last Bowel Movement 12/09/17 12/09/17 12/09/17 # Bowel Movements 0 0 - Constitutional no acute distress - Routine HEENT Exam Head: Present: normocephalic, atraumatic - Routine Respiratory Exam Absent: accessory muscle use - Routine Abdominal Exam Present: soft, normoactive bowel sounds. Absent: tenderness - Routine Skin Exam Present: dry, warm - Routine Neurological Exam Present: alert. Absent: oriented X3 - Urinary Catheter Management Indwelling Urethral Catheter Cath placed during this visit: no Urethral indwelling: Yes Reason for continuing: Hourly intake/output <Kiesha Alexandra - Last Filed: 12/11/17 13:55> Vital signs: Vital Signs 12/10/17 18:00 12/10/17 20:00 12/10/17 20:43 Temperature 98.1 F Pulse Rate 100 H 105 H 102 H Respiratory Rate 33 H 24 Blood Pressure 149/79 H Pulse Oximetry 95 94 L 12/10/17 22:00 12/11/17 00:00 12/11/17 02:00 Temperature 98.4 F Pulse Rate 103 H 101 H 92 H Respiratory Rate 23 Blood Pressure 122/67 Pulse Oximetry 94 L 12/11/17 04:00 12/11/17 08:00 12/11/17 08:25 Temperature 98.0 F Pulse Rate 88 97 H Respiratory Rate 27 H 17 18 Blood Pressure 154/77 H 114/74 Pulse Oximetry 92 L 100 12/11/17 08:28 12/11/17 10:00 12/11/17 14:17 Temperature Pulse Rate 97 H 97 H Respiratory Rate 15 20 Blood Pressure Pulse Oximetry 95 12/11/17 15:35 Temperature Pulse Rate 104 H Respiratory Rate 16 Blood Pressure Pulse Oximetry Intake & Output 12/10/17 12/11/17 12/11/17 18:59 06:59 18:59 Intake Total 2640.5 / 2640.5 300 / 300 300 / 300 Output Total 2700 / 2700 1999 Balance -59.5 / -59.5 -1700 / -1700 300 / 300 Weight 65.8 kg Intake: IV 1920.5 / 1920.5 300 / 300 SandoSTATIN Inj 2,000 MCG In NS 302 / 302 Inj 500 ML @ 100 MCG/HR 25.1 mls/hr IV.CONT .Q20H NILA Rx#: [id number] Protonix Inj 80 MG In NS Inj 100 / 100 100 / 100 100 ML @ 10 mls/hr IV.CONT CONT NILA Rx#:[id number] Ofirmev Inj 1,000 mg In 100 ml 100 / 100 100 / 100 @ 400 mls/hr IV.SIG Q8H PRN Rx# :[id number] Magnesium Sulfate Inj 4 GM In 100 / 100 NS Inj 92 ML @ 50 mls/hr IV.SIG UNSCH PRN Rx#:[id number] KCl 40 mEq Premix Inj 40 meq In 100 / 100 100 ml @ 25 mls/hr IV.SIG UNSCH PRN Rx#:[id number] Rocephin Inj 1,000 MG In NS Inj 100 / 100 100 ML @ 200 mls/hr IV.SIG Q24H NILA Rx#:[id number] Oral 720 / 720 300 / 300 Output: Urine Amount (Catheter) 2700 / 2700 1999 Indwelling Urethral Catheter 2700 / 2700 1999 Other: Date of Last Bowel Movement 12/09/17 12/09/17 12/09/17 # Bowel Movements 0 0 - Urinary Catheter Management Indwelling Urethral Catheter Cath placed during this visit: no <Meg Perry - Last Filed: 12/11/17 17:50> Results - Labs CBC & Chem 7: 12/11/17 06:05 12/11/17 06:05 Laboratory Results - last 24 hr 0812/11/17 12/11/17 17:49 00:03 06:05 WBC 4.9 RBC 2.70 L Hgb 8.5 L Hct 24.6 L MCV 91.3 MCH 31.5 MCHC 34.5 RDW 16.8 Plt Count 132 L MPV 8.0 Neut % (Auto) 61.6 Lymph % (Auto) 27.9 [place] % (Auto) 5.5 Eos % (Auto) 3.7 Baso % (Auto) 1.3 Neut # (Auto) 3.0 Lymph # (Auto) 1.4 [place] # (Auto) 0.3 Eos # (Auto) 0.2 Baso # (Auto) 0.1 WBC Differential . Differential Comment Auto diff final Sodium Potassium Chloride Carbon Dioxide Anion Gap BUN Creatinine Estimated GFR POC Glucose 125 H 116 H Random Glucose Calcium Prot Corrected Calcium Total Bilirubin AST ALT Alkaline Phosphatase Total Protein Albumin 12/11/17 12/11/17 12/11/17 06:05 06:06 06:39 WBC RBC Hgb Hct MCV MCH MCHC RDW Plt Count MPV Neut % (Auto) Lymph % (Auto) [place] % (Auto) Eos % (Auto) Baso % (Auto) Neut # (Auto) Lymph # (Auto) [place] # (Auto) Eos # (Auto) Baso # (Auto) WBC Differential Differential Comment Sodium 144 Potassium 3.2 L D Chloride 108 H Carbon Dioxide 30.3 Anion Gap 6 BUN 5 L Creatinine 0.45 L Estimated GFR Greater than 89 POC Glucose 62 L 132 H Random Glucose 108 H Calcium 7.4 L* Prot Corrected Calcium 9.1 Total Bilirubin 0.4 AST 25 ALT 19 Alkaline Phosphatase 69 Total Protein 4.2 L Albumin 1.7 L 12/11/17 12/11/17 12:09 12:11 WBC RBC Hgb Hct MCV MCH MCHC RDW Plt Count MPV Neut % (Auto) Lymph % (Auto) [place] % (Auto) Eos % (Auto) Baso % (Auto) Neut # (Auto) Lymph # (Auto) [place] # (Auto) Eos # (Auto) Baso # (Auto) WBC Differential Differential Comment Sodium Potassium Chloride Carbon Dioxide Anion Gap BUN Creatinine Estimated GFR POC Glucose 225 H 171 H Random Glucose Calcium Prot Corrected Calcium Total Bilirubin AST ALT Alkaline Phosphatase Total Protein Albumin - Imaging Impressions Chest X-Ray 12/09/17 07:00 CONCLUSION: Interval and extubation with stable lung exam consistent with bilateral atelectasis and pleural effusions. Chest X-Ray 12/11/17 06:00 CONCLUSION: Stable appearance of the chest. <RoxigastonKiesha - Last Filed: 12/11/17 13:55> - Labs CBC & Chem 7: 12/11/17 06:05 12/11/17 06:05 Laboratory Results - last 24 hr 12/10/17 12/11/17 12/11/17 17:49 00:03 06:05 WBC 4.9 RBC 2.70 L Hgb 8.5 L Hct 24.6 L MCV 91.3 MCH 31.5 MCHC 34.5 RDW 16.8 Plt Count 132 L MPV 8.0 Neut % (Auto) 61.6 Lymph % (Auto) 27.9 [place] % (Auto) 5.5 Eos % (Auto) 3.7 Baso % (Auto) 1.3 Neut # (Auto) 3.0 Lymph # (Auto) 1.4 [place] # (Auto) 0.3 Eos # (Auto) 0.2 Baso # (Auto) 0.1 WBC Differential . Differential Comment Auto diff final Sodium Potassium Chloride Carbon Dioxide Anion Gap BUN Creatinine Estimated GFR POC Glucose 125 H 116 H Random Glucose Calcium Prot Corrected Calcium Total Bilirubin AST ALT Alkaline Phosphatase Total Protein Albumin 12/11/17 12/11/17 12/11/17 06:05 06:06 06:39 WBC RBC Hgb Hct MCV MCH MCHC RDW Plt Count MPV Neut % (Auto) Lymph % (Auto) [place] % (Auto) Eos % (Auto) Baso % (Auto) Neut # (Auto) Lymph # (Auto) [place] # (Auto) Eos # (Auto) Baso # (Auto) WBC Differential Differential Comment Sodium 144 Potassium 3.2 L D Chloride 108 H Carbon Dioxide 30.3 Anion Gap 6 BUN 5 L Creatinine 0.45 L Estimated GFR Greater than 89 POC Glucose 62 L 132 H Random Glucose 108 H Calcium 7.4 L* Prot Corrected Calcium 9.1 Total Bilirubin 0.4 AST 25 ALT 19 Alkaline Phosphatase 69 Total Protein 4.2 L Albumin 1.7 L 12/11/17 12/11/17 12:09 12:11 WBC RBC Hgb Hct MCV MCH MCHC RDW Plt Count MPV Neut % (Auto) Lymph % (Auto) [place] % (Auto) Eos % (Auto) Baso % (Auto) Neut # (Auto) Lymph # (Auto) [place] # (Auto) Eos # (Auto) Baso # (Auto) WBC Differential Differential Comment Sodium Potassium Chloride Carbon Dioxide Anion Gap BUN Creatinine Estimated GFR POC Glucose 225 H 171 H Random Glucose Calcium Prot Corrected Calcium Total Bilirubin AST ALT Alkaline Phosphatase Total Protein Albumin - Imaging Impressions Chest X-Ray 12/09/17 07:00 CONCLUSION: Interval and extubation with stable lung exam consistent with bilateral atelectasis and pleural effusions. Chest X-Ray 12/11/17 06:00 CONCLUSION: Stable appearance of the chest. <Meg Perry - Last Filed: 12/11/17 17:50> Assessment and Plan (1) Rectal bleed Status: Acute Code(s): K62.5 - Hemorrhage of anus and rectum (2) UGIB (upper gastrointestinal bleed) Status: Deleted Code(s): K92.2 - Gastrointestinal hemorrhage, unspecified (3) Anemia requiring transfusions Status: Acute Code(s): D64.9 - Anemia, unspecified (4) Alcohol dependence Status: Deleted Code(s): F10.20 - Alcohol dependence, uncomplicated - Plan Assessment: - Anemia with reports of maroon colored stool on admission in setting of cirrhosis secondary to long-term ETOH abuse EGD (12/04) Two ulcers ranging between 3-7mm in size were found in the distal esophagus. Three ranging between 5-9mm in size ulcers were found in the gastric antrum. Four ranging between 5-9mm in size ulcers were found in the 1st part of the duodenum and duodenal bulb Colonoscopy(12/04) Colon full of blood all the way into the terminal ileum. No source of bleeding seen. Likely Small intestinal bleed. Internal and external hemorrhoids. Bleeding scan negative on 12/04 Reports of bloody stools again on 12/07- pt sent to IR for angiogram with embolization- GDA embolized On Monday morning, reports of melanotic stools again Repeat EGD on 12/10 --> There was LA Class B esophagitis noted. Two ulcers measuring 5 x 15mm in size were found in the gastric antrum and prepyloric region stomach; biopsies were taken. Large ulcer, measuring 8 x 12mm in size, was found; biopsies were taken. Normal duodenal mucosa in the 2nd part of the duodenum Retroflexed views revealed a hiatal hernia (12/11) Pt in bedside chair, tolerating liquid diet. Pt confused, knows she is in the hospital but unsure which one or what the date is. Discussed with RN Giovana, states no BM since two days ago. H/H stable. No nausea or vomiting. Pt states some abdominal pain earlier but that it has improved Plan: Advance diet Monitor H/H Monitor stool for any continued bleeding Protonix Avoid hepatotoxins Needs to stop drinking ETOH Further recommendations to follow Pt has been seen and examined by myself and Dr. Perry and this note is written on her behalf <Kiesha Alexandra - Last Filed: 12/11/17 13:55> (1) Rectal bleed Status: Acute Code(s): K62.5 - Hemorrhage of anus and rectum (2) UGIB (upper gastrointestinal bleed) Status: Deleted Code(s): K92.2 - Gastrointestinal hemorrhage, unspecified (3) Anemia requiring transfusions Status: Acute Code(s): D64.9 - Anemia, unspecified (4) Alcohol dependence Status: Deleted Code(s): F10.20 - Alcohol dependence, uncomplicated - Attending Attestation seen, examined agree with above confused ammonia level start Rifaximin 550 mg po bid supportive care <Meg Perry - Last Filed: 12/11/17 17:50>
--- NOTE | 2017-12-11 16:11 | P.NPEVAL ---
Patient History - Record/History Review Reason for Referral: The patient is a 57 year old right handed female who was admitted on 12/03/2017 for severe alcohol dependence (20-24 beers per day), alcoholic liver cirrhosis, COPD with complaints of vomiting and diarrhea for two days. Since her admission , she has been on CIIN protocol to address alcohol withdrawal symptoms She is referred for baseline neurobehavioral status examination to assess cognitive, behavioral and emotional aspects of the injury and to provide treatment recommendations. [facility] [place] - History History Provided By: Patient - Medical History Medical History: Medical History (Last Reviewed 12/11/17 @ 10:40 by Haroon Randolph) Asthma (Acute) Hypertension (Acute) Cirrhosis (Acute) - Surgical History Surgical History: Surgical History (Last Reviewed 12/11/17 @ 10:40 by Haroon Randolph) History of appendectomy (Acute) - Tobacco History Second Hand Smoke Exposure: Yes Tobacco Use In Past 30 Days: Yes Smoking Status: Current every day smoker Tobacco Type: Cigarettes - Alcohol History How Often Do You Have a Drink Containing Alcohol: 4 or more times a week - Substance Use History Substance History: Active Abuse - Substance Use Type Marijuana Status: Active Route Used: Inhalation Reason for Use: Calm Down - Travel History Recent Travel Out of the Country Within the Last 8 Weeks: No - Immunization History Tetanus Immunization: <5 Years Hx Influenza Vaccine This Season: No Medications Active Medications Albuterol (Duoneb Neb (Prn)) 1 ampul NEB Q2HR NEB PRN PRN Reason: SHORTNESS OF BREATH Last Admin: 12/10/17 20:42 Dose: 1 ampul Albuterol (Duoneb Neb (Lizandro)) 1 ampul NEB Q6HR NEB LIZANDRO Last Admin: 12/11/17 15:34 Dose: 1 ampul Budesonide/Formoterol Fumarate (Symbicort 160/4.5 Mcg Inh) 2 puff INH BID REPLACED BY [facility] Last Admin: 12/11/17 09:39 Dose: 2 puff Dextrose (D50w Vial) 50 ml IV.PUSH UNSCH PRN PRN Reason: PER HYPOGLYCEMIA PROTOCOL Flumazenil (Romazecon Inj) 0.2 mg IV.PUSH Q1M PRN PRN Reason: OVERSEDATION Folic Acid (Folic Acid) 1 mg PO DAILY REPLACED BY [facility] Last Admin: 12/11/17 08:10 Dose: 1 mg Furosemide (Lasix Inj) 20 mg IV.PUSH Q8H LIZANDRO Last Admin: 12/11/17 08:11 Dose: 20 mg Glucagon (Glucagon Inj) 1 mg OTHER PRN PRN PRN Reason: for Hypoglycemia Protocol Haloperidol Lactate (Haldol Inj) 1 mg IV.PUSH Q15M PRN PRN Reason: for severe agitation Magnesium Sulfate Inj 4 gm/ (Sodium Chloride) 100 mls @ 50 mls/hr IV.SIG UNSCH PRN PRN Reason: For Magnesium 0.9 - 1.1 mg/dL Last Infusion: 12/10/17 07:40 Dose: Infused Magnesium Sulfate Inj 2 gm/ (Sodium Chloride) 100 mls @ 50 mls/hr IV.SIG UNSCH PRN PRN Reason: For Magnesium 1.2 - 1.6 mg/dL Potassium Chloride (Kcl 40 Meq Premix Inj) 40 meq in 100 mls @ 50 mls/hr IV.SIG Q2H PRN PRN Reason: For Potassium 2.8 - 3.2 mEq/L Last Infusion: 12/09/17 21:45 Dose: Infused Potassium Chloride (Kcl 20 Meq Premix Inj) 20 meq in 100 mls @ 50 mls/hr IV.SIG Q2H PRN PRN Reason: For Potassium 3.3 - 3.5 mEq/L Potassium Chloride (Kcl 40 Meq Premix Inj) 40 meq in 100 mls @ 25 mls/hr IV.SIG UNSCH PRN PRN Reason: For Potassium 3.3 - 3.5 mEq/L Last Infusion: 12/10/17 07:41 Dose: Infused Potassium Chloride (Kcl 20 Meq Premix Inj) 20 meq in 100 mls @ 50 mls/hr IV.SIG Q2H PRN PRN Reason: For Potassium 2.8 - 3.2 mEq/L Last Infusion: 12/04/17 10:10 Dose: Infused Potassium Phosphate 30 mmol/ (Sodium Chloride) 260 mls @ 42 mls/hr IV.SIG UNSCH PRN PRN Reason: SEE LABEL COMMENTS Sodium Phosphate 30 mmol/ (Sodium Chloride) 260 mls @ 42 mls/hr IV.SIG UNSCH PRN PRN Reason: For Phosphorus < 2.5 mg/dL Ceftriaxone Sodium 1,000 mg/ (Sodium Chloride) 100 mls @ 200 mls/hr IV.SIG Q24H REPLACED BY [facility] Last Infusion: 12/11/17 07:49 Dose: Infused Acetaminophen (Ofirmev Inj) 1,000 mg in 100 mls @ 400 mls/hr IV.SIG Q8H PRN PRN Reason: PAIN SCALE 1 TO 10 Last Infusion: 12/11/17 07:49 Dose: Infused Pantoprazole Sodium 80 mg/ (Sodium Chloride) 100 mls @ 10 mls/hr IV.CONT CONT LIZANDRO Last Infusion: 12/11/17 07:49 Dose: Infused Insulin Aspart (Novolog Insulin Correctional Sugar Inj) 0 unit SQ Q6HR LIZANDRO; Protocol Last Admin: 12/11/17 13:36 Dose: 1 unit Lorazepam (Ativan) 1 mg PO Q4H PRN PRN Reason: for CIWA 8-10 Last Admin: 12/10/17 21:00 Dose: 1 mg Lorazepam (Ativan) 2 mg PO Q2H PRN PRN Reason: for CIWA 11-14 Last Admin: 12/11/17 14:18 Dose: 2 mg Lorazepam (Ativan Inj) 2 mg IV.PUSH Q2H PRN PRN Reason: for CIWA 11-14 Last Admin: 12/10/17 23:10 Dose: 2 mg Lorazepam (Ativan Inj) 2 mg IV.PUSH Q1H PRN PRN Reason: for CIWA 15-20 Lorazepam (Ativan Inj) 2 mg IV.PUSH Q15M PRN PRN Reason: for CIWA > 20 Lorazepam (Ativan Inj) 1 mg IV.PUSH Q4H PRN PRN Reason: for CIWA 8-10 Last Admin: 12/09/17 02:32 Dose: 1 mg Magnesium Oxide (Mag-Ox) 800 mg PO UNSCH PRN PRN Reason: For Magnesium 1.2 - 1.6 mg/dL Last Admin: 12/05/17 12:10 Dose: 800 mg Morphine Sulfate (Morphine Inj) 2 mg IV.PUSH Q2H PRN PRN Reason: PAIN SCALE 6 TO 10 Last Admin: 12/11/17 13:58 Dose: 2 mg Multivitamins (Theragran) 1 tab PO DAILY REPLACED BY [facility] Last Admin: 12/11/17 08:10 Dose: 1 tab Nicotine (Habitrol 14 Mg Patch.24 Hr) 1 patch T-DERMAL DAILY REPLACED BY [facility] Last Admin: 12/11/17 08:10 Dose: 1 patch Ondansetron HCl (Zofran Odt) 4 mg PO Q6H PRN PRN Reason: NAUSEA OR VOMITING Last Admin: 12/08/17 20:10 Dose: 4 mg Patch Removal (Remove Old Patch) 1 each T-DERMAL DAILY REPLACED BY [facility] Last Admin: 12/11/17 08:26 Dose: 1 each Potassium Bicarb/Potassium Chloride (K-Lyte Cl Eff) 50 meq PO UNSCH PRN PRN Reason: For Potassium 3.3 - 3.5 mEq/L Last Admin: 12/11/17 08:11 Dose: 50 meq Potassium Chloride (K-Dur) 20 meq PO BID REPLACED BY [facility] Last Admin: 12/11/17 08:10 Dose: 20 meq Potassium Phosphate (K-Phos Original) 2,000 mg PO Q4H PRN PRN Reason: Phosphorus Less Than 2.5 mg/dL Last Admin: 12/06/17 00:00 Dose: 2,000 mg Potassium Phosphate (K-Phos Original) 2,000 mg PO UNSCH PRN PRN Reason: SEE LABEL COMMENTS Prochlorperazine Edisylate (Compazine Inj) 5 mg IV.PUSH Q4H PRN PRN Reason: BREAKTHROUGH NAUSEA Promethazine HCl (Phenergan Inj) 12.5 mg IV.CENTRAL Q6H PRN PRN Reason: NAUSEA Last Admin: 12/09/17 09:36 Dose: 12.5 mg Sodium Chloride (Ns Flush) 2 ml IV.FLUSH BID REPLACED BY [facility] Last Admin: 12/11/17 08:26 Dose: 2 ml Sodium Chloride (Ns Flush) 2 ml IV.FLUSH UNSCH PRN PRN Reason: FLUSH AFTER USING IV ACCESS Terbutaline Sulfate (Brethine Inj) 1 mg SQ UNSCH PRN PRN Reason: For Extravasation Thiamine HCl (Vitamin B1) 100 mg PO DAILY REPLACED BY [facility] Last Admin: 12/11/17 08:10 Dose: 100 mg Mental Status Assessment - Mental Status Orientation: oriented to: Self, Place, Time, Situation Mental Status: WFL: Language/interactions, Variable: Attention, Learning/memory , Problem-solving, Impaired: Thought processing Absent: Hallucinations, Delusions Adjustment/Coping Assessment - Adjustment/Coping Adjustment/Coping: None: Depression, Anxiety, Moderate: Awareness, Insight - Observation In terms of emotional functioning, the patient demonstrated challenges. This patient demonstrated no signs of agitation, impulsivity or disinhibition at present. There was no remarkable evidence of a formal thought disorder or psychosis. There was no evidence of depression or anxiety. Thought content was free from suicidal, homicidal or paranoid ideation, and thought processes were bradyphrenic. The patients mood was apathetic, and her affect was blunted. The patient appears to possess limited insight and awareness into their situation and within the limits of this brief evaluation, limited judgment. - Goals/Team Members LTG Status: Deferred STG Status: Deferred Team Members: Neuropsychologist Behavior - Behavior Treatment Engagement: Minimal - Observation Behaviorally, the patient demonstrated no signs of agitation, impulsivity or disinhibition. However, there are some reports of increased restlessness related to her alcohol withdrawal symptoms. There was no remarkable evidence of a formal thought disorder or psychosis. - Goals LTG Status: Deferred STG Status: Deferred - Team Members Team Members: Neuropsychologist Feedback/Education - Barriers to Treatment Awareness, Capacity to Self-Determine, Delirium/BREAKER OILER Diagnosis/Discharge Plan - Diagnosis (1) Delirium, withdrawal, alcoholic Status: Acute Impression: This 57 year old woman with history of severe alcohol dependence, liver cirrhosis and COPD admitted on 12/03/2017 for vomiting/diarrhea x 2 days. Clinically, she is presenting with fluctuating neurobehaviors consistent with withdrawal. She is on CIWA presently. ABS is being completed, and she is as of 12/11/2017 mildly agitated, with ABS = 20 (22.7,17.5,18.6). Disinhibition Score: 22.75 Aggression Score: 17.50 Lability Score: 18.66 Agitated Behavior Total Score: 20 Maximizing Acute Care Outcome: This patient may benefit from low dose Seroquel 25 TID, unless medically contraindicated. At this point in the recovery process, the patient does not have cognitive capacity as the patient is unable to completely understand a situation and its likely consequences, nor is the patient able to manipulate information rationally. She exhibits compromised insight, awareness and judgment. Cognitive capacity will be assessed throughout the recovery process. - Discharge Planning Anticipated Problems: Ongoing areas of concern will include behavioral impulsivity, lack of insight and judgment, which is expected to improve with time and treatment. Treatment Plan: This clinician will continue to follow with you throughout the course of this patients critical care treatment, and I will be available to meet with the patients family/support system to facilitate their understanding and the ongoing care of their family member. The goals of neuropsychological intervention shall be both educational and supportive to the family/support system as is deemed clinically appropriate. Thank you for the opportunity to assist in this patients care. Neil Galan, Ph.D., ABPP Board Certified in Clinical Neuropsychology [place] [employer] [place] Licensed Psychologist #[id number]
[2017-12-11] MEDS: rifAXIMin 550 MG Tablet PO SCH (20:24)
[2017-12-12 06:09] LABS: Eos # (Auto) 0.1 th/mm3 (0.0-0.4); Eos % (Auto) 3.3 % (0.0-4.0); Hemoglobin 8.6 gm/dL (11.6-15.3); Lymph # (Auto) 1.3 th/mm3 (1.0-4.8); Lymph % (Auto) 28.9 % (9.0-44.0); Mean Corpuscular HGB Conc 34.2 % (32.0-36.0); Mean Corpuscular Hemoglobin 31.7 pg (27.0-34.0); Mean Corpuscular Volume 92.6 fL (80.0-100.0); Mean Platelet Volume 8.5 fL (7.0-11.0); Mono # (Auto) 0.3 th/mm3 (0.0-0.9); Mono % (Auto) 7.6 % (0.0-8.0); Neut # (Auto) 2.6 th/mm3 (1.8-7.7); Neut % (Auto) 59.2 % (16.0-70.0); Platelet Count 117 th/mm3 (150-450); Red Cell Distribution Width 16.5 % (11.6-17.2); White Blood Count 4.4 th/mm3 (4.0-11.0)
[2017-12-12 06:37] LABS: Alanine Aminotransferase 19 U/L (10-53); Albumin 1.6 g/dL (3.4-5.0); Alkaline Phosphatase 73 U/L (45-117); Anion Gap 5 meq/L (5-15); Aspartate Aminotransferase 22 U/L (15-37); Blood Urea Nitrogen 5 mg/dL (7-18); Calcium 7.4 mg/dL (8.5-10.1); Carbon Dioxide 32.9 meq/L (21.0-32.0); Chloride 105 meq/L (98-107); Glomerular Filtration Rate Greater Than 89 mL/min (>89); Glucose,Random 110 mg/dL (74-106); Potassium 3.3 meq/L (3.5-5.1); Sodium 143 meq/L (136-145)
[2017-12-12] MEDS: Insulin NovoLOG Aspart Correctional Sugar Inj SQ SCH ×3 (07:54→17:21)
--- NOTE | 2017-12-12 08:04 | P.PNNPSY ---
- Behavior Mild: Impulsive/agitated - Cognitive Moderate: Insight/awareness - Psychosocial Moderate: Psychosocial, Family/other adjustment, Realistic expectation - Progress Notes/Response to Treatment Contents of Sessions: Adjustment, Level of consciousness Time with Patient: 30 minutes Premorbid Psychological Status: Premorbid Cognitive, Emotional and Behavioral Status: Tenuous. The patient has high school years of education and no recent work history prior to this injury. The patient has prior psychiatric difficulties, as described above. Substance abuse history includes EtOH dependence. Behavioral Reactions of Patient and Family/Support System: Tenuous. The patients family is experiencing ongoing issues of adjustment given the nature of the injury, and this aspect of recovery will require ongoing monitoring. Emotional/Behavioral Status of Patient and Family/Support System: Tenuous. Pertinent issues, if appropriate to this patients clinical care, are described in detail above. Maximizing Acute Care Outcome: This patient may benefit from low dose Seroquel 25 TID, unless medically contraindicated. At this point in the recovery process, the patient does not have cognitive capacity as the patient is unable to completely understand a situation and its likely consequences, nor is the patient able to manipulate information rationally. She exhibits compromised insight, awareness and judgment. Cognitive capacity will be assessed throughout the recovery process. Anticipated Problems: Ongoing areas of concern will include behavioral impulsivity, lack of insight and judgment, which is expected to improve with time and treatment. Treatment Plan: This clinician will continue to follow with you throughout the course of this patients critical care treatment, and I will be available to meet with the patients family/support system to facilitate their understanding and the ongoing care of their family member. The goals of neuropsychological intervention shall be both educational and supportive to the family/support system as is deemed clinically appropriate. Disinhibition Score: 29.75 Aggression Score: 14.00 Lability Score: 18.66 Agitated Behavior Total Score: 24 Impression: This 57 year old woman with history of severe alcohol dependence, liver cirrhosis and COPD admitted on 12/03/2017 for vomiting/diarrhea x 2 days. Clinically, she is presenting with fluctuating neurobehaviors consistent with withdrawal. She is on CIWA presently. ABS is being completed, and she is as of 12/11/2017 mildly agitated, with ABS = 20 (22.7,17.5,18.6). Progress Note Narrative: Day 8 of hospitalization, and day 8 of alcohol abstinence. The patient is agitated, disinhibited and emotionally labile, but not aggressive. Recent ABS was 24 (27.8,14,18.7), which is an increase from yesterday at 20. She remains on the CIWA protocol. It is suggested to start Seroquel 25 TID, unless medically contraindicated. Her agitation is borderline mild to moderate. I will follow. - Diagnosis (1) Delirium, withdrawal, alcoholic Status: Acute
[2017-12-12] MEDS: rifAXIMin 550 MG Tablet PO SCH ×2 (09:11→20:30)
[2017-12-12] MEDS: Folic Acid 1 MG Tablet PO SCH (09:11)
[2017-12-12] MEDS: Budesonide-Formoterol 160/4.5 MCG 6 GM Inhaler INH SCH ×2 (09:12→20:30)
--- NOTE | 2017-12-12 11:30 | P.PNIM ---
Subjective Interval history: Episode of confusion yesterday. Patient had to be placed in restraints due to risk of self-harm. Today she is showing signs of improvement. Physical Exam Vital signs: Vital Signs 12/11/17 12:00 12/11/17 14:00 12/11/17 14:17 Temperature 98.2 F Pulse Rate 94 H 90 Respiratory Rate 16 20 Blood Pressure 100/59 L Pulse Oximetry 96 12/11/17 15:30 12/11/17 15:35 12/11/17 16:00 Temperature 98.9 F 98.6 F Pulse Rate 112 H 104 H 94 H Respiratory Rate 21 16 22 Blood Pressure 102/59 L 112/70 Pulse Oximetry 96 98 12/11/17 18:00 12/11/17 19:48 12/11/17 20:00 Temperature 97.8 F Pulse Rate 106 H 102 H 106 H Respiratory Rate 20 20 Blood Pressure 154/65 H Pulse Oximetry 99 12/12/17 00:00 12/12/17 02:00 12/12/17 03:45 Temperature 98.1 F Pulse Rate 100 H 100 H 87 Respiratory Rate 22 22 Blood Pressure 116/81 Pulse Oximetry 96 12/12/17 04:00 12/12/17 07:57 Temperature 97.6 F Pulse Rate 86 91 H Respiratory Rate 21 16 Blood Pressure 142/84 H Pulse Oximetry 97 96 Intake & Output 12/11/17 12/12/17 12/12/17 18:59 06:59 18:59 Intake Total 1260 / 1260 Output Total 2800 / 2800 2099 / 2099 Balance -1540 / -1540 -2100 / -2100 Weight 67.3 kg Intake: IV 300 / 300 Protonix Inj 80 MG In NS Inj 100 / 100 100 ML @ 10 mls/hr IV.CONT CONT NILA Rx#:[id number] Ofirmev Inj 1,000 mg In 100 ml 100 / 100 @ 400 mls/hr IV.SIG Q8H PRN Rx# :[id number] Rocephin Inj 1,000 MG In NS Inj 100 / 100 100 ML @ 200 mls/hr IV.SIG Q24H NILA Rx#:[id number] Oral 960 / 960 Output: Urine Amount (Catheter) 2800 / 2800 2099 / 2099 Indwelling Urethral Catheter 2800 / 2800 2099 / 2099 Other: Date of Last Bowel Movement 12/11/17 # Bowel Movements 1 Narrative: GENERAL: NAD, A&Ox3 HEAD: Normocephalic. NECK: Supple, trachea midline. No lymphadenopathy. EYES: No scleral icterus. No injection or drainage. CARDIOVASCULAR: Regular rate and rhythm without murmurs, gallops, or rubs. RESPIRATORY: Breath sounds equal bilaterally. No accessory muscle use. GASTROINTESTINAL: Abdomen soft, non-tender, nondistended. MUSCULOSKELETAL: No cyanosis, or edema. SKIN: Warm and dry. Jaundice. NEURO: No focal neurological deficits. - Urinary Catheter Management Indwelling Urethral Catheter Cath placed during this visit: no Urethral indwelling: Yes Reason for continuing: Hourly intake/output Results - Labs CBC & Chem 7: 12/12/17 05:27 12/12/17 05:27 Laboratory Results - last 24 hr 12/11/17 12/11/17 12/11/17 12:09 12:11 18:12 WBC RBC Hgb Hct MCV MCH MCHC RDW Plt Count MPV Neut % (Auto) Lymph % (Auto) Ellis % (Auto) Eos % (Auto) Baso % (Auto) Neut # (Auto) Lymph # (Auto) Ellis # (Auto) Eos # (Auto) Baso # (Auto) WBC Differential Differential Comment Sodium Potassium Chloride Carbon Dioxide Anion Gap BUN Creatinine Estimated GFR POC Glucose 225 H 171 H 548 H* Random Glucose Calcium Prot Corrected Calcium Total Bilirubin AST ALT Alkaline Phosphatase Ammonia Total Protein Albumin 12/11/17 12/11/17 12/11/17 18:14 18:16 23:02 WBC RBC Hgb Hct MCV MCH MCHC RDW Plt Count MPV Neut % (Auto) Lymph % (Auto) Ellis % (Auto) Eos % (Auto) Baso % (Auto) Neut # (Auto) Lymph # (Auto) Ellis # (Auto) Eos # (Auto) Baso # (Auto) WBC Differential Differential Comment Sodium Potassium Chloride Carbon Dioxide Anion Gap BUN Creatinine Estimated GFR POC Glucose 79 93 134 H Random Glucose Calcium Prot Corrected Calcium Total Bilirubin AST ALT Alkaline Phosphatase Ammonia Total Protein Albumin 12/12/17 12/12/17 12/12/17 05:27 05:27 05:27 WBC 4.4 RBC 2.70 L Hgb 8.6 L Hct 25.0 L MCV 92.6 MCH 31.7 MCHC 34.2 RDW 16.5 Plt Count 117 L MPV 8.5 Neut % (Auto) 59.2 Lymph % (Auto) 28.9 Ellis % (Auto) 7.6 Eos % (Auto) 3.3 Baso % (Auto) 1.0 Neut # (Auto) 2.6 Lymph # (Auto) 1.3 Ellis # (Auto) 0.3 Eos # (Auto) 0.1 Baso # (Auto) 0.0 WBC Differential . Differential Comment Auto diff final Sodium 143 Potassium 3.3 L Chloride 105 Carbon Dioxide 32.9 H Anion Gap 5 BUN 5 L Creatinine 0.40 L Estimated GFR Greater than 89 POC Glucose Random Glucose 110 H Calcium 7.4 L* Prot Corrected Calcium 9.3 Total Bilirubin 0.3 AST 22 ALT 19 Alkaline Phosphatase 73 Ammonia 32 Total Protein 4.0 L Albumin 1.6 L 12/12/17 06:36 WBC RBC Hgb Hct MCV MCH MCHC RDW Plt Count MPV Neut % (Auto) Lymph % (Auto) Ellis % (Auto) Eos % (Auto) Baso % (Auto) Neut # (Auto) Lymph # (Auto) Ellis # (Auto) Eos # (Auto) Baso # (Auto) WBC Differential Differential Comment Sodium Potassium Chloride Carbon Dioxide Anion Gap BUN Creatinine Estimated GFR POC Glucose 113 H Random Glucose Calcium Prot Corrected Calcium Total Bilirubin AST ALT Alkaline Phosphatase Ammonia Total Protein Albumin Assessment and Plan - Plan 57-year-old female admitted secondary to GI bleeding with hemorrhagic shock. Cirrhosis present in contributory. Wean restraints off as tolerated. Seroquel 25 mg p.o. twice daily initiated. No new complaints from the patient. Her orientation is improved compared to previous day. Alcohol dependence Slightly improved today Continue CIWA protocol Restraints if needed Continue multivitamin, thiamine, and Folic acid Acute COPD exacerbation COPD Tobacco use Intubated at admit, Extubated 12/08/2017 Continue IV Solu-Medrol Continue Symbicort Albuterol/ipratropium aerosols every 6 hours with albuterol aerosols every 2 hours as needed for dyspnea Fluid overload Tachycardia Improving Off levo fed Continue Lasix Monitor fluid balance Upper and lower GI bleed Gastric ulcers Esophageal ulcers Duodenal ulcers Internal and external hemorrhoids Acute blood loss anemia requiring transfusion s/p Arteriogram and embolization of gastroduodenal artery on 12/07 Status post 4 units PRBC on admit Provided with additional 6u PRBC, 3u FFP and 1u PLT night of 8/1 Surgery following GI following Monitor CBC Ceftriaxone for SBP prophylaxis Hypokalemia Monitor and replace as needed DVT prophylaxis SCDs given active bleeding
--- NOTE | 2017-12-12 11:46 | P.PNGI ---
Subjective Interval history: Pt resting in bed, has soft wrist restraints on but they are not connected to anything. Per RN pt slipped out of chair and ended up on floor yesterday. Per RN pt had one BM today and one last night, seemed like old blood noted in stool. Pt denies any GI symptoms. Physical Exam Vital signs: Vital Signs 12/11/17 12:00 12/11/17 14:00 12/11/17 14:17 Temperature 98.2 F Pulse Rate 94 H 90 Respiratory Rate 16 20 Blood Pressure 100/59 L Pulse Oximetry 96 12/11/17 15:30 12/11/17 15:35 12/11/17 16:00 Temperature 98.9 F 98.6 F Pulse Rate 112 H 104 H 94 H Respiratory Rate 21 16 22 Blood Pressure 102/59 L 112/70 Pulse Oximetry 96 98 12/11/17 18:00 12/11/17 19:48 12/11/17 20:00 Temperature 97.8 F Pulse Rate 106 H 102 H 106 H Respiratory Rate 20 20 Blood Pressure 154/65 H Pulse Oximetry 99 12/12/17 00:00 12/12/17 02:00 12/12/17 03:45 Temperature 98.1 F Pulse Rate 100 H 100 H 87 Respiratory Rate 22 22 Blood Pressure 116/81 Pulse Oximetry 96 12/12/17 04:00 12/12/17 07:57 12/12/17 08:00 Temperature 97.6 F Pulse Rate 86 91 H 100 H Respiratory Rate 21 16 Blood Pressure 142/84 H Pulse Oximetry 97 96 Intake & Output 12/11/17 12/12/17 12/12/17 18:59 06:59 18:59 Intake Total 1260 / 1260 Output Total 2800 / 2800 2099 / 2099 Balance -1540 / -1540 -2100 / -2099 Weight 67.3 kg Intake: IV 300 / 300 Protonix Inj 80 MG In NS Inj 100 / 100 100 ML @ 10 mls/hr IV.CONT CONT NILA Rx#:[id number] Ofirmev Inj 1,000 mg In 100 ml 100 / 100 @ 400 mls/hr IV.SIG Q8H PRN Rx# :[id number] Rocephin Inj 1,000 MG In NS Inj 100 / 100 100 ML @ 200 mls/hr IV.SIG Q24H NILA Rx#:[id number] Oral 960 / 960 Output: Urine Amount (Catheter) 2800 / 2800 2099 Indwelling Urethral Catheter 2800 / 2800 2099 Other: Date of Last Bowel Movement 12/11/17 # Bowel Movements 1 - Constitutional no acute distress - Routine HEENT Exam Head: Present: normocephalic, atraumatic - Routine Respiratory Exam Absent: accessory muscle use - Routine Cardiovascular Exam Present: RRR - Routine Abdominal Exam Present: soft, normoactive bowel sounds. Absent: tenderness, distended - Routine Skin Exam Present: dry, warm - Routine Neurological Exam Present: alert. Absent: oriented X3 - Urinary Catheter Management Indwelling Urethral Catheter Cath placed during this visit: no Urethral indwelling: Yes Reason for continuing: Hourly intake/output Results - Labs CBC & Chem 7: 12/12/17 05:27 12/12/17 05:27 Laboratory Results - last 24 hr 12/11/17 12/11/17 12/11/17 12:09 12:11 18:12 WBC RBC Hgb Hct MCV MCH MCHC RDW Plt Count MPV Neut % (Auto) Lymph % (Auto) Summers % (Auto) Eos % (Auto) Baso % (Auto) Neut # (Auto) Lymph # (Auto) Summers # (Auto) Eos # (Auto) Baso # (Auto) WBC Differential Differential Comment Sodium Potassium Chloride Carbon Dioxide Anion Gap BUN Creatinine Estimated GFR POC Glucose 225 H 171 H 548 H* Random Glucose Calcium Prot Corrected Calcium Total Bilirubin AST ALT Alkaline Phosphatase Ammonia Total Protein Albumin 12/11/17 12/11/17 12/11/17 18:14 18:16 23:02 WBC RBC Hgb Hct MCV MCH MCHC RDW Plt Count MPV Neut % (Auto) Lymph % (Auto) Summers % (Auto) Eos % (Auto) Baso % (Auto) Neut # (Auto) Lymph # (Auto) Summers # (Auto) Eos # (Auto) Baso # (Auto) WBC Differential Differential Comment Sodium Potassium Chloride Carbon Dioxide Anion Gap BUN Creatinine Estimated GFR POC Glucose 79 93 134 H Random Glucose Calcium Prot Corrected Calcium Total Bilirubin AST ALT Alkaline Phosphatase Ammonia Total Protein Albumin 12/12/17 12/12/17 12/12/17 05:27 05:27 05:27 WBC 4.4 RBC 2.70 L Hgb 8.6 L Hct 25.0 L MCV 92.6 MCH 31.7 MCHC 34.2 RDW 16.5 Plt Count 117 L MPV 8.5 Neut % (Auto) 59.2 Lymph % (Auto) 28.9 Summers % (Auto) 7.6 Eos % (Auto) 3.3 Baso % (Auto) 1.0 Neut # (Auto) 2.6 Lymph # (Auto) 1.3 Summers # (Auto) 0.3 Eos # (Auto) 0.1 Baso # (Auto) 0.0 WBC Differential . Differential Comment Auto diff final Sodium 143 Potassium 3.3 L Chloride 105 Carbon Dioxide 32.9 H Anion Gap 5 BUN 5 L Creatinine 0.40 L Estimated GFR Greater than 89 POC Glucose Random Glucose 110 H Calcium 7.4 L* Prot Corrected Calcium 9.3 Total Bilirubin 0.3 AST 22 ALT 19 Alkaline Phosphatase 73 Ammonia 32 Total Protein 4.0 L Albumin 1.6 L 12/12/17 06:36 WBC RBC Hgb Hct MCV MCH MCHC RDW Plt Count MPV Neut % (Auto) Lymph % (Auto) Summers % (Auto) Eos % (Auto) Baso % (Auto) Neut # (Auto) Lymph # (Auto) Summers # (Auto) Eos # (Auto) Baso # (Auto) WBC Differential Differential Comment Sodium Potassium Chloride Carbon Dioxide Anion Gap BUN Creatinine Estimated GFR POC Glucose 113 H Random Glucose Calcium Prot Corrected Calcium Total Bilirubin AST ALT Alkaline Phosphatase Ammonia Total Protein Albumin Assessment and Plan (1) Rectal bleed Status: Acute Code(s): K62.5 - Hemorrhage of anus and rectum (2) UGIB (upper gastrointestinal bleed) Status: Deleted Code(s): K92.2 - Gastrointestinal hemorrhage, unspecified (3) Anemia requiring transfusions Status: Acute Code(s): D64.9 - Anemia, unspecified (4) Alcohol dependence Status: Deleted Code(s): F10.20 - Alcohol dependence, uncomplicated - Plan Assessment: - Anemia with reports of maroon colored stool on admission in setting of cirrhosis secondary to long-term ETOH abuse EGD (12/04) Two ulcers ranging between 3-7mm in size were found in the distal esophagus. Three ranging between 5-9mm in size ulcers were found in the gastric antrum. Four ranging between 5-9mm in size ulcers were found in the 1st part of the duodenum and duodenal bulb Colonoscopy(12/04) Colon full of blood all the way into the terminal ileum. No source of bleeding seen. Likely Small intestinal bleed. Internal and external hemorrhoids. Bleeding scan negative on 12/04 Reports of bloody stools again on 12/07- pt sent to IR for angiogram with embolization- GDA embolized On Monday morning, reports of melanotic stools again Repeat EGD on 12/10 --> There was LA Class B esophagitis noted. Two ulcers measuring 5 x 15mm in size were found in the gastric antrum and prepyloric region stomach; biopsies were taken. Large ulcer, measuring 8 x 12mm in size, was found; biopsies were taken. Normal duodenal mucosa in the 2nd part of the duodenum Retroflexed views revealed a hiatal hernia (12/11) Pt in bedside chair, tolerating liquid diet. Pt confused, knows she is in the hospital but unsure which one or what the date is. Discussed with RN Giovana, states no BM since two days ago. H/H stable. No nausea or vomiting. Pt states some abdominal pain earlier but that it has improved (12/12) Pt confused, ammonia WNL, on Xifaxan. She reportedly slipped out of chair yesterday and ended up on floor. Has soft wrist restraints on but they are currently not connected to anything. Pt denies any GI symptoms. Per RN at bedside pt had one BM today and one last night, old blood noted in stool. No nausea or vomiting. Pt is tolerating diet. H/H remains stable Plan: Monitor H/H EGD biopsy pending Xifaxan Regular diet Protonix Avoid hepatotoxins Needs to stop drinking ETOH Our service will sign off, please reconsult as needed Have pt follow up with GI after DC Pt has been seen and examined by myself and Dr. Perry and this note is written on her behalf
[2017-12-12] MEDS: Morphine Inj 4 MG/ML Vial IV.PUSH PRN ×3 (11:52→22:09)
[2017-12-12] MEDS: QUEtiapine 25 MG Tablet PO SCH (12:44)
[2017-12-12] MEDS: Pantoprazole Inj 80 MG in Sodium Chlor 0.9% Inj 100 ML IV.CONT SCH (20:27)
[2017-12-13] MEDS: LORazepam 1 MG Tablet PO PRN ×2 (00:05→12:18)
[2017-12-13] MEDS: Pantoprazole Inj 80 MG in Sodium Chlor 0.9% Inj 100 ML IV.CONT SCH (05:49)
[2017-12-13] MEDS: Morphine Inj 4 MG/ML Vial IV.PUSH PRN (05:52)
--- NOTE | 2017-12-13 08:00 | P.PNNPSY ---
- Behavior Mild: Impulsive/agitated - Psychosocial Severe: Psychosocial, Family/other adjustment, Realistic expectation, Self- esteem/confidence - Progress Notes/Response to Treatment Contents of Sessions: Adjustment, Level of consciousness Time with Patient: 15 minutes Premorbid Psychological Status: Premorbid Cognitive, Emotional and Behavioral Status: Tenuous. The patient has high school years of education and no recent work history prior to this injury. The patient has prior psychiatric difficulties, as described above. Substance abuse history includes EtOH dependence. Behavioral Reactions of Patient and Family/Support System: Tenuous. The patients family is experiencing ongoing issues of adjustment given the nature of the injury, and this aspect of recovery will require ongoing monitoring. Emotional/Behavioral Status of Patient and Family/Support System: Tenuous. Pertinent issues, if appropriate to this patients clinical care, are described in detail above. Maximizing Acute Care Outcome: This patient may benefit from low dose Seroquel 25 TID, unless medically contraindicated. At this point in the recovery process, the patient does not have cognitive capacity as the patient is unable to completely understand a situation and its likely consequences, nor is the patient able to manipulate information rationally. She exhibits compromised insight, awareness and judgment. Cognitive capacity will be assessed throughout the recovery process. Anticipated Problems: Ongoing areas of concern will include behavioral impulsivity, lack of insight and judgment, which is expected to improve with time and treatment. Treatment Plan: This clinician will continue to follow with you throughout the course of this patients critical care treatment, and I will be available to meet with the patients family/support system to facilitate their understanding and the ongoing care of their family member. The goals of neuropsychological intervention shall be both educational and supportive to the family/support system as is deemed clinically appropriate. Disinhibition Score: 22.75 Aggression Score: 14.00 Lability Score: 18.66 Agitated Behavior Total Score: 20 Impression: This 57 year old woman with history of severe alcohol dependence, liver cirrhosis and COPD admitted on 12/03/2017 for vomiting/diarrhea x 2 days. Clinically, she is presenting with fluctuating neurobehaviors consistent with withdrawal. She is on CIWA presently. Progress Note Narrative: Day 9 of hospitalization. The patient is moved to the floor. Her agitation is improved, with today ABS of 20 (22.7,14,18.7) down from 24 yesterday, indicating borderline agitation. Still on CIWA, and started Seroquel 25 BID. No other issues at present. I will follow. - Diagnosis (1) Delirium, withdrawal, alcoholic Status: Acute
[2017-12-13 08:24] LABS: Alanine Aminotransferase 17 U/L (10-53); Albumin 1.5 g/dL (3.4-5.0); Alkaline Phosphatase 71 U/L (45-117); Anion Gap 5 meq/L (5-15); Aspartate Aminotransferase 16 U/L (15-37); Blood Urea Nitrogen 7 mg/dL (7-18); Calcium 7.2 mg/dL (8.5-10.1); Carbon Dioxide 32.6 meq/L (21.0-32.0); Chloride 102 meq/L (98-107); Glomerular Filtration Rate Greater Than 89 mL/min (>89); Glucose,Random 101 mg/dL (74-106); Potassium 3.3 meq/L (3.5-5.1); Sodium 140 meq/L (136-145)
--- NOTE | 2017-12-13 09:12 | P.PNGI ---
Subjective Interval history: Pt resting in bed, able to recall her name, location, and the year. Unsure of month or date. Not in soft wrist restraints today. Denies any GI complaints at this time. <Kiesha Alexandra - Last Filed: 12/13/17 09:08> Physical Exam Vital signs: Vital Signs 12/12/17 10:00 12/12/17 12:00 12/12/17 12:22 Temperature 98.6 F Pulse Rate 100 H 110 H Respiratory Rate 20 20 Blood Pressure 94/59 L Pulse Oximetry 973 H 12/12/17 14:00 12/12/17 16:00 12/12/17 16:45 Temperature 98.8 F Pulse Rate 110 H 99 H Respiratory Rate 24 20 Blood Pressure 88/60 L Pulse Oximetry 95 12/12/17 16:49 12/12/17 18:00 12/12/17 20:00 Temperature 98.3 F Pulse Rate 93 H 99 H 106 H Respiratory Rate 15 20 Blood Pressure 129/68 Pulse Oximetry 95 12/12/17 20:06 12/12/17 21:11 12/12/17 22:00 Temperature Pulse Rate 105 H 110 H Respiratory Rate 20 Blood Pressure Pulse Oximetry 95 12/13/17 00:00 12/13/17 00:39 12/13/17 04:00 Temperature 97.6 F 97.6 F Pulse Rate 105 H 104 H 101 H Respiratory Rate 18 18 Blood Pressure 98/75 L 103/62 Pulse Oximetry 93 L 94 L 12/13/17 04:06 Temperature Pulse Rate 95 H Respiratory Rate 17 Blood Pressure Pulse Oximetry 96 Intake & Output 12/12/17 12/13/17 12/13/17 18:59 06:59 18:59 Intake Total 900 / 900 340 / 340 Output Total 1400 / 1400 Balance -500 / -500 340 / 340 Intake: IV 100 / 100 Protonix Inj 80 MG In NS Inj 100 / 100 100 ML @ 10 mls/hr IV.CONT CONT NILA Rx#:[id number] Oral 900 / 900 240 / 240 Output: Urine 1400 / 1400 Other: # Voids 2 # Urine Diapers 1 # Bowel Movements 1 - Constitutional no acute distress - Routine HEENT Exam Head: Present: normocephalic, atraumatic - Routine Respiratory Exam Absent: accessory muscle use - Routine Abdominal Exam Present: soft, normoactive bowel sounds. Absent: tenderness, distended - Routine Skin Exam Present: dry, warm - Routine Neurological Exam Present: alert. Absent: oriented X3 (oriented x 2) - Urinary Catheter Management Indwelling Urethral Catheter Cath placed during this visit: yes, but has since been removed by the nurse Urethral indwelling: Yes Reason for continuing: Decision to DC catheter Removal date: 12/12/17 Removal time: 15:00 <Kiesha Alexandra - Last Filed: 12/13/17 09:08> Vital signs: Vital Signs 12/12/17 20:00 12/12/17 20:06 12/12/17 21:11 Temperature 98.3 F Pulse Rate 106 H 105 H Respiratory Rate 20 20 Blood Pressure 129/68 Pulse Oximetry 95 95 12/12/17 22:00 12/13/17 00:00 12/13/17 00:39 Temperature 97.6 F Pulse Rate 110 H 105 H 104 H Respiratory Rate 18 Blood Pressure 98/75 L Pulse Oximetry 93 L 12/13/17 04:00 12/13/17 04:06 12/13/17 08:00 Temperature 97.6 F Pulse Rate 101 H 95 H 97 H Respiratory Rate 18 17 Blood Pressure 103/62 Pulse Oximetry 94 L 96 12/13/17 09:19 12/13/17 09:20 12/13/17 09:35 Temperature 97.7 F Pulse Rate 67 Respiratory Rate 16 16 Blood Pressure 97/61 L 138/80 Pulse Oximetry 96 96 94 L 12/13/17 09:37 12/13/17 12:00 12/13/17 16:00 Temperature 98.2 F Pulse Rate 121 H Respiratory Rate 16 16 Blood Pressure 94/61 L Pulse Oximetry 94 L 96 Intake & Output 12/12/17 12/13/17 12/13/17 18:59 06:59 18:59 Intake Total 900 / 900 340 / 340 Output Total 1400 / 1400 Balance -500 / -500 340 / 340 Intake: IV 100 / 100 Protonix Inj 80 MG In NS Inj 100 / 100 100 ML @ 10 mls/hr IV.CONT CONT NILA Rx#:[id number] Oral 900 / 900 240 / 240 Output: Urine 1400 / 1400 Other: # Voids 2 # Urine Diapers 1 # Bowel Movements 1 - Urinary Catheter Management Indwelling Urethral Catheter Cath placed during this visit: no <Meg Perry - Last Filed: 12/13/17 18:31> Results - Labs CBC & Chem 7: 12/12/17 05:27 12/13/17 06:20 Laboratory Results - last 24 hr 12/12/17 12/12/17 12/12/17 11:57 16:44 23:40 Sodium Potassium Chloride Carbon Dioxide Anion Gap BUN Creatinine Estimated GFR POC Glucose 140 H 120 H 142 H Random Glucose Calcium Prot Corrected Calcium Total Bilirubin AST ALT Alkaline Phosphatase Total Protein Albumin 12/13/17 12/13/17 05:51 06:20 Sodium 140 Potassium 3.3 L Chloride 102 Carbon Dioxide 32.6 H Anion Gap 5 BUN 7 Creatinine 0.48 L Estimated GFR Greater than 89 POC Glucose 110 Random Glucose 101 Calcium 7.2 L* Prot Corrected Calcium 9.0 Total Bilirubin 0.2 AST 16 ALT 17 Alkaline Phosphatase 71 Total Protein 4.0 L Albumin 1.5 L <Kiesha Alexandra - Last Filed: 12/13/17 09:08> - Labs CBC & Chem 7: 12/12/17 05:27 12/13/17 06:20 Laboratory Results - last 24 hr 12/12/17 12/13/17 12/13/17 23:40 05:51 06:20 Sodium 140 Potassium 3.3 L Chloride 102 Carbon Dioxide 32.6 H Anion Gap 5 BUN 7 Creatinine 0.48 L Estimated GFR Greater than 89 POC Glucose 142 H 110 Random Glucose 101 Calcium 7.2 L* Prot Corrected Calcium 9.0 Total Bilirubin 0.2 AST 16 ALT 17 Alkaline Phosphatase 71 Total Protein 4.0 L Albumin 1.5 L 12/13/17 12/13/17 12:26 18:02 Sodium Potassium Chloride Carbon Dioxide Anion Gap BUN Creatinine Estimated GFR POC Glucose 113 H 136 H Random Glucose Calcium Prot Corrected Calcium Total Bilirubin AST ALT Alkaline Phosphatase Total Protein Albumin <Meg Perry - Last Filed: 12/13/17 18:31> Assessment and Plan (1) Rectal bleed Status: Acute Code(s): K62.5 - Hemorrhage of anus and rectum (2) UGIB (upper gastrointestinal bleed) Status: Deleted Code(s): K92.2 - Gastrointestinal hemorrhage, unspecified (3) Anemia requiring transfusions Status: Acute Code(s): D64.9 - Anemia, unspecified (4) Alcohol dependence Status: Deleted Code(s): F10.20 - Alcohol dependence, uncomplicated - Plan Assessment: - Anemia with reports of maroon colored stool on admission in setting of cirrhosis secondary to long-term ETOH abuse EGD (12/04) Two ulcers ranging between 3-7mm in size were found in the distal esophagus. Three ranging between 5-9mm in size ulcers were found in the gastric antrum. Four ranging between 5-9mm in size ulcers were found in the 1st part of the duodenum and duodenal bulb Colonoscopy(12/04) Colon full of blood all the way into the terminal ileum. No source of bleeding seen. Likely Small intestinal bleed. Internal and external hemorrhoids. Bleeding scan negative on 12/04 Reports of bloody stools again on 12/07- pt sent to IR for angiogram with embolization- GDA embolized On Monday morning, reports of melanotic stools again Repeat EGD on 12/10 --> There was LA Class B esophagitis noted. Two ulcers measuring 5 x 15mm in size were found in the gastric antrum and prepyloric region stomach; biopsies were taken. Large ulcer, measuring 8 x 12mm in size, was found; biopsies were taken. Normal duodenal mucosa in the 2nd part of the duodenum Retroflexed views revealed a hiatal hernia Pathology (antrum) mild active chronic gastritis (antral ulcer) antral mucosa with reactive gastropathy. Focal foveolar hyperplasia, focal edema of the lamina propria and intestinal metaplasia. Diffuse mild active chronic gastritis (duodenum ulcer) acute inflammatory exudate and markedly reactive granulation tissue, consistent with acute ulceration. Viral inclusions are no identified (12/11) Pt in bedside chair, tolerating liquid diet. Pt confused, knows she is in the hospital but unsure which one or what the date is. Discussed with RN Giovana, states no BM since two days ago. H/H stable. No nausea or vomiting. Pt states some abdominal pain earlier but that it has improved (12/12) Pt confused, ammonia WNL, on Xifaxan. She reportedly slipped out of chair yesterday and ended up on floor. Has soft wrist restraints on but they are currently not connected to anything. Pt denies any GI symptoms. Per RN at bedside pt had one BM today and one last night, old blood noted in stool. No nausea or vomiting. Pt is tolerating diet. H/H remains stable (8/8) Pt transferred out of ICU. Seems a little more oriented today, able to recall name, location and year. Can not recall month or date. Not in soft wrist restraints any longer. No further reports of GIB Plan: Monitor H/H Xifaxan Regular diet Protonix Avoid hepatotoxins Needs to stop drinking ETOH Repeat EGD in 3 months Our service will sign off, please reconsult as needed Have pt follow up with GI after DC Pt has been seen and examined by myself and Dr. Perry and this note is written on her behalf <Kiesha Alexandra - Last Filed: 12/13/17 09:08> (1) Rectal bleed Status: Acute Code(s): K62.5 - Hemorrhage of anus and rectum (2) UGIB (upper gastrointestinal bleed) Status: Deleted Code(s): K92.2 - Gastrointestinal hemorrhage, unspecified (3) Anemia requiring transfusions Status: Acute Code(s): D64.9 - Anemia, unspecified (4) Alcohol dependence Status: Deleted Code(s): F10.20 - Alcohol dependence, uncomplicated - Attending Attestation agree with above <Meg Perry - Last Filed: 12/13/17 18:31>
[2017-12-13] MEDS: Folic Acid 1 MG Tablet PO SCH (09:22)
[2017-12-13] MEDS: rifAXIMin 550 MG Tablet PO SCH ×2 (09:22→20:42)
[2017-12-13] MEDS: QUEtiapine 25 MG Tablet PO SCH ×2 (09:22→12:19)
[2017-12-13] MEDS: Budesonide-Formoterol 160/4.5 MCG 6 GM Inhaler INH SCH ×2 (09:24→21:14)
--- NOTE | 2017-12-13 13:35 | P.PNIM ---
Subjective Interval history: No further signs of bleeding. Patient's mental status is improving. Physically she will need some physical therapy and better functionality before discharge to be considered. Today her primary complaint is pain however she is having hypotension with IV morphine. Physical Exam Vital signs: Vital Signs 12/12/17 14:00 12/12/17 16:00 12/12/17 16:45 Temperature 98.8 F Pulse Rate 110 H 99 H Respiratory Rate 24 20 Blood Pressure 88/60 L Pulse Oximetry 95 12/12/17 16:49 12/12/17 18:00 12/12/17 20:00 Temperature 98.3 F Pulse Rate 93 H 99 H 106 H Respiratory Rate 15 20 Blood Pressure 129/68 Pulse Oximetry 95 12/12/17 20:06 12/12/17 21:11 12/12/17 22:00 Temperature Pulse Rate 105 H 110 H Respiratory Rate 20 Blood Pressure Pulse Oximetry 95 12/13/17 00:00 12/13/17 00:39 12/13/17 04:00 Temperature 97.6 F 97.6 F Pulse Rate 105 H 104 H 101 H Respiratory Rate 18 18 Blood Pressure 98/75 L 103/62 Pulse Oximetry 93 L 94 L 12/13/17 04:06 12/13/17 08:00 12/13/17 09:19 Temperature Pulse Rate 95 H 97 H Respiratory Rate 17 16 Blood Pressure 97/61 L Pulse Oximetry 96 96 12/13/17 09:20 12/13/17 09:35 12/13/17 09:37 Temperature 97.7 F Pulse Rate 67 Respiratory Rate 16 Blood Pressure 138/80 Pulse Oximetry 96 94 L 94 L Intake & Output 12/12/17 12/13/17 12/13/17 18:59 06:59 18:59 Intake Total 900 / 900 340 / 340 Output Total 1400 / 1400 Balance -500 / -500 340 / 340 Intake: IV 100 / 100 Protonix Inj 80 MG In NS Inj 100 / 100 100 ML @ 10 mls/hr IV.CONT CONT NILA Rx#:[id number] Oral 900 / 900 240 / 240 Output: Urine 1400 / 1400 Other: # Voids 2 # Urine Diapers 1 # Bowel Movements 1 Narrative: GENERAL: NAD, A&Ox3 HEAD: Normocephalic. NECK: Supple, trachea midline. No lymphadenopathy. EYES: No scleral icterus. No injection or drainage. CARDIOVASCULAR: Regular rate and rhythm without murmurs, gallops, or rubs. RESPIRATORY: Breath sounds equal bilaterally. No accessory muscle use. GASTROINTESTINAL: Abdomen soft, non-tender, nondistended. MUSCULOSKELETAL: No cyanosis, or edema. SKIN: Warm and dry. Jaundice. NEURO: No focal neurological deficits. - Urinary Catheter Management Indwelling Urethral Catheter Cath placed during this visit: yes, but has since been removed by the nurse Urethral indwelling: Yes Reason for continuing: Decision to DC catheter Removal date: 12/12/17 Removal time: 15:00 Results - Labs CBC & Chem 7: 12/12/17 05:27 12/13/17 06:20 Laboratory Results - last 24 hr 12/12/17 12/12/17 12/13/17 16:44 23:40 05:51 Sodium Potassium Chloride Carbon Dioxide Anion Gap BUN Creatinine Estimated GFR POC Glucose 120 H 142 H 110 Random Glucose Calcium Prot Corrected Calcium Total Bilirubin AST ALT Alkaline Phosphatase Total Protein Albumin 12/13/17 12/13/17 06:20 12:26 Sodium 140 Potassium 3.3 L Chloride 102 Carbon Dioxide 32.6 H Anion Gap 5 BUN 7 Creatinine 0.48 L Estimated GFR Greater than 89 POC Glucose 113 H Random Glucose 101 Calcium 7.2 L* Prot Corrected Calcium 9.0 Total Bilirubin 0.2 AST 16 ALT 17 Alkaline Phosphatase 71 Total Protein 4.0 L Albumin 1.5 L Assessment and Plan - Plan 57-year-old female admitted secondary to GI bleeding with hemorrhagic shock. Cirrhosis present in contributory. Restraints wean. Continue Seroquel. Continue pain treatments with p.o. Home and discontinue IV morphine. Physical therapy to continue. Monitor hemoglobin levels. Delirium tremens improving. Alcohol dependence Delirium tremens Slightly improved today Continue [facility] protocol Restraints if needed Continue multivitamin, thiamine, and Folic acid Acute COPD exacerbation COPD Tobacco use Intubated at admit, Extubated 12/08/2017 Continue IV Solu-Medrol Continue Symbicort Albuterol/ipratropium aerosols every 6 hours with albuterol aerosols every 2 hours as needed for dyspnea Fluid overload Tachycardia Improving Off levo fed Continue Lasix Monitor fluid balance Upper and lower GI bleed Gastric ulcers Esophageal ulcers Duodenal ulcers Internal and external hemorrhoids Acute blood loss anemia requiring transfusion s/p Arteriogram and embolization of gastroduodenal artery on 12/07 Status post 4 units PRBC on admit Provided with additional 6u PRBC, 3u FFP and 1u PLT night of 12/06 Surgery following GI following Monitor CBC Ceftriaxone for SBP prophylaxis Hypokalemia Monitor and replace as needed DVT prophylaxis SCDs given active bleeding
[2017-12-13] MEDS: Insulin NovoLOG Aspart Correctional Sugar Inj SQ SCH ×3 (14:05→23:42)
[2017-12-13] MEDS ORDERED: Zolpidem Tartrate 5 MG Tablet PO ONE (23:06)
[2017-12-14] MEDS: Insulin NovoLOG Aspart Correctional Sugar Inj SQ SCH ×3 (05:18→19:44)
[2017-12-14] MEDS: rifAXIMin 550 MG Tablet PO SCH ×2 (08:06→20:57)
[2017-12-14] MEDS: Folic Acid 1 MG Tablet PO SCH (08:06)
--- NOTE | 2017-12-14 08:21 | P.PNNPSY ---
- Progress Notes/Response to Treatment Contents of Sessions: Adjustment, Level of consciousness Time with Patient: 15 minutes Premorbid Psychological Status: Premorbid Cognitive, Emotional and Behavioral Status: Tenuous. The patient has high school years of education and no recent work history prior to this injury. The patient has prior psychiatric difficulties, as described above. Substance abuse history includes EtOH dependence. Behavioral Reactions of Patient and Family/Support System: Tenuous. The patients family is experiencing ongoing issues of adjustment given the nature of the injury, and this aspect of recovery will require ongoing monitoring. Emotional/Behavioral Status of Patient and Family/Support System: Tenuous. Pertinent issues, if appropriate to this patients clinical care, are described in detail above. Maximizing Acute Care Outcome: This patient may benefit from low dose Seroquel 25 TID, unless medically contraindicated. At this point in the recovery process, the patient does not have cognitive capacity as the patient is unable to completely understand a situation and its likely consequences, nor is the patient able to manipulate information rationally. She exhibits compromised insight, awareness and judgment. Cognitive capacity will be assessed throughout the recovery process. Anticipated Problems: Ongoing areas of concern will include behavioral impulsivity, lack of insight and judgment, which is expected to improve with time and treatment. Treatment Plan: This clinician will continue to follow with you throughout the course of this patients critical care treatment, and I will be available to meet with the patients family/support system to facilitate their understanding and the ongoing care of their family member. The goals of neuropsychological intervention shall be both educational and supportive to the family/support system as is deemed clinically appropriate. Disinhibition Score: 22.75 Aggression Score: 14.00 Lability Score: 18.66 Agitated Behavior Total Score: 20 Impression: This 57 year old woman with history of severe alcohol dependence, liver cirrhosis and COPD admitted on 12/03/2017 for vomiting/diarrhea x 2 days. Clinically, she is presenting with fluctuating neurobehaviors consistent with withdrawal. She is on CIWA presently. Progress Note Narrative: Post hospitalization day 11. Her mental status is improving. Recent ABS remains at 20 (22.7, 14,18.6), but this does not appear to have been done in 24 hours. Intervention will be reordered. She has PRN Haldol that was not needed , low dose Ativan and Seroquel 25 BID. I will follow. - Diagnosis (1) Delirium, withdrawal, alcoholic Status: Acute
[2017-12-14 09:41] LABS: Baso # (Auto) 0.1 th/mm3 (0.0-0.2); Baso % (Auto) 1.9 % (0.0-2.0); Eos # (Auto) 0.1 th/mm3 (0.0-0.4); Eos % (Auto) 2.6 % (0.0-4.0); Hematocrit 26.7 % (35.0-46.0); Lymph # (Auto) 1.2 th/mm3 (1.0-4.8); Mean Corpuscular HGB Conc 33.9 % (32.0-36.0); Mean Corpuscular Volume 94.3 fL (80.0-100.0); Mean Platelet Volume 8.2 fL (7.0-11.0); Mono # (Auto) 0.4 th/mm3 (0.0-0.9); Mono % (Auto) 8.5 % (0.0-8.0); Neut # (Auto) 2.5 th/mm3 (1.8-7.7); Platelet Count 221 th/mm3 (150-450); Red Blood Count 2.83 mil/mm3 (4.00-5.30); Red Cell Distribution Width 17.2 % (11.6-17.2); White Blood Count 4.2 th/mm3 (4.0-11.0)
[2017-12-14 09:58] LABS: Albumin 1.9 g/dL (3.4-5.0); Anion Gap 9 meq/L (5-15); Aspartate Aminotransferase 23 U/L (15-37); Blood Urea Nitrogen 5 mg/dL (7-18); Calcium 7.8 mg/dL (8.5-10.1); Carbon Dioxide 30.9 meq/L (21.0-32.0); Chloride 98 meq/L (98-107); Glomerular Filtration Rate Greater Than 89 mL/min (>89); Glucose,Random 85 mg/dL (74-106); Potassium 3.1 meq/L (3.5-5.1); Sodium 138 meq/L (136-145)
[2017-12-14 09:59] LABS: Alanine Aminotransferase 19 U/L (10-53)
[2017-12-14] MEDS: QUEtiapine 25 MG Tablet PO SCH ×2 (10:00→13:28)
[2017-12-14] MEDS: Budesonide-Formoterol 160/4.5 MCG 6 GM Inhaler INH SCH ×2 (10:00→22:22)
[2017-12-14 10:01] LABS: Alkaline Phosphatase 85 U/L (45-117); Total Protein 4.8 g/dL (6.4-8.2)
[2017-12-14] MEDS ORDERED: Potassium Chloride 25 MEQ Effervescent Tablet PO ONE (13:03)
--- NOTE | 2017-12-14 13:05 | P.PNIM ---
Subjective Interval history: Mental status is at baseline. Functional status is not at baseline. Patient not yet physically ready for discharge. No further signs of bleeding. Hypokalemia is present today. Physical Exam Vital signs: Vital Signs 12/13/17 16:00 12/13/17 20:00 12/13/17 20:18 Temperature 98.4 F 98.3 F 98.4 F Pulse Rate 100 H 103 H 108 H Respiratory Rate 16 16 17 Blood Pressure 105/59 L 113/61 119/74 Pulse Oximetry 95 99 95 12/13/17 21:20 12/13/17 22:20 12/13/17 23:27 Temperature 98.3 F 98.0 F 98.0 F Pulse Rate 100 H 94 H 94 H Respiratory Rate 16 18 16 Blood Pressure 113/61 111/61 110/58 L Pulse Oximetry 99 96 95 12/14/17 00:00 12/14/17 04:00 12/14/17 08:00 Temperature 98.2 F Pulse Rate 96 H 90 100 H Respiratory Rate 18 Blood Pressure 92/54 L Pulse Oximetry 93 L 12/14/17 09:21 12/14/17 12:00 Temperature 98.2 F Pulse Rate 96 H Respiratory Rate 18 Blood Pressure 90/55 L Pulse Oximetry 93 L 98 Intake & Output 12/13/17 12/14/17 12/14/17 18:59 06:59 18:59 Intake Total 720 / 720 240 / 240 Balance 720 / 720 240 / 240 Weight 67.3 kg Intake: Oral 720 / 720 240 / 240 Other: # Voids 4 2 Date of Last Bowel Movement 12/11/17 # Bowel Movements 1 Narrative: GENERAL: NAD, A&Ox3 HEAD: Normocephalic. NECK: Supple, trachea midline. No lymphadenopathy. EYES: No scleral icterus. No injection or drainage. CARDIOVASCULAR: Regular rate and rhythm without murmurs, gallops, or rubs. RESPIRATORY: Breath sounds equal bilaterally. No accessory muscle use. GASTROINTESTINAL: Abdomen soft, non-tender, nondistended. MUSCULOSKELETAL: No cyanosis, or edema. SKIN: Warm and dry. Jaundice. NEURO: No focal neurological deficits. - Urinary Catheter Management Indwelling Urethral Catheter Cath placed during this visit: yes, but has since been removed by the nurse Urethral indwelling: Yes Reason for continuing: Decision to DC catheter Removal date: 12/12/17 Removal time: 15:00 Results - Labs CBC & Chem 7: 12/14/17 08:40 12/14/17 08:40 Laboratory Results - last 24 hr 12/13/17 12/13/17 12/14/17 18:02 23:37 05:16 WBC RBC Hgb Hct MCV MCH MCHC RDW Plt Count MPV Neut % (Auto) Lymph % (Auto) [place] % (Auto) Eos % (Auto) Baso % (Auto) Neut # (Auto) Lymph # (Auto) [place] # (Auto) Eos # (Auto) Baso # (Auto) WBC Differential Differential Comment Sodium Potassium Chloride Carbon Dioxide Anion Gap BUN Creatinine Estimated GFR POC Glucose 136 H 125 H 115 H Random Glucose Calcium Total Bilirubin AST ALT Alkaline Phosphatase Total Protein Albumin 12/14/17 12/14/17 08:40 08:40 WBC 4.2 RBC 2.83 L Hgb 9.0 L Hct 26.7 L MCV 94.3 MCH 32.0 MCHC 33.9 RDW 17.2 Plt Count 221 D MPV 8.2 Neut % (Auto) 59.0 Lymph % (Auto) 28.0 [place] % (Auto) 8.5 H Eos % (Auto) 2.6 Baso % (Auto) 1.9 Neut # (Auto) 2.5 Lymph # (Auto) 1.2 [place] # (Auto) 0.4 Eos # (Auto) 0.1 Baso # (Auto) 0.1 WBC Differential . Differential Comment Auto diff final Sodium 138 Potassium 3.1 L Chloride 98 Carbon Dioxide 30.9 Anion Gap 9 BUN 5 L Creatinine 0.51 Estimated GFR Greater than 89 POC Glucose Random Glucose 85 Calcium 7.8 L Total Bilirubin 0.3 AST 23 ALT 19 Alkaline Phosphatase 85 Total Protein 4.8 L D Albumin 1.9 L Assessment and Plan - Plan 57-year-old female admitted secondary to GI bleeding with hemorrhagic shock. Cirrhosis present and contributory. Replace potassium levels and monitor for stability. Continue physical therapy. Monitor with CMP to ensure stability of potassium level. Labs ordered for further monitoring. Alcohol dependence Delirium tremens Slightly improved today Continue CIWA protocol Restraints if needed Continue multivitamin, thiamine, and Folic acid Acute COPD exacerbation COPD Tobacco use Intubated at admit, Extubated 12/08/2017 Continue IV Solu-Medrol Continue Symbicort Albuterol/ipratropium aerosols every 6 hours with albuterol aerosols every 2 hours as needed for dyspnea Fluid overload Tachycardia Improving Off levo fed Continue Lasix Monitor fluid balance Upper and lower GI bleed Gastric ulcers Esophageal ulcers Duodenal ulcers Internal and external hemorrhoids Acute blood loss anemia requiring transfusion s/p Arteriogram and embolization of gastroduodenal artery on 12/07 Status post 4 units PRBC on admit Provided with additional 6u PRBC, 3u FFP and 1u PLT night of 12/06 Surgery following GI following Monitor CBC Ceftriaxone for SBP prophylaxis Hypokalemia Monitor and replace as needed DVT prophylaxis SCDs given active bleeding
[2017-12-15] MEDS: Insulin NovoLOG Aspart Correctional Sugar Inj SQ SCH ×4 (00:14→18:09)
[2017-12-15 05:27] LABS: Alanine Aminotransferase 19 U/L (10-53); Albumin 1.6 g/dL (3.4-5.0); Alkaline Phosphatase 72 U/L (45-117); Anion Gap 6 meq/L (5-15); Aspartate Aminotransferase 20 U/L (15-37); Blood Urea Nitrogen 5 mg/dL (7-18); Calcium 7.4 mg/dL (8.5-10.1); Carbon Dioxide 32.8 meq/L (21.0-32.0); Chloride 102 meq/L (98-107); Glomerular Filtration Rate Greater Than 89 mL/min (>89); Glucose,Random 94 mg/dL (74-106); Potassium 3.1 meq/L (3.5-5.1); Sodium 141 meq/L (136-145); Total Protein 4.1 g/dL (6.4-8.2)
--- NOTE | 2017-12-15 08:21 | P.PNNPSY ---
- Behavior Intact: Impulsive/agitated - Cognitive Intact: Cognitive, Attention/concentration, Confused/orientation, Insight/ awareness, Judgment/problem solving, Memory - Progress Notes/Response to Treatment Contents of Sessions: Adjustment Time with Patient: 15 minutes Premorbid Psychological Status: Premorbid Cognitive, Emotional and Behavioral Status: Tenuous. The patient has high school years of education and no recent work history prior to this injury. The patient has prior psychiatric difficulties, as described above. Substance abuse history includes EtOH dependence. Behavioral Reactions of Patient and Family/Support System: Tenuous. The patients family is experiencing ongoing issues of adjustment given the nature of the injury, and this aspect of recovery will require ongoing monitoring. Emotional/Behavioral Status of Patient and Family/Support System: Tenuous. Pertinent issues, if appropriate to this patients clinical care, are described in detail above. Maximizing Acute Care Outcome: This patient may benefit from low dose Seroquel 25 TID, unless medically contraindicated. At this point in the recovery process, the patient does not have cognitive capacity as the patient is unable to completely understand a situation and its likely consequences, nor is the patient able to manipulate information rationally. She exhibits compromised insight, awareness and judgment. Cognitive capacity will be assessed throughout the recovery process. Anticipated Problems: Ongoing areas of concern will include behavioral impulsivity, lack of insight and judgment, which is expected to improve with time and treatment. Treatment Plan: This clinician will continue to follow with you throughout the course of this patients critical care treatment, and I will be available to meet with the patients family/support system to facilitate their understanding and the ongoing care of their family member. The goals of neuropsychological intervention shall be both educational and supportive to the family/support system as is deemed clinically appropriate. Disinhibition Score: 19.25 Aggression Score: 17.50 Lability Score: 14.00 Agitated Behavior Total Score: 17 Impression: This 57 year old woman with history of severe alcohol dependence, liver cirrhosis and COPD admitted on 12/03/2017 for vomiting/diarrhea x 2 days. Clinically, she is presenting with fluctuating neurobehaviors consistent with withdrawal. She is on CIWA presently. Progress Note Narrative: Day 12. The patient is neurobehaviorally stable, at neuropsychological baseline. No issues of significant agitation/restlessness with ABS of 17 (19.3, 17.5,14), all subclinical. I will follow. - Diagnosis (1) Delirium, withdrawal, alcoholic Status: Acute
[2017-12-15] MEDS: Folic Acid 1 MG Tablet PO SCH (09:59)
[2017-12-15] MEDS: QUEtiapine 25 MG Tablet PO SCH ×2 (09:59→14:00)
[2017-12-15] MEDS: rifAXIMin 550 MG Tablet PO SCH ×2 (09:59→20:36)
[2017-12-15] MEDS: Budesonide-Formoterol 160/4.5 MCG 6 GM Inhaler INH SCH ×2 (10:01→22:49)
--- NOTE | 2017-12-15 14:29 | P.PNIM ---
Subjective Interval history: Slowly progressing with strength and balance. Medically improving. Will need to return to home at discharge, not yet ready for that. Physical Exam Vital signs: Vital Signs 12/14/17 16:00 12/14/17 20:00 12/15/17 00:00 Temperature 98.3 F 98.0 F 98.1 F Pulse Rate 94 H 99 H 92 H Respiratory Rate 18 18 17 Blood Pressure 107/63 124/66 113/67 Pulse Oximetry 95 98 95 12/15/17 03:29 12/15/17 04:00 12/15/17 12:25 Temperature 98.0 F Pulse Rate 92 H Respiratory Rate 6 L 17 Blood Pressure 94/55 L Pulse Oximetry 94 L 95 Intake & Output 12/14/17 12/15/17 12/15/17 18:59 06:59 18:59 Intake Total 840 / 840 100 / 100 Output Total 1000 / 1000 Balance -160 / -160 100 / 100 Weight 59.7 kg Intake: IV 100 / 100 Rocephin Inj 1,000 MG In NS Inj 100 / 100 100 ML @ 200 mls/hr IV.SIG Q24H NILA Rx#:[id number] Oral 840 / 840 Output: Urine 1000 / 1000 Other: Date of Last Bowel Movement 12/14/17 12/14/17 # Bowel Movements 1 Narrative: GENERAL: NAD, A&Ox3 HEAD: Normocephalic. NECK: Supple, trachea midline. No lymphadenopathy. EYES: No scleral icterus. No injection or drainage. CARDIOVASCULAR: Regular rate and rhythm without murmurs, gallops, or rubs. RESPIRATORY: Breath sounds equal bilaterally. No accessory muscle use. GASTROINTESTINAL: Abdomen soft, non-tender, nondistended. MUSCULOSKELETAL: No cyanosis, or edema. SKIN: Warm and dry. Jaundice. NEURO: No focal neurological deficits. - Urinary Catheter Management Indwelling Urethral Catheter Cath placed during this visit: yes, but has since been removed by the nurse Urethral indwelling: Yes Reason for continuing: Decision to DC catheter Removal date: 12/12/17 Removal time: 15:00 Results - Labs CBC & Chem 7: 12/14/17 08:40 12/15/17 04:29 Laboratory Results - last 24 hr 12/15/17 12/15/17 12/15/17 00:00 04:29 06:09 Sodium 141 Potassium 3.1 L Chloride 102 Carbon Dioxide 32.8 H Anion Gap 6 BUN 5 L Creatinine 0.48 L Estimated GFR Greater than 89 POC Glucose 120 H 144 H Random Glucose 94 Calcium 7.4 L* Prot Corrected Calcium 9.2 Total Bilirubin 0.2 AST 20 ALT 19 Alkaline Phosphatase 72 Total Protein 4.1 L D Albumin 1.6 L 12/15/17 12/15/17 08:46 13:20 Sodium Potassium Chloride Carbon Dioxide Anion Gap BUN Creatinine Estimated GFR POC Glucose 110 112 H Random Glucose Calcium Prot Corrected Calcium Total Bilirubin AST ALT Alkaline Phosphatase Total Protein Albumin Assessment and Plan - Plan 57-year-old female admitted secondary to GI bleeding with hemorrhagic shock. Cirrhosis present and contributory. Continue physical therapy 7 days per week. Monitor with CMP to ensure stability of potassium level. Labs ordered for further monitoring. Alcohol dependence Delirium tremens Slightly improved today Continue CIWA protocol Restraints if needed Continue multivitamin, thiamine, and Folic acid Acute COPD exacerbation COPD Tobacco use Intubated at admit, Extubated 12/08/2017 Continue IV Solu-Medrol Continue Symbicort Albuterol/ipratropium aerosols every 6 hours with albuterol aerosols every 2 hours as needed for dyspnea Fluid overload Tachycardia Improving Off levo fed Continue Lasix Monitor fluid balance Upper and lower GI bleed Gastric ulcers Esophageal ulcers Duodenal ulcers Internal and external hemorrhoids Acute blood loss anemia requiring transfusion s/p Arteriogram and embolization of gastroduodenal artery on 12/07 Status post 4 units PRBC on admit Provided with additional 6u PRBC, 3u FFP and 1u PLT night of 12/06 Surgery following GI following Monitor CBC Ceftriaxone for SBP prophylaxis Hypokalemia Monitor and replace as needed DVT prophylaxis SCDs given active bleeding
[2017-12-15] MEDS: Potassium Chloride 10 MEQ ER Capsule PO SCH (20:36)
[2017-12-16] MEDS: Insulin NovoLOG Aspart Correctional Sugar Inj SQ SCH ×4 (00:21→23:59)
[2017-12-16 07:10] LABS: Baso # (Auto) 0.1 th/mm3 (0.0-0.2); Baso % (Auto) 2.2 % (0.0-2.0); Eos # (Auto) 0.1 th/mm3 (0.0-0.4); Eos % (Auto) 1.9 % (0.0-4.0); Hematocrit 24.6 % (35.0-46.0); Hemoglobin 8.6 gm/dL (11.6-15.3); Lymph # (Auto) 1.7 th/mm3 (1.0-4.8); Lymph % (Auto) 43.5 % (9.0-44.0); Mean Corpuscular HGB Conc 34.8 % (32.0-36.0); Mean Corpuscular Hemoglobin 32.9 pg (27.0-34.0); Mean Corpuscular Volume 94.5 fL (80.0-100.0); Mean Platelet Volume 7.6 fL (7.0-11.0); Mono # (Auto) 0.4 th/mm3 (0.0-0.9); Mono % (Auto) 9.7 % (0.0-8.0); Neut # (Auto) 1.6 th/mm3 (1.8-7.7); Neut % (Auto) 42.7 % (16.0-70.0); Platelet Count 285 th/mm3 (150-450); Red Cell Distribution Width 18.2 % (11.6-17.2); White Blood Count 3.8 th/mm3 (4.0-11.0)
[2017-12-16 07:34] LABS: Albumin 1.7 g/dL (3.4-5.0); Anion Gap 8 meq/L (5-15); Aspartate Aminotransferase 26 U/L (15-37); Blood Urea Nitrogen 4 mg/dL (7-18); Calcium 7.6 mg/dL (8.5-10.1); Carbon Dioxide 30.2 meq/L (21.0-32.0); Chloride 103 meq/L (98-107); Glomerular Filtration Rate Greater Than 89 mL/min (>89); Glucose,Random 83 mg/dL (74-106); Potassium 3.3 meq/L (3.5-5.1); Sodium 141 meq/L (136-145)
[2017-12-16 07:38] LABS: Alanine Aminotransferase 18 U/L (10-53); Alkaline Phosphatase 77 U/L (45-117); Total Protein 4.5 g/dL (6.4-8.2)
[2017-12-16] MEDS: QUEtiapine 25 MG Tablet PO SCH ×2 (08:33→12:05)
[2017-12-16] MEDS: Budesonide-Formoterol 160/4.5 MCG 6 GM Inhaler INH SCH ×2 (08:33→20:29)
[2017-12-16] MEDS: Potassium Chloride 10 MEQ ER Capsule PO SCH ×2 (08:33→20:28)
[2017-12-16] MEDS: rifAXIMin 550 MG Tablet PO SCH ×2 (08:33→20:28)
[2017-12-16] MEDS: Folic Acid 1 MG Tablet PO SCH (08:35)
--- NOTE | 2017-12-16 16:02 | P.PNIM ---
Subjective Interval history: RN reports the patient is having intermittent confusion. No reports of any melena or hematochezia overnight. Patient herself is able to demonstrate orientation 3 today and also demonstrated insight. She says that she is behaving well so that she can get out of here in a timely fashion. Physical Exam Vital signs: Vital Signs 12/15/17 16:00 12/15/17 20:00 12/15/17 20:25 Temperature 98.4 F Pulse Rate 81 100 H 92 H Respiratory Rate 18 Blood Pressure 103/59 L Pulse Oximetry 96 12/16/17 00:00 12/16/17 04:00 12/16/17 08:00 Temperature 98.1 F 98.4 F 97.8 F Pulse Rate 95 H 84 85 Respiratory Rate 18 18 18 Blood Pressure 111/69 136/61 119/60 Pulse Oximetry 98 96 94 L 12/16/17 12:00 Temperature 98.2 F Pulse Rate 92 H Respiratory Rate 18 Blood Pressure 111/56 L Pulse Oximetry 97 Intake & Output 12/15/17 12/16/17 12/16/17 18:59 06:59 18:59 Intake Total 100 / 100 Balance 100 / 100 Weight 58.1 kg Intake: IV 100 / 100 Rocephin Inj 1,000 MG In NS Inj 100 / 100 100 ML @ 200 mls/hr IV.SIG Q24H NILA Rx#:[id number] Other: # Voids 5 Date of Last Bowel Movement 12/15/17 # Bowel Movements 1 Narrative: Abdomen soft, nontender, nondistended Awake alert, no acute distress Alert and oriented 3 - Urinary Catheter Management Indwelling Urethral Catheter Cath placed during this visit: yes, but has since been removed by the nurse Urethral indwelling: Yes Reason for continuing: Decision to DC catheter Removal date: 12/12/17 Removal time: 15:00 Results - Labs CBC & Chem 7: 12/16/17 05:35 12/16/17 05:35 Laboratory Results - last 24 hr 12/16/17 12/16/17 12/16/17 00:15 05:08 05:35 WBC 3.8 L RBC 2.60 L Hgb 8.6 L Hct 24.6 L MCV 94.5 MCH 32.9 MCHC 34.8 RDW 18.2 H Plt Count 285 MPV 7.6 Neut % (Auto) 42.7 Lymph % (Auto) 43.5 [place] % (Auto) 9.7 H Eos % (Auto) 1.9 Baso % (Auto) 2.2 H Neut # (Auto) 1.6 L Lymph # (Auto) 1.7 [place] # (Auto) 0.4 Eos # (Auto) 0.1 Baso # (Auto) 0.1 WBC Differential . Differential Comment Auto diff final Sodium Potassium Chloride Carbon Dioxide Anion Gap BUN Creatinine Estimated GFR POC Glucose 144 H 104 Random Glucose Calcium Total Bilirubin AST ALT Alkaline Phosphatase Total Protein Albumin 12/16/17 12/16/17 05:35 11:33 WBC RBC Hgb Hct MCV MCH MCHC RDW Plt Count MPV Neut % (Auto) Lymph % (Auto) [place] % (Auto) Eos % (Auto) Baso % (Auto) Neut # (Auto) Lymph # (Auto) [place] # (Auto) Eos # (Auto) Baso # (Auto) WBC Differential Differential Comment Sodium 141 Potassium 3.3 L Chloride 103 Carbon Dioxide 30.2 Anion Gap 8 BUN 4 L Creatinine 0.52 Estimated GFR Greater than 89 POC Glucose 141 H Random Glucose 83 Calcium 7.6 L Total Bilirubin 0.2 AST 26 ALT 18 Alkaline Phosphatase 77 Total Protein 4.5 L Albumin 1.7 L Assessment and Plan - Plan 57-year-old female admitted secondary to GI bleeding with hemorrhagic shock. Cirrhosis present and contributory. Continue physical therapy 7 days per week. Upper and lower GI bleed Gastric ulcers Esophageal ulcers Duodenal ulcers Internal and external hemorrhoids Acute blood loss anemia requiring transfusion s/p Arteriogram and embolization of gastroduodenal artery on 12/07 Status post 4 units PRBC on admit Provided with additional 6u PRBC, 3u FFP and 1u PLT night of 12/06 GI and surgery have signed off. Hemoglobin is stable. Stopping Rocephin Acute COPD exacerbation - improving Intubated at admit, Extubated 12/08/2017 Continue Symbicort and prednisone Duo nebs Fluid overload Continue Lasix Hypokalemia Improved, likely secondary to alcohol and low MG, rechecking mg daily supplementation and adding on Mg as warranted Alcohol withdrawal Resolved. CIWA score 0 Continue multivitamin, thiamine, and Folic acid Deconditioning PT/OT DVT prophylaxis SCDs given active bleeding Discharge Planning: Continue daily therapy. May be discharged home once home health is secured or patient's rehab disposition normalizes.
[2017-12-16] MEDS ORDERED: Potassium Chloride Inj 20 MEQ, Magnesium Sulfate Inj 2 GM in Dextrose 5%/NaCl 0.45% Inj... IV.SIG ONE (20:00)
[2017-12-17] MEDS: Insulin NovoLOG Aspart Correctional Sugar Inj SQ SCH ×3 (05:16→18:26)
[2017-12-17] MEDS: rifAXIMin 550 MG Tablet PO SCH (09:49)
[2017-12-17] MEDS: QUEtiapine 25 MG Tablet PO SCH ×2 (09:49→12:52)
[2017-12-17] MEDS: Folic Acid 1 MG Tablet PO SCH (09:49)
[2017-12-17] MEDS: Potassium Chloride 10 MEQ ER Capsule PO SCH (09:49)
[2017-12-17] MEDS: Budesonide-Formoterol 160/4.5 MCG 6 GM Inhaler INH SCH (09:50)
--- NOTE | 2017-12-17 14:36 | P.DS ---
Date of admission: 12/03/17 14:38 Primary care physician: No Primary Care Physician Brief History from admission: The patient is a 57-year-old female with history of severe alcohol dependence drinking about 20-24 beers daily, alcoholic liver cirrhosis, COPD who presented with complaints of vomiting and diarrhea since last 2 days. Intermittently she had been having hematemesis which she quantifies as approximately a pint. She also noticed fresh blood per rectum. She is a very poor historian and she is unable to tell me when or whether she had any endoscopies before. She admits to having diagnosis of liver cirrhosis. She also admits to drinking about 20-24 to beers daily. ER workup initially patient had a heart rate of 115, indicating early hemorrhagic shock. Hemoglobin was 7.6. Patient was given 1 unit of PRBC and critical care was requested for admission. Patient also received octreotide 50 mcg IV push, Protonix 80 mg bolus and infusion was started at 8 mg/h. GI consult also requested I evaluated the patient in the ED. She complains of abdominal pain appears disheveled critically ill, pale. Remains tachycardic getting first unit of blood transfusion. Will request additional 1 unit PRBC. Rocephin had been added for SBP prophylaxis. I will also start octreotide infusion. DS: Medications - Discharge Medications Prescriptions: albuterol sulfate [Proventil HFA] 2 puff INHALATION Q4-6H PRN #1 inh PRN Reason: Shortness Of Breath Or Wheezing budesonide-formoterol [Symbicort] 2 puff INH BID #1 inh folic acid 1 mg PO DAILY #30 tab furosemide 40 mg PO DAILY #30 tab pantoprazole 40 mg PO BID #60 tab potassium chloride 10 meq PO BID #60 cap quetiapine 25 mg PO BID@0900,1200 #60 tab thiamine HCl (vitamin B1) 100 mg PO DAILY #30 tab tramadol 50 mg PO Q8H #9 tab DS: Summary Hospital Course: Patient was admitted. Initially transfused with blood and started on Protonix and octreotide drips. GI performed EGD revealing esophageal gastric and duodenal ulcers. Colonoscopy showed shorty blood throughout with nonbleeding internal and external hemorrhoids. Due to worsening hypotension and anemia, patient was intubated. Interventional radiology performed GDA embolization due to persistent anemia and the necessity for an additional 6 units of packed red blood cells as well as fresh frozen plasma and platelets. Patient was eventually extubated with stabilization of her hemoglobin and no further signs of hematochezia nor melena. - Time Spent with Patient Total time spent providing and/or coordinating discharge services: Less than 30 minutes - Quality: VTE Deep Vein Thrombosis/Pulmonary Embolism Present on Admission: No Exam Vital signs: Vital Signs 12/16/17 16:00 12/16/17 19:45 12/16/17 19:46 Temperature 98.1 F Pulse Rate 92 H 99 H Respiratory Rate 18 18 Blood Pressure 134/74 Pulse Oximetry 97 12/16/17 20:00 12/16/17 23:54 12/17/17 00:00 Temperature 98.1 F 98.1 F Pulse Rate 98 H 90 95 H Respiratory Rate 16 20 Blood Pressure 111/61 125/75 Pulse Oximetry 94 L 99 12/17/17 03:44 12/17/17 04:00 12/17/17 07:00 Temperature 98.1 F Pulse Rate 88 95 H 78 Respiratory Rate 16 Blood Pressure 119/60 Pulse Oximetry 97 12/17/17 08:00 Temperature 98 F Pulse Rate 81 Respiratory Rate 18 Blood Pressure 117/74 Pulse Oximetry 98 Intake & Output 12/16/17 12/17/17 12/17/17 18:59 06:59 18:59 Intake Total 580 / 580 480 / 480 Output Total 1775 / 1775 Balance 580 / 580 -1295 / -1295 Weight 54.7 kg Intake: IV 100 / 100 Rocephin Inj 1,000 MG In NS Inj 100 / 100 100 ML @ 200 mls/hr IV.SIG Q24H NILA Rx#:[id number] Oral 480 / 480 480 / 480 Output: Urine 1775 / 1775 Other: # Voids 4 Date of Last Bowel Movement 12/17/17 Narrative: Abdomen soft, nontender, nondistended Lying in bed, awake and alert, no acute distress Oriented to person and place, partially oriented to time (does not know the month but knows the season), knows that it is 2017, has intact insight into her medical condition. Results Procedures completed during hospitalization: 2 EGDs, 2 colonoscopies Packed red blood cell transfusions GDA embolization Completed studies during hospitalization: Pending at discharge 12/10/17 07:23 Surgical [PTH] Routine Labs on day of discharge: Labs from last 24 hours 12/17/17 12/17/17 12/16/17 12:16 05:16 23:57 POC Glucose 123 H 114 H 161 H Magnesium 12/16/17 16:33 POC Glucose Magnesium 1.6 - Impressions ITS Impressions Abdomen X-Ray 12/03/17 08:58 CONCLUSION: Nonspecific bowel gas . GI Bleed Scan Nuclear Medicine 12/04/17 14:06 CONCLUSION: 1. Negative GI bleeding scan Abdomen/Pelvis CT 12/06/17 14:36 CONCLUSION: 1. Steatosis. 2. Bilateral lower lobe consolidation and atelectasis with large bilateral pleural effusions. 3. Small hiatal hernia. 4. Atherosclerosis. 5. Body wall edema. 6. Bilateral renal scarring. Abdomen Arteriogram 12/07/17 00:00 CONCLUSION: 1. Uncomplicated embolization of the gastroduodenal artery. Chest X-Ray 12/11/17 06:00 CONCLUSION: Stable appearance of the chest. Discharge Plan - Discharge Disposition Patient Disposition: Discharge Home - Discharge Condition Condition: Critical - Discharge Order Discharge Orders: Discharge Order (Routine); Ordered 12/17/17 Ordered By: Darrel Rodney - Physicians Team Primary Care Provider: Primary Care Connie Billy Attending Provider: Darrel Rodney Other Providers: Anthony Damian MD ; Surgeons,[facility] ; Neil Galan, PhD
== END 2017-12-17 19:35 | disposition home or self-care (01) ==
LOC: NEPC 08:36 → NEDA 14:38 → N03 17:39 → N04 12-12 22:55
PROVIDERS: ADMIT Hospitalist; ATTEND Hospitalist
PROC: PANENDO (2017-12-04 13:10)
PROC: COLONOS (2017-12-04 13:10)

== ENCOUNTER 2018-01-05 19:59 | Inpatient (IN) ==
--- NOTE | 2018-01-05 22:56 | XR ---
EXAM DATE: 01/05/2018 10:50 PM EDT AGE/SEX: 57 years / Female INDICATIONS: Shortness of breath. CLINICAL DATA: This is the patient's initial encounter. Patient reports that signs and symptoms have been present for 1 day and indicates a pain score of 0/10. MEDICAL/SURGICAL HISTORY: None. None. COMPARISON: [facility] [place], CHEST 1V SINGLE AP, 12/11/2017. . FINDINGS: The heart size is normal. There is mild increased density at the left base. The right lung is grossly clear. No effusion is seen. CONCLUSION: Suspected mild atelectasis or consolidation at the left base. Electronically signed by: Phillip Lopez MD 01/05/2018 10:55 PM EDT
[2018-01-05 22:58] LABS: Baso % (Auto) 0.7 % (0.0-2.0); Eos # (Auto) 0.3 th/mm3 (0.0-0.4); Eos % (Auto) 4.8 % (0.0-4.0); Hematocrit 38.5 % (35.0-46.0); Hemoglobin 12.8 gm/dL (11.6-15.3); Lymph # (Auto) 2.5 th/mm3 (1.0-4.8); Lymph % (Auto) 37.3 % (9.0-44.0); Mean Corpuscular HGB Conc 33.2 % (32.0-36.0); Mean Corpuscular Hemoglobin 32.8 pg (27.0-34.0); Mean Corpuscular Volume 98.8 fL (80.0-100.0); Mean Platelet Volume 7.5 fL (7.0-11.0); Mono # (Auto) 0.3 th/mm3 (0.0-0.9); Mono % (Auto) 4.6 % (0.0-8.0); Neut # (Auto) 3.5 th/mm3 (1.8-7.7); Neut % (Auto) 52.6 % (16.0-70.0); Platelet Count 210 th/mm3 (150-450); Red Cell Distribution Width 19.2 % (11.6-17.2); White Blood Count 6.7 th/mm3 (4.0-11.0)
--- NOTE | 2018-01-05 22:58 | XR ---
EXAM DATE: 01/05/2018 10:49 PM EDT AGE/SEX: 57 years / Female INDICATIONS: Left ankle pain, fall. CLINICAL DATA: This is the patient's initial encounter. Patient reports that signs and symptoms have been present for 1 day and indicates a pain score of 10/10. MEDICAL/SURGICAL HISTORY: None. None. COMPARISON: No prior exams available for comparison. FINDINGS: There is soft tissue swelling especially laterally. The ankle appears normally aligned. Fracture is n ot clearly seen. There is very prominent hypertrophic change at the posterior calcaneus at the Achill es and to lesser grade plantar aponeurosis attachment sites. CONCLUSION: Prominent soft tissue swelling. Chronic hypertrophic change at the posterior calcaneus. Electronically signed by: Phillip Lopez MD 01/05/2018 10:56 PM EDT
[2018-01-05 23:40] LABS: Albumin 2.8 g/dL (3.4-5.0); Anion Gap 15 meq/L (5-15); Aspartate Aminotransferase 48 U/L (15-37); Calcium 8.5 mg/dL (8.5-10.1); Carbon Dioxide 13.8 meq/L (21.0-32.0); Chloride 99 meq/L (98-107); Glomerular Filtration Rate Greater Than 89 mL/min (>89); Glucose,Random 63 mg/dL (74-106); Potassium 4.6 meq/L (3.5-5.1); Sodium 128 meq/L (136-145)
[2018-01-05] MEDS ORDERED: Morphine Inj 4 MG/ML Vial IV.PUSH ONE (23:50)
[2018-01-05 23:57] LABS: Alanine Aminotransferase 22 U/L (10-53); Alkaline Phosphatase 163 U/L (45-117); Blood Urea Nitrogen 2 mg/dL (7-18); Total Protein 7.5 g/dL (6.4-8.2)
[2018-01-06 00:01] LABS: Activated Partial Thrombo Time 42.9 sec (24.3-30.1); Prothrombin Time 63.4 sec (9.8-11.6)
[2018-01-06 00:04] LABS: Creatine Kinase 84 U/L (26-192); INR 6.3 Ratio
[2018-01-06] MEDS ORDERED: Pantoprazole Inj 80 MG in Sodium Chlor 0.9% Inj 100 ML IV.CONT SCH (01:00)
[2018-01-06] MEDS ORDERED: Bisacodyl 10 MG Supp RECTAL PRN (01:24)
--- NOTE | 2018-01-06 01:32 | P.HPCC ---
<Salvador Degroot - Last Filed: 01/06/18 04:48> History of Present Illness Primary Care Physician: No Primary Care Physician History of Present Illness: 57-year-old female with alcoholic liver disease, however no documented varices, history of arthritis, asthma, bipolar disorder, anxiety, COPD, hypertension and chronic pancreatitis presents with episode of vomiting copious amount of fresh blood. Patient denies fever, chills, abdominal or chest pain, diarrhea or melanotic stool. Denies any change of appetite. Review of Systems All other systems reviewed negative except as stated in HPI PMFSH - History History Provided By: Patient, Family Member - Medical History Medical History: Medical History (Last Updated 01/05/18 @ 20:27 by Rosemarie Osuna) Asthma (Acute) Hypertension (Acute) Cirrhosis (Acute) History of rupture of uterus - Surgical History Surgical History: Surgical History (Last Reviewed 01/05/18 @ 20:27 by Rosemarie Osuna) History of appendectomy (Acute) - Tobacco History Second Hand Smoke Exposure: Yes Tobacco Use In Past 30 Days: Yes Smoking Status: Current every day smoker Tobacco Type: Cigarettes - Alcohol History How Often Do You Have a Drink Containing Alcohol: 4 or more times a week - Substance Use History Substance History: No History of Abuse - Travel History Recent Travel Out of the Country Within the Last 8 Weeks: No - Immunization History Tetanus Immunization: Unsure Medications and Allergies Allergies Allergy/AdvReac Type Severity Reaction Status Date / Time No Known Allergies Allergy Verified 01/05/18 22:05 Active Medications: Active Medications Budesonide/Formoterol Fumarate (Symbicort 160/4.5 Mcg Inh) 2 puff INH BID [facility] Pantoprazole Sodium 80 mg/ (Sodium Chloride) 100 mls @ 10 mls/hr IV.CONT CONT [facility] Phytonadione 10 mg/ Dextrose 51 mls @ 51 mls/hr IV.SIG ONCE ONE Stop: 01/06/18 01:44 Quetiapine Fumarate (Seroquel) 25 mg PO BID@0900,1200 [facility] Current Medications Acetaminophen (Tylenol) 650 mg PO Q6H PRN PRN Reason: PAIN 1-10 AND/OR FEVER >101F Al Hydroxide/Mg Hydroxide (Milk Of Magnesia Liq) 30 ml PO Q12H PRN PRN Reason: Mild Constipation Albuterol (Duoneb Neb (Prn)) 1 ampul NEB Q2HR NEB PRN PRN Reason: WHEEZING Albuterol (Duoneb Neb (Lizandro)) 1 ampul NEB Q6HR NEB [facility] Bisacodyl (Dulcolax Supp) 10 mg RECTAL DAILY PRN PRN Reason: SEVERE CONSITIPATION Budesonide/Formoterol Fumarate (Symbicort 160/4.5 Mcg Inh) 2 puff INH BID [facility] Chlorhexidine Gluconate (Chlorhexidine 2% Cloth) 3 pack TOPICAL DAILY@0400 [facility] Stop: 01/11/18 03:59 Chlorhexidine Gluconate (Chlorhexidine 2% Cloth) 3 pack TOPICAL DAILY@0400 PRN PRN Reason: Extra cloth needed Stop: 01/11/18 03:59 Pantoprazole Sodium 80 mg/ (Sodium Chloride) 100 mls @ 10 mls/hr IV.CONT CONT [facility] Sodium Chloride (Ns Inj) 1,000 mls @ 124 mls/hr IV.CONT .Q8H4M [facility] Last Admin: 01/06/18 01:59 Dose: 124 mls/hr Multivitamins 10 ml/ Thiamine HCl 100 mg/ Folic Acid 1 mg/Sodium Chloride 511.2 mls @ 127.8 mls/hr IV.SIG DAILY [facility] Lactulose (Lactulose Liq) 30 ml PO DAILY PRN PRN Reason: SEVERE CONSITIPATION Lorazepam (Ativan Inj) 1 mg IV.PUSH Q1H PRN PRN Reason: Agitation/sedation Metoclopramide HCl (Reglan Inj) 5 mg IV.PUSH Q6HR [facility]; Protocol Morphine Sulfate (Morphine Inj) 2 mg IV.PUSH Q2H PRN PRN Reason: PAIN SCALE 6 TO 10 Ondansetron HCl (Zofran Inj) 4 mg IV.PUSH Q6H PRN PRN Reason: NAUSEA OR VOMITING Pantoprazole Sodium (Protonix Inj) 40 mg IV.PUSH Q12H [facility] Quetiapine Fumarate (Seroquel) 25 mg PO BID@0900,1200 [facility] Senna/Docusate Sodium (Flor-Colace) 1 tab PO BID [facility] Sennosides (Senokot) 17.2 mg PO Q12H PRN PRN Reason: Moderate Constipation Sodium Chloride (Ns Flush) 2 ml IV.FLUSH BID [facility] Sodium Chloride (Ns Flush) 2 ml IV.FLUSH PRN PRN PRN Reason: FLUSH AFTER USING IV ACCESS Results - Labs CBC & Chem 7: 01/05/18 22:38 01/05/18 22:38 Labs: Short CBC 01/05/18 Range/Units 22:38 WBC 6.7 (4.0-11.0) th/mm3 Hgb 12.8 (11.6-15.3) gm/dL Hct 38.5 (35.0-46.0) % Plt Count 210 (150-450) th/mm3 BMP 01/05/18 22:38 Sodium 128 L Potassium 4.6 Chloride 99 Carbon Dioxide 13.8 L BUN 2 L Creatinine 0.66 Calcium 8.5 Cardiac Enzymes 01/05/18 Range/Units 22:38 Total Creatine Kinase 84 (26-192) U/L Troponin I Less than 0.02 L (0.02-0.05) ng/mL Liver Function 01/05/18 Range/Units 22:38 Total Bilirubin 0.3 (0.2-1.0) mg/dL AST 48 H (15-37) U/L ALT 22 (10-53) U/L Alkaline Phosphatase 163 H (45-117) U/L Albumin 2.8 L (3.4-5.0) g/dL - Imaging Impressions Ankle X-Ray 01/05/18 22:14 CONCLUSION: Prominent soft tissue swelling. Chronic hypertrophic change at the posterior calcaneus. Chest X-Ray 01/05/18 22:14 CONCLUSION: Suspected mild atelectasis or consolidation at the left base. Exam Vital signs: Vital Signs 01/05/18 20:12 01/06/18 00:30 Temperature 97.9 F Pulse Rate 93 H 96 H Respiratory Rate 18 19 Blood Pressure 151/91 H 136/75 Pulse Oximetry 100 96 Intake & Output 01/05/18 01/05/18 01/06/18 06:59 18:59 06:59 Weight 63.503 kg - Constitutional no acute distress - Routine HEENT Exam Head: Present: normocephalic, atraumatic Eye: Present: EOMI, PERRL ENT: Present: mucous membranes moist - Routine Neck Exam Present: supple, full ROM. Absent: JVD, carotid bruit - Routine Respiratory Exam Absent: accessory muscle use, rhonchi, stridor, wheezes - Routine Cardiovascular Exam Present: RRR, S1, S2. Absent: JVD - Routine Abdominal Exam Present: soft, normoactive bowel sounds. Absent: tenderness, distended - Routine Extremities Exam Absent: cyanosis, clubbing, edema - Routine Skin Exam Present: intact. Absent: cyanosis, erythema - Routine Neurological Exam Present: alert, oriented X3, moving all extremities, normal speech. Absent: facial asymmetry Caprini VTE Risk Assessment Caprini VTE Risk Assessment: Moderate/High Risk (score >= 2) VTE Pharmacological Exception Reason: Hemorrhage Caprini Risk Assessment Model: Point Value = 1 Point Value = 2 Point Value = 3 Point Value = 5 Age 41-60 Minor surgery BMI > 25 kg/m2 Swollen legs Varicose veins or History of unexplained or recurrent spontaneous Oral contraceptives or hormone replacement Sepsis (< 1 month) Serious lung disease, including pneumonia (< 1 month) Abnormal pulmonary function Acute myocardial infarction Congestive heart failure (< 1 month) History of inflammatory bowel disease Medical patient at bed rest Age 61-74 Arthroscopic surgery Major open surgery (> 45 min) Laparoscopic surgery (> 45 min) Malignancy Confined to bed (> 72 hours) Immobilizing plaster cast Central venous access Age >= 75 History of VTE Family history of VTE Factor V Leiden Prothrombin [id number] Lupus anticoagulant Anticardiolipin antibodies Elevated serum homocysteine Heparin-induced thrombocytopenia Other congenital or acquired thrombophilia Stroke (< 1 month) Elective arthroplasty Hip, pelvis, or leg fracture Acute spinal cord injury (< 1 month) Prophylaxis Regimen: Total Risk Factor Score Risk Level Prophylaxis Regimen 0-1 Low Early ambulation 2 Moderate Order ONE of the following: *Sequential Compression Device (SCD) *Heparin 5000 units SQ BID 3-4 Higher Order ONE of the following medications: *Heparin 5000 units SQ TID *Enoxaparin/Lovenox 40 mg SQ daily (WT < 150 kg, CrCl > 30 mL/min) *Enoxaparin/Lovenox 30 mg SQ daily (WT < 150 kg, CrCl > 10-29 mL/min) *Enoxaparin/Lovenox 30 mg SQ BID (WT < 150 kg, CrCl > 30 mL/min) AND/OR *Sequential Compression Device (SCD) 5 or more Highest Order ONE of the following medications: *Heparin 5000 units SQ TID (Preferred with Epidurals) *Enoxaparin/Lovenox 40 mg SQ daily (WT < 150 kg, CrCl > 30 mL/min) *Enoxaparin/Lovenox 30 mg SQ daily (WT < 150 kg, CrCl > 10-29 mL/min) *Enoxaparin/Lovenox 30 mg SQ BID (WT < 150 kg, CrCl > 30 mL/min) AND *Sequential Compression Device (SCD) Assessment and Plan - Assessment and Plan Plan: Hematemesis -Admit to ICU -N.p.o. -Protonix IV twice daily -No history of varices, no SBP prophylaxis indicated -Gastroenterology consultation Alcohol use disorder -CIWA protocol -Monitor for withdrawal -Ativan as needed COPD -No exacerbation -No indication for steroid -DuoNeb scheduled and as needed Anxiety -Ativan as needed -Quetiapine DVT GI prophylaxis -Teds SCDs -No pharmacological DVT prophylaxis due to acute GI bleed -Protonix IV twice daily 35 minutes of critical care <ZeeshanadalbertoAriel - Last Filed: 01/06/18 14:09> History of Present Illness Primary Care Physician: No Primary Care Physician Inpatient Certification: I certify that the inpatient services were ordered in accordance with Medicare regulations governing the order. This includes certification that hospital inpatient services are reasonable and necessary and in the case of services not specified as inpatient-only under 42 CFR 419.22(n), that they are appropriately provided as inpatient services in accordance to with the 2-midnight benchmark under 43 CFR 412.3(e) [facility] - Medical History Medical History: Medical History (Last Updated 01/05/18 @ 20:27 by Rosemarie Osuna) Asthma (Acute) Hypertension (Acute) Cirrhosis (Acute) History of rupture of uterus - Surgical History Surgical History: Surgical History (Last Reviewed 01/05/18 @ 20:27 by Rosemarie Osuna) History of appendectomy (Acute) Medications and Allergies Active Medications: Active Medications Acetaminophen (Tylenol) 650 mg PO Q6H PRN PRN Reason: PAIN 1-10 AND/OR FEVER >101F Al Hydroxide/Mg Hydroxide (Milk Of Magnesia Liq) 30 ml PO Q12H PRN PRN Reason: Mild Constipation Albuterol (Duoneb Neb (Prn)) 1 ampul NEB Q2HR NEB PRN PRN Reason: WHEEZING Last Admin: 01/06/18 08:08 Dose: 1 ampul Albuterol (Duoneb Neb (Lizandro)) 1 ampul NEB Q6HR NEB [facility] Bisacodyl (Dulcolax Supp) 10 mg RECTAL DAILY PRN PRN Reason: SEVERE CONSITIPATION Budesonide/Formoterol Fumarate (Symbicort 160/4.5 Mcg Inh) 2 puff INH BID [facility] Chlorhexidine Gluconate (Chlorhexidine 2% Cloth) 3 pack TOPICAL DAILY@0400 [facility] Stop: 01/11/18 03:59 Last Admin: 01/06/18 07:54 Dose: 3 pack Chlorhexidine Gluconate (Chlorhexidine 2% Cloth) 3 pack TOPICAL DAILY@0400 PRN PRN Reason: Extra cloth needed Stop: 01/11/18 03:59 Pantoprazole Sodium 80 mg/ (Sodium Chloride) 100 mls @ 10 mls/hr IV.CONT CONT [facility] Sodium Chloride (Ns Inj) 1,000 mls @ 124 mls/hr IV.CONT .Q8H4M [facility] Last Admin: 01/06/18 10:09 Dose: 124 mls/hr Multivitamins 10 ml/ Thiamine HCl 100 mg/ Folic Acid 1 mg/Sodium Chloride 511.2 mls @ 127.8 mls/hr IV.SIG DAILY [facility] Last Infusion: 01/06/18 09:30 Dose: Infused Lactulose (Lactulose Liq) 30 ml PO DAILY PRN PRN Reason: SEVERE CONSITIPATION Lorazepam (Ativan Inj) 1 mg IV.PUSH Q1H PRN PRN Reason: Agitation/sedation Metoclopramide HCl (Reglan Inj) 5 mg IV.PUSH Q6HR [facility]; Protocol Last Admin: 01/06/18 11:55 Dose: 5 mg Morphine Sulfate (Morphine Inj) 2 mg IV.PUSH Q2H PRN PRN Reason: PAIN SCALE 6 TO 10 Last Admin: 01/06/18 14:05 Dose: 2 mg Ondansetron HCl (Zofran Inj) 4 mg IV.PUSH Q6H PRN PRN Reason: NAUSEA OR VOMITING Pantoprazole Sodium (Protonix Inj) 40 mg IV.PUSH Q12H [facility] Last Admin: 01/06/18 14:05 Dose: 40 mg Quetiapine Fumarate (Seroquel) 25 mg PO BID@0900,1200 [facility] Last Admin: 01/06/18 11:55 Dose: 25 mg Senna/Docusate Sodium (Flor-Colace) 1 tab PO BID [facility] Last Admin: 01/06/18 09:41 Dose: 1 tab Sennosides (Senokot) 17.2 mg PO Q12H PRN PRN Reason: Moderate Constipation Sodium Chloride (Ns Flush) 2 ml IV.FLUSH BID [facility] Last Admin: 01/06/18 09:41 Dose: 2 ml Sodium Chloride (Ns Flush) 2 ml IV.FLUSH PRN PRN PRN Reason: FLUSH AFTER USING IV ACCESS Results - Labs CBC & Chem 7: 01/06/18 12:26 01/05/18 22:38 Labs: Short CBC 01/05/18 01/06/18 Range/Units 22:38 12:26 WBC 6.7 5.9 (4.0-11.0) th/mm3 Hgb 12.8 10.2 L D (11.6-15.3) gm/dL Hct 38.5 30.6 L (35.0-46.0) % Plt Count 210 175 (150-450) th/mm3 BMP 01/05/18 22:38 Sodium 128 L Potassium 4.6 Chloride 99 Carbon Dioxide 13.8 L BUN 2 L Creatinine 0.66 Calcium 8.5 Cardiac Enzymes 01/05/18 Range/Units 22:38 Total Creatine Kinase 84 (26-192) U/L Troponin I Less than 0.02 L (0.02-0.05) ng/mL Liver Function 01/05/18 Range/Units 22:38 Total Bilirubin 0.3 (0.2-1.0) mg/dL AST 48 H (15-37) U/L ALT 22 (10-53) U/L Alkaline Phosphatase 163 H (45-117) U/L Albumin 2.8 L (3.4-5.0) g/dL - Imaging Impressions Ankle X-Ray 01/05/18 22:14 CONCLUSION: Prominent soft tissue swelling. Chronic hypertrophic change at the posterior calcaneus. Chest X-Ray 01/05/18 22:14 CONCLUSION: Suspected mild atelectasis or consolidation at the left base. Exam Vital signs: Vital Signs 01/05/18 20:12 01/06/18 00:30 01/06/18 03:58 Temperature 97.9 F Pulse Rate 93 H 96 H 94 H Respiratory Rate 18 19 16 Blood Pressure 151/91 H 136/75 116/78 Pulse Oximetry 100 96 01/06/18 05:00 01/06/18 06:00 01/06/18 08:00 Temperature 97.7 F 97.7 F Pulse Rate 99 H 100 H Respiratory Rate 15 18 16 Blood Pressure 132/75 129/78 Pulse Oximetry 100 100 01/06/18 08:09 01/06/18 11:39 01/06/18 11:57 Temperature 97.8 F Pulse Rate 104 H 98 H Respiratory Rate 18 22 20 Blood Pressure 108/62 Pulse Oximetry 100 01/06/18 12:00 Temperature Pulse Rate Respiratory Rate 22 Blood Pressure Pulse Oximetry Intake & Output 01/05/18 01/06/18 01/06/18 18:59 06:59 18:59 Intake Total 0 / 0 1762.2 / 1762.2 Output Total 300 / 300 0 / 0 Balance -300 / -300 1762.2 / 1762.2 Weight 50.5 kg Intake: IV 1511.2 / 1511.2 NS Inj 1,000 ML @ 124 mls/hr IV 1000 / 1000 .CONT .Q8H4M [facility] Rx#:[id number] MVI-12 Inj 10 ML Thiamine Inj 511.2 / 511.2 100 MG Folvite Inj 1 MG In NS Inj 500 ML @ 127.8 mls/hr IV. SIG DAILY [facility] Rx#:[id number] Oral 0 / 0 0 / 0 Intake (Blood Product) Amt 251 / 251 Plasma Thawed 5 Day Cp2d Unit 251 / 251 [id number] Output: Urine 300 / 300 0 / 0 Stool 0 / 0 Urine/Stool Mix 0 / 0 Emesis 0 / 0 Other: Date of Last Bowel Movement 01/05/18 01/05/18 # Bowel Movements 0 # Incontinent Bowel Movements 0 # Emeses 0 Weight On Admission 50.5 kg Caprini VTE Risk Assessment Caprini Risk Assessment Model: Point Value = 1 Point Value = 2 Point Value = 3 Point Value = 5 Age 41-60 Minor surgery BMI > 25 kg/m2 Swollen legs Varicose veins or History of unexplained or recurrent spontaneous Oral contraceptives or hormone replacement Sepsis (< 1 month) Serious lung disease, including pneumonia (< 1 month) Abnormal pulmonary function Acute myocardial infarction Congestive heart failure (< 1 month) History of inflammatory bowel disease Medical patient at bed rest Age 61-74 Arthroscopic surgery Major open surgery (> 45 min) Laparoscopic surgery (> 45 min) Malignancy Confined to bed (> 72 hours) Immobilizing plaster cast Central venous access Age >= 75 History of VTE Family history of VTE Factor V Leiden Prothrombin [id number] Lupus anticoagulant Anticardiolipin antibodies Elevated serum homocysteine Heparin-induced thrombocytopenia Other congenital or acquired thrombophilia Stroke (< 1 month) Elective arthroplasty Hip, pelvis, or leg fracture Acute spinal cord injury (< 1 month) Prophylaxis Regimen: Total Risk Factor Score Risk Level Prophylaxis Regimen 0-1 Low Early ambulation 2 Moderate Order ONE of the following: *Sequential Compression Device (SCD) *Heparin 5000 units SQ BID 3-4 Higher Order ONE of the following medications: *Heparin 5000 units SQ TID *Enoxaparin/Lovenox 40 mg SQ daily (WT < 150 kg, CrCl > 30 mL/min) *Enoxaparin/Lovenox 30 mg SQ daily (WT < 150 kg, CrCl > 10-29 mL/min) *Enoxaparin/Lovenox 30 mg SQ BID (WT < 150 kg, CrCl > 30 mL/min) AND/OR *Sequential Compression Device (SCD) 5 or more Highest Order ONE of the following medications: *Heparin 5000 units SQ TID (Preferred with Epidurals) *Enoxaparin/Lovenox 40 mg SQ daily (WT < 150 kg, CrCl > 30 mL/min) *Enoxaparin/Lovenox 30 mg SQ daily (WT < 150 kg, CrCl > 10-29 mL/min) *Enoxaparin/Lovenox 30 mg SQ BID (WT < 150 kg, CrCl > 30 mL/min) AND *Sequential Compression Device (SCD) Assessment and Plan - Assessment and Plan Plan: Seen and examined. Hemoglobin currently 10.2. Hemodynamically stable. Received vitamin K and fresh frozen plasma. Awaiting GI evaluation
[2018-01-06] MEDS: Sod Chloride 0.9% Inj 1,000 ML IV.CONT SCH ×3 (01:59→18:46)
[2018-01-06] MEDS: Pantoprazole Inj 40 MG Vial IV.PUSH SCH ×2 (03:36→14:05)
[2018-01-06] MEDS: Multivitamin Inj 10 ML, Thiamine Inj 100 MG, Folic Acid Inj 1 MG in Sodium Chlor 0.9% I... IV.SIG SCH (03:57)
[2018-01-06] MEDS ORDERED: Chlorhexidine Gluconate 2% 1 Pack (2 Cloths) TOPICAL PRN (04:00)
--- NOTE | 2018-01-06 04:10 | ED ---
HPI General Chief complaint: GI Bleed Stated complaint: GI Time Seen by Provider: 01/05/18 22:11 History of Present Illness HPI Narrative: Patient is a 57-year-old female presents the emergency department with complaints of vomiting blood. Patient is a known cirrhotic and daily drinker. Patient is a terrible historian therefore the history was obtained from past records. She was actually hospitalized for upper GI bleed and was given 6 units of blood for hemorrhagic shock. Related Data Previous Rx's Medication Instructions Recorded albuterol sulfate [Proventil HFA] 2 puff INHALATION Q4-6H PRN #1 inh 12/17/17 budesonide-formoterol [Symbicort] 2 puff INH BID #1 inh 12/17/17 folic acid 1 mg PO DAILY #30 tab 12/17/17 furosemide 40 mg PO DAILY #30 tab 12/17/17 pantoprazole 40 mg PO BID #60 tab 12/17/17 potassium chloride 10 meq PO BID #60 cap 12/17/17 quetiapine 25 mg PO BID@0900,1200 #60 tab 12/17/17 thiamine HCl (vitamin B1) 100 mg PO DAILY #30 tab 12/17/17 tramadol 50 mg PO Q8H #9 tab 12/17/17 Allergies Allergy/AdvReac Type Severity Reaction Status Date / Time No Known Allergies Allergy Verified 01/05/18 22:05 Review of Systems ROS: all other systems reviewed are negative [facility] Medical History Medical History Asthma (Acute) Hypertension (Acute) Cirrhosis (Acute) History of rupture of uterus (Acute) Surgical History Surgical History History of appendectomy (Acute) Social History Social History Substance History: No History of Abuse Second Hand Smoke Exposure: Yes Smoking Status: Current every day smoker Tobacco Type: Cigarettes How Often Do You Have a Drink Containing Alcohol: 4 or more times a week Recent Out of Country Travel within the Last 8 Weeks: No Immunization History Tetanus Immunization: Unsure Exam Narrative Exam Narrative: GENERAL: 57-year-old female in no distress SKIN: Focused skin assessment warm/dry. HEAD: Atraumatic. Normocephalic. NECK: Trachea midline. No JVD. CARDIOVASCULAR: Regular rate and rhythm. No murmur appreciated. RESPIRATORY: No accessory muscle use. Clear to auscultation. Breath sounds equal bilaterally. GASTROINTESTINAL: Abdomen soft, non-tender, nondistended. Hepatic and splenic margins not palpable. MUSCULOSKELETAL: No obvious deformities. No clubbing. No cyanosis. No edema. NEUROLOGICAL: Awake and alert. No obvious cranial nerve deficits. Motor grossly within normal limits. Normal speech. Course Initial Documented Vital Signs Temperature 97.9 F 01/05/18 20:12 Pulse Rate 93 H 01/05/18 20:12 Respiratory Rate 18 01/05/18 20:12 Blood Pressure 151/91 H 01/05/18 20:12 Pulse Oximetry 100 01/05/18 20:12 Last Documented Vital Signs Temperature 97.7 F 01/06/18 06:00 Pulse Rate 100 H 01/06/18 06:00 Respiratory Rate 18 01/06/18 06:00 Blood Pressure 129/78 01/06/18 06:00 Pulse Oximetry 100 01/06/18 06:00 Medical Decision Making MDM Narrative Medical decision making narrative: Patient was seen and evaluated in the emergency department. Her INR was found to be 6 and with her recent history of upper GI bleeding and hemorrhagic shock she was admitted to the ICU. She was placed on an IV Protonix drip. She was given a unit of FFP. Dr. Degroot admitted the patient to the ICU. Medical Screen Exam Complete: Yes Emergency Medical Condition: Yes Lab Data Result diagrams: 01/05/18 22:38 01/05/18 22:38 Lab Results 01/05/18 01/05/18 01/05/18 Range/Units 22:38 22:38 22:38 WBC 6.7 (4.0-11.0) th/mm3 RBC 3.90 L (4.00-5.30) mil/mm3 Hgb 12.8 (11.6-15.3) gm/dL Hct 38.5 (35.0-46.0) % MCV 98.8 (80.0-100.0) fL MCH 32.8 (27.0-34.0) pg MCHC 33.2 (32.0-36.0) % RDW 19.2 H (11.6-17.2) % Plt Count 210 (150-450) th/mm3 MPV 7.5 (7.0-11.0) fL Neut % (Auto) 52.6 (16.0-70.0) % Lymph % (Auto) 37.3 (9.0-44.0) % Talbot % (Auto) 4.6 (0.0-8.0) % Eos % (Auto) 4.8 H (0.0-4.0) % Baso % (Auto) 0.7 (0.0-2.0) % Neut # (Auto) 3.5 (1.8-7.7) th/mm3 Lymph # (Auto) 2.5 (1.0-4.8) th/mm3 Talbot # (Auto) 0.3 (0.0-0.9) th/mm3 Eos # (Auto) 0.3 (0.0-0.4) th/mm3 Baso # (Auto) 0.0 (0.0-0.2) th/mm3 WBC Differential . Differential Comment Auto diff final PT 63.4 H D (9.8-11.6) sec INR 6.3 H* Ratio APTT 42.9 H (24.3-30.1) sec Sodium 128 L (136-145) meq/L Potassium 4.6 (3.5-5.1) meq/L Chloride 99 (98-107) meq/L Carbon Dioxide 13.8 L (21.0-32.0) meq/L Anion Gap 15 (5-15) meq/L BUN 2 L (7-18) mg/dL Creatinine 0.66 (0.50-1.00) mg/dL Estimated GFR Greater than 89 (>89) mL/min POC Glucose (68-110) mg/dl Random Glucose 63 L (74-106) mg/dL Calcium 8.5 (8.5-10.1) mg/dL Total Bilirubin 0.3 (0.2-1.0) mg/dL AST 48 H (15-37) U/L ALT 22 (10-53) U/L Alkaline Phosphatase 163 H (45-117) U/L Total Creatine Kinase 84 (26-192) U/L Troponin I Less than 0.02 L (0.02-0.05) ng/mL Total Protein 7.5 (6.4-8.2) g/dL Albumin 2.8 L (3.4-5.0) g/dL Blood Type Blood Type Recheck Antibody Screen Blood Bank Comment 01/05/18 01/06/18 01/06/18 Range/Units 22:38 00:45 00:54 WBC (4.0-11.0) th/mm3 RBC (4.00-5.30) mil/mm3 Hgb (11.6-15.3) gm/dL Hct (35.0-46.0) % MCV (80.0-100.0) fL MCH (27.0-34.0) pg MCHC (32.0-36.0) % RDW (11.6-17.2) % Plt Count (150-450) th/mm3 MPV (7.0-11.0) fL Neut % (Auto) (16.0-70.0) % Lymph % (Auto) (9.0-44.0) % Talbot % (Auto) (0.0-8.0) % Eos % (Auto) (0.0-4.0) % Baso % (Auto) (0.0-2.0) % Neut # (Auto) (1.8-7.7) th/mm3 Lymph # (Auto) (1.0-4.8) th/mm3 Talbot # (Auto) (0.0-0.9) th/mm3 Eos # (Auto) (0.0-0.4) th/mm3 Baso # (Auto) (0.0-0.2) th/mm3 WBC Differential Differential Comment PT (9.8-11.6) sec INR Ratio APTT (24.3-30.1) sec Sodium (136-145) meq/L Potassium (3.5-5.1) meq/L Chloride (98-107) meq/L Carbon Dioxide (21.0-32.0) meq/L Anion Gap (5-15) meq/L BUN (7-18) mg/dL Creatinine (0.50-1.00) mg/dL Estimated GFR (>89) mL/min POC Glucose (68-110) mg/dl Random Glucose (74-106) mg/dL Calcium (8.5-10.1) mg/dL Total Bilirubin (0.2-1.0) mg/dL AST (15-37) U/L ALT (10-53) U/L Alkaline Phosphatase (45-117) U/L Total Creatine Kinase (26-192) U/L Troponin I (0.02-0.05) ng/mL Total Protein (6.4-8.2) g/dL Albumin (3.4-5.0) g/dL Blood Type A Positive A Positive Blood Type Recheck Antibody Screen ND Negative Blood Bank Comment 01/06/18 01/06/18 Range/Units 02:20 05:17 WBC (4.0-11.0) th/mm3 RBC (4.00-5.30) mil/mm3 Hgb (11.6-15.3) gm/dL Hct (35.0-46.0) % MCV (80.0-100.0) fL MCH (27.0-34.0) pg MCHC (32.0-36.0) % RDW (11.6-17.2) % Plt Count (150-450) th/mm3 MPV (7.0-11.0) fL Neut % (Auto) (16.0-70.0) % Lymph % (Auto) (9.0-44.0) % Talbot % (Auto) (0.0-8.0) % Eos % (Auto) (0.0-4.0) % Baso % (Auto) (0.0-2.0) % Neut # (Auto) (1.8-7.7) th/mm3 Lymph # (Auto) (1.0-4.8) th/mm3 Talbot # (Auto) (0.0-0.9) th/mm3 Eos # (Auto) (0.0-0.4) th/mm3 Baso # (Auto) (0.0-0.2) th/mm3 WBC Differential Differential Comment PT (9.8-11.6) sec INR Ratio APTT (24.3-30.1) sec Sodium (136-145) meq/L Potassium (3.5-5.1) meq/L Chloride (98-107) meq/L Carbon Dioxide (21.0-32.0) meq/L Anion Gap (5-15) meq/L BUN (7-18) mg/dL Creatinine (0.50-1.00) mg/dL Estimated GFR (>89) mL/min POC Glucose 83 92 (68-110) mg/dl Random Glucose (74-106) mg/dL Calcium (8.5-10.1) mg/dL Total Bilirubin (0.2-1.0) mg/dL AST (15-37) U/L ALT (10-53) U/L Alkaline Phosphatase (45-117) U/L Total Creatine Kinase (26-192) U/L Troponin I (0.02-0.05) ng/mL Total Protein (6.4-8.2) g/dL Albumin (3.4-5.0) g/dL Blood Type Blood Type Recheck Antibody Screen Blood Bank Comment Imaging Data Radiologist's impression: Ankle X-Ray 01/05/18 22:14 CONCLUSION: Prominent soft tissue swelling. Chronic hypertrophic change at the posterior calcaneus. Chest X-Ray 01/05/18 22:14 CONCLUSION: Suspected mild atelectasis or consolidation at the left base. Discharge Plan Discharge Disposition Patient Disposition: 30 Still Patient Discharge Condition Condition: Stable Discharge Details Diagnosis: Cirrhosis, Upper gastrointestinal bleed, Duodenal ulcer disease, Gastric ulcer , Coagulopathy Physicians Team ED Provider: Mary Machado Primary Care Provider: Primary Care Connie Billy Attending Provider: Salvador Degroot Other Providers: Rosenda Gallagher Status ED Status: Left Department Discharge Information Discharge Date/Time: 01/06/18 04:00
[2018-01-06] MEDS: Chlorhexidine Gluconate 2% 1 Pack (2 Cloths) TOPICAL SCH (07:54)
[2018-01-06] MEDS: QUEtiapine 25 MG Tablet PO SCH ×2 (09:41→11:55)
[2018-01-06] MEDS: Morphine Sulfate Inj 2 MG/ML Vial IV.PUSH PRN ×5 (09:41→21:19)
[2018-01-06] MEDS: Senna/Docusate Sodium 8.6/50 MG Tablet PO SCH ×2 (09:41→20:17)
[2018-01-06 12:47] LABS: Hematocrit 30.6 % (35.0-46.0); Hemoglobin 10.2 gm/dL (11.6-15.3); Mean Corpuscular HGB Conc 33.4 % (32.0-36.0); Mean Corpuscular Hemoglobin 32.8 pg (27.0-34.0); Mean Corpuscular Volume 98.1 fL (80.0-100.0); Mean Platelet Volume 6.9 fL (7.0-11.0); Platelet Count 175 th/mm3 (150-450); Red Blood Count 3.12 mil/mm3 (4.00-5.30); Red Cell Distribution Width 18.8 % (11.6-17.2); White Blood Count 5.9 th/mm3 (4.0-11.0)
[2018-01-06 13:15] LABS: Activated Partial Thrombo Time 23.3 sec (24.3-30.1); INR 1.1 Ratio
--- NOTE | 2018-01-06 14:43 | MB ---
cc: Rosenda Gallagher MD DATE: 01/06/2018 REASON FOR CONSULTATION: GI bleeding. 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 The patient presented this time to the emergency room complaining of hematemesis. She described fresh blood several times, but no change in bowel habit or change in stool color. Denies any melena or black stools. The patient also is complaining of abdominal discomfort that is vague, periumbilical over the last few days. In the emergency room, the patient was seen and evaluated. She was found to have a hemoglobin of 12.8, hematocrit of 38.5. Otherwise, her labs were within her normal range. Her INR was noted to be elevated at 6.5. GI consulted for further evaluation and possible endoscopic treatment. REVIEW OF SYSTEMS: Difficult to obtain at the current time. The patient is a bad historian, but she denied any symptoms other than the ones mentioned in the history of present illness. FAMILY HISTORY: Noncontributory. PSYCHOSOCIAL HISTORY: The patient is an active alcohol user, smoker and denies IV drug abuse. PAST MEDICAL HISTORY: Asthma, hypertension, liver cirrhosis, history of rupture of the uterus. PAST SURGICAL HISTORY: History of rupture of the uterus and appendectomy. MEDICATIONS: 1. Albuterol. 2. Dulcolax. 3. Budesonide inhaler. 4. Lactulose. 5. Lorazepam. 6. Metoclopramide 7. Multivitamins. 8. Pantoprazole. PHYSICAL EXAMINATION: GENERAL: The patient appears to be lethargic, slightly confused, but oriented to time, person and place. HEAD AND NECK: Normocephalic, atraumatic. Pupils equal and reactive to light. Supple neck. No jaundice. No pallor. CHEST: Clear to auscultation bilaterally. No crackles or wheezes. CARDIOVASCULAR: Regular rate and rhythm. No murmurs. ABDOMEN: Soft, nontender. No hepatosplenomegaly. No ascites. EXTREMITIES: Normal pulses. No edema. NEUROLOGIC: Cranial nerves grossly intact. No motor or sensory deficits. SKIN: No rashes. LABORATORY DATA: Showed hemoglobin of 12.8, hematocrit 38.5, white count 6.7 and platelet count of 210. INR 6.3, PTT 42.9. Electrolytes showed a sodium low of 128. Carbon dioxide 13.8, chloride 99, creatinine normal at 0.66, ALT 22, AST 48, alkaline phosphatase 163, albumin 2.8. PROBLEM LIST: A 57-year-old female patient with the following problems: 1. Hematemesis. 2. History of liver cirrhosis. 3. Ethanol-induced liver injury and active user. 4 Hyponatremia. 5. Significant synthetic dysfunction of the liver. 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 Child score of with active alcohol use which limits her from evaluation for liver transplantation, who presented with a stable upper gastrointestinal bleeding and coagulopathy. PLAN: We will correction of the coagulopathy with a prothrombin time, correct electrolyte abnormalities including hyponatremia. We will start clear liquid diet for the time being since not actively bleeding. We will need an upper endoscopy for evaluation of varices once more stable and the coagulopathy is corrected. The case was discussed with the patient and the nursing staff. Thank you for the consult. MD NEGAR Patel/reji , 01:04 PM , 01:15 PM
--- NOTE | 2018-01-06 15:06 | ECG ---
Date Performed: 01/06/2018 Time Performed: 10:01:00 PTAGE: 57 years EKG: SINUS TACHYCARDIA POOR R WAVE PROGRESSION ACROSS THE PRECORDIUM, MAY BE NORMAL VARIANT. CAN NOT EXCLUDE PREVIOUS SEPTAL CA Compared to previous tracing, the poor R-wave progression is new. Clin ical correlation recommended. ABNORMAL ECG PREVIOUS TRACING : 06/21/2014 19.54 DOCTOR: Scott Burnham Interpretating Date/Time 01/06/2018 15:05:11
[2018-01-06] MEDS: Budesonide-Formoterol 160/4.5 MCG 6 GM Inhaler INH SCH ×2 (18:47→21:52)
[2018-01-06 19:07] LABS: Hematocrit 30.5 % (35.0-46.0); Hemoglobin 10.1 gm/dL (11.6-15.3); Mean Corpuscular HGB Conc 33.2 % (32.0-36.0); Mean Corpuscular Volume 99.3 fL (80.0-100.0); Mean Platelet Volume 8.7 fL (7.0-11.0); Platelet Count 41 th/mm3 (150-450); Red Blood Count 3.08 mil/mm3 (4.00-5.30); Red Cell Distribution Width 19.4 % (11.6-17.2); White Blood Count 5.2 th/mm3 (4.0-11.0)
[2018-01-07] MEDS: Pantoprazole Inj 40 MG Vial IV.PUSH SCH ×2 (01:21→14:47)
[2018-01-07] MEDS: Morphine Sulfate Inj 2 MG/ML Vial IV.PUSH PRN ×10 (01:22→21:20)
[2018-01-07] MEDS: Sod Chloride 0.9% Inj 1,000 ML IV.CONT SCH ×4 (03:02→17:43)
[2018-01-07 04:12] LABS: Baso % (Auto) 0.6 % (0.0-2.0); Eos # (Auto) 0.2 th/mm3 (0.0-0.4); Eos % (Auto) 2.8 % (0.0-4.0); Hemoglobin 8.5 gm/dL (11.6-15.3); Lymph # (Auto) 1.3 th/mm3 (1.0-4.8); Lymph % (Auto) 21.2 % (9.0-44.0); Mean Corpuscular HGB Conc 32.8 % (32.0-36.0); Mean Corpuscular Hemoglobin 32.8 pg (27.0-34.0); Mean Platelet Volume 6.7 fL (7.0-11.0); Mono # (Auto) 0.3 th/mm3 (0.0-0.9); Mono % (Auto) 5.3 % (0.0-8.0); Neut # (Auto) 4.4 th/mm3 (1.8-7.7); Neut % (Auto) 70.1 % (16.0-70.0); Platelet Count 147 th/mm3 (150-450); Red Cell Distribution Width 19.5 % (11.6-17.2); White Blood Count 6.2 th/mm3 (4.0-11.0)
[2018-01-07 04:21] LABS: Activated Partial Thrombo Time 24.5 sec (24.3-30.1); INR 1.2 Ratio
[2018-01-07] MEDS: Chlorhexidine Gluconate 2% 1 Pack (2 Cloths) TOPICAL SCH (04:37)
[2018-01-07 04:57] LABS: Alanine Aminotransferase 13 U/L (10-53); Albumin 1.9 g/dL (3.4-5.0); Alkaline Phosphatase 95 U/L (45-117); Anion Gap 12 meq/L (5-15); Aspartate Aminotransferase 16 U/L (15-37); Blood Urea Nitrogen 2 mg/dL (7-18); Calcium 7.1 mg/dL (8.5-10.1); Chloride 114 meq/L (98-107); Glomerular Filtration Rate Greater Than 89 mL/min (>89); Glucose,Random 103 mg/dL (74-106); Magnesium 1.8 mg/dL (1.5-2.5); Phosphorus 2.8 mg/dL (2.5-4.9); Sodium 143 meq/L (136-145); Total Protein 4.7 g/dL (6.4-8.2)
[2018-01-07] MEDS: Senna/Docusate Sodium 8.6/50 MG Tablet PO SCH ×2 (08:48→20:06)
[2018-01-07] MEDS: QUEtiapine 25 MG Tablet PO SCH ×2 (08:48→12:44)
[2018-01-07] MEDS: Budesonide-Formoterol 160/4.5 MCG 6 GM Inhaler INH SCH (08:49)
[2018-01-07] MEDS: Multivitamin Inj 10 ML, Thiamine Inj 100 MG, Folic Acid Inj 1 MG in Sodium Chlor 0.9% I... IV.SIG SCH (10:35)
--- NOTE | 2018-01-07 12:14 | P.PNGI ---
Subjective Interval history: No evidence os active bleeding, no vomiting or melena. Physical Exam Vital signs: Vital Signs 01/06/18 14:00 01/06/18 15:00 01/06/18 16:00 Temperature 98.1 F Pulse Rate 85 94 H 81 Respiratory Rate 21 18 22 Blood Pressure 108/63 110/66 117/68 Pulse Oximetry 100 100 100 01/06/18 19:00 01/06/18 19:30 01/06/18 19:32 Temperature Pulse Rate 87 81 85 Respiratory Rate 18 25 H 18 Blood Pressure 129/81 121/69 Pulse Oximetry 100 99 01/06/18 20:00 01/06/18 20:40 01/06/18 21:00 Temperature 98.4 F Pulse Rate 86 97 H 98 H Respiratory Rate 25 H 23 20 Blood Pressure 113/63 117/68 137/70 Pulse Oximetry 100 100 01/06/18 21:25 01/06/18 21:30 01/06/18 21:40 Temperature Pulse Rate 91 H 93 H Respiratory Rate 20 20 21 Blood Pressure 120/66 Pulse Oximetry 95 100 01/06/18 22:00 01/06/18 22:30 01/06/18 23:00 Temperature Pulse Rate 88 86 90 Respiratory Rate 21 24 22 Blood Pressure 103/66 107/59 L 108/60 Pulse Oximetry 100 100 100 01/06/18 23:30 01/07/18 00:00 01/07/18 00:30 Temperature 98.5 F Pulse Rate 91 H 92 H 94 H Respiratory Rate 13 16 23 Blood Pressure 102/58 L 107/58 L 119/64 Pulse Oximetry 100 100 99 01/07/18 01:00 01/07/18 01:30 01/07/18 02:00 Temperature Pulse Rate 95 H 102 H 91 H Respiratory Rate 22 20 20 Blood Pressure 106/58 L 109/60 107/59 L Pulse Oximetry 99 100 100 01/07/18 02:30 01/07/18 03:00 01/07/18 03:30 Temperature Pulse Rate 89 88 90 Respiratory Rate 18 15 18 Blood Pressure 113/60 116/61 114/60 Pulse Oximetry 100 100 99 01/07/18 04:00 01/07/18 04:09 01/07/18 04:30 Temperature 98.5 F Pulse Rate 90 100 H Respiratory Rate 20 16 17 Blood Pressure 125/67 136/64 Pulse Oximetry 100 97 01/07/18 04:33 01/07/18 06:00 01/07/18 07:00 Temperature Pulse Rate 89 90 Respiratory Rate 27 H 20 18 Blood Pressure Pulse Oximetry 100 01/07/18 08:00 Temperature Pulse Rate 86 Respiratory Rate 21 Blood Pressure 116/70 Pulse Oximetry 100 Intake & Output 01/06/18 01/07/18 01/07/18 18:59 06:59 18:59 Intake Total 3102.2 / 3102.2 1360 / 1360 860 / 860 Output Total 1250 / 1250 200 / 200 Balance 1852.2 / 1852.2 1160 / 1160 860 / 860 Weight 58 kg Intake: IV 2511.2 / 2511.2 1000 / 1000 860 / 860 NS Inj 1,000 ML @ 124 mls/hr IV 2000 / 2000 1000 / 1000 860 / 860 .CONT .Q8H4M NILA Rx#:[id number] MVI-12 Inj 10 ML Thiamine Inj 511.2 / 511.2 100 MG Folvite Inj 1 MG In NS Inj 500 ML @ 127.8 mls/hr IV. SIG DAILY NILA Rx#:[id number] Oral 340 / 340 360 / 360 Intake (Blood Product) Amt 251 / 251 Plasma Thawed 5 Day Cp2d Unit 251 / 251 [id number] Output: Urine 1250 / 1250 200 / 200 Other: # Voids 2 4 2 Date of Last Bowel Movement 01/05/18 01/05/18 # Bowel Movements 0 - Constitutional no acute distress, thin, cachectic - Routine HEENT Exam Head: Present: normocephalic, atraumatic Eye: Present: PERRL - Routine Neck Exam Present: supple - Detailed Neck Exam: Thyroids Thyroid: Present: normal - Routine Respiratory Exam Present: CTA bilaterally - Routine Cardiovascular Exam Present: RRR - Routine Abdominal Exam Present: soft, normoactive bowel sounds - Routine Extremities Exam Present: full ROM, pulses intact - Routine Skin Exam Present: intact - Routine Neurological Exam Present: alert, oriented X3 - Routine Psychiatric Exam Present: normal thought process Results - Labs CBC & Chem 7: 01/07/18 04:03 01/07/18 04:03 Laboratory Results - last 24 hr 09/01/18 09/01/18 09/01/18 12:26 12:26 12:44 WBC 5.9 RBC 3.12 L Hgb 10.2 L D Hct 30.6 L MCV 98.1 MCH 32.8 MCHC 33.4 RDW 18.8 H Plt Count 175 MPV 6.9 L Prelim Diff (Auto) Neut % (Auto) Lymph % (Auto) Sherman % (Auto) Eos % (Auto) Baso % (Auto) Neut # (Auto) Lymph # (Auto) Sherman # (Auto) Eos # (Auto) Baso # (Auto) WBC Differential Diff Scan Differential Comment PT 11.0 D INR 1.1 APTT 23.3 L D Fibrinogen 187 L Sodium Potassium Chloride Carbon Dioxide Anion Gap BUN Creatinine Estimated GFR POC Glucose Random Glucose Lactic Acid Calcium Prot Corrected Calcium Phosphorus Magnesium Total Bilirubin AST ALT Alkaline Phosphatase Total Protein Albumin 01/06/18 01/06/18 01/07/18 17:32 18:58 01:20 WBC 5.2 RBC 3.08 L Hgb 10.1 L Hct 30.5 L MCV 99.3 MCH 33.0 MCHC 33.2 RDW 19.4 H Plt Count 41 L D MPV 8.7 Prelim Diff (Auto) Neut % (Auto) Lymph % (Auto) Sherman % (Auto) Eos % (Auto) Baso % (Auto) Neut # (Auto) Lymph # (Auto) Sherman # (Auto) Eos # (Auto) Baso # (Auto) WBC Differential Diff Scan Differential Comment PT INR APTT Fibrinogen Sodium Potassium Chloride Carbon Dioxide Anion Gap BUN Creatinine Estimated GFR POC Glucose 105 131 H Random Glucose Lactic Acid Calcium Prot Corrected Calcium Phosphorus Magnesium Total Bilirubin AST ALT Alkaline Phosphatase Total Protein Albumin 01/07/18 01/07/18 01/07/18 04:03 04:03 04:03 WBC 6.2 RBC 2.60 L Hgb 8.5 L Hct 26.0 L MCV 100.0 MCH 32.8 MCHC 32.8 RDW 19.5 H Plt Count 147 L D MPV 6.7 L Prelim Diff (Auto) Slide review pending Neut % (Auto) 70.1 H Lymph % (Auto) 21.2 Sherman % (Auto) 5.3 Eos % (Auto) 2.8 Baso % (Auto) 0.6 Neut # (Auto) 4.4 Lymph # (Auto) 1.3 Sherman # (Auto) 0.3 Eos # (Auto) 0.2 Baso # (Auto) 0.0 WBC Differential . Diff Scan Auto diff confirmed Differential Comment . PT 12.0 H INR 1.2 APTT 24.5 Fibrinogen Sodium 143 D Potassium 3.0 L D Chloride 114 H D Carbon Dioxide 17.0 L Anion Gap 12 BUN 2 L Creatinine 0.37 L Estimated GFR Greater than 89 POC Glucose Random Glucose 103 Lactic Acid Calcium 7.1 L* D Prot Corrected Calcium 8.4 L Phosphorus 2.8 Magnesium 1.8 Total Bilirubin 0.5 AST 16 ALT 13 Alkaline Phosphatase 95 Total Protein 4.7 L D Albumin 1.9 L D 01/07/18 01/07/18 04:03 06:42 WBC RBC Hgb Hct MCV MCH MCHC RDW Plt Count MPV Prelim Diff (Auto) Neut % (Auto) Lymph % (Auto) Sherman % (Auto) Eos % (Auto) Baso % (Auto) Neut # (Auto) Lymph # (Auto) Sherman # (Auto) Eos # (Auto) Baso # (Auto) WBC Differential Diff Scan Differential Comment PT INR APTT Fibrinogen Sodium Potassium Chloride Carbon Dioxide Anion Gap BUN Creatinine Estimated GFR POC Glucose 106 Random Glucose Lactic Acid 0.8 Calcium Prot Corrected Calcium Phosphorus Magnesium Total Bilirubin AST ALT Alkaline Phosphatase Total Protein Albumin Assessment and Plan - Plan 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 Child's B Stable upper gastrointestinal Coagulopathy. PLAN: Diet as tolerated Continue PPI Correct coagulopathy. EGD tomorrow or Monday Monitor for GI bleeding and inform us Supportive care
--- NOTE | 2018-01-07 14:00 | P.PNCC ---
Subjective Subjective Remarks/Hospital Course: Hospital Course: 57-year-old female with alcoholic liver disease, however no documented varices, history of arthritis, asthma, bipolar disorder, anxiety, COPD, hypertension and chronic pancreatitis presents with episode of vomiting copious amount of fresh blood. Patient denies fever, chills, abdominal or chest pain, diarrhea or melanotic stool. Denies any change of appetite. Subjective: 01/07: no episodes of melena or hematemesis. hgb from 10 to 8, but hemodynamically stable. GI not planning on EGD until possibly monday. They feel comfortable transferring out of ICU. patient denies complaints. ROS negative. coagulopathy corrected. Objective Vital Signs / I&O: Vital Signs 01/06/18 14:00 01/06/18 15:00 01/06/18 16:00 Temperature 36.7 C Pulse Rate 85 94 H 81 Respiratory Rate 21 18 22 Blood Pressure 108/63 110/66 117/68 Pulse Oximetry 100 100 100 01/06/18 19:00 01/06/18 19:30 01/06/18 19:32 Temperature Pulse Rate 87 81 85 Respiratory Rate 18 25 H 18 Blood Pressure 129/81 121/69 Pulse Oximetry 100 99 01/06/18 20:00 01/06/18 20:40 01/06/18 21:00 Temperature 36.9 C Pulse Rate 86 97 H 98 H Respiratory Rate 25 H 23 20 Blood Pressure 113/63 117/68 137/70 Pulse Oximetry 100 100 01/06/18 21:25 01/06/18 21:30 01/06/18 21:40 Temperature Pulse Rate 91 H 93 H Respiratory Rate 20 20 21 Blood Pressure 120/66 Pulse Oximetry 95 100 01/06/18 22:00 01/06/18 22:30 01/06/18 23:00 Temperature Pulse Rate 88 86 90 Respiratory Rate 21 24 22 Blood Pressure 103/66 107/59 L 108/60 Pulse Oximetry 100 100 100 01/06/18 23:30 01/07/18 00:00 01/07/18 00:30 Temperature 36.9 C Pulse Rate 91 H 92 H 94 H Respiratory Rate 13 16 23 Blood Pressure 102/58 L 107/58 L 119/64 Pulse Oximetry 100 100 99 01/07/18 01:00 01/07/18 01:30 01/07/18 02:00 Temperature Pulse Rate 95 H 102 H 91 H Respiratory Rate 22 20 20 Blood Pressure 106/58 L 109/60 107/59 L Pulse Oximetry 99 100 100 01/07/18 02:30 01/07/18 03:00 01/07/18 03:30 Temperature Pulse Rate 89 88 90 Respiratory Rate 18 15 18 Blood Pressure 113/60 116/61 114/60 Pulse Oximetry 100 100 99 01/07/18 04:00 01/07/18 04:09 01/07/18 04:30 Temperature 36.9 C Pulse Rate 90 100 H Respiratory Rate 20 16 17 Blood Pressure 125/67 136/64 Pulse Oximetry 100 97 01/07/18 04:33 01/07/18 06:00 01/07/18 07:00 Temperature Pulse Rate 89 90 Respiratory Rate 27 H 20 18 Blood Pressure Pulse Oximetry 100 01/07/18 08:00 01/07/18 12:00 Temperature Pulse Rate 86 93 H Respiratory Rate 21 28 H Blood Pressure 116/70 143/73 H Pulse Oximetry 100 99 Intake & Output 01/06/18 01/07/18 01/07/18 18:59 06:59 18:59 Intake Total 3102.2 / 3102.2 1360 / 1360 860 / 860 Output Total 1250 / 1250 200 / 200 Balance 1852.2 / 1852.2 1160 / 1160 860 / 860 Weight 58 kg Intake: IV 2511.2 / 2511.2 1000 / 1000 860 / 860 NS Inj 1,000 ML @ 124 mls/hr IV 1999 / 1999 1000 / 1000 860 / 860 .CONT .Q8H4M NILA Rx#:[id number] MVI-12 Inj 10 ML Thiamine Inj 511.2 / 511.2 100 MG Folvite Inj 1 MG In NS Inj 500 ML @ 127.8 mls/hr IV. SIG DAILY NILA Rx#:[id number] Oral 340 / 340 360 / 360 Intake (Blood Product) Amt 251 / 251 Plasma Thawed 5 Day Cp2d Unit 251 / 251 [id number] Output: Urine 1250 / 1250 200 / 200 Other: # Voids 2 4 2 Date of Last Bowel Movement 01/05/18 01/05/18 # Bowel Movements 0 Result Diagrams: 01/07/18 04:03 01/07/18 04:03 Objective Remarks: gen: middle-aged female who appears older than stated age, lying in bed. heent: nc. at. perrl. mmm. neck: no jvd. trachea midline. chest: room air. unlabored. equal chest rise. cv: normal rate, regular rhythm. sinus. abd: soft, nontender, nondistended. no guarding. extr: no edema. distal pulses 2+. neuro: RASS 0. CAM-. follows commands. no focal deficits. Assessment and Plan - Assessment and Plan Plan: Assessment: 57yF with history of cirrhosis who presents with concern for upper GI bleeding. clinically stable. I agree with transfer to the floor. continue to monitor cbc. Upper GI bleed - hold pharmacologic dvt prophylaxis - trend cbc - gi consulted - plan for EGD Anemia secondary to acute blood loss - trend - does not meet transfusion triggers at this time Coagulopathy secondary to ESLD/Cirrhosis - s/p vit K, FFP - trend daily - no additional ffp today. End stage liver disease secondary to etoh abuse - trend daily cmp - GI consulted transfer out of ICU. SCDs diet per GI.
[2018-01-08] MEDS: Budesonide-Formoterol 160/4.5 MCG 6 GM Inhaler INH SCH ×3 (01:18→20:46)
[2018-01-08] MEDS: Pantoprazole Inj 40 MG Vial IV.PUSH SCH ×2 (01:22→15:32)
[2018-01-08] MEDS: Sod Chloride 0.9% Inj 1,000 ML IV.CONT SCH ×4 (01:45→21:37)
[2018-01-08] MEDS: Chlorhexidine Gluconate 2% 1 Pack (2 Cloths) TOPICAL SCH (05:35)
[2018-01-08] MEDS: Morphine Sulfate Inj 2 MG/ML Vial IV.PUSH PRN ×3 (06:25→20:46)
[2018-01-08 07:28] LABS: INR 1.1 Ratio
[2018-01-08 07:34] LABS: Albumin 1.9 g/dL (3.4-5.0); Anion Gap 10 meq/L (5-15); Aspartate Aminotransferase 16 U/L (15-37); Blood Urea Nitrogen 2 mg/dL (7-18); Calcium 7.8 mg/dL (8.5-10.1); Carbon Dioxide 17.3 meq/L (21.0-32.0); Chloride 115 meq/L (98-107); Glomerular Filtration Rate Greater Than 89 mL/min (>89); Glucose,Random 89 mg/dL (74-106); Potassium 3.4 meq/L (3.5-5.1); Sodium 142 meq/L (136-145)
[2018-01-08 07:36] LABS: Alanine Aminotransferase 12 U/L (10-53); Magnesium 1.7 mg/dL (1.5-2.5); Phosphorus 3.1 mg/dL (2.5-4.9)
[2018-01-08 07:38] LABS: Alkaline Phosphatase 95 U/L (45-117)
[2018-01-08 07:39] LABS: Hematocrit 28.2 % (35.0-46.0); Hemoglobin 9.4 gm/dL (11.6-15.3); Mean Corpuscular HGB Conc 33.3 % (32.0-36.0); Mean Corpuscular Hemoglobin 34.1 pg (27.0-34.0); Mean Corpuscular Volume 102.4 fL (80.0-100.0); Mean Platelet Volume 7.1 fL (7.0-11.0); Platelet Count 145 th/mm3 (150-450); Red Blood Count 2.75 mil/mm3 (4.00-5.30); Red Cell Distribution Width 19.4 % (11.6-17.2); White Blood Count 5.5 th/mm3 (4.0-11.0)
[2018-01-08] MEDS: Haloperidol Inj 5 MG/ML Ampul IV.PUSH PRN (07:53)
[2018-01-08] MEDS: Senna/Docusate Sodium 8.6/50 MG Tablet PO SCH ×2 (08:07→20:22)
[2018-01-08] MEDS: Multivitamin Inj 10 ML, Thiamine Inj 100 MG, Folic Acid Inj 1 MG in Sodium Chlor 0.9% I... IV.SIG SCH (08:44)
[2018-01-08] MEDS: QUEtiapine 25 MG Tablet PO SCH ×2 (08:44→11:00)
--- NOTE | 2018-01-08 13:19 | P.PNGI ---
Subjective Interval history: Sleeping currently lethargic status post sedation CIWA protocol in place Currently being monitored in the intensive care setting Current hemoglobin 9.4, PT/INR 1.1 <Laurel Dixon M - Last Filed: 01/08/18 13:21> Physical Exam Vital signs: Vital Signs 01/07/18 14:41 01/07/18 16:00 01/07/18 20:00 Temperature 98.6 F 98.9 F Pulse Rate 96 H 99 H 91 H Respiratory Rate 18 21 21 Blood Pressure 114/73 142/82 H Pulse Oximetry 90 L 100 01/07/18 20:30 01/07/18 21:06 01/07/18 21:31 Temperature Pulse Rate 112 H 106 H 121 H Respiratory Rate 37 H 22 25 H Blood Pressure 163/96 H 145/81 H 151/89 H Pulse Oximetry 90 L 94 L 86 L 01/07/18 22:01 01/07/18 22:12 01/07/18 22:30 Temperature Pulse Rate 116 H 113 H 92 H Respiratory Rate 32 H 21 14 Blood Pressure 180/99 H 174/80 H 126/77 Pulse Oximetry 90 L 98 100 01/07/18 23:00 01/07/18 23:29 01/08/18 00:00 Temperature 98.7 F Pulse Rate 89 82 79 Respiratory Rate 18 15 13 Blood Pressure 127/75 129/77 Pulse Oximetry 100 100 100 01/08/18 00:38 01/08/18 01:06 01/08/18 01:30 Temperature Pulse Rate 86 96 H 86 Respiratory Rate 13 15 Blood Pressure 124/90 166/89 H 164/88 H Pulse Oximetry 94 L 99 01/08/18 02:00 01/08/18 02:30 01/08/18 03:00 Temperature Pulse Rate 93 H 94 H 91 H Respiratory Rate 14 14 14 Blood Pressure 136/79 151/77 H 155/99 H Pulse Oximetry 100 100 99 01/08/18 03:30 01/08/18 03:38 01/08/18 04:00 Temperature Pulse Rate 92 H 90 Respiratory Rate 14 16 19 Blood Pressure 144/86 H Pulse Oximetry 100 01/08/18 04:01 01/08/18 04:30 01/08/18 05:00 Temperature Pulse Rate 91 H 97 H 87 Respiratory Rate 12 16 13 Blood Pressure 175/79 H 150/82 H 124/70 Pulse Oximetry 100 95 100 01/08/18 05:30 01/08/18 05:45 01/08/18 06:00 Temperature Pulse Rate 91 H 114 H 118 H Respiratory Rate 16 19 30 H Blood Pressure 163/83 H 176/97 H Pulse Oximetry 96 100 100 01/08/18 06:30 01/08/18 07:13 01/08/18 07:18 Temperature Pulse Rate 120 H 100 H 103 H Respiratory Rate 23 23 23 Blood Pressure 146/97 H 173/107 H 155/112 H Pulse Oximetry 94 L 99 100 01/08/18 07:30 01/08/18 07:32 01/08/18 07:55 Temperature Pulse Rate 96 H 96 H 108 H Respiratory Rate 24 24 33 H Blood Pressure 157/108 H 157/102 H 152/89 H Pulse Oximetry 100 100 97 01/08/18 08:00 01/08/18 08:30 01/08/18 09:00 Temperature Pulse Rate 95 H 97 H 98 H Respiratory Rate 20 27 H 26 H Blood Pressure 150/82 H 141/85 H 152/96 H Pulse Oximetry 100 100 100 01/08/18 09:30 01/08/18 10:00 01/08/18 10:30 Temperature Pulse Rate 93 H 93 H 87 Respiratory Rate 20 28 H 15 Blood Pressure 125/75 161/88 H 167/106 H Pulse Oximetry 100 99 100 01/08/18 10:51 01/08/18 11:01 01/08/18 11:03 Temperature Pulse Rate 109 H 110 H 106 H Respiratory Rate 29 H 22 25 H Blood Pressure 183/84 H 187/97 H 158/90 H Pulse Oximetry 97 99 94 L 01/08/18 11:30 01/08/18 11:37 01/08/18 13:06 Temperature Pulse Rate 93 H 92 H 113 H Respiratory Rate 15 15 17 Blood Pressure 147/94 H Pulse Oximetry 100 100 Intake & Output 01/07/18 01/08/18 01/08/18 18:59 06:59 18:59 Intake Total 2248.2 / 2248.2 1267 / 1267 1051 / 1051 Output Total 600 / 600 400 / 400 500 / 500 Balance 1648.2 / 1648.2 867 / 867 551 / 551 Weight 58 kg Intake: IV 2248.2 / 2248.2 967 / 967 1051 / 1051 NS Inj 1,000 ML @ 124 mls/hr IV 1737 / 1737 967 / 967 1000 / 1000 .CONT .Q8H4M [facility] Rx#:[id number] MVI-12 Inj 10 ML Thiamine Inj 511.2 / 511.2 100 MG Folvite Inj 1 MG In NS Inj 500 ML @ 127.8 mls/hr IV. SIG DAILY [facility] Rx#:[id number] Oral 300 / 300 Output: Urine 600 / 600 400 / 400 500 / 500 Stool 0 / 0 0 / 0 Urine/Stool Mix 0 / 0 0 / 0 Emesis 0 / 0 Other: # Voids 2 5 1 # Incontinent Voids 3 Date of Last Bowel Movement 01/05/18 01/05/18 # Bowel Movements 0 0 0 # Incontinent Bowel Movements 0 0 # Emeses 0 - Constitutional no acute distress, chronically ill appearing - Routine HEENT Exam ENT: Present: mucous membranes dry - Routine Abdominal Exam Present: soft (Round, mild distention soft bowel sounds) - Routine Skin Exam Present: intact <Zack,Laurel M - Last Filed: 01/08/18 13:21> Vital signs: Vital Signs 01/07/18 23:00 01/07/18 23:29 01/08/18 00:00 Temperature 98.7 F Pulse Rate 89 82 79 Respiratory Rate 18 15 13 Blood Pressure 127/75 129/77 Pulse Oximetry 100 100 100 01/08/18 00:38 01/08/18 01:06 01/08/18 01:30 Temperature Pulse Rate 86 96 H 86 Respiratory Rate 13 15 Blood Pressure 124/90 166/89 H 164/88 H Pulse Oximetry 94 L 99 01/08/18 02:00 01/08/18 02:30 01/08/18 03:00 Temperature Pulse Rate 93 H 94 H 91 H Respiratory Rate 14 14 14 Blood Pressure 136/79 151/77 H 155/99 H Pulse Oximetry 100 100 99 01/08/18 03:30 01/08/18 03:38 01/08/18 04:00 Temperature Pulse Rate 92 H 90 Respiratory Rate 14 16 19 Blood Pressure 144/86 H Pulse Oximetry 100 01/08/18 04:01 01/08/18 04:30 01/08/18 05:00 Temperature Pulse Rate 91 H 97 H 87 Respiratory Rate 12 16 13 Blood Pressure 175/79 H 150/82 H 124/70 Pulse Oximetry 100 95 100 01/08/18 05:30 01/08/18 05:45 01/08/18 06:00 Temperature Pulse Rate 91 H 114 H 118 H Respiratory Rate 16 19 30 H Blood Pressure 163/83 H 176/97 H Pulse Oximetry 96 100 100 01/08/18 06:30 01/08/18 07:13 01/08/18 07:18 Temperature Pulse Rate 120 H 100 H 103 H Respiratory Rate 23 23 23 Blood Pressure 146/97 H 173/107 H 155/112 H Pulse Oximetry 94 L 99 100 01/08/18 07:30 01/08/18 07:32 01/08/18 07:55 Temperature Pulse Rate 96 H 96 H 108 H Respiratory Rate 24 24 33 H Blood Pressure 157/108 H 157/102 H 152/89 H Pulse Oximetry 100 100 97 01/08/18 08:00 01/08/18 08:30 01/08/18 09:00 Temperature Pulse Rate 95 H 97 H 98 H Respiratory Rate 20 27 H 26 H Blood Pressure 150/82 H 141/85 H 152/96 H Pulse Oximetry 100 100 100 01/08/18 09:30 01/08/18 10:00 01/08/18 10:30 Temperature Pulse Rate 93 H 93 H 87 Respiratory Rate 20 28 H 15 Blood Pressure 125/75 161/88 H 167/106 H Pulse Oximetry 100 99 100 01/08/18 10:51 01/08/18 11:01 01/08/18 11:03 Temperature Pulse Rate 109 H 110 H 106 H Respiratory Rate 29 H 22 25 H Blood Pressure 183/84 H 187/97 H 158/90 H Pulse Oximetry 97 99 94 L 01/08/18 11:30 01/08/18 11:37 01/08/18 12:00 Temperature Pulse Rate 93 H 92 H 94 H Respiratory Rate 15 15 16 Blood Pressure 147/94 H 133/78 Pulse Oximetry 100 100 100 01/08/18 12:30 01/08/18 13:00 01/08/18 13:04 Temperature Pulse Rate 95 H 93 H 121 H Respiratory Rate 19 21 23 Blood Pressure 143/88 H 202/111 H 185/107 H Pulse Oximetry 100 100 100 01/08/18 13:06 01/08/18 13:13 01/08/18 13:23 Temperature Pulse Rate 113 H 99 H 116 H Respiratory Rate 17 24 25 H Blood Pressure 182/103 H 161/99 H Pulse Oximetry 100 100 01/08/18 13:30 01/08/18 13:44 01/08/18 14:00 Temperature Pulse Rate 100 H 97 H 88 Respiratory Rate 23 22 22 Blood Pressure 145/90 H 139/88 Pulse Oximetry 100 100 100 01/08/18 14:30 01/08/18 15:00 01/08/18 15:30 Temperature 98 F Pulse Rate 104 H 101 H 110 H Respiratory Rate 33 H 20 36 H Blood Pressure 148/89 H 156/94 H 166/113 H Pulse Oximetry 100 89 L 84 L 01/08/18 15:40 01/08/18 16:00 01/08/18 16:30 Temperature Pulse Rate 91 H 97 H 91 H Respiratory Rate 19 17 16 Blood Pressure 187/90 H 153/87 H 165/102 H Pulse Oximetry 100 98 100 01/08/18 16:43 01/08/18 18:54 01/08/18 19:59 Temperature Pulse Rate 96 H 120 H 105 H Respiratory Rate 23 28 H 20 Blood Pressure 141/94 H Pulse Oximetry 97 99 01/08/18 20:00 Temperature 98.3 F Pulse Rate 104 H Respiratory Rate 32 H Blood Pressure 141/94 H Pulse Oximetry 97 Intake & Output 01/08/18 01/08/18 01/09/18 06:59 18:59 06:59 Intake Total 1267 / 1267 2862.2 / 2862.2 1000 / 1000 Output Total 400 / 400 1000 / 1000 Balance 867 / 867 1862.2 / 1862.2 1000 / 1000 Weight 58 kg Intake: IV 967 / 967 2562.2 / 2562.2 1000 / 1000 NS Inj 1,000 ML @ 124 mls/hr IV 967 / 967 2000 / 2000 1000 / 1000 .CONT .Q8H4M [facility] Rx#:[id number] MVI-12 Inj 10 ML Thiamine Inj 511.2 / 511.2 100 MG Folvite Inj 1 MG In NS Inj 500 ML @ 127.8 mls/hr IV. SIG DAILY [facility] Rx#:[id number] Oral 300 / 300 300 / 300 Output: Urine 400 / 400 1000 / 1000 Stool 0 / 0 0 / 0 Urine/Stool Mix 0 / 0 0 / 0 Emesis 0 / 0 Other: # Voids 5 1 # Incontinent Voids 3 3 Date of Last Bowel Movement 01/05/18 01/05/18 01/05/18 # Bowel Movements 0 0 # Incontinent Bowel Movements 0 0 # Emeses 0 <Rosenda Gallagher - Last Filed: 01/08/18 23:01> Results - Labs CBC & Chem 7: 01/08/18 06:00 01/08/18 06:00 Laboratory Results - last 24 hr 01/08/18 01/08/18 01/08/18 01:44 05:40 06:00 WBC 5.5 RBC 2.75 L Hgb 9.4 L Hct 28.2 L MCV 102.4 H MCH 34.1 H MCHC 33.3 RDW 19.4 H Plt Count 145 L MPV 7.1 PT INR Sodium Potassium Chloride Carbon Dioxide Anion Gap BUN Creatinine Estimated GFR POC Glucose 95 107 Random Glucose Calcium Phosphorus Magnesium Total Bilirubin AST ALT Alkaline Phosphatase Total Protein Albumin 01/08/18 01/08/18 06:00 06:00 WBC RBC Hgb Hct MCV MCH MCHC RDW Plt Count MPV PT 11.0 INR 1.1 Sodium 142 Potassium 3.4 L Chloride 115 H Carbon Dioxide 17.3 L Anion Gap 10 BUN 2 L Creatinine 0.43 L Estimated GFR Greater than 89 POC Glucose Random Glucose 89 Calcium 7.8 L Phosphorus 3.1 Magnesium 1.7 Total Bilirubin 0.4 AST 16 ALT 12 Alkaline Phosphatase 95 Total Protein 5.0 L Albumin 1.9 L <Laurel Dixon - Last Filed: 01/08/18 13:21> - Labs CBC & Chem 7: 01/08/18 06:00 01/08/18 06:00 Laboratory Results - last 24 hr 01/08/18 01/08/18 01/08/18 01:44 05:40 06:00 WBC 5.5 RBC 2.75 L Hgb 9.4 L Hct 28.2 L MCV 102.4 H MCH 34.1 H MCHC 33.3 RDW 19.4 H Plt Count 145 L MPV 7.1 PT INR Sodium Potassium Chloride Carbon Dioxide Anion Gap BUN Creatinine Estimated GFR POC Glucose 95 107 Random Glucose Calcium Phosphorus Magnesium Total Bilirubin AST ALT Alkaline Phosphatase Total Protein Albumin 01/08/18 01/08/18 06:00 06:00 WBC RBC Hgb Hct MCV MCH MCHC RDW Plt Count MPV PT 11.0 INR 1.1 Sodium 142 Potassium 3.4 L Chloride 115 H Carbon Dioxide 17.3 L Anion Gap 10 BUN 2 L Creatinine 0.43 L Estimated GFR Greater than 89 POC Glucose Random Glucose 89 Calcium 7.8 L Phosphorus 3.1 Magnesium 1.7 Total Bilirubin 0.4 AST 16 ALT 12 Alkaline Phosphatase 95 Total Protein 5.0 L Albumin 1.9 L <Rosenda Gallagher A - Last Filed: 01/08/18 23:01> Assessment and Plan - Plan Admission 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 Child's B Stable upper gastrointestinal Coagulopathy. 01/08/2018 patient remains in the intensive care setting. Current hemoglobin stable at 9.4 without any obvious bleeding. Unable to assess any symptoms at this time patient is lethargic and is receiving sedation meds. CIWA protocol in place. No obvious shortness of breath. Up-to-date per nurse, no family present. No obvious shortness of breath noted patient should be stable from a GI perspective for her EGD in the a.m.. If there are any acute changes in her status please notify GI. Coagulopathy now stable at INR 1.1 PLAN: Diet as tolerated Consent for EGD Monday a.m. 01/09/2018 N.p.o. at midnight except for needed medications Monitor labs with special attention hemoglobin and any obvious bleeding, notify GI if any acute changes PPI Reglan Bowel regimen as needed Supportive care Further recommendations to follow Patient was seen per myself and Dr. Gallagher, note was written on his behalf <Laurel Dixon M - Last Filed: 01/08/18 13:21> - Attending Attestation Appears more agitated and confused today, but no active bleeding. Will obtain consent for EGD. Further recommendations to follow. <Rosenda Gallagher - Last Filed: 01/08/18 23:01>
--- NOTE | 2018-01-08 16:22 | P.PNIM ---
Subjective Interval history: Patient says she is feeling all right. She says she is hungry. She denies any pain. He does say her abdomen is uncomfortable. Denies any chest pain or shortness of breath. Physical Exam Vital signs: Vital Signs 01/07/18 20:00 01/07/18 20:30 01/07/18 21:06 Temperature 98.9 F Pulse Rate 91 H 112 H 106 H Respiratory Rate 21 37 H 22 Blood Pressure 142/82 H 163/96 H 145/81 H Pulse Oximetry 100 90 L 94 L 01/07/18 21:31 01/07/18 22:01 01/07/18 22:12 Temperature Pulse Rate 121 H 116 H 113 H Respiratory Rate 25 H 32 H 21 Blood Pressure 151/89 H 180/99 H 174/80 H Pulse Oximetry 86 L 90 L 98 01/07/18 22:30 01/07/18 23:00 01/07/18 23:29 Temperature Pulse Rate 92 H 89 82 Respiratory Rate 14 18 15 Blood Pressure 126/77 127/75 Pulse Oximetry 100 100 100 01/08/18 00:00 01/08/18 00:38 01/08/18 01:06 Temperature 98.7 F Pulse Rate 79 86 96 H Respiratory Rate 13 13 Blood Pressure 129/77 124/90 166/89 H Pulse Oximetry 100 94 L 01/08/18 01:30 01/08/18 02:00 01/08/18 02:30 Temperature Pulse Rate 86 93 H 94 H Respiratory Rate 15 14 14 Blood Pressure 164/88 H 136/79 151/77 H Pulse Oximetry 99 100 100 01/08/18 03:00 01/08/18 03:30 01/08/18 03:38 Temperature Pulse Rate 91 H 92 H 90 Respiratory Rate 14 14 16 Blood Pressure 155/99 H 144/86 H Pulse Oximetry 99 100 01/08/18 04:00 01/08/18 04:01 01/08/18 04:30 Temperature Pulse Rate 91 H 97 H Respiratory Rate 19 12 16 Blood Pressure 175/79 H 150/82 H Pulse Oximetry 100 95 01/08/18 05:00 01/08/18 05:30 01/08/18 05:45 Temperature Pulse Rate 87 91 H 114 H Respiratory Rate 13 16 19 Blood Pressure 124/70 163/83 H Pulse Oximetry 100 96 100 01/08/18 06:00 01/08/18 06:30 01/08/18 07:13 Temperature Pulse Rate 118 H 120 H 100 H Respiratory Rate 30 H 23 23 Blood Pressure 176/97 H 146/97 H 173/107 H Pulse Oximetry 100 94 L 99 01/08/18 07:18 01/08/18 07:30 01/08/18 07:32 Temperature Pulse Rate 103 H 96 H 96 H Respiratory Rate 23 24 24 Blood Pressure 155/112 H 157/108 H 157/102 H Pulse Oximetry 100 100 100 01/08/18 07:55 01/08/18 08:00 01/08/18 08:30 Temperature Pulse Rate 108 H 95 H 97 H Respiratory Rate 33 H 20 27 H Blood Pressure 152/89 H 150/82 H 141/85 H Pulse Oximetry 97 100 100 01/08/18 09:00 01/08/18 09:30 01/08/18 10:00 Temperature Pulse Rate 98 H 93 H 93 H Respiratory Rate 26 H 20 28 H Blood Pressure 152/96 H 125/75 161/88 H Pulse Oximetry 100 100 99 01/08/18 10:30 01/08/18 10:51 01/08/18 11:01 Temperature Pulse Rate 87 109 H 110 H Respiratory Rate 15 29 H 22 Blood Pressure 167/106 H 183/84 H 187/97 H Pulse Oximetry 100 97 99 01/08/18 11:03 01/08/18 11:30 01/08/18 11:37 Temperature Pulse Rate 106 H 93 H 92 H Respiratory Rate 25 H 15 15 Blood Pressure 158/90 H 147/94 H Pulse Oximetry 94 L 100 100 01/08/18 12:00 01/08/18 12:30 01/08/18 13:00 Temperature Pulse Rate 94 H 95 H 93 H Respiratory Rate 16 19 21 Blood Pressure 133/78 143/88 H 202/111 H Pulse Oximetry 100 100 100 01/08/18 13:04 01/08/18 13:06 01/08/18 13:13 Temperature Pulse Rate 121 H 113 H 99 H Respiratory Rate 23 17 24 Blood Pressure 185/107 H 182/103 H Pulse Oximetry 100 100 01/08/18 13:23 01/08/18 13:30 01/08/18 13:44 Temperature Pulse Rate 116 H 100 H 97 H Respiratory Rate 25 H 23 22 Blood Pressure 161/99 H 145/90 H Pulse Oximetry 100 100 100 Intake & Output 01/07/18 01/08/18 01/08/18 18:59 06:59 18:59 Intake Total 2248.2 / 2248.2 1267 / 1267 1562.2 / 1562.2 Output Total 600 / 600 400 / 400 500 / 500 Balance 1648.2 / 1648.2 867 / 867 1062.2 / 1062.2 Weight 58 kg Intake: IV 2248.2 / 2248.2 967 / 967 1562.2 / 1562.2 NS Inj 1,000 ML @ 124 mls/hr IV 1737 / 1737 967 / 967 1000 / 1000 .CONT .Q8H4M [facility] Rx#:[id number] MVI-12 Inj 10 ML Thiamine Inj 511.2 / 511.2 511.2 / 511.2 100 MG Folvite Inj 1 MG In NS Inj 500 ML @ 127.8 mls/hr IV. SIG DAILY [facility] Rx#:[id number] Oral 300 / 300 Output: Urine 600 / 600 400 / 400 500 / 500 Stool 0 / 0 0 / 0 Urine/Stool Mix 0 / 0 0 / 0 Emesis 0 / 0 Other: # Voids 2 5 1 # Incontinent Voids 3 Date of Last Bowel Movement 01/05/18 01/05/18 # Bowel Movements 0 0 0 # Incontinent Bowel Movements 0 0 # Emeses 0 Narrative: GENERAL: Patient sitting up in bed. Appears comfortable. SKIN: Warm and dry. HEAD: Normocephalic. EYES: No scleral icterus. No injection or drainage. NECK: Supple, trachea midline. No JVD. CARDIOVASCULAR: Regular rate and rhythm without murmurs, gallops, or rubs. RESPIRATORY: Breath sounds equal bilaterally. No accessory muscle use. GASTROINTESTINAL: Abdomen soft, non-tender, nondistended. MUSCULOSKELETAL: No cyanosis, or edema. BACK: Nontender without obvious deformity. No CVA tenderness. Results - Labs CBC & Chem 7: 01/08/18 06:00 01/08/18 06:00 Laboratory Results - last 24 hr 01/08/18 01/08/18 01/08/18 01:44 05:40 06:00 WBC 5.5 RBC 2.75 L Hgb 9.4 L Hct 28.2 L MCV 102.4 H MCH 34.1 H MCHC 33.3 RDW 19.4 H Plt Count 145 L MPV 7.1 PT INR Sodium Potassium Chloride Carbon Dioxide Anion Gap BUN Creatinine Estimated GFR POC Glucose 95 107 Random Glucose Calcium Phosphorus Magnesium Total Bilirubin AST ALT Alkaline Phosphatase Total Protein Albumin 01/08/18 01/08/18 06:00 06:00 WBC RBC Hgb Hct MCV MCH MCHC RDW Plt Count MPV PT 11.0 INR 1.1 Sodium 142 Potassium 3.4 L Chloride 115 H Carbon Dioxide 17.3 L Anion Gap 10 BUN 2 L Creatinine 0.43 L Estimated GFR Greater than 89 POC Glucose Random Glucose 89 Calcium 7.8 L Phosphorus 3.1 Magnesium 1.7 Total Bilirubin 0.4 AST 16 ALT 12 Alkaline Phosphatase 95 Total Protein 5.0 L Albumin 1.9 L Assessment and Plan - Plan Assessment: 57yF with history of cirrhosis who presents with concern for upper GI bleeding. clinically stable. I agree with transfer to the floor. continue to monitor cbc. //Upper GI bleed - hold pharmacologic dvt prophylaxis - trend cbc - gi consulted - plan for EGD tomorrow 01/09. //Anemia secondary to acute blood loss - trend - does not meet transfusion triggers at this time = Hemoglobin now 9.4. Stable. Will recheck tomorrow. Planning for EGD by gastroenterology tomorrow. 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 = INR 1.1 today. Much improved after vitamin K. EGD tomorrow gastroenterology. //End stage liver disease secondary to etoh abuse - trend daily cmp - GI consulted //DVT prophylaxis. SCDs. Discussed Condition With: Patient, nurse Discharge Planning: PT following. Recommends rehab versus home with home health. Patient appears very weak may benefit from rehab
[2018-01-09] MEDS: Pantoprazole Inj 40 MG Vial IV.PUSH SCH ×2 (01:22→13:49)
[2018-01-09] MEDS: Sod Chloride 0.9% Inj 1,000 ML IV.CONT SCH ×3 (03:21→10:29)
[2018-01-09] MEDS: Morphine Sulfate Inj 2 MG/ML Vial IV.PUSH PRN ×5 (05:28→21:37)
[2018-01-09] MEDS: Chlorhexidine Gluconate 2% 1 Pack (2 Cloths) TOPICAL SCH (05:29)
[2018-01-09 07:34] LABS: INR 1.1 Ratio; Prothrombin Time 10.7 sec (9.8-11.6)
[2018-01-09 07:37] LABS: Hematocrit 27.8 % (35.0-46.0); Hemoglobin 9.4 gm/dL (11.6-15.3); Mean Corpuscular HGB Conc 33.8 % (32.0-36.0); Mean Corpuscular Hemoglobin 34.3 pg (27.0-34.0); Mean Corpuscular Volume 101.6 fL (80.0-100.0); Mean Platelet Volume 8.2 fL (7.0-11.0); Platelet Count 110 th/mm3 (150-450); Red Blood Count 2.73 mil/mm3 (4.00-5.30); Red Cell Distribution Width 19.5 % (11.6-17.2); White Blood Count 4.8 th/mm3 (4.0-11.0)
[2018-01-09 08:04] LABS: Alanine Aminotransferase 12 U/L (10-53); Albumin 1.9 g/dL (3.4-5.0); Alkaline Phosphatase 87 U/L (45-117); Anion Gap 12 meq/L (5-15); Aspartate Aminotransferase 22 U/L (15-37); Blood Urea Nitrogen 3 mg/dL (7-18); Calcium 7.4 mg/dL (8.5-10.1); Carbon Dioxide 17.3 meq/L (21.0-32.0); Chloride 118 meq/L (98-107); Glomerular Filtration Rate Greater Than 89 mL/min (>89); Glucose,Random 103 mg/dL (74-106); Magnesium 1.7 mg/dL (1.5-2.5); Phosphorus 3.5 mg/dL (2.5-4.9); Potassium 3.1 meq/L (3.5-5.1); Sodium 147 meq/L (136-145); Total Protein 4.9 g/dL (6.4-8.2)
[2018-01-09] MEDS: Multivitamin Inj 10 ML, Thiamine Inj 100 MG, Folic Acid Inj 1 MG in Sodium Chlor 0.9% I... IV.SIG SCH (09:06)
[2018-01-09] MEDS: Budesonide-Formoterol 160/4.5 MCG 6 GM Inhaler INH SCH ×2 (09:07→20:38)
[2018-01-09] MEDS: QUEtiapine 25 MG Tablet PO SCH ×2 (09:07→13:49)
[2018-01-09] MEDS: Senna/Docusate Sodium 8.6/50 MG Tablet PO SCH ×2 (09:07→20:38)
[2018-01-09] MEDS ORDERED: Potassium Chloride Inj 10 MEQ in Sodium Chloride 0.45 % Inj 1,000 ML IV.CONT SCH (11:00)
[2018-01-09] MEDS ORDERED: Succinylcholine Inj 100 MG/5 ML Syringe IV.PUSH ONE (12:45)
--- NOTE | 2018-01-09 13:08 | GIPROC ---
[facility] [address] [facility]. [facility], [id number] EGD PROCEDURE REPORT EXAM DATE: 01/09/2018 PATIENT NAME: Jose Francisco Eddy MR #: [id number] BIRTHDATE: 1960 ATTENDING: Rosenda Gallagher MD ORDER #: [id number] [employer] ARCHITECT: Trudy Brower RN STATUS: inpatient INDICATIONS: The patient is a 57 yr old female here for an EGD due to hematemesis PROCEDURE PERFORMED: EGD w/ biopsy MEDICATIONS: None and Per Anesthesia. TOPICAL ANESTHETIC: none CONSENT: The patient understands the risks and benefits of the procedure and understands that these risks include, but are not limited to: sedation, allergic reaction, infection, perforation and/or bleeding. Alternative means of evaluation and treatment include, among others: physical exam, x-rays, and/or surgical intervention. The patient elects to proceed with this endoscopic procedure. medical equipment was checked for proper function. Hand hygiene and appropriate measures for infection prevention was taken. After the risks, benefits and alternatives of the procedure were thoroughly explained, Informed consent was verified, confirmed and timeout was successfully executed by the treatment team. The patient was anesthetized with topical anesthesia and the endoscope was introduced through the mouth and advanced to the second portion of the duodenum. Retroflexion was performed and was normal and Retroflexed views revealed a hiatal hernia The gastroscope was then slowly withdrawn and removed. STOMACH: Multiple large non-bleeding, round and clean-based ulcers were found in the gastric antrum. Biopsies were taken at edge of the ulcers and at the center of the ulcers. DUODENUM: A large non-bleeding non-bleeding, irregular shaped and clean-based ulcer was found in the 2nd part of the duodenum. ADVERSE EVENTS: There were no complications. IMPRESSIONS: 1. Multiple large ulcers were found in the gastric antrum; biopsies were taken 2. Large non-bleeding ulcer was found in the 2nd part of the duodenum 3. Retroflexed views revealed a hiatal hernia RECOMMENDATIONS: 1. Await biopsy results. Biopsy results will not be ready for 7-10 days. If you don't hear from us in two weeks, call our office for biopsy results. 2. Continue PPI 3. Avoid NSAIDS PATIENT CONDITION: stable DISPOSITION: Observation REPEAT EXAM: NONE Rosenda Gallagher MD eSigned: Rosenda Gallagher MD 01/09/2018 1:07 PM cc: PATIENT NAME: Jose Francisco Eddy MR#: [id number]
[2018-01-09] MEDS: Potassium Chlor 10 mEq Premix 10 MEQ/100 ML PIGGYBACK IV.SIG SCH ×3 (13:48→15:48)
[2018-01-09] MEDS: Potassium Chloride Inj 10 MEQ in Dextrose 5% in Water Inj 1,000 ML IV.CONT SCH ×2 (17:21)
--- NOTE | 2018-01-09 17:24 | P.PNIM ---
Subjective Interval history: Patient reports that abdominal discomfort continue same as yesterday. Denies any chest pain or shortness of breath. Physical Exam Vital signs: Vital Signs 01/08/18 18:54 01/08/18 19:59 01/08/18 20:00 Temperature 98.3 F Pulse Rate 120 H 105 H 104 H Respiratory Rate 28 H 20 32 H Blood Pressure 141/94 H Pulse Oximetry 99 97 01/08/18 20:44 01/08/18 21:00 01/08/18 21:31 Temperature Pulse Rate 113 H 108 H 122 H Respiratory Rate 33 H 19 30 H Blood Pressure 165/109 H 160/101 H 169/95 H Pulse Oximetry 100 100 01/08/18 22:00 01/08/18 22:30 01/08/18 23:00 Temperature Pulse Rate 116 H 106 H 103 H Respiratory Rate 19 22 21 Blood Pressure 160/95 H 149/90 H 158/97 H Pulse Oximetry 96 100 100 01/08/18 23:30 01/09/18 00:00 01/09/18 00:30 Temperature 98.1 F Pulse Rate 109 H 114 H 108 H Respiratory Rate 17 29 H 22 Blood Pressure 163/81 H 159/104 H 150/101 H Pulse Oximetry 98 97 99 01/09/18 00:33 01/09/18 00:49 01/09/18 01:00 Temperature Pulse Rate 108 H 110 H 111 H Respiratory Rate 19 17 17 Blood Pressure 145/103 H 155/96 H Pulse Oximetry 98 98 95 01/09/18 01:30 01/09/18 02:00 01/09/18 02:30 Temperature Pulse Rate 108 H 108 H 104 H Respiratory Rate 16 17 17 Blood Pressure 148/93 H 139/83 147/93 H Pulse Oximetry 98 97 98 01/09/18 03:00 01/09/18 04:00 01/09/18 05:00 Temperature 98.0 F Pulse Rate 103 H 104 H 104 H Respiratory Rate 26 H 17 19 Blood Pressure 157/103 H 161/90 H 174/110 H Pulse Oximetry 100 98 100 01/09/18 05:31 01/09/18 05:41 01/09/18 05:42 Temperature Pulse Rate 105 H 99 H 100 H Respiratory Rate 20 31 H 31 H Blood Pressure 148/106 H 184/91 H Pulse Oximetry 100 100 01/09/18 05:47 01/09/18 06:00 01/09/18 07:00 Temperature Pulse Rate 104 H 100 H 112 H Respiratory Rate 23 26 H 24 Blood Pressure 145/93 H 150/103 H Pulse Oximetry 96 100 97 01/09/18 08:00 01/09/18 09:00 01/09/18 09:10 Temperature 98.4 F Pulse Rate 104 H 99 H 105 H Respiratory Rate 30 H 22 21 Blood Pressure 163/96 H 186/91 H Pulse Oximetry 100 100 100 01/09/18 10:00 01/09/18 10:02 01/09/18 10:58 Temperature 98.3 F Pulse Rate 102 H 103 H 94 H Respiratory Rate 31 H 26 H 22 Blood Pressure 163/98 H 166/87 H Pulse Oximetry 100 99 94 L 01/09/18 12:00 01/09/18 13:12 01/09/18 13:30 Temperature 98.1 F 98.1 F Pulse Rate 98 H 119 H 110 H Respiratory Rate 16 Blood Pressure 144/94 H 168/95 H 152/94 H Pulse Oximetry 98 99 01/09/18 13:36 01/09/18 14:00 01/09/18 15:00 Temperature Pulse Rate 118 H 114 H 103 H Respiratory Rate 19 18 27 H Blood Pressure 176/96 H 174/98 H 154/104 H Pulse Oximetry 100 97 97 01/09/18 15:02 01/09/18 15:08 01/09/18 16:00 Temperature 98.2 F Pulse Rate 103 H 104 H 115 H Respiratory Rate 26 H 30 H 21 Blood Pressure 176/101 H 160/93 H 168/103 H Pulse Oximetry 97 98 98 01/09/18 16:36 Temperature Pulse Rate 100 H Respiratory Rate 36 H Blood Pressure Pulse Oximetry 99 Intake & Output 01/08/18 01/09/18 01/09/18 18:59 06:59 18:59 Intake Total 2862.2 / 2862.2 2360 / 2360 2025.2 / 2025.2 Output Total 1000 / 1000 200 / 200 Balance 1862.2 / 1862.2 2160 / 2160 2025.2 / 2025.2 Weight 61 kg Intake: IV 2562.2 / 2562.2 1999 / 1999 1626.2 / 1626.2 KCl Inj 10 MEQ In 1/2 Normal 215 / 215 Saline Inj 1,000 ML @ 84 mls/hr IV.CONT .[id number] NILA Rx#: [id number] NS Inj 1,000 ML @ 124 mls/hr IV 1999 / 1999 600 / 600 .CONT .Q8H4M NILA Rx#:[id number] MVI-12 Inj 10 ML Thiamine Inj 511.2 / 511.2 511.2 / 511.2 100 MG Folvite Inj 1 MG In NS Inj 500 ML @ 127.8 mls/hr IV. SIG DAILY NILA Rx#:[id number] KCl 10 mEq Premix Inj 10 meq In 300 / 300 100 ml @ 100 mls/hr IV.SIG Q1H NILA Rx#:[id number] Oral 300 / 300 360 / 360 Anesthesia Amount 400 / 400 Output: Urine 1000 / 1000 200 / 200 Stool 0 / 0 Urine/Stool Mix 0 / 0 Emesis 0 / 0 Other: # Voids 1 3 # Incontinent Voids 3 Date of Last Bowel Movement 01/05/18 01/05/18 01/05/18 # Bowel Movements 0 0 # Incontinent Bowel Movements 0 # Emeses 0 Narrative: GENERAL: Patient sitting up in bed. Appears comfortable. Exam unchanged SKIN: Warm and dry. HEAD: Normocephalic. EYES: No scleral icterus. No injection or drainage. NECK: Supple, trachea midline. No JVD. CARDIOVASCULAR: Regular rate and rhythm without murmurs, gallops, or rubs. RESPIRATORY: Breath sounds equal bilaterally. No accessory muscle use. GASTROINTESTINAL: Abdomen soft, non-tender, nondistended. MUSCULOSKELETAL: No cyanosis, or edema. BACK: Nontender without obvious deformity. No CVA tenderness. Results - Labs CBC & Chem 7: 01/09/18 07:03 01/09/18 07:03 Laboratory Results - last 24 hr 01/08/18 01/09/18 01/09/18 23:48 05:51 07:03 WBC 4.8 RBC 2.73 L Hgb 9.4 L Hct 27.8 L MCV 101.6 H MCH 34.3 H MCHC 33.8 RDW 19.5 H Plt Count 110 L MPV 8.2 PT INR Sodium Potassium Chloride Carbon Dioxide Anion Gap BUN Creatinine Estimated GFR POC Glucose 120 H 93 Random Glucose Calcium Prot Corrected Calcium Phosphorus Magnesium Total Bilirubin AST ALT Alkaline Phosphatase Ammonia Total Protein Albumin 01/09/18 01/09/18 01/09/18 07:03 07:03 07:04 WBC RBC Hgb Hct MCV MCH MCHC RDW Plt Count MPV PT 10.7 INR 1.1 Sodium 147 H Potassium 3.1 L Chloride 118 H Carbon Dioxide 17.3 L Anion Gap 12 BUN 3 L Creatinine 0.39 L Estimated GFR Greater than 89 POC Glucose Random Glucose 103 Calcium 7.4 L* Prot Corrected Calcium 8.6 Phosphorus 3.5 Magnesium 1.7 Total Bilirubin 0.4 AST 22 ALT 12 Alkaline Phosphatase 87 Ammonia 26 Total Protein 4.9 L Albumin 1.9 L 01/09/18 11:26 WBC RBC Hgb Hct MCV MCH MCHC RDW Plt Count MPV PT INR Sodium Potassium Chloride Carbon Dioxide Anion Gap BUN Creatinine Estimated GFR POC Glucose 96 Random Glucose Calcium Prot Corrected Calcium Phosphorus Magnesium Total Bilirubin AST ALT Alkaline Phosphatase Ammonia Total Protein Albumin Assessment and Plan - Plan Assessment: 57yF with history of cirrhosis who presents with concern for upper GI bleeding. clinically stable. I agree with transfer to the floor. continue to monitor cbc. //Upper GI bleed - hold pharmacologic dvt prophylaxis - trend cbc - gi consulted - plan for EGD tomorrow 01/09. = 9/4. EGD with multiple nonbleeding peptic ulcers. Continue Protonix. //Anemia secondary to acute blood loss - trend - does not meet transfusion triggers at this time = 01/09 hemoglobin now 9.4 again. Stable. EGD with peptic ulcers as below. 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 = INR 1.1 again today. Much improved after vitamin K. //End stage liver disease secondary to etoh abuse - trend daily cmp - GI consulted //Hypernatremia. Sodium 147. Secondary to IV fluids. Will start on D5 fluids at low rate. Monitor. //DVT prophylaxis. SCDs. Discharge Planning: Transfer to floor. Case management consultation as patient will likely need SNF /rehab. PT following. Recommends rehab versus home with home health. Patient appears very weak may benefit from rehab
[2018-01-09] MEDS ORDERED: Potassium Chloride 25 MEQ Effervescent Tablet PO ONE (22:04)
[2018-01-10] MEDS: Pantoprazole Inj 40 MG Vial IV.PUSH SCH ×2 (02:07→13:45)
[2018-01-10] MEDS: Morphine Sulfate Inj 2 MG/ML Vial IV.PUSH PRN ×4 (03:27→20:13)
[2018-01-10] MEDS: Chlorhexidine Gluconate 2% 1 Pack (2 Cloths) TOPICAL SCH (04:00)
[2018-01-10 06:34] LABS: Hematocrit 29.5 % (35.0-46.0); Hemoglobin 9.7 gm/dL (11.6-15.3); Mean Corpuscular HGB Conc 32.9 % (32.0-36.0); Mean Corpuscular Hemoglobin 33.4 pg (27.0-34.0); Mean Corpuscular Volume 101.4 fL (80.0-100.0); Mean Platelet Volume 6.9 fL (7.0-11.0); Platelet Count 154 th/mm3 (150-450); Red Blood Count 2.91 mil/mm3 (4.00-5.30); Red Cell Distribution Width 19.8 % (11.6-17.2); White Blood Count 4.7 th/mm3 (4.0-11.0)
[2018-01-10 06:59] LABS: Prothrombin Time 10.5 sec (9.8-11.6)
[2018-01-10 07:03] LABS: Anion Gap 9 meq/L (5-15); Aspartate Aminotransferase 28 U/L (15-37); Blood Urea Nitrogen 3 mg/dL (7-18); Calcium 7.9 mg/dL (8.5-10.1); Carbon Dioxide 19.3 meq/L (21.0-32.0); Chloride 113 meq/L (98-107); Glomerular Filtration Rate Greater Than 89 mL/min (>89); Glucose,Random 104 mg/dL (74-106); Magnesium 1.6 mg/dL (1.5-2.5); Potassium 3.9 meq/L (3.5-5.1); Sodium 141 meq/L (136-145)
[2018-01-10 07:05] LABS: Alanine Aminotransferase 16 U/L (10-53)
[2018-01-10 07:07] LABS: Alkaline Phosphatase 90 U/L (45-117); Total Protein 5.2 g/dL (6.4-8.2)
[2018-01-10] MEDS: Senna/Docusate Sodium 8.6/50 MG Tablet PO SCH ×2 (08:30→20:13)
[2018-01-10] MEDS: Budesonide-Formoterol 160/4.5 MCG 6 GM Inhaler INH SCH ×2 (08:31→20:16)
[2018-01-10] MEDS: QUEtiapine 25 MG Tablet PO SCH ×2 (08:33→12:07)
[2018-01-10] MEDS: Multivitamin Inj 10 ML, Thiamine Inj 100 MG, Folic Acid Inj 1 MG in Sodium Chlor 0.9% I... IV.SIG SCH (08:56)
[2018-01-10] MEDS: LORazepam 1 MG Tablet PO PRN (09:04)
[2018-01-10] MEDS ORDERED: Mag Sulf 1 gm/100 ml Premix 100 ML IV.SIG ONE (15:31)
--- NOTE | 2018-01-10 15:32 | P.PNIM ---
Subjective Interval history: Patient says she is feeling right. Denies any chest pain shortness of breath. Reports abdominal discomfort continues stable from yesterday. Physical Exam Vital signs: Vital Signs 01/09/18 16:00 01/09/18 16:36 01/09/18 17:00 Temperature 98.2 F Pulse Rate 115 H 100 H 101 H Respiratory Rate 21 36 H 22 Blood Pressure 168/103 H 144/88 H Pulse Oximetry 98 99 100 01/09/18 18:00 01/09/18 19:00 01/09/18 19:48 Temperature Pulse Rate 109 H 110 H 126 H Respiratory Rate 25 H 29 H 35 H Blood Pressure 179/104 H 190/92 H 185/99 H Pulse Oximetry 94 L 99 01/09/18 20:00 01/09/18 20:02 01/09/18 20:04 Temperature 98.4 F Pulse Rate 108 H 103 H Respiratory Rate 27 H 20 Blood Pressure 150/82 H Pulse Oximetry 78 L 98 01/09/18 21:00 01/09/18 22:00 01/09/18 23:00 Temperature Pulse Rate 114 H 114 H 105 H Respiratory Rate 26 H 23 19 Blood Pressure 167/88 H 154/87 H 169/114 H Pulse Oximetry 99 100 95 01/09/18 23:06 01/09/18 23:17 01/10/18 00:00 Temperature 97.7 F Pulse Rate 101 H 98 H 110 H Respiratory Rate 15 14 20 Blood Pressure 193/121 H 163/104 H 171/111 H Pulse Oximetry 100 99 91 L 01/10/18 00:29 01/10/18 01:00 01/10/18 02:00 Temperature Pulse Rate 102 H 96 H 83 Respiratory Rate 20 16 16 Blood Pressure 148/96 H 126/76 117/74 Pulse Oximetry 99 97 100 01/10/18 03:00 01/10/18 03:41 01/10/18 04:00 Temperature 98.2 F Pulse Rate 78 95 H 91 H Respiratory Rate 15 18 19 Blood Pressure 127/81 157/97 H Pulse Oximetry 99 95 01/10/18 05:00 01/10/18 06:00 01/10/18 07:00 Temperature Pulse Rate 91 H 106 H 100 H Respiratory Rate 15 20 19 Blood Pressure 150/97 H 164/99 H 152/93 H Pulse Oximetry 99 99 94 L 01/10/18 07:17 01/10/18 07:49 01/10/18 08:00 Temperature 98.1 F Pulse Rate 92 H 102 H 88 Respiratory Rate 15 24 16 Blood Pressure 160/88 H Pulse Oximetry 98 97 99 01/10/18 09:11 01/10/18 11:26 01/10/18 12:00 Temperature 98.3 F Pulse Rate 106 H 102 H 101 H Respiratory Rate 24 18 22 Blood Pressure 130/86 Pulse Oximetry 100 Intake & Output 01/09/18 01/10/18 01/10/18 18:59 06:59 18:59 Intake Total 2026.2 / 2026.2 720 / 720 Output Total 250 / 250 500 / 500 800 / 800 Balance 1776.2 / 1776.2 220 / 220 -800 / -800 Weight 64.5 kg Intake: IV 1626.2 / 1626.2 KCl Inj 10 MEQ In 1/2 Normal 215 / 215 Saline Inj 1,000 ML @ 84 mls/hr IV.CONT .[id number] NILA Rx#: [id number] NS Inj 1,000 ML @ 124 mls/hr IV 600 / 600 .CONT .Q8H4M NILA Rx#:[id number] MVI-12 Inj 10 ML Thiamine Inj 511.2 / 511.2 100 MG Folvite Inj 1 MG In NS Inj 500 ML @ 127.8 mls/hr IV. SIG DAILY NILA Rx#:[id number] KCl 10 mEq Premix Inj 10 meq In 300 / 300 100 ml @ 100 mls/hr IV.SIG Q1H NILA Rx#:[id number] Oral 720 / 720 Anesthesia Amount 400 / 400 Output: Urine 250 / 250 500 / 500 800 / 800 Other: # Voids 2 Date of Last Bowel Movement 01/05/18 01/05/18 # Bowel Movements 0 Narrative: GENERAL: Patient sitting up in bed. Appears comfortable. Exam again unchanged SKIN: Warm and dry. HEAD: Normocephalic. EYES: No scleral icterus. No injection or drainage. NECK: Supple, trachea midline. No JVD. CARDIOVASCULAR: Regular rate and rhythm without murmurs, gallops, or rubs. RESPIRATORY: Breath sounds equal bilaterally. No accessory muscle use. GASTROINTESTINAL: Abdomen soft, non-tender, nondistended. MUSCULOSKELETAL: No cyanosis, or edema. BACK: Nontender without obvious deformity. No CVA tenderness. Results - Labs CBC & Chem 7: 01/10/18 06:10 01/10/18 06:10 Laboratory Results - last 24 hr 01/09/18 01/09/18 01/09/18 17:43 20:50 23:38 WBC RBC Hgb Hct MCV MCH MCHC RDW Plt Count MPV PT INR Sodium Potassium 3.2 L Chloride Carbon Dioxide Anion Gap BUN Creatinine Estimated GFR POC Glucose 97 205 H Random Glucose Calcium Phosphorus Magnesium Total Bilirubin AST ALT Alkaline Phosphatase Total Protein Albumin 01/10/18 01/10/18 01/10/18 06:10 06:10 06:10 WBC 4.7 RBC 2.91 L Hgb 9.7 L Hct 29.5 L MCV 101.4 H MCH 33.4 MCHC 32.9 RDW 19.8 H Plt Count 154 D MPV 6.9 L PT 10.5 INR 1.0 Sodium 141 Potassium 3.9 Chloride 113 H Carbon Dioxide 19.3 L Anion Gap 9 BUN 3 L Creatinine 0.40 L Estimated GFR Greater than 89 POC Glucose Random Glucose 104 Calcium 7.9 L Phosphorus 3.0 Magnesium 1.6 Total Bilirubin 0.4 AST 28 ALT 16 Alkaline Phosphatase 90 Total Protein 5.2 L Albumin 2.0 L 01/10/18 01/10/18 06:23 11:34 WBC RBC Hgb Hct MCV MCH MCHC RDW Plt Count MPV PT INR Sodium Potassium Chloride Carbon Dioxide Anion Gap BUN Creatinine Estimated GFR POC Glucose 100 109 Random Glucose Calcium Phosphorus Magnesium Total Bilirubin AST ALT Alkaline Phosphatase Total Protein Albumin Assessment and Plan - Plan Assessment: 57yF with history of cirrhosis who presents with concern for upper GI bleeding. clinically stable. I agree with transfer to the floor. continue to monitor cbc. //Upper GI bleed - hold pharmacologic dvt prophylaxis - trend cbc - gi consulted - plan for EGD tomorrow 01/09. = 01/09. EGD with multiple nonbleeding peptic ulcers. Continue Protonix. = 01/10. Switch Protonix to p.o. Transfer to floor. //Anemia secondary to acute blood loss - trend - does not meet transfusion triggers at this time = 01/09 hemoglobin now 9.4 again. Stable. EGD with peptic ulcers as below. = 01/10. Hemoglobin improving 9.7. Switch to p.o. PPI. 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 = INR 1. 0. Improved after vitamin K //End stage liver disease secondary to etoh abuse - trend daily cmp - GI consulted //Hypernatremia. Sodium 147. Secondary to IV fluids. Will start on D5 fluids at low rate. Monitor. //DVT prophylaxis. SCDs. Discharge Planning: Transfer to floor. = Patient will need SNF/rehab. PT following. Recommends rehab versus home with home health. Patient appears very weak may benefit from rehab
--- NOTE | 2018-01-10 17:17 | P.PNGI ---
Subjective Interval history: Resting in the bed still continues in the intensive care setting, having some obvious expiratory wheezing, history of COPD and tobacco use Still appears weak and fatigued, no obvious nausea or vomiting or obvious bleeding <Laurel Dixon M - Last Filed: 01/10/18 17:19> Physical Exam Vital signs: Vital Signs 01/09/18 18:00 01/09/18 19:00 01/09/18 19:48 Temperature Pulse Rate 109 H 110 H 126 H Respiratory Rate 25 H 29 H 35 H Blood Pressure 179/104 H 190/92 H 185/99 H Pulse Oximetry 94 L 99 01/09/18 20:00 01/09/18 20:02 01/09/18 20:04 Temperature 98.4 F Pulse Rate 108 H 103 H Respiratory Rate 27 H 20 Blood Pressure 150/82 H Pulse Oximetry 78 L 98 01/09/18 21:00 01/09/18 22:00 01/09/18 23:00 Temperature Pulse Rate 114 H 114 H 105 H Respiratory Rate 26 H 23 19 Blood Pressure 167/88 H 154/87 H 169/114 H Pulse Oximetry 99 100 95 01/09/18 23:06 01/09/18 23:17 01/10/18 00:00 Temperature 97.7 F Pulse Rate 101 H 98 H 110 H Respiratory Rate 15 14 20 Blood Pressure 193/121 H 163/104 H 171/111 H Pulse Oximetry 100 99 91 L 01/10/18 00:29 01/10/18 01:00 01/10/18 02:00 Temperature Pulse Rate 102 H 96 H 83 Respiratory Rate 20 16 16 Blood Pressure 148/96 H 126/76 117/74 Pulse Oximetry 99 97 100 01/10/18 03:00 01/10/18 03:41 01/10/18 04:00 Temperature 98.2 F Pulse Rate 78 95 H 91 H Respiratory Rate 15 18 19 Blood Pressure 127/81 157/97 H Pulse Oximetry 99 95 01/10/18 05:00 01/10/18 06:00 01/10/18 07:00 Temperature Pulse Rate 91 H 106 H 100 H Respiratory Rate 15 20 19 Blood Pressure 150/97 H 164/99 H 152/93 H Pulse Oximetry 99 99 94 L 01/10/18 07:17 01/10/18 07:49 01/10/18 08:00 Temperature 98.1 F Pulse Rate 92 H 102 H 88 Respiratory Rate 15 24 16 Blood Pressure 160/88 H Pulse Oximetry 98 97 99 01/10/18 09:11 01/10/18 11:26 01/10/18 12:00 Temperature 98.3 F Pulse Rate 106 H 102 H 101 H Respiratory Rate 24 18 22 Blood Pressure 130/86 Pulse Oximetry 100 01/10/18 16:27 Temperature Pulse Rate 103 H Respiratory Rate 20 Blood Pressure Pulse Oximetry 100 Intake & Output 01/09/18 01/10/18 01/10/18 18:59 06:59 18:59 Intake Total 2026.2 / 2026.2 720 / 720 511.2 / 511.2 Output Total 250 / 250 500 / 500 800 / 800 Balance 1776.2 / 1776.2 220 / 220 -288.8 / -288.8 Weight 64.5 kg Intake: IV 1626.2 / 1626.2 511.2 / 511.2 KCl Inj 10 MEQ In 1/2 Normal 215 / 215 Saline Inj 1,000 ML @ 84 mls/hr IV.CONT .[id number] NILA Rx#: [id number] NS Inj 1,000 ML @ 124 mls/hr IV 600 / 600 .CONT .Q8H4M NILA Rx#:[id number] MVI-12 Inj 10 ML Thiamine Inj 511.2 / 511.2 511.2 / 511.2 100 MG Folvite Inj 1 MG In NS Inj 500 ML @ 127.8 mls/hr IV. SIG DAILY NILA Rx#:[id number] KCl 10 mEq Premix Inj 10 meq In 300 / 300 100 ml @ 100 mls/hr IV.SIG Q1H NILA Rx#:[id number] Oral 720 / 720 Anesthesia Amount 400 / 400 Output: Urine 250 / 250 500 / 500 800 / 800 Other: # Voids 2 Date of Last Bowel Movement 01/05/18 01/05/18 # Bowel Movements 0 - Constitutional mild distress - Routine HEENT Exam ENT: Present: mucous membranes dry - Routine Respiratory Exam Present: accessory muscle use, wheezes - Routine Cardiovascular Exam Present: S1, S2 - Routine Abdominal Exam Present: distended (taut, soft BS) - Routine Skin Exam Present: pallor - Routine Neurological Exam Present: alert (Answering simple questions only) <Laurel Dixon - Last Filed: 01/10/18 17:19> Vital signs: Vital Signs 01/10/18 07:17 01/10/18 07:49 01/10/18 08:00 Temperature 98.1 F Pulse Rate 92 H 102 H 88 Respiratory Rate 15 24 16 Blood Pressure 160/88 H Pulse Oximetry 98 97 99 01/10/18 09:11 01/10/18 11:26 01/10/18 12:00 Temperature 98.3 F Pulse Rate 106 H 102 H 101 H Respiratory Rate 24 18 22 Blood Pressure 130/86 Pulse Oximetry 100 01/10/18 16:00 01/10/18 16:27 01/10/18 20:00 Temperature 98.2 F 98.8 F Pulse Rate 100 H 103 H 114 H Respiratory Rate 24 20 21 Blood Pressure 144/93 H 162/96 H Pulse Oximetry 98 100 89 L 01/10/18 21:55 01/10/18 22:24 01/11/18 00:00 Temperature 98.6 F Pulse Rate 108 H Respiratory Rate 17 18 Blood Pressure 180/97 H Pulse Oximetry 98 97 01/11/18 04:00 01/11/18 05:12 Temperature 97.7 F Pulse Rate 97 H Respiratory Rate 14 16 Blood Pressure 175/92 H Pulse Oximetry 96 Intake & Output 01/10/18 01/11/18 01/11/18 18:59 06:59 18:59 Intake Total 2171.2 / 2171.2 150 / 150 Output Total 2300 / 2300 600 / 600 Balance -128.8 / -128.8 -450 / -450 Weight 60.5 kg Intake: IV 1451.2 / 1451.2 KCl Inj 10 MEQ In D5W Inj 1,000 840 / 840 ML @ 35 mls/hr IV.CONT .Q24H NILA Rx#:[id number] Magnesium Sulfate 1 gm/D5W 100 100 / 100 ml Premix 100 ML @ 100 mls/hr IV.SIG ONCE ONE Rx#:[id number] MVI-12 Inj 10 ML Thiamine Inj 511.2 / 511.2 100 MG Folvite Inj 1 MG In NS Inj 500 ML @ 127.8 mls/hr IV. SIG DAILY NILA Rx#:[id number] Oral 720 / 720 150 / 150 Output: Urine 2300 / 2300 600 / 600 Other: # Bowel Movements 0 <Rosenda Gallagher A - Last Filed: 01/11/18 07:07> Results - Labs CBC & Chem 7: 01/10/18 06:10 01/10/18 06:10 Laboratory Results - last 24 hr 01/09/18 01/09/18 01/09/18 17:43 20:50 23:38 WBC RBC Hgb Hct MCV MCH MCHC RDW Plt Count MPV PT INR Sodium Potassium 3.2 L Chloride Carbon Dioxide Anion Gap BUN Creatinine Estimated GFR POC Glucose 97 205 H Random Glucose Calcium Phosphorus Magnesium Total Bilirubin AST ALT Alkaline Phosphatase Total Protein Albumin 01/10/18 01/10/18 01/10/18 06:10 06:10 06:10 WBC 4.7 RBC 2.91 L Hgb 9.7 L Hct 29.5 L MCV 101.4 H MCH 33.4 MCHC 32.9 RDW 19.8 H Plt Count 154 D MPV 6.9 L PT 10.5 INR 1.0 Sodium 141 Potassium 3.9 Chloride 113 H Carbon Dioxide 19.3 L Anion Gap 9 BUN 3 L Creatinine 0.40 L Estimated GFR Greater than 89 POC Glucose Random Glucose 104 Calcium 7.9 L Phosphorus 3.0 Magnesium 1.6 Total Bilirubin 0.4 AST 28 ALT 16 Alkaline Phosphatase 90 Total Protein 5.2 L Albumin 2.0 L 01/10/18 01/10/18 06:23 11:34 WBC RBC Hgb Hct MCV MCH MCHC RDW Plt Count MPV PT INR Sodium Potassium Chloride Carbon Dioxide Anion Gap BUN Creatinine Estimated GFR POC Glucose 100 109 Random Glucose Calcium Phosphorus Magnesium Total Bilirubin AST ALT Alkaline Phosphatase Total Protein Albumin <Laurel Dixon M - Last Filed: 01/10/18 17:19> - Labs CBC & Chem 7: 01/11/18 02:35 01/11/18 02:35 Laboratory Results - last 24 hr 01/10/18 01/10/18 01/10/18 06:10 11:34 18:26 WBC RBC Hgb Hct MCV MCH MCHC RDW Plt Count MPV PT INR Sodium Potassium Chloride Carbon Dioxide Anion Gap BUN Creatinine Estimated GFR POC Glucose 109 106 Random Glucose Calcium Phosphorus 3.0 Magnesium Total Bilirubin 0.4 AST ALT 16 Alkaline Phosphatase 90 Total Protein 5.2 L Albumin 01/10/18 01/11/18 01/11/18 23:43 02:35 02:35 WBC 4.4 RBC 2.82 L Hgb 9.6 L Hct 28.3 L MCV 100.1 H MCH 33.9 MCHC 33.9 RDW 19.3 H Plt Count 140 L MPV 7.5 PT 10.4 INR 1.0 Sodium Potassium Chloride Carbon Dioxide Anion Gap BUN Creatinine Estimated GFR POC Glucose 112 H Random Glucose Calcium Phosphorus Magnesium Total Bilirubin AST ALT Alkaline Phosphatase Total Protein Albumin 01/11/18 02:35 WBC RBC Hgb Hct MCV MCH MCHC RDW Plt Count MPV PT INR Sodium 143 Potassium 3.8 Chloride 113 H Carbon Dioxide 18.8 L Anion Gap 11 BUN 3 L Creatinine 0.40 L Estimated GFR Greater than 89 POC Glucose Random Glucose 101 Calcium 8.0 L Phosphorus 3.7 Magnesium 1.9 Total Bilirubin 0.3 AST 21 ALT 17 Alkaline Phosphatase 83 Total Protein 5.0 L Albumin 1.9 L <Rosenda Gallagher A - Last Filed: 01/11/18 07:07> Assessment and Plan - Plan Admission 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 Child's B Stable upper gastrointestinal Coagulopathy. 01/08/2018 patient remains in the intensive care setting. Current hemoglobin stable at 9.4 without any obvious bleeding. Unable to assess any symptoms at this time patient is lethargic and is receiving sedation meds. CIWA protocol in place. No obvious shortness of breath. Up-to-date per nurse, no family present. No obvious shortness of breath noted patient should be stable from a GI perspective for her EGD in the a.m.. If there are any acute changes in her status please notify GI. Coagulopathy now stable at INR 1.1 01/10/2018 current hemoglobin 9.7 no obvious bleeding nausea vomiting. Receiving respiratory treatments for expiratory wheezing. Continues in the intensive care setting patient is status post EGD on 01/09/2018 Findings include large ulcers in the gastric and duodenal area with hiatal hernia. Discussed with patient reflux precautions such as sitting had a better while eating, eating small food amounts, not eating late at night after her discharge, medication management, avoiding NSAIDs. Will need to monitor patient for the next few days for any changes in her hemoglobin or any obvious bleeding. PLAN: Diet per attending Monitor labs with special attention hemoglobin and any obvious bleeding, notify GI if any acute changes PPI Reflux precautions Reglan Bowel regimen, added MiraLAX daily Supportive care Patient was seen per myself and Dr. Gallagher, note was written on his behalf <Laurel Dixon - Last Filed: 01/10/18 17:19> - Attending Attestation Seen and discussed with staff. No signs of active bleeding, diet to be advanced as tolerated. Please notify us for bleeding, will sign off for now. <Rosenda Gallagher - Last Filed: 01/11/18 07:07>
[2018-01-10] MEDS: Potassium Chloride Inj 10 MEQ in Dextrose 5% in Water Inj 1,000 ML IV.CONT SCH ×2 (18:18)
[2018-01-10] MEDS: Polyethylene Glycol 3350 17 GM Packet PO SCH (18:30)
[2018-01-10] MEDS: Haloperidol Inj 5 MG/ML Ampul IV.PUSH PRN (23:42)
[2018-01-11 03:24] LABS: Hematocrit 28.3 % (35.0-46.0); Hemoglobin 9.6 gm/dL (11.6-15.3); Mean Corpuscular HGB Conc 33.9 % (32.0-36.0); Mean Corpuscular Hemoglobin 33.9 pg (27.0-34.0); Mean Corpuscular Volume 100.1 fL (80.0-100.0); Mean Platelet Volume 7.5 fL (7.0-11.0); Platelet Count 140 th/mm3 (150-450); Red Blood Count 2.82 mil/mm3 (4.00-5.30); Red Cell Distribution Width 19.3 % (11.6-17.2); White Blood Count 4.4 th/mm3 (4.0-11.0)
[2018-01-11 03:34] LABS: Prothrombin Time 10.4 sec (9.8-11.6)
[2018-01-11 03:55] LABS: Albumin 1.9 g/dL (3.4-5.0); Anion Gap 11 meq/L (5-15); Aspartate Aminotransferase 21 U/L (15-37); Blood Urea Nitrogen 3 mg/dL (7-18); Carbon Dioxide 18.8 meq/L (21.0-32.0); Chloride 113 meq/L (98-107); Glomerular Filtration Rate Greater Than 89 mL/min (>89); Magnesium 1.9 mg/dL (1.5-2.5); Potassium 3.8 meq/L (3.5-5.1); Sodium 143 meq/L (136-145)
[2018-01-11 04:02] LABS: Alanine Aminotransferase 17 U/L (10-53); Alkaline Phosphatase 83 U/L (45-117); Glucose,Random 101 mg/dL (74-106); Phosphorus 3.7 mg/dL (2.5-4.9)
[2018-01-11] MEDS: Morphine Sulfate Inj 2 MG/ML Vial IV.PUSH PRN ×4 (04:34→20:29)
[2018-01-11] MEDS: Budesonide-Formoterol 160/4.5 MCG 6 GM Inhaler INH SCH ×2 (08:29→22:32)
[2018-01-11] MEDS: Polyethylene Glycol 3350 17 GM Packet PO SCH (08:29)
[2018-01-11] MEDS: Senna/Docusate Sodium 8.6/50 MG Tablet PO SCH ×2 (08:29→20:25)
[2018-01-11] MEDS: QUEtiapine 25 MG Tablet PO SCH ×2 (08:35→12:59)
--- NOTE | 2018-01-11 18:34 | P.PNIM ---
Subjective Interval history: patient says shortness of breath has worsened since leaving the ICU. she denies any chest pain. I discussed with nursing and patient will be given DuoNeb treatment. Physical Exam Vital signs: Vital Signs 01/10/18 20:00 01/10/18 21:55 01/10/18 22:24 Temperature 98.8 F Pulse Rate 114 H Respiratory Rate 21 17 Blood Pressure 162/96 H Pulse Oximetry 89 L 98 01/11/18 00:00 01/11/18 04:00 01/11/18 05:12 Temperature 98.6 F 97.7 F Pulse Rate 108 H 97 H Respiratory Rate 18 14 16 Blood Pressure 180/97 H 175/92 H Pulse Oximetry 97 96 01/11/18 08:00 01/11/18 12:00 01/11/18 16:00 Temperature 97.5 F L 98.1 F 97.5 F L Pulse Rate 97 H 86 96 H Respiratory Rate 13 15 19 Blood Pressure 181/88 H 112/68 149/88 H Pulse Oximetry 99 98 99 01/11/18 16:33 Temperature Pulse Rate 105 H Respiratory Rate 18 Blood Pressure Pulse Oximetry 97 Intake & Output 01/10/18 01/11/18 01/11/18 18:59 06:59 18:59 Intake Total 2171.2 / 2171.2 150 / 150 985 / 985 Output Total 2300 / 2300 600 / 600 Balance -128.8 / -128.8 -450 / -450 985 / 985 Weight 60.5 kg Intake: IV 1451.2 / 1451.2 505 / 505 KCl Inj 10 MEQ In D5W Inj 1,000 840 / 840 505 / 505 ML @ 35 mls/hr IV.CONT .Q24H NILA Rx#:[id number] Magnesium Sulfate 1 gm/D5W 100 100 / 100 ml Premix 100 ML @ 100 mls/hr IV.SIG ONCE ONE Rx#:[id number] MVI-12 Inj 10 ML Thiamine Inj 511.2 / 511.2 100 MG Folvite Inj 1 MG In NS Inj 500 ML @ 127.8 mls/hr IV. SIG DAILY NILA Rx#:[id number] Oral 720 / 720 150 / 150 480 / 480 Output: Urine 2300 / 2300 600 / 600 Other: # Voids 2 # Bowel Movements 0 1 Narrative: GENERAL: Patient sitting up in bed. wheezing bilaterally.appears to be breathing comfortably however. SKIN: Warm and dry. HEAD: Normocephalic. EYES: No scleral icterus. No injection or drainage. NECK: Supple, trachea midline. No JVD. CARDIOVASCULAR: Regular rate and rhythm without murmurs, gallops, or rubs. RESPIRATORY: Breath sounds equal bilaterally. No accessory muscle use.wheezing bilaterally. GASTROINTESTINAL: Abdomen soft, non-tender, nondistended. MUSCULOSKELETAL: No cyanosis, or edema. BACK: Nontender without obvious deformity. No CVA tenderness. Results - Labs CBC & Chem 7: 01/11/18 02:35 01/11/18 02:35 Laboratory Results - last 24 hr 01/10/18 01/11/18 01/11/18 23:43 02:35 02:35 WBC 4.4 RBC 2.82 L Hgb 9.6 L Hct 28.3 L MCV 100.1 H MCH 33.9 MCHC 33.9 RDW 19.3 H Plt Count 140 L MPV 7.5 PT 10.4 INR 1.0 Sodium Potassium Chloride Carbon Dioxide Anion Gap BUN Creatinine Estimated GFR POC Glucose 112 H Random Glucose Calcium Phosphorus Magnesium Total Bilirubin AST ALT Alkaline Phosphatase Total Protein Albumin 01/11/18 01/11/18 01/11/18 02:35 07:13 12:37 WBC RBC Hgb Hct MCV MCH MCHC RDW Plt Count MPV PT INR Sodium 143 Potassium 3.8 Chloride 113 H Carbon Dioxide 18.8 L Anion Gap 11 BUN 3 L Creatinine 0.40 L Estimated GFR Greater than 89 POC Glucose 99 101 Random Glucose 101 Calcium 8.0 L Phosphorus 3.7 Magnesium 1.9 Total Bilirubin 0.3 AST 21 ALT 17 Alkaline Phosphatase 83 Total Protein 5.0 L Albumin 1.9 L Assessment and Plan - Plan Assessment: 57yF with history of cirrhosis who presents with concern for upper GI bleeding. clinically stable. I agree with transfer to the floor. continue to monitor cbc. //Upper GI bleed - hold pharmacologic dvt prophylaxis - trend cbc - gi consulted - plan for EGD tomorrow 01/09. = 01/09. EGD with multiple nonbleeding peptic ulcers. Continue Protonix. = 01/10. Switch Protonix to p.o. Transfer to floor. //Anemia secondary to acute blood loss - trend - does not meet transfusion triggers at this time = 01/09 hemoglobin now 9.4 again. Stable. EGD with peptic ulcers as below. = 01/10. Hemoglobin improving 9.7. Switch to p.o. PPI. 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 = INR 1. 0. Improved after vitamin K //End stage liver disease secondary to etoh abuse - trend daily cmp - GI consulted //Hypernatremia. Sodium 147. Secondary to IV fluids. Will start on D5 fluids at low rate. Monitor. //COPD. Patient uses inhaler at home. = 01/11. She should continue to receive duo nebs. //DVT prophylaxis. SCDs. Discharge Planning: Transfer to floor. = Patient will need SNF/rehab. PT following. Recommends rehab versus home with home health. Patient appears very weak may benefit from rehab. patient may not have insurance. Appreciate case management assistance.
[2018-01-12] MEDS: Morphine Sulfate Inj 2 MG/ML Vial IV.PUSH PRN ×6 (05:51→20:49)
[2018-01-12 06:19] LABS: Hematocrit 26.7 % (35.0-46.0); Mean Corpuscular HGB Conc 33.7 % (32.0-36.0); Mean Corpuscular Volume 100.9 fL (80.0-100.0); Mean Platelet Volume 7.5 fL (7.0-11.0); Platelet Count 163 th/mm3 (150-450); Red Blood Count 2.65 mil/mm3 (4.00-5.30); Red Cell Distribution Width 19.1 % (11.6-17.2); White Blood Count 3.7 th/mm3 (4.0-11.0)
[2018-01-12 06:24] LABS: INR 1.1 Ratio; Prothrombin Time 10.7 sec (9.8-11.6)
[2018-01-12 06:43] LABS: Albumin 1.8 g/dL (3.4-5.0); Anion Gap 10 meq/L (5-15); Aspartate Aminotransferase 22 U/L (15-37); Blood Urea Nitrogen 4 mg/dL (7-18); Carbon Dioxide 21.3 meq/L (21.0-32.0); Chloride 112 meq/L (98-107); Glomerular Filtration Rate Greater Than 89 mL/min (>89); Glucose,Random 85 mg/dL (74-106); Magnesium 1.6 mg/dL (1.5-2.5); Potassium 3.4 meq/L (3.5-5.1); Sodium 143 meq/L (136-145)
[2018-01-12 06:48] LABS: Alanine Aminotransferase 17 U/L (10-53); Alkaline Phosphatase 73 U/L (45-117); Phosphorus 4.3 mg/dL (2.5-4.9); Total Protein 4.9 g/dL (6.4-8.2)
[2018-01-12] MEDS: Senna/Docusate Sodium 8.6/50 MG Tablet PO SCH ×2 (09:03→20:50)
[2018-01-12] MEDS: Polyethylene Glycol 3350 17 GM Packet PO SCH (09:03)
[2018-01-12] MEDS: Budesonide-Formoterol 160/4.5 MCG 6 GM Inhaler INH SCH ×2 (09:06→20:50)
[2018-01-12] MEDS: QUEtiapine 25 MG Tablet PO SCH ×2 (09:06→11:54)
--- NOTE | 2018-01-12 10:05 | P.PNIM ---
Subjective Interval history: Patient says she is feeling a little better. Still not able to go home. He reports weakness is improving. Physical Exam Vital signs: Vital Signs 01/11/18 12:00 01/11/18 16:00 01/11/18 16:33 Temperature 98.1 F 97.5 F L Pulse Rate 86 96 H 105 H Respiratory Rate 15 19 18 Blood Pressure 112/68 149/88 H Pulse Oximetry 98 99 97 01/11/18 20:00 01/12/18 00:00 01/12/18 04:00 Temperature 97.5 F L 98.0 F 97.6 F Pulse Rate 90 98 H 64 Respiratory Rate 21 19 21 Blood Pressure 155/84 H 123/70 125/60 Pulse Oximetry 99 95 94 L 01/12/18 08:00 Temperature 97.9 F Pulse Rate 102 H Respiratory Rate 20 Blood Pressure 143/78 H Pulse Oximetry 98 Intake & Output 01/11/18 01/12/18 01/12/18 18:59 06:59 18:59 Intake Total 985 / 985 Balance 985 / 985 Weight 63.9 kg Intake: IV 505 / 505 KCl Inj 10 MEQ In D5W Inj 1,000 505 / 505 ML @ 35 mls/hr IV.CONT .Q24H NILA Rx#:[id number] Oral 480 / 480 Other: # Voids 2 # Incontinent Voids 1 Date of Last Bowel Movement 01/11/18 # Bowel Movements 1 Narrative: GENERAL: Patient sitting up in bed. Appears comfortable. SKIN: Warm and dry. HEAD: Normocephalic. EYES: No scleral icterus. No injection or drainage. NECK: Supple, trachea midline. No JVD. CARDIOVASCULAR: Regular rate and rhythm without murmurs, gallops, or rubs. RESPIRATORY: Breath sounds equal bilaterally. No accessory muscle use. breathing comfortably today GASTROINTESTINAL: Abdomen soft, non-tender, nondistended. MUSCULOSKELETAL: No cyanosis, or edema. BACK: Nontender without obvious deformity. No CVA tenderness. Results - Labs CBC & Chem 7: 01/12/18 04:59 01/12/18 04:59 Laboratory Results - last 24 hr 01/11/18 01/11/18 01/12/18 12:37 23:56 04:59 WBC 3.7 L RBC 2.65 L Hgb 9.0 L Hct 26.7 L MCV 100.9 H MCH 34.0 MCHC 33.7 RDW 19.1 H Plt Count 163 MPV 7.5 PT INR Sodium Potassium Chloride Carbon Dioxide Anion Gap BUN Creatinine Estimated GFR POC Glucose 101 93 Random Glucose Calcium Phosphorus Magnesium Total Bilirubin AST ALT Alkaline Phosphatase Total Protein Albumin 01/12/18 01/12/18 01/12/18 04:59 04:59 05:50 WBC RBC Hgb Hct MCV MCH MCHC RDW Plt Count MPV PT 10.7 INR 1.1 Sodium 143 Potassium 3.4 L Chloride 112 H Carbon Dioxide 21.3 Anion Gap 10 BUN 4 L Creatinine 0.40 L Estimated GFR Greater than 89 POC Glucose 161 H Random Glucose 85 Calcium 8.0 L Phosphorus 4.3 Magnesium 1.6 Total Bilirubin 0.4 AST 22 ALT 17 Alkaline Phosphatase 73 Total Protein 4.9 L Albumin 1.8 L Assessment and Plan - Plan Assessment: 57yF with history of cirrhosis who presents with concern for upper GI bleeding. clinically stable. I agree with transfer to the floor. continue to monitor cbc. //Upper GI bleed - hold pharmacologic dvt prophylaxis - trend cbc - gi consulted - plan for EGD tomorrow 01/09. = 01/09. EGD with multiple nonbleeding peptic ulcers. Continue Protonix. = 01/10. Switch Protonix to p.o. Transfer to floor. //Leukopenia. White count 3.7. Uncertain etiology. Will follow. //Anemia secondary to acute blood loss - trend - does not meet transfusion triggers at this time = 01/09 hemoglobin now 9.4 again. Stable. EGD with peptic ulcers as below. = 01/10. Hemoglobin improving 9.7. Switch to p.o. PPI. = 01/12. Hemoglobin 9.0, relatively stable. 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 = INR 1. 0. Improved after vitamin K //End stage liver disease secondary to etoh abuse - trend daily cmpstable. - GI has signed off. //Hypernatremia. -Sodium improved 143. Stable. Monitor. //COPD. Patient uses inhaler at home. = 01/11. She should continue to receive duo nebs. = 01/12. Respiratory status improved //DVT prophylaxis. SCDs. Discharge Planning: = Patient will need SNF/rehab. PT following. Recommends rehab versus home with home health. Patient appears very weak may benefit from rehab. patient may not have insurance. Appreciate case management assistance.
[2018-01-12] MEDS: LORazepam 1 MG Tablet PO PRN (20:49)
[2018-01-13] MEDS: Morphine Sulfate Inj 2 MG/ML Vial IV.PUSH PRN ×7 (00:03→22:10)
[2018-01-13] MEDS: Polyethylene Glycol 3350 17 GM Packet PO SCH (08:39)
[2018-01-13] MEDS: Senna/Docusate Sodium 8.6/50 MG Tablet PO SCH ×2 (08:40→20:06)
[2018-01-13] MEDS: Budesonide-Formoterol 160/4.5 MCG 6 GM Inhaler INH SCH ×2 (08:40→20:06)
[2018-01-13 09:20] LABS: Hematocrit 27.5 % (35.0-46.0); Hemoglobin 9.1 gm/dL (11.6-15.3); Mean Corpuscular HGB Conc 33.2 % (32.0-36.0); Mean Corpuscular Hemoglobin 33.9 pg (27.0-34.0); Mean Platelet Volume 7.9 fL (7.0-11.0); Platelet Count 188 th/mm3 (150-450); Red Cell Distribution Width 18.8 % (11.6-17.2); White Blood Count 4.4 th/mm3 (4.0-11.0)
[2018-01-13 09:22] LABS: Prothrombin Time 10.2 sec (9.8-11.6)
--- NOTE | 2018-01-13 09:30 | P.PNIM ---
Subjective Interval history: Patient says she is feeling all right. Denies any chest pain shortness of breath. Physical Exam Vital signs: Vital Signs 01/12/18 12:00 01/12/18 16:00 01/12/18 19:28 Temperature 98.3 F 98.1 F Pulse Rate 97 H 102 H Respiratory Rate 20 19 Blood Pressure 111/79 115/82 Pulse Oximetry 98 99 99 01/12/18 20:00 01/13/18 00:00 01/13/18 00:05 Temperature 97.9 F 97.7 F Pulse Rate 108 H 96 H 96 H Respiratory Rate 15 17 Blood Pressure 162/73 H 143/90 H Pulse Oximetry 98 98 01/13/18 04:00 01/13/18 08:00 Temperature 97.7 F 98.1 F Pulse Rate 100 H 103 H Respiratory Rate 18 18 Blood Pressure 154/96 H 135/87 Pulse Oximetry 97 98 Intake & Output 01/12/18 01/13/18 01/13/18 18:59 06:59 18:59 Intake Total 740 / 740 0 / 0 Output Total 0 / 0 Balance 740 / 740 0 / 0 Weight 63.2 kg Intake: Oral 740 / 740 0 / 0 Output: Urine 0 / 0 Other: # Voids 4 Date of Last Bowel Movement 01/12/18 # Bowel Movements 1 Narrative: GENERAL: Patient sitting up in bed. Appears comfortable. Oriented 3. SKIN: Warm and dry. HEAD: Normocephalic. EYES: No scleral icterus. No injection or drainage. NECK: Supple, trachea midline. No JVD. CARDIOVASCULAR: Regular rate and rhythm without murmurs, gallops, or rubs. RESPIRATORY: Breath sounds equal bilaterally. No accessory muscle use. breathing comfortably today GASTROINTESTINAL: Abdomen soft, non-tender, nondistended. MUSCULOSKELETAL: No cyanosis, or edema. BACK: Nontender without obvious deformity. No CVA tenderness. Results - Labs CBC & Chem 7: 01/13/18 06:25 01/12/18 04:59 Laboratory Results - last 24 hr 01/12/18 01/12/18 01/13/18 11:26 17:04 06:25 WBC 4.4 RBC 2.70 L Hgb 9.1 L Hct 27.5 L MCV 102.0 H MCH 33.9 MCHC 33.2 RDW 18.8 H Plt Count 188 MPV 7.9 PT INR POC Glucose 137 H 197 H 01/13/18 06:25 WBC RBC Hgb Hct MCV MCH MCHC RDW Plt Count MPV PT 10.2 INR 1.0 POC Glucose Assessment and Plan - Plan Assessment: 57yF with history of cirrhosis who presents with concern for upper GI bleeding. clinically stable. I agree with transfer to the floor. continue to monitor cbc. //Upper GI bleed - hold pharmacologic dvt prophylaxis - trend cbc - gi consulted - plan for EGD tomorrow 01/09. = 01/09. EGD with multiple nonbleeding peptic ulcers. Continue Protonix. = 01/10. Switch Protonix to p.o. Transfer to floor. = 01/13. Hemoglobin stable. //Leukopenia. White count 3.7. Uncertain etiology. Will follow. //Anemia secondary to acute blood loss - trend - does not meet transfusion triggers at this time = 01/09 hemoglobin now 9.4 again. Stable. EGD with peptic ulcers as below. = 01/10. Hemoglobin improving 9.7. Switch to p.o. PPI. = 01/12. Hemoglobin 9.0, relatively stable. = 01/13. Hemoglobin 9.1. Stable. 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 = INR 1.0. Improved after vitamin K //End stage liver disease secondary to etoh abuse - trend daily cmpstable. - GI has signed off. //Hypernatremia. -Sodium improved 143. Stable. Monitor. //COPD. Patient uses inhaler at home. = 01/11. She should continue to receive duo nebs. = 01/12. Respiratory status improved //ICU induced myopathy. Continue with physical therapy. Appreciate assistance. //DVT prophylaxis. SCDs. Discharge Planning: = Patient will need SNF/rehab. PT following. Recommends rehab versus home with home health. Patient appears very weak may benefit from rehab. patient may not have insurance. Appreciate case management assistance.
[2018-01-13 09:39] LABS: Albumin 1.8 g/dL (3.4-5.0); Anion Gap 10 meq/L (5-15); Aspartate Aminotransferase 23 U/L (15-37); Blood Urea Nitrogen 4 mg/dL (7-18); Calcium 8.2 mg/dL (8.5-10.1); Carbon Dioxide 21.3 meq/L (21.0-32.0); Chloride 112 meq/L (98-107); Glomerular Filtration Rate Greater Than 89 mL/min (>89); Glucose,Random 79 mg/dL (74-106); Magnesium 1.5 mg/dL (1.5-2.5); Potassium 3.5 meq/L (3.5-5.1); Sodium 143 meq/L (136-145)
[2018-01-13 09:40] LABS: Alanine Aminotransferase 15 U/L (10-53)
[2018-01-13 09:43] LABS: Alkaline Phosphatase 65 U/L (45-117); Phosphorus 3.8 mg/dL (2.5-4.9); Total Protein 4.9 g/dL (6.4-8.2)
[2018-01-13] MEDS: QUEtiapine 25 MG Tablet PO SCH ×2 (09:50→13:38)
[2018-01-14] MEDS: Morphine Sulfate Inj 2 MG/ML Vial IV.PUSH PRN ×3 (00:13→08:27)
[2018-01-14 07:12] LABS: Hematocrit 25.3 % (35.0-46.0); Hemoglobin 8.7 gm/dL (11.6-15.3); Mean Corpuscular HGB Conc 34.4 % (32.0-36.0); Mean Corpuscular Hemoglobin 33.9 pg (27.0-34.0); Mean Corpuscular Volume 98.5 fL (80.0-100.0); Mean Platelet Volume 7.3 fL (7.0-11.0); Platelet Count 210 th/mm3 (150-450); Red Blood Count 2.57 mil/mm3 (4.00-5.30); Red Cell Distribution Width 18.6 % (11.6-17.2); White Blood Count 3.7 th/mm3 (4.0-11.0)
[2018-01-14 07:16] LABS: INR 1.1 Ratio; Prothrombin Time 10.8 sec (9.8-11.6)
[2018-01-14 07:47] LABS: Alanine Aminotransferase 17 U/L (10-53); Albumin 1.7 g/dL (3.4-5.0); Anion Gap 8 meq/L (5-15); Aspartate Aminotransferase 25 U/L (15-37); Blood Urea Nitrogen 4 mg/dL (7-18); Calcium 7.7 mg/dL (8.5-10.1); Carbon Dioxide 24.2 meq/L (21.0-32.0); Chloride 111 meq/L (98-107); Glomerular Filtration Rate Greater Than 89 mL/min (>89); Glucose,Random 91 mg/dL (74-106); Magnesium 1.6 mg/dL (1.5-2.5); Phosphorus 3.7 mg/dL (2.5-4.9); Potassium 3.2 meq/L (3.5-5.1); Sodium 143 meq/L (136-145)
[2018-01-14 07:49] LABS: Alkaline Phosphatase 59 U/L (45-117); Total Protein 4.6 g/dL (6.4-8.2)
[2018-01-14] MEDS: Polyethylene Glycol 3350 17 GM Packet PO SCH (08:25)
[2018-01-14] MEDS: Senna/Docusate Sodium 8.6/50 MG Tablet PO SCH (08:28)
[2018-01-14] MEDS: QUEtiapine 25 MG Tablet PO SCH ×2 (08:28→13:56)
--- NOTE | 2018-01-14 09:16 | P.PNIM ---
Subjective Interval history: Patient says she is feeling right. Says she was able to walk to the bathroom and back. Says she feels like she might be able to go home tomorrow. Physical Exam Vital signs: Vital Signs 01/13/18 12:00 01/13/18 15:59 01/13/18 20:00 Temperature 98.1 F 98.3 F 97.7 F Pulse Rate 97 H 94 H 110 H Respiratory Rate 18 18 20 Blood Pressure 151/75 H 142/77 H 156/89 H Pulse Oximetry 97 99 98 01/13/18 22:10 01/14/18 00:00 01/14/18 00:21 Temperature 97.8 F Pulse Rate 102 H Respiratory Rate 16 20 9 L Blood Pressure 115/57 L Pulse Oximetry 91 L 01/14/18 04:00 01/14/18 08:00 Temperature 97.8 F 97.8 F Pulse Rate 104 H 96 H Respiratory Rate 18 18 Blood Pressure 144/98 H 161/97 H Pulse Oximetry 96 96 Intake & Output 01/13/18 01/14/18 01/14/18 18:59 06:59 18:59 Intake Total 980 / 980 480 / 480 Balance 980 / 980 480 / 480 Weight 64.2 kg Intake: Oral 980 / 980 480 / 480 Other: # Voids 4 1 Date of Last Bowel Movement 01/13/18 # Bowel Movements 1 Narrative: GENERAL: Patient sitting up in bed. Appears comfortable. Oriented 3. No change on exam. SKIN: Warm and dry. HEAD: Normocephalic. EYES: No scleral icterus. No injection or drainage. NECK: Supple, trachea midline. No JVD. CARDIOVASCULAR: Regular rate and rhythm without murmurs, gallops, or rubs. RESPIRATORY: Breath sounds equal bilaterally. No accessory muscle use. breathing comfortably today GASTROINTESTINAL: Abdomen soft, non-tender, nondistended. MUSCULOSKELETAL: No cyanosis, or edema. BACK: Nontender without obvious deformity. No CVA tenderness. Results - Labs CBC & Chem 7: 01/14/18 06:48 01/14/18 06:48 Laboratory Results - last 24 hr 01/13/18 01/13/18 01/13/18 06:25 06:25 06:25 WBC 4.4 RBC 2.70 L Hgb 9.1 L Hct 27.5 L MCV 102.0 H MCH 33.9 MCHC 33.2 RDW 18.8 H Plt Count 188 MPV 7.9 PT 10.2 INR 1.0 Sodium 143 Potassium 3.5 Chloride 112 H Carbon Dioxide 21.3 Anion Gap 10 BUN 4 L Creatinine 0.30 L Estimated GFR Greater than 89 Random Glucose 79 Calcium 8.2 L Phosphorus 3.8 Magnesium 1.5 Total Bilirubin 0.2 AST 23 ALT 15 Alkaline Phosphatase 65 Total Protein 4.9 L Albumin 1.8 L 01/14/18 01/14/18 01/14/18 06:48 06:48 06:48 WBC 3.7 L RBC 2.57 L Hgb 8.7 L Hct 25.3 L MCV 98.5 D MCH 33.9 MCHC 34.4 RDW 18.6 H Plt Count 210 MPV 7.3 PT 10.8 INR 1.1 Sodium 143 Potassium 3.2 L Chloride 111 H Carbon Dioxide 24.2 Anion Gap 8 BUN 4 L Creatinine 0.34 L Estimated GFR Greater than 89 Random Glucose 91 Calcium 7.7 L Phosphorus 3.7 Magnesium 1.6 Total Bilirubin 0.2 AST 25 ALT 17 Alkaline Phosphatase 59 Total Protein 4.6 L Albumin 1.7 L Assessment and Plan - Plan Assessment: 57yF with history of cirrhosis who presents with concern for upper GI bleeding. clinically stable. //Upper GI bleed - hold pharmacologic dvt prophylaxis - trend cbc - gi consulted - plan for EGD tomorrow 01/09. = 01/09. EGD with multiple nonbleeding peptic ulcers. Continue Protonix. = 01/10. Switch Protonix to p.o. Transfer to floor. = 01/14. Hemoglobin stable. //Leukopenia. White count 3.7. Uncertain etiology. Will follow. //Anemia secondary to acute blood loss - trend - does not meet transfusion triggers at this time = 01/09 hemoglobin now 9.4 again. Stable. EGD with peptic ulcers as below. = 01/10. Hemoglobin improving 9.7. Switch to p.o. PPI. = 01/12. Hemoglobin 9.0, relatively stable. = 01/13. Hemoglobin 9.1. Stable. = 01/14. Hemoglobin 8.7. Stable. 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 = INR 1.0. Improved after vitamin K. Expect to improve as patient will stop drinking alcohol. //End stage liver disease secondary to etoh abuse - trend daily cmpstable. - GI has signed off. //Hypernatremia. -Sodium improved 143. Stable. Monitor. //COPD. Patient uses inhaler at home. = 01/11. She should continue to receive duo nebs. = 01/12. Respiratory status improved //ICU induced myopathy. Continue with physical therapy. Appreciate assistance. //DVT prophylaxis. SCDs. Discharge Planning: = Patient recovering from ICU induced myopathy. Maybe can go home in the next 1 -2 days as strength improves. Will await reevaluation by physical therapy tomorrow morning. = Patient will need SNF/rehab. PT following. Recommends rehab versus home with home health. Patient appears very weak may benefit from rehab. patient may not have insurance. Appreciate case management assistance.
[2018-01-14] MEDS: Budesonide-Formoterol 160/4.5 MCG 6 GM Inhaler INH SCH ×2 (09:57→21:00)
[2018-01-14] MEDS: Magnesium Oxide 400 MG Tablet PO SCH (10:01)
[2018-01-14] MEDS: LORazepam 1 MG Tablet PO PRN (12:28)
[2018-01-14] MEDS: Acetaminophen 325 MG Tablet PO PRN (21:00)
[2018-01-15] MEDS: Acetaminophen 325 MG Tablet PO PRN ×4 (04:39→23:05)
[2018-01-15 05:04] LABS: Baso # (Auto) 0.1 th/mm3 (0.0-0.2); Baso % (Auto) 3.6 % (0.0-2.0); Eos # (Auto) 0.2 th/mm3 (0.0-0.4); Hematocrit 26.3 % (35.0-46.0); Hemoglobin 8.7 gm/dL (11.6-15.3); Lymph # (Auto) 1.8 th/mm3 (1.0-4.8); Lymph % (Auto) 44.6 % (9.0-44.0); Mean Corpuscular HGB Conc 33.2 % (32.0-36.0); Mean Corpuscular Hemoglobin 33.6 pg (27.0-34.0); Mean Corpuscular Volume 101.2 fL (80.0-100.0); Mean Platelet Volume 7.6 fL (7.0-11.0); Mono # (Auto) 0.4 th/mm3 (0.0-0.9); Mono % (Auto) 10.5 % (0.0-8.0); Neut # (Auto) 1.5 th/mm3 (1.8-7.7); Neut % (Auto) 36.3 % (16.0-70.0); Platelet Count 239 th/mm3 (150-450); Red Cell Distribution Width 18.5 % (11.6-17.2); White Blood Count 4.1 th/mm3 (4.0-11.0)
[2018-01-15 05:25] LABS: Albumin 1.9 g/dL (3.4-5.0); Anion Gap 8 meq/L (5-15); Blood Urea Nitrogen 4 mg/dL (7-18); Calcium 8.2 mg/dL (8.5-10.1); Carbon Dioxide 21.7 meq/L (21.0-32.0); Chloride 110 meq/L (98-107); Glomerular Filtration Rate Greater Than 89 mL/min (>89); Glucose,Random 85 mg/dL (74-106); Magnesium 1.6 mg/dL (1.5-2.5); Potassium 3.9 meq/L (3.5-5.1); Sodium 140 meq/L (136-145)
[2018-01-15] MEDS: Budesonide-Formoterol 160/4.5 MCG 6 GM Inhaler INH SCH ×2 (10:05→23:07)
--- NOTE | 2018-01-15 10:21 | P.PNIM ---
Subjective Interval history: Patient says she continues to feel weak. Had a mechanical fall yesterday with slight skin tear. Says she continues to have blood on toilet paper after wiping. Physical Exam Vital signs: Vital Signs 01/14/18 12:00 01/14/18 13:53 01/14/18 14:30 Temperature 98.2 F Pulse Rate 97 H 106 H Respiratory Rate 18 20 Blood Pressure 150/96 H Pulse Oximetry 96 95 96 01/14/18 14:43 01/14/18 15:05 01/14/18 15:28 Temperature 98.2 F 98.4 F Pulse Rate 105 H 101 H Respiratory Rate 20 18 Blood Pressure 150/96 H 143/89 H 143/89 H Pulse Oximetry 96 96 01/14/18 16:00 01/14/18 16:43 01/14/18 17:36 Temperature 98.2 F Pulse Rate 98 H 96 H Respiratory Rate 18 Blood Pressure 123/77 149/72 H 156/74 H Pulse Oximetry 96 99 99 01/14/18 20:00 01/15/18 00:00 01/15/18 04:00 Temperature 98.2 F 98.2 F 98.0 F Pulse Rate 113 H 92 H 102 H Respiratory Rate 18 18 18 Blood Pressure 175/92 H 157/75 H 157/92 H Pulse Oximetry 98 97 98 01/15/18 08:00 Temperature 98.3 F Pulse Rate 100 H Respiratory Rate 18 Blood Pressure 158/89 H Pulse Oximetry 98 Intake & Output 01/14/18 01/15/18 01/15/18 18:59 06:59 18:59 Intake Total 360 / 360 480 / 480 Output Total 3 / 3 Balance 357 / 357 480 / 480 Weight 63.3 kg Intake: Oral 360 / 360 480 / 480 Output: Stool 3 / 3 Other: # Voids 3 3 # Urine Diapers 4 Date of Last Bowel Movement 01/14/18 01/14/18 # Bowel Movements 2 0 Narrative: GENERAL: Patient sitting up in bed. Appears comfortable. Oriented 3. SKIN: Warm and dry. Small superficial skin tear not bleeding. HEAD: Normocephalic. EYES: No scleral icterus. No injection or drainage. NECK: Supple, trachea midline. No JVD. CARDIOVASCULAR: Regular rate and rhythm without murmurs, gallops, or rubs. RESPIRATORY: Breath sounds equal bilaterally. No accessory muscle use. breathing comfortably today GASTROINTESTINAL: Abdomen soft, non-tender, nondistended. MUSCULOSKELETAL: No cyanosis, or edema. BACK: Nontender without obvious deformity. No CVA tenderness. Results - Labs CBC & Chem 7: 01/15/18 04:30 01/15/18 04:30 Laboratory Results - last 24 hr 01/15/18 01/15/18 04:30 04:30 WBC 4.1 RBC 2.60 L Hgb 8.7 L Hct 26.3 L MCV 101.2 H MCH 33.6 MCHC 33.2 RDW 18.5 H Plt Count 239 MPV 7.6 Neut % (Auto) 36.3 Lymph % (Auto) 44.6 H [place] % (Auto) 10.5 H Eos % (Auto) 5.0 H Baso % (Auto) 3.6 H Neut # (Auto) 1.5 L Lymph # (Auto) 1.8 [place] # (Auto) 0.4 Eos # (Auto) 0.2 Baso # (Auto) 0.1 WBC Differential . Differential Comment Auto diff final Sodium 140 Potassium 3.9 Chloride 110 H Carbon Dioxide 21.7 Anion Gap 8 BUN 4 L Creatinine 0.34 L Estimated GFR Greater than 89 Random Glucose 85 Calcium 8.2 L Phosphorus 4.0 Magnesium 1.6 Albumin 1.9 L Assessment and Plan - Plan Assessment: 57yF with history of cirrhosis who presents with concern for upper GI bleeding. clinically stable. //Upper GI bleed - hold pharmacologic dvt prophylaxis - trend cbc - gi consulted - plan for EGD tomorrow 01/09. = 01/09. EGD with multiple nonbleeding peptic ulcers. Continue Protonix. = 01/10. Switch Protonix to p.o. Transfer to floor. = 01/14. Hemoglobin stable. = 01/15. Hemoglobin continues stable 8.7. //Leukopenia. White count 3.7. Uncertain etiology. Will follow. //Anemia secondary to acute blood loss - trend - does not meet transfusion triggers at this time = 01/09 hemoglobin now 9.4 again. Stable. EGD with peptic ulcers as below. = 01/10. Hemoglobin improving 9.7. Switch to p.o. PPI. = 01/12. Hemoglobin 9.0, relatively stable. = 01/13. Hemoglobin 9.1. Stable. = 01/14. Hemoglobin 8.7. Stable. 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 = INR 1.0. Improved after vitamin K. Expect to improve as patient will stop drinking alcohol. //End stage liver disease secondary to etoh abuse - trend daily cmpstable. - GI has signed off. //Hypernatremia. -Sodium improved 143. Stable. Monitor. //COPD. Patient uses inhaler at home. = 01/11. She should continue to receive duo nebs. = 01/12. Respiratory status improved //ICU induced myopathy. Continue with physical therapy. Appreciate assistance. -Ordered B12, vitamin D, iron studies. cont Therapy. //DVT prophylaxis. SCDs. Discharge Planning: = Patient recovering from ICU induced myopathy. Maybe can go home in the next 1 -2 days as strength improves. Will await reevaluation by physical therapy tomorrow morning. = Patient will need SNF/rehab. PT following. Recommends rehab versus home with home health. Patient appears very weak may benefit from rehab. patient may not have insurance. Appreciate case management assistance.
[2018-01-15] MEDS: Polyethylene Glycol 3350 17 GM Packet PO SCH (10:24)
[2018-01-15] MEDS: Magnesium Oxide 400 MG Tablet PO SCH (10:25)
[2018-01-15] MEDS: QUEtiapine 25 MG Tablet PO SCH ×2 (10:26→12:53)
[2018-01-15 11:31] LABS: % Iron Saturation 40.5 % (20-50); Iron 80 mcg/dL (50-170); Total Iron Binding Capacity 197 mcg/dL (250-450)
[2018-01-15 11:57] LABS: Ferritin 340 ng/mL (8-252); Vitamin B12 444 pg/mL (193-986)
[2018-01-16] MEDS: Budesonide-Formoterol 160/4.5 MCG 6 GM Inhaler INH SCH ×2 (08:36→20:57)
[2018-01-16] MEDS: Acetaminophen 325 MG Tablet PO PRN ×3 (08:36→22:05)
[2018-01-16] MEDS: Magnesium Oxide 400 MG Tablet PO SCH (08:36)
[2018-01-16] MEDS: Polyethylene Glycol 3350 17 GM Packet PO SCH (08:44)
[2018-01-16] MEDS: QUEtiapine 25 MG Tablet PO SCH ×2 (08:44→13:02)
--- NOTE | 2018-01-16 18:16 | P.PNIM ---
Subjective Interval history: patient says she is feeling okay. says her strength is improving. Says she would like to go home tomorrow. Physical Exam Vital signs: Vital Signs 01/15/18 20:00 01/15/18 20:15 01/16/18 00:00 Temperature 98 F 98 F 97.9 F Pulse Rate 106 H 106 H 105 H Respiratory Rate 18 18 17 Blood Pressure 168/98 H 168/98 H 148/76 H Pulse Oximetry 95 95 96 01/16/18 01:54 01/16/18 04:00 01/16/18 08:00 Temperature 97.4 F L 98.0 F Pulse Rate 106 H 109 H 101 H Respiratory Rate 18 20 Blood Pressure 153/79 H 169/81 H Pulse Oximetry 94 L 97 01/16/18 12:00 01/16/18 16:00 Temperature 97.9 F 98.1 F Pulse Rate 101 H 103 H Respiratory Rate 20 19 Blood Pressure 162/89 H 164/89 H Pulse Oximetry 99 99 Intake & Output 01/15/18 01/16/18 01/16/18 18:59 06:59 18:59 Intake Total 480 / 480 240 / 240 Output Total 850 / 850 Balance 480 / 480 -610 / -610 Weight 62.1 kg Intake: Oral 480 / 480 240 / 240 Output: Urine 850 / 850 Other: # Voids 3 Date of Last Bowel Movement 01/15/18 01/15/18 # Bowel Movements 0 Narrative: GENERAL: Patient sitting up in bed. Appears comfortable. Oriented 3. no change on exam. SKIN: Warm and dry. Small superficial skin tear not bleeding. HEAD: Normocephalic. EYES: No scleral icterus. No injection or drainage. NECK: Supple, trachea midline. No JVD. CARDIOVASCULAR: Regular rate and rhythm without murmurs, gallops, or rubs. RESPIRATORY: Breath sounds equal bilaterally. No accessory muscle use. GASTROINTESTINAL: Abdomen soft, non-tender, nondistended. MUSCULOSKELETAL: No cyanosis, or edema. BACK: Nontender without obvious deformity. No CVA tenderness. Results - Labs CBC & Chem 7: 01/15/18 04:30 01/15/18 04:30 Assessment and Plan - Plan Assessment: 57yF with history of cirrhosis who presents with concern for upper GI bleeding. clinically stable. //Upper GI bleed - hold pharmacologic dvt prophylaxis - trend cbc - gi consulted - plan for EGD tomorrow 01/09. = 01/09. EGD with multiple nonbleeding peptic ulcers. Continue Protonix. = 01/10. Switch Protonix to p.o. Transfer to floor. = 01/14. Hemoglobin stable. = 01/15. Hemoglobin continues stable 8.7. //Leukopenia. White count 3.7. Uncertain etiology. Will follow. //Anemia secondary to acute blood loss - trend - does not meet transfusion triggers at this time = 01/09 hemoglobin now 9.4 again. Stable. EGD with peptic ulcers as below. = 01/10. Hemoglobin improving 9.7. Switch to p.o. PPI. = 01/12. Hemoglobin 9.0, relatively stable. = 01/13. Hemoglobin 9.1. Stable. = 01/14. Hemoglobin 8.7. Stable. 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 = INR 1.0. Improved after vitamin K. Expect to improve as patient will stop drinking alcohol. //End stage liver disease secondary to etoh abuse - trend daily cmpstable. - GI has signed off. //Hypernatremia. -Sodium improved 143. Stable. Monitor. //COPD. Patient uses inhaler at home. = 01/11. She should continue to receive duo nebs. = 01/12. Respiratory status improved //ICU induced myopathy. Continue with physical therapy. Appreciate assistance. -Ordered B12, vitamin D, iron studies. cont Therapy. //hypovitaminosis D Vitamin D 14. We'll start replacement. we'll need to follow with primary care //DVT prophylaxis. SCDs. Discharge Planning: = Patient recovering from ICU induced myopathy. Maybe can go home in the next 1 -2 days as strength improves. Will await reevaluation by physical therapy tomorrow morning. = Patient will need SNF/rehab. PT following. Recommends rehab versus home with home health. Patient appears very weak may benefit from rehab. per discussion with physical therapy, patient may be appropriate for home.discharge home tomorrow morning.
[2018-01-17] MEDS: Acetaminophen 325 MG Tablet PO PRN ×2 (05:23→11:27)
--- NOTE | 2018-01-17 08:21 | P.PNIM ---
Subjective Interval history: Patient says she is feeling well. Denies any chest pain or shortness of breath. Says her strength is improving. Physical Exam Vital signs: Vital Signs 01/16/18 12:00 01/16/18 16:00 01/16/18 20:00 Temperature 97.9 F 98.1 F 97.7 F Pulse Rate 101 H 103 H 103 H Respiratory Rate 20 19 21 Blood Pressure 162/89 H 164/89 H 167/99 H Pulse Oximetry 99 99 98 01/17/18 00:00 01/17/18 04:00 Temperature 97.9 F 98.0 F Pulse Rate 93 H 99 H Respiratory Rate 18 19 Blood Pressure 162/90 H 148/84 H Pulse Oximetry 98 95 Intake & Output 01/16/18 01/17/18 01/17/18 18:59 06:59 18:59 Intake Total 480 / 480 900 / 900 Output Total 303 / 303 Balance 480 / 480 597 / 597 Intake: Oral 480 / 480 500 / 500 Anesthesia Amount 400 / 400 Output: Urine 300 / 300 Stool 3 / 3 Urine/Stool Mix 0 / 0 Emesis 0 / 0 Other: # Voids 4 2 Date of Last Bowel Movement 01/15/18 # Bowel Movements 0 # Incontinent Bowel Movements 0 # Emeses 0 Narrative: GENERAL: Patient sitting up in bed. Appears comfortable. Oriented 3. SKIN: Warm and dry. Small superficial skin tear not bleeding. HEAD: Normocephalic. EYES: No scleral icterus. No injection or drainage. NECK: Supple, trachea midline. No JVD. CARDIOVASCULAR: Regular rate and rhythm without murmurs, gallops, or rubs. RESPIRATORY: Breath sounds equal bilaterally. No accessory muscle use. GASTROINTESTINAL: Abdomen soft, non-tender, nondistended. MUSCULOSKELETAL: No cyanosis. +1 peripheral edema. No erythema or broken skin. BACK: Nontender without obvious deformity. No CVA tenderness. Results - Labs CBC & Chem 7: 01/15/18 04:30 01/15/18 04:30 Assessment and Plan - Plan Assessment: 57yF with history of cirrhosis who presents with concern for upper GI bleeding. clinically stable. //Upper GI bleed - hold pharmacologic dvt prophylaxis - trend cbc - gi consulted - plan for EGD tomorrow 01/09. = 01/09. EGD with multiple nonbleeding peptic ulcers. Continue Protonix. = 01/10. Switch Protonix to p.o. Transfer to floor. = 01/14. Hemoglobin stable. = 01/15. Hemoglobin continues stable 8.7. //Leukopenia. = Resolved. //Anemia secondary to acute blood loss - trend - does not meet transfusion triggers at this time = 01/09 hemoglobin now 9.4 again. Stable. EGD with peptic ulcers as below. = 01/10. Hemoglobin improving 9.7. Switch to p.o. PPI. = 01/12. Hemoglobin 9.0, relatively stable. = 01/13. Hemoglobin 9.1. Stable. = 01/15. Hemoglobin 8.7. Stable. 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 = INR 1.0. Improved after vitamin K. Expect to improve as patient will stop drinking alcohol. //End stage liver disease secondary to etoh abuse - trend daily cmpstable. - GI has signed off. //Hypernatremia. -Sodium improved 143. Stable. Monitor. //COPD. Patient uses inhaler at home. = 01/11. She should continue to receive duo nebs. = 01/12. Respiratory status improved //ICU induced myopathy. Continue with physical therapy. Appreciate assistance. -Ordered B12, vitamin D, iron studies. cont Therapy. //hypovitaminosis D Vitamin D 14. We'll start replacement. we'll need to follow with primary care. = Continue replacement and follow-up with primary care as outpatient. //DVT prophylaxis. SCDs. Discharge Planning: = Patient recovering from ICU induced myopathy. Maybe can go home in the next 1 -2 days as strength improves. Will await reevaluation by physical therapy tomorrow morning. = Patient will need SNF/rehab. PT following. Recommends rehab versus home with home health. Patient appears very weak may benefit from rehab. Home when cleared by physical therapy.
[2018-01-17] MEDS ORDERED: Furosemide 20 MG Tablet PO ONE (08:25)
--- NOTE | 2018-01-17 08:30 | P.DS ---
Date of admission: 01/06/18 01:55 Primary care physician: No Primary Care Physician Brief History from admission: 57-year-old female with alcoholic liver disease, however no documented varices, history of arthritis, asthma, bipolar disorder, anxiety, COPD, hypertension and chronic pancreatitis presents with episode of vomiting copious amount of fresh blood. Patient denies fever, chills, abdominal or chest pain, diarrhea or melanotic stool. Denies any change of appetite. DS: Medications - Discharge Medications Prescriptions: albuterol sulfate [Proventil HFA] 2 puff INHALATION Q4-6H PRN #1 inh PRN Reason: Shortness Of Breath Or Wheezing budesonide-formoterol [Symbicort] 2 puff INH BID #1 inh cholecalciferol (vitamin D3) [Vitamin D3] 5,000 unit PO DAILY 30 Days #30 tab folic acid 1 mg PO DAILY #30 tab furosemide [Lasix] 10 mg PO DAILY 30 Days #15 tab pantoprazole 40 mg PO BID #60 tab polyethylene glycol 3350 17 gm PO DAILY 30 Days each quetiapine 25 mg PO BID@0900,1200 #60 tab sennosides-docusate sodium [Senna Plus] 1 tab PO DAILY 30 Days #30 tab spironolactone 12.5 mg PO BID 30 Days #30 tab thiamine HCl (vitamin B1) 100 mg PO DAILY #30 tab DS: Summary Hospital Course: Patient received FFP, vitamin K on admission. Hemoglobin down to 8.7, however remained stable and patient did not require transfusion. Gastroenterology was consulted, patient underwent EGD which showed multiple nonbleeding peptic ulcers. Patient was continued on Protonix. Patient reports generalized weakness, likely secondary to alcohol-induced myopathy. Vitamin D was also found to be low at 14, and patient was started on vitamin D supplementation. She'll need to follow-up with gastroenterology, primary care as outpatient For problem-based summary from most recent progress note, please see below. Assessment: 57yF with history of cirrhosis who presents with concern for upper GI bleeding. clinically stable. //Upper GI bleed - hold pharmacologic dvt prophylaxis - trend cbc - gi consulted - plan for EGD tomorrow 01/09. = 01/09. EGD with multiple nonbleeding peptic ulcers. Continue Protonix. = 01/10. Switch Protonix to p.o. Transfer to floor. = 01/14. Hemoglobin stable. = 01/15. Hemoglobin continues stable 8.7. //Leukopenia. = Resolved. //Anemia secondary to acute blood loss - trend - does not meet transfusion triggers at this time = 01/09 hemoglobin now 9.4 again. Stable. EGD with peptic ulcers as below. = 01/10. Hemoglobin improving 9.7. Switch to p.o. PPI. = 01/12. Hemoglobin 9.0, relatively stable. = 01/13. Hemoglobin 9.1. Stable. = 01/15. Hemoglobin 8.7. Stable. 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 = INR 1.0. Improved after vitamin K. Expect to improve as patient will stop drinking alcohol. //End stage liver disease secondary to etoh abuse - trend daily cmpstable. - GI has signed off. //Hypernatremia. -Sodium improved 143. Stable. Monitor. //COPD. Patient uses inhaler at home. = 01/11. She should continue to receive duo nebs. = 01/12. Respiratory status improved //ICU induced myopathy. Continue with physical therapy. Appreciate assistance. -Ordered B12, vitamin D, iron studies. cont Therapy. //hypovitaminosis D Vitamin D 14. We'll start replacement. we'll need to follow with primary care. = Continue replacement and follow-up with primary care as outpatient. //DVT prophylaxis. SCDs. Discharge Planning: = Patient recovering from ICU induced myopathy. Maybe can go home in the next 1 -2 days as strength improves. Will await reevaluation by physical therapy tomorrow morning. = Patient will need SNF/rehab. PT following. Recommends rehab versus home with home health. Patient appears very weak may benefit from rehab. Home when cleared by physical therapy. - Time Spent with Patient Total time spent providing and/or coordinating discharge services: Greater than 30 minutes - Quality: VTE Deep Vein Thrombosis/Pulmonary Embolism Present on Admission: No Exam Vital signs: Vital Signs 01/16/18 12:00 01/16/18 16:00 01/16/18 20:00 Temperature 97.9 F 98.1 F 97.7 F Pulse Rate 101 H 103 H 103 H Respiratory Rate 20 19 21 Blood Pressure 162/89 H 164/89 H 167/99 H Pulse Oximetry 99 99 98 0912/18 00:00 01/17/18 04:00 Temperature 97.9 F 98.0 F Pulse Rate 93 H 99 H Respiratory Rate 18 19 Blood Pressure 162/90 H 148/84 H Pulse Oximetry 98 95 Intake & Output 01/16/18 01/17/18 01/17/18 18:59 06:59 18:59 Intake Total 480 / 480 900 / 900 Output Total 303 / 303 Balance 480 / 480 597 / 597 Intake: Oral 480 / 480 500 / 500 Anesthesia Amount 400 / 400 Output: Urine 300 / 300 Stool 3 / 3 Urine/Stool Mix 0 / 0 Emesis 0 / 0 Other: # Voids 4 2 Date of Last Bowel Movement 01/15/18 # Bowel Movements 0 # Incontinent Bowel Movements 0 # Emeses 0 Results Procedures completed during hospitalization: egd/colonoscopy. please see report Completed studies during hospitalization: Pending at discharge 01/09/18 14:26 Surgical [PTH] Routine - Impressions ITS Impressions Ankle X-Ray 01/05/18 22:14 CONCLUSION: Prominent soft tissue swelling. Chronic hypertrophic change at the posterior calcaneus. Chest X-Ray 01/05/18 22:14 CONCLUSION: Suspected mild atelectasis or consolidation at the left base. Discharge Plan - Discharge Disposition Patient Disposition: 01 Discharge Home - Discharge Condition Condition: Stable - Discharge Order Discharge Orders: Discharge Order (Routine); Ordered 01/17/18 Ordered By: Jos Ayala - Discharge Details Anticipated Discharge Date: 01/15/18 Discharge Comment: Discharge when cleared by physical therapy. - Physicians Team Primary Care Provider: Primary Care Physici,No Attending Provider: Jos Ayala Other Providers: Rosenda Gallagher MD
[2018-01-17] MEDS: Magnesium Oxide 400 MG Tablet PO SCH (08:31)
[2018-01-17] MEDS: Polyethylene Glycol 3350 17 GM Packet PO SCH (08:32)
[2018-01-17] MEDS: QUEtiapine 25 MG Tablet PO SCH ×2 (08:32→12:49)
[2018-01-17] MEDS: Budesonide-Formoterol 160/4.5 MCG 6 GM Inhaler INH SCH (08:32)
[2018-01-17] MEDS ORDERED: Spironolactone 25 MG Tablet PO SCH (09:00)
[2018-01-17 11:01] VITALS: RESP 20
[2018-01-17 18:02] VITALS: BP 131/62; PULSE 107; TEMP 98.3; O2SAT 97
== END 2018-01-17 13:45 | disposition home or self-care (01) ==
LOC: NEPC 19:59 → NEDA 01-06 01:55 → HIMC 01-06 04:00 → N04 01-11 14:34
PROVIDERS: ADMIT Internal Medicine; ATTEND Internal Medicine
PROC: PANENDO (2018-01-09 12:24)